=== PATIENT | female | born 1940 | race Caucasian/White ===

== ENCOUNTER → 2016-12-08 | Outpatient (CLI) | payer OTHER, MEDICARE ==
[~2016-12-08] MED LIST: ASPI-435 PO; BROM1SOL8 OPR; BSP5 PO; CLOP1TAB15 PO; CTP2 PO; CYM/60 PO; HYDR0.5T PO; LIDO2GEL9 TD; LOSA1TAB PO; MIRA1TAB3 PO; PRED1SUS3 OPR; RANI300T2 PO; SENNTAB23 PO; TOPI100T20 PO; ZCR20 PO
[2016-12-08 09:35] LABS: BASO ABS # 0.06 K/uL (0-0.2); COMPLETE YES; EOS % 3.4 %; HEMATOCRIT 41.9 % (37-47); IG% 0.2 %; MEAN CELL VOLUME 85.9 fL (80-100); MEAN CORPUSCULAR HEMOGLOBIN 26.6 pg (25-34); MEAN PLATELET VOLUME 9.7 fL (7.4-10.4); MONO % 6.3 %; NEUT % 60.1 %; PLATELET COUNT 214 K/uL (130-400); RED BLOOD COUNT 4.88 M/uL (4.2-5.4); WHITE BLOOD COUNT 6.21 K/uL (4.8-10.8)
[2016-12-08 09:59] LABS: ESTIMATED AVERAGE GLUCOSE 123 mg/dl; HA1C FLAG Normal (Normal)
[2016-12-08 10:21] LABS: ALT/SGPT 16 U/L (12-78); AST/SGOT 17 U/L (15-37); BLOOD UREA NITROGEN 14 mg/dl (7-18); BUN/CREATININE RATIO 9.5 (10-20); CARBON DIOXIDE 30 mmol/L (21-32); CHLORIDE 108 mmol/L (98-107); GLUCOSE 92 mg/dl (70-99); POTASSIUM 4.1 mmol/L (3.5-5.1); SODIUM 142 mmol/L (136-145)
[2016-12-08 10:27] LABS: RATIO 12.6 mcg/mg (0-30.0)
[2016-12-08 10:32] LABS: ALB/GLOB RATIO 0.9 (0.9-2); ALKALINE PHOSPHATASE 141 U/L (45-117); CHOLESTEROL 181 mg/dl (0-200); CHOLESTEROL/HDL RATIO 2.4; HDL CHOLESTEROL 77 mg/dl; LDL CHOLESTEROL CALCULATED 89 mg/dl; TRIGLYCERIDES 73 mg/dl (0-150); VERY LOW DENSITY LIPOPROT CALC 15 mg/dl
== END | disposition home or self-care (01) ==
LOC: C.LAB1850 08:30
PROVIDERS: ATTEND Nurse Practitioner Adult Health
DX: E11.9 Type 2 diabetes mellitus without complications (principal)

== ENCOUNTER → 2017-01-15 | Outpatient (CLI) | payer OTHER, MEDICARE ==
[2017-01-15 10:12] LABS: BASO % 0.5 %; BASO ABS # 0.03 K/uL (0-0.2); COMPLETE YES; EOS % 4.7 %; HEMATOCRIT 40.1 % (37-47); IG% 0.2 %; LYMPH % 25.6 %; LYMPH ABS # 1.53 K/uL (1.2-3.4); MEAN CELL VOLUME 87.7 fL (80-100); MEAN CORPUSCULAR HEMOGLOBIN 27.4 pg (25-34); MEAN CORPUSCULAR HGB CONC 31.2 g/dl (32-36); MEAN PLATELET VOLUME 10.5 fL (7.4-10.4); MONO % 6.9 %; NEUT % 62.1 %; PLATELET COUNT 184 K/uL (130-400); RED BLOOD COUNT 4.57 M/uL (4.2-5.4); WHITE BLOOD COUNT 5.98 K/uL (4.8-10.8)
[2017-01-15 11:04] LABS: BLOOD UREA NITROGEN 14 mg/dl (7-18); BUN/CREATININE RATIO 10.8 (10-20); CALCIUM 8.2 mg/dl (8.5-10.1); CARBON DIOXIDE 30 mmol/L (21-32); CHLORIDE 106 mmol/L (98-107); GLUCOSE 90 mg/dl (70-99); MAGNESIUM 2.3 mg/dl (1.8-2.4); PHOSPHORUS 3.4 mg/dl (2.5-4.9); POTASSIUM 4.5 mmol/L (3.5-5.1); SODIUM 143 mmol/L (136-145)
== END | disposition home or self-care (01) ==
LOC: C.LAB1850 09:13
PROVIDERS: ATTEND Internal Medicine Nephrology
DX: N18.3 Chronic kidney disease, stage 3 (moderate) (principal)

== ENCOUNTER → 2017-05-31 | Outpatient (CLI) | payer OTHER, MEDICARE ==
--- NOTE | 2017-06-01 13:43 | MAMMOGRAPHY REPORT ---
UNILATERAL LEFT DIGITAL SCREENING MAMMOGRAM TOMOSYNTHESIS WITH CAD: 05/31/2017 CLINICAL HISTORY: Asymptomatic. Personal history of breast cancer. TECHNIQUE: Breast tomosynthesis in addition to standard 2D mammography was performed. Current study was also evaluated with a Computer Aided Detection (CAD) system. COMPARISON: Comparison is made to exams dated: 01/20/2016 mammogram, 09/08/2014 mammogram, and 1 mammogram - [facility]. BREAST COMPOSITION: There are scattered areas of fibroglandular density in the left breast. FINDINGS: No suspicious masses, calcifications, or areas of architectural distortion are noted within the left breast. There has been no significant interval change compared to prior exams. Scattered benign-appearing calcifications are not significantly changed. IMPRESSION: ACR BI-RADS CATEGORY 2: BENIGN There is no mammographic evidence of malignancy in the left breast. A 1 year screening mammogram is r ecommended. The patient will receive written notification of the results. Approximately 10% of breast cancers are not detected with mammography. A negative mammographic report should not delay biopsy if a clinically suggestive mass is present. Alida Nieto M.D. /:05/31/2017 14:54:50 [employer] Machine Tender: Molly Hannon [facility] letter sent: Normal 1/2 BI-RADS Code: ACR BI-RADS Category 2: Benign
== END | disposition home or self-care (01) ==
LOC: C.MAMM 14:03
PROVIDERS: ATTEND Nurse Practitioner Adult Health
DX: Z12.31 Encounter for screening mammogram for malignant neoplasm of breast (principal); Z08 Encounter for follow-up examination after completed treatment for malignant neoplasm; Z85.3 Personal history of malignant neoplasm of breast

== ENCOUNTER → 2017-06-26 | Outpatient (CLI) | payer OTHER, MEDICARE ==
[2017-06-26 12:41] LABS: BLOOD UREA NITROGEN 14 mg/dl (7-18); BUN/CREATININE RATIO 10.1 (10-20); CALCIUM 8.8 mg/dl (8.5-10.1); CARBON DIOXIDE 28 mmol/L (21-32); CHLORIDE 103 mmol/L (98-107); CREATININE 1.41 mg/dl (0.60-1.20); GLUCOSE 96 mg/dl (70-99); MAGNESIUM 2.1 mg/dl (1.8-2.4); POTASSIUM 4.4 mmol/L (3.5-5.1); SODIUM 137 mmol/L (136-145)
[2017-06-26 12:42] LABS: PHOSPHORUS 3.2 mg/dl (2.5-4.9)
== END | disposition home or self-care (01) ==
LOC: C.LAB1850 09:59
PROVIDERS: ATTEND Internal Medicine Nephrology
DX: I10 Essential (primary) hypertension (principal)

== ENCOUNTER → 2017-07-18 | Outpatient (CLI) | payer OTHER, MEDICARE ==
--- NOTE | 2017-07-18 11:24 | DIAGNOSTIC IMAGING REPORT ---
L SHOULDER MIN 2 VIEWS ROUTINE HISTORY: 76 years-old Female M25.512 Pain in joint of left [id number] COMPARISON: Chest radiographs 08/23/2011 TECHNIQUE: 3 views of the left shoulder FINDINGS: Bones are moderately demineralized. 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 4 mm bone fragment on the superior margin of the glenohumeral joint suggests possible fragmented osteophyte. There is no acute fracture or dislocation. Imaged left clavicle appears intact. The soft tissues and left lung appear unremarkable. Atherosclerosis of the aorta. IMPRESSION: 1. No acute fracture or dislocation. 2. Moderately demineralized bones. 3. 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 The above report was generated using voice recognition software. It may contain grammatical, syntax or spelling errors. Electronically signed by: David Hamlin M.D. 07/18/2017 11:22 AM Dictated Date/Time: 07/18/2017 11:20 AM
== END | disposition home or self-care (01) ==
LOC: C.RAD1850 10:54
PROVIDERS: ATTEND Nurse Practitioner Adult Health
DX: M25.512 Pain in left shoulder (principal)

== ENCOUNTER → 2017-09-12 | Outpatient (CLI) | payer OTHER, MEDICARE ==
[2017-09-12 14:50] LABS: ALBUMIN 3.2 gm/dl (3.4-5.0); BLOOD UREA NITROGEN 12 mg/dl (7-18); CALCIUM 8.7 mg/dl (8.5-10.1); CARBON DIOXIDE 28 mmol/L (21-32); CREATININE 1.39 mg/dl (0.60-1.20); GLUCOSE 133 mg/dl (70-99); POTASSIUM 4.3 mmol/L (3.5-5.1); SODIUM 138 mmol/L (136-145)
[2017-09-12 14:51] LABS: PHOSPHORUS 3.1 mg/dl (2.5-4.9)
== END | disposition home or self-care (01) ==
LOC: C.LAB1850 13:23
PROVIDERS: ATTEND Internal Medicine Nephrology
DX: N18.3 Chronic kidney disease, stage 3 (moderate) (principal)

== ENCOUNTER → 2017-11-05 | Outpatient (CLI) | payer OTHER, MEDICARE | END | disposition home or self-care (01) | LOC: C.PATHSPEC 16:57 | PROVIDERS: ATTEND Urology | DX: N39.41 Urge incontinence (principal) ==

== ENCOUNTER → 2017-11-14 | Outpatient (CLI) | payer OTHER, MEDICARE ==
[2017-11-14 11:09] LABS: ALBUMIN 3.2 gm/dl (3.4-5.0); ALT/SGPT 17 U/L (12-78); AST/SGOT 20 U/L (15-37); BLOOD UREA NITROGEN 13 mg/dl (7-18); CARBON DIOXIDE 29 mmol/L (21-32); CREATININE 1.36 mg/dl (0.60-1.20); GLUCOSE 94 mg/dl (70-99); POTASSIUM 4.2 mmol/L (3.5-5.1); SODIUM 137 mmol/L (136-145)
[2017-11-14 11:11] LABS: ALKALINE PHOSPHATASE 139 U/L (45-117); TOTAL PROTEIN 7.4 gm/dl (6.4-8.2)
== END | disposition home or self-care (01) ==
LOC: C.LAB 09:36
PROVIDERS: ATTEND Urology
DX: N39.41 Urge incontinence (principal)

== ENCOUNTER → 2018-03-19 | Outpatient (CLI) | payer OTHER, MEDICARE ==
[~2018-03-19] MED LIST changes: +ACET-1256 PO; -BROM1SOL8 OPR; -BSP5 PO; +BUSP-8 PO; +CALC0.2510 PO; +CIPR1TAB10 PO; +CLON0.2T PO; -CTP2 PO; +HYDR-5688 PO; -HYDR0.5T PO; +HYDR200T5 PO; -LIDO2GEL9 TD; -LOSA1TAB PO; +LOSA1TAB38 PO; -PRED1SUS3 OPR; -TOPI100T20 PO; +VSC/5 PO
--- NOTE | 2018-03-19 14:46 | DIAGNOSTIC IMAGING REPORT ---
RENAL ULTRASOUND CLINICAL HISTORY: Nephrolithiasis. COMPARISON STUDY: CT of the abdomen and pelvis November 26, 2017. TECHNIQUE: Sonography of the kidneys and the urinary bladder was performed. FINDINGS: Exam is compromised by suboptimal penetration related to body habitus. The right kidney measures 9.8 cm and the left measures 9 cm. There is no hydronephrosis. No calculi are identified by sonography. Both ureteral jets were identified. There is moderate renal cortical thinning. IMPRESSION: 1. No hydronephrosis. 2. No urinary calculi identified although sensitivity diminished given suboptimal penetration. Electronically signed by: Salty Byers M.D. 03/19/2018 2:45 PM Dictated Date/Time: 03/19/2018 2:44 PM
== END | disposition home or self-care (01) ==
LOC: C.ULTR 13:32
PROVIDERS: ATTEND Urology
DX: N20.0 Calculus of kidney (principal)

== ENCOUNTER → 2018-03-25 | Outpatient (CLI) | payer OTHER, MEDICARE ==
--- NOTE | 2018-03-25 14:46 | DIAGNOSTIC IMAGING REPORT ---
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 FINDINGS: The soft tissues, psoas shadows, renal outlines and intestinal gas pattern appear normal. There is no evidence for bowel obstruction. No abnormal abdominal calcifications are seen. Several surgical clips are present within the soft tissue pelvis. Moderate degenerative change of the hips bilaterally. IMPRESSION: No acute process. The above report was generated using voice recognition software. It may contain grammatical, syntax or spelling errors. Electronically signed by: Juni Beard M.D. 03/25/2018 2:45 PM Dictated Date/Time: 03/25/2018 2:44 PM
[2018-03-25 16:00] LABS: ALBUMIN 3.3 gm/dl (3.4-5.0); BLOOD UREA NITROGEN 14 mg/dl (7-18); CALCIUM 8.6 mg/dl (8.5-10.1); CARBON DIOXIDE 26 mmol/L (21-32); CREATININE 1.53 mg/dl (0.60-1.20); GLUCOSE 90 mg/dl (70-99); PHOSPHORUS 3.3 mg/dl (2.5-4.9); POTASSIUM 4.7 mmol/L (3.5-5.1); SODIUM 134 mmol/L (136-145)
== END | disposition home or self-care (01) ==
LOC: C.RAD1850 14:17
PROVIDERS: ATTEND Internal Medicine Nephrology
DX: N20.0 Calculus of kidney (principal); N18.3 Chronic kidney disease, stage 3 (moderate)

== ENCOUNTER 2019-01-18 15:39 | Inpatient (IN) ==
[2019-01-18] MEDS ORDERED: SODIUM CHLORIDE 0.9% 1000ML 1,000 ML IV SCH ×2 (16:45→23:45)
[2019-01-18 16:58] LABS: Basophils # (auto) 0.03 K/uL (0-0.2); Basophils % (auto) 0.4 %; Eosinophils # (auto) 0.28 K/uL (0-0.5); Eosinophils % (auto) 3.8 %; Hematocrit (blood only) 39.8 % (37-47); Hemoglobin 13.3 g/dL (12.0-16.0); Immature Granulocytes # (auto) 0.01 K/uL (0.00-0.02); Immature Granulocytes % (auto) 0.1 %; Lymphocytes # (auto) 1.92 K/uL (1.2-3.4); Lymphocytes % (auto) 26.1 %; Mean Corpuscular Hgb Conc 33.4 g/dL (32-36); Mean Corpuscular Volume 82.2 fL (80-100); Mean Platelet Volume 8.9 fL (7.4-10.4); Monocytes # (auto) 0.75 K/uL (0.11-0.59); Monocytes % (auto) 10.2 %; Neutrophils # (auto) 4.38 K/uL (1.4-6.5); Neutrophils % (auto) 59.4 %; Platelet Count 196 K/uL (130-400); RDW Coefficient of Variation 13.7 % (11.5-14.5); RDW Standard Deviation 41.3 fL (36.4-46.3); Red Blood Count 4.84 M/uL (4.2-5.4); White Blood Count 7.37 K/uL (4.8-10.8)
--- NOTE | 2019-01-18 16:59 | XRay Report ---
XR chest 1V portable CLINICAL HISTORY: 78 years-old Female presenting with weakness. TECHNIQUE: Portable upright AP view of the chest was obtained. COMPARISON: 02/07/2018. FINDINGS: Atherosclerosis of the aortic arch. Cardiac silhouette top normal in size. No focal opacity. No large effusion or pneumothorax. Surgical clips project over the right axilla. Relative radiolucency of the right lung may relate to postsurgical changes of the right breast. Degenerative changes of the thora cic spine. Degenerative changes of the shoulders. Upper abdomen normal. IMPRESSION: 1. No acute cardiopulmonary disease. Electronically signed by: Malcom Silvestre M.D. 01/18/2019 4:58 PM
[2019-01-18 17:23] LABS: Alanine Aminotransferase 14 U/L (12-78); Albumin Level 3.2 gm/dl (3.4-5.0); Aspartate Aminotransferase 14 U/L (15-37); BUN Creatinine Ratio 10.2 (10-20); Blood Urea Nitrogen 19 mg/dl (7-18); Carbon Dioxide 30 mmol/L (21-32); Chloride 102 mmol/L (98-107); Creatinine Clr Calc Pharmacy 27.4 ml/min; Est GFR (African American) 29.2; Est GFR (Non-African American) 25.2; Glucose 87 mg/dl (70-99); Magnesium 2.2 mg/dl (1.8-2.4); Potassium 4.3 mmol/L (3.5-5.1); Sodium 136 mmol/L (136-145)
[2019-01-18 17:34] LABS: Albumin Globulin Ratio 0.8 (0.9-2); Alkaline Phosphatase 111 U/L (45-117); Bilirubin,Total 0.5 mg/dl (0.2-1); Total Protein 7.2 gm/dl (6.4-8.2); Troponin I < 0.015 ng/ml (0-0.045)
--- NOTE | 2019-01-18 18:04 | Magnetic Resonance Report ---
MR brain wo con CLINICAL HISTORY: 78 years-old Female presenting with arm and leg numbness, hx of TIA, headache for 2 months, bilateral tingling and numbness in the arms and legs. TECHNIQUE: Multisequence, multiplanar MR imaging of the brain was performed without the use of intrav enous contrast. IV contrast: None. COMPARISON: Contrast-enhanced brain MR from 2014. FINDINGS: Localizer images: Unremarkable. Normal midline sagittal structures. Proportional ventricular and sulcal prominence, likely age-relate d parenchymal volume loss. Incidental note made of cavum septi pellucidi. No restricted diffusion or hemorrhage. Periventricular and subcortical white matter T2/FLAIR hyperintensity, nonspecific but lik camryn indicative of chronic small vessel ischemic change. No mass effect or midline shift. No extra-axial fluid collection. T2 skull base flow voids preserved. Bone marrow signal intensity within the calvarium within normal limits. Mucosal thickening in paranas al sinuses, specifically in the left maxillary sinus and left frontal sinus. Restricted diffusion not ed in these regions. Thickening of the left max or sinus wall suggests chronicity. IMPRESSION: 1. No acute intracranial abnormality. 2. Chronic sinusitis of the left maxillary and left frontal sinuses with suspected superimposed acut e sinusitis. Electronically signed by: Malcom Silvestre M.D. 01/18/2019 6:03 PM
--- NOTE | 2019-01-18 18:45 | Magnetic Resonance Report ---
MR cervical spine wo con CLINICAL HISTORY: 78 years-old Female presenting with arm and leg numbness, neck pain. TECHNIQUE: Multisequence, multiplanar MR imaging of the cervical spine was performed without the use of intravenous contrast. IV contrast: None. COMPARISON: Cervical spine radiographs from 2014. FINDINGS: Localizer images: Unremarkable. Exaggerated thoracic kyphosis leading to slightly exaggerated cervical lordosis. Vertebral bodies kiera ntain normal height, alignment, and bone marrow signal intensity. Diffuse intervertebral disc desicca tion. Additional multilevel degenerative changes further detailed below: C2-3: Mild facet arthropathy and uncovertebral hypertrophy results in mild right neural foraminal nuno rowing. No significant spinal canal narrowing. C3-4: Disc osteophyte complex and uncovertebral hypertrophy results in mild effacement of the ventral thecal sac with minimal contouring deformity of the cord and mild right neural foraminal narrowing. C4-5: Disc osteophyte complex, facet arthropathy, ligamentum flavum thickening, and uncovertebral hyp ertrophy result in moderate effacement of both the ventral and dorsal thecal sac with flattening of t he spinal cord. No abnormal spinal cord signal at this level. Moderate to severe right and moderate l eft neural foraminal narrowing. C5-6: Vertebral disc height loss at C5-6 related to the presence of a disc osteophyte complex. There is partial osseous fusion across C5-6 along the right lateral margin. Disc osteophyte complex results in moderate to severe effacement of the ventral thecal sac with trace if any residual CSF. There is flattening of the spinal cord at this level. No gross evidence of abnormal signal intensity of the sp inal cord at this level or immediately above or below. There may be atrophy of the cord at C5-6. C6-7: A lesser degree of spinal canal effacement is noted at C6-7 secondary to mild disc bulge and fa cet arthropathy. Moderate stenosis both anteriorly and posteriorly with residual CSF and only mild co ntouring deformities of the cord. Spinal cord flattening and deformity is as mentioned above. Additionally, there is focal signal abnor mality within the spinal cord at the level of C2, which is located centrally and dorsally. No additio nal focal lesion is appreciated. No paraspinal muscle edema. No gross evidence of an epidural collect ion. Increased signal intensity within the regi may relate to small vessel change. Remaining visualiz ed soft tissues within normal limits. IMPRESSION: 1. Moderate to severe spinal canal stenosis from C4-5 through C6-7. Spinal cord impingement is sugge sted at C5-6 with possible myelomalacia. No convincing evidence of spinal cord edema. Correlate clini colt for impingement symptoms. 2. Multilevel neural foraminal narrowing as above. 3. Focal abnormal signal intensity within the spinal cord at C2. This may represent a focal lesion o r short segment dilation of the central canal. Correlate with the patient has an underlying demyelina ting disease. Attention on follow-up. The report will be called/faxed according to standard departmental protocol. Electronically signed by: Malcom Silvestre M.D. 01/18/2019 6:44 PM
[2019-01-18 19:00] LABS: Appearance Urine Clear (Clear); Bacteria Urine Automated 2+ (Negative); Bilirubin Urine Negative (Negative); Blood Urine Negative (Negative); Color Urine Yellow; Epithelial Cell Urine Auto >30 /lpf (0-5); Glucose Urine UA Negative (Negative); Ketones Urine Negative (Negative); Leukocyte Esterase Urine 1+ (Negative); Nitrite Urine Negative (Negative); Protein Urine Negative (Negative); RBC Urine Automated 0-4 /hpf (0-4); Specific Gravity Urine 1.016 (1.000-1.030); Urobilinogen Urine Negative (Negative)
[2019-01-18] MEDS ORDERED: ACETAMINOPHEN 500 MG TAB PO STA (19:17)
[2019-01-18] MEDS ORDERED: DEXAMETHASONE **PF** INJ 10 MG/ML VIAL IV ONE (19:25)
[2019-01-18 21:04] LABS: Lyme Ab IgG w/WB Rflx Negative (Negative); Lyme Ab IgM w/WB Rflx Negative (Negative)
--- NOTE | 2019-01-18 22:51 | History & Physical Report ---
Date of Service January 18, 2019 Assessment & Plan (1) Cord compression myelopathy: Patient with numbness/tingling of bilateral UE and LE, MRI with canal stenosis with spinal cord impingement at C5-C6 with possible myelomalacia. No cord edema. Focal abnormal signal intensity at C2 - ?dilation of central canal. Patient describes subjective fevers, chills, aches and fatigue as well as transient blurry vision and pain with eye movement. ?demyelinating disease? Would not feel comfortable obtaining CSF in setting of acute cord impingement - may possibly be obtained intraoperatively? MRI brain WNL. -Admit to medical floor -Dexamethasone 10mg IV administered in ER, will continue with 8mg IV q 8 hours -Neuro checks q 4 hours -Consult Orthopedic Surgery - appreciate assistance with this case -Hold ASA and Plavix Present on Admission?: Yes (2) Spinal stenosis: As above -Orthopedic surgery consulted, possible OR on Sunday Present on Admission?: Yes (3) Diabetes: HgAIC=6.2 on 12/04/18. Patient presenlty not on any medications for DM. Blood sugar=87. She will be receiving high dose IV steroids -Blood sugar checks -Lantus 10u BID -ISS -CC diet as tolerated Present on Admission?: Yes (4) Hypertension: Blood pressure presently 152/65 -Continue Clonidine -Continue Losartan Present on Admission?: Yes (5) Dyslipidemia: Chronic -Continue Simvastatin Present on Admission?: Yes (6) Depression: Chronic -Continue Buspirone 10mg po BID -Continue Duloxetine 60mg po daily (7) Secondary hyperparathyroidism: Chronic -Continue Calcitriol 0.5mcg po daily (8) History of TIAs: Chronic -Holding ASA and Plavix due to need for surgery -Continue Simvastatin (9) Polyarthritis: Chronic. Stable -Continue Hydroxychloroquine (10) Urge incontinence: Chronic. Stable -Continue Myrbetriq and Solifenacin (11) CKD (chronic kidney disease): BUN and Cr near baseline. He follows with Nephrology routinely. Has history of staghorn calculi -Monitor BUN, Cr, electroytes and UOP -Renal dosing where appropriate -Avoid nephrotoxic agents F/E/N - NSS at 80mL/hr x 1 L, monitor electrolytes, CC diet as tolerated, continue colace at home dose Ppx - Cotinue Ranitidine Code - Full Dispo - Admit to medical floor History of Present Illness Chief Complaint: numbness/tingling arms and legs Primary Care Provider: Marlys Gil MD Madison Jacob is a pleasant 78yo C female with history of DM, HTN, HLP, spinal stenosis presenting with numbness, tingling and subjective weakness of bilateral UE and LE. Symptoms began acutely last night, 01/17/19. Patient also with complaint of fatigue over the last few days, subjective fevers/chills. She had transient blurry vision this AM when she woke up which has since resolved entirely. Also pain with eye movement. Denies trauma, falls. No recent travel, medication changes or vaccinations. She has had some mild URI symptoms of late. MRI obtained in the ER with C5-C7 ER Course: Tylenol, Dexamethasone 10mg IV, NSS Allergies Allergy/AdvReac Type Severity Reaction Status Date / Time HO Inhibitors Allergy Unknown ITCHING Verified 01/18/19 16:16 oxycodone AdvReac Mild CAUSES BE Verified 01/18/19 16:16 JITTERINESS & CAN'T EAT. ALSO CAUSES RLS SYMPTOMS Home Medications Home Medications Medication Instructions Recorded Confirmed Type aspirin 81 mg PO DAILY 01/18/19 01/18/19 History buspirone 10 mg PO BID 01/18/19 01/18/19 History calcitriol 0.5 mcg PO DAILY 01/18/19 01/18/19 History clonidine HCl 0.2 mg PO BID 01/18/19 01/18/19 History clopidogrel 75 mg PO DAILY 01/18/19 01/18/19 History docusate sodium 500 mg PO HS 01/18/19 01/18/19 History duloxetine 60 mg PO DAILY 01/18/19 01/18/19 History hydroxychloroquine 200 mg PO BID 01/18/19 01/18/19 History losartan 100 mg PO DAILY 01/18/19 01/18/19 History mirabegron [Myrbetriq] 50 mg PO DAILY 01/18/19 01/18/19 History ranitidine HCl 300 mg PO HS 01/18/19 01/18/19 History simvastatin 20 mg PO DAILY 01/18/19 01/18/19 History solifenacin 5 mg PO DAILY 01/18/19 01/18/19 History Past Med/Surg History Medical History History of TIAs (Chronic) Breast cancer (Chronic) Diabetes (Chronic) CKD (chronic kidney disease) Depression Dyslipidemia GERD (gastroesophageal reflux disease) History of hysterectomy Hypertension Hypothyroid Surgical History History of bilateral knee replacement History of mastectomy Family History Other Coronary heart disease Diabetes Social History Preferred Language: Bengali Feels Safe at Home: Yes Smoking Status: Never smoker Hx Alcohol Use: No Hx Substance Use: No Review of Systems Review of Systems: All systems reviewed & are unremarkable except as noted in HPI & below Physical Exam Physical Exam: General: elderly patient resting comfortably, NAD, non-toxic in appearance, AA&O x 4 Skin: warm, dry, intact, no rashes or lesions, scattered bruises on RLE and UE bilaterally HEENT: NC/AT, PERRL, EOMI, anicteric sclera, conjunctiva without injection, external ear normal to inspection and nontender, nares patent, moist mucus membranes, dentition intact, no oropharyngeal lesions, neck supple, trachea midline, no LAD, no thyromegaly, no JVD Heart: +S1/S2, regular, no r/g, +IGNACIO across precordium, surgical absence of right breast Lungs: equal air entry bilaterally, no rales/rhonchi/wheezes Abd: +BS, soft, NT/ND, no masses/organomegaly/ascites Ext: warm, 2+ pulses in UE/LE bilaterally, no clubbing/cyanosis or edema Neuro: AA&O x 4, no facial droop, speech clear, CN II - XII grossly intact with exception of decreased heartin R > L and mildly diminished strength right SCM, sensation to light touch diminished in UE and LE bilaterally, intact on torso, strength 5/5 in UE/LE bilaterally Results & Data Vital Signs (Past 12 Hours) Vital Signs Temp Pulse Pulse Resp BP BP Pulse Ox 01/18/19 22:25 72 20 161/76 H 94 01/18/19 20:20 66 23 152/65 H 01/18/19 19:43 68 22 99 01/18/19 18:47 61 18 95 01/18/19 15:59 66 20 151/55 H 98 01/18/19 15:40 37 C 69 18 183/75 H 98 Laboratory Results Lab Results 01/18/19 01/18/19 01/18/19 Range/Units 16:46 16:46 18:45 WBC 7.37 (4.8-10.8) K/uL RBC 4.84 (4.2-5.4) M/uL Hgb 13.3 (12.0-16.0) g/dL Hct 39.8 (37-47) % MCV 82.2 (80-100) fL MCH 27.5 (25-34) pg MCHC 33.4 (32-36) g/dL RDW Std Deviation 41.3 (36.4-46.3) fL RDW Coeff of [place] 13.7 (11.5-14.5) % Plt Count 196 (130-400) K/uL MPV 8.9 (7.4-10.4) fL Immature Gran % (Auto) 0.1 % Neut % (Auto) 59.4 % Lymph % (Auto) 26.1 % [place] % (Auto) 10.2 % Eos % (Auto) 3.8 % Baso % (Auto) 0.4 % Immature Gran # (Auto) 0.01 (0.00-0.02) K/uL Neut # (Auto) 4.38 (1.4-6.5) K/uL Lymph # (Auto) 1.92 (1.2-3.4) K/uL [place] # (Auto) 0.75 H (0.11-0.59) K/uL Eos # (Auto) 0.28 (0-0.5) K/uL Baso # (Auto) 0.03 (0-0.2) K/uL Sodium 136 (136-145) mmol/L Potassium 4.3 (3.5-5.1) mmol/L Chloride 102 (98-107) mmol/L Carbon Dioxide 30 (21-32) mmol/L Anion Gap 4.0 (3-11) BUN 19 H (7-18) mg/dl Creatinine 1.90 H (0.6-1.2) mg/dl Est Cr Clr Drug Dosing 27.4 ml/min Est GFR ( Amer) 29.2 Est GFR (Non-Af Amer) 25.2 BUN/Creatinine Ratio 10.2 (10-20) Glucose 87 (70-99) mg/dl Calcium 9.0 (8.5-10.1) mg/dl Magnesium 2.2 (1.8-2.4) mg/dl Total Bilirubin 0.5 (0.2-1) mg/dl AST 14 L (15-37) U/L ALT 14 (12-78) U/L Alkaline Phosphatase 111 (45-117) U/L Troponin I < 0.015 (0-0.045) ng/ml Total Protein 7.2 (6.4-8.2) gm/dl Albumin 3.2 L (3.4-5.0) gm/dl Globulin 4.0 (2.5-4.0) gm/dl Albumin/Globulin Ratio 0.8 L (0.9-2) TSH 4.040 (0.300-4.500) uIu/ml Urine Color Yellow Urine Appearance Clear (Clear) Urine pH 7.0 (4.5-7.5) Ur Specific [place] 1.016 (1.000-1.030) Urine Protein Negative (Negative) Urine Glucose (UA) Negative (Negative) Urine Ketones Negative (Negative) Urine Blood Negative (Negative) Urine Nitrite Negative (Negative) Urine Bilirubin Negative (Negative) Urine Urobilinogen Negative (Negative) Ur Leukocyte Esterase 1+ H (Negative) Urine WBC (Auto) 5-10 H (0-5) /hpf Urine RBC (Auto) 0-4 (0-4) /hpf U Hyaline Cast (Auto) 1-5 (0-5) /lpf U Epithel Cells (Auto) >30 H (0-5) /lpf Urine Bacteria (Auto) 2+ H (Negative) Lyme Disease IgG Ab (Negative) Lyme Disease IgM Ab (Negative) 01/18/19 Range/Units 19:40 WBC (4.8-10.8) K/uL RBC (4.2-5.4) M/uL Hgb (12.0-16.0) g/dL Hct (37-47) % MCV (80-100) fL MCH (25-34) pg MCHC (32-36) g/dL RDW Std Deviation (36.4-46.3) fL RDW Coeff of [place] (11.5-14.5) % Plt Count (130-400) K/uL MPV (7.4-10.4) fL Immature Gran % (Auto) % Neut % (Auto) % Lymph % (Auto) % [place] % (Auto) % Eos % (Auto) % Baso % (Auto) % Immature Gran # (Auto) (0.00-0.02) K/uL Neut # (Auto) (1.4-6.5) K/uL Lymph # (Auto) (1.2-3.4) K/uL [place] # (Auto) (0.11-0.59) K/uL Eos # (Auto) (0-0.5) K/uL Baso # (Auto) (0-0.2) K/uL Sodium (136-145) mmol/L Potassium (3.5-5.1) mmol/L Chloride (98-107) mmol/L Carbon Dioxide (21-32) mmol/L Anion Gap (3-11) BUN (7-18) mg/dl Creatinine (0.6-1.2) mg/dl Est Cr Clr Drug Dosing ml/min Est GFR ( Amer) Est GFR (Non-Af Amer) BUN/Creatinine Ratio (10-20) Glucose (70-99) mg/dl Calcium (8.5-10.1) mg/dl Magnesium (1.8-2.4) mg/dl Total Bilirubin (0.2-1) mg/dl AST (15-37) U/L ALT (12-78) U/L Alkaline Phosphatase (45-117) U/L Troponin I (0-0.045) ng/ml Total Protein (6.4-8.2) gm/dl Albumin (3.4-5.0) gm/dl Globulin (2.5-4.0) gm/dl Albumin/Globulin Ratio (0.9-2) TSH (0.300-4.500) uIu/ml Urine Color Urine Appearance (Clear) Urine pH (4.5-7.5) Ur Specific [place] (1.000-1.030) Urine Protein (Negative) Urine Glucose (UA) (Negative) Urine Ketones (Negative) Urine Blood (Negative) Urine Nitrite (Negative) Urine Bilirubin (Negative) Urine Urobilinogen (Negative) Ur Leukocyte Esterase (Negative) Urine WBC (Auto) (0-5) /hpf Urine RBC (Auto) (0-4) /hpf U Hyaline Cast (Auto) (0-5) /lpf U Epithel Cells (Auto) (0-5) /lpf Urine Bacteria (Auto) (Negative) Lyme Disease IgG Ab Negative (Negative) Lyme Disease IgM Ab Negative (Negative) Diagnostic Findings XR chest 1V portable CLINICAL HISTORY: 78 years-old Female presenting with weakness. TECHNIQUE: Portable upright AP view of the chest was obtained. COMPARISON: 02/07/2018. FINDINGS: Atherosclerosis of the aortic arch. Cardiac silhouette top normal in size. No focal opacity. No large effusion or pneumothorax. Surgical clips project over the right axilla. Relative radiolucency of the right lung may relate to postsurgical changes of the right breast. Degenerative changes of the thoracic spine. Degenerative changes of the shoulders. Upper abdomen normal. IMPRESSION: 1. No acute cardiopulmonary disease. Electronically signed by: Malcom Silvestre M.D. 01/18/2019 4:58 PM Dictated: 01/18/[id number] Transcribed: 01/18/191656 MR cervical spine wo con CLINICAL HISTORY: 78 years-old Female presenting with arm and leg numbness, neck pain. TECHNIQUE: Multisequence, multiplanar MR imaging of the cervical spine was performed without the use of intravenous contrast. IV contrast: None. COMPARISON: Cervical spine radiographs from 2013. FINDINGS: Localizer images: Unremarkable. Exaggerated thoracic kyphosis leading to slightly exaggerated cervical lordosis. Vertebral bodies maintain normal height, alignment, and bone marrow signal intensity. Diffuse intervertebral disc desiccation. Additional multilevel degenerative changes further detailed below: C2-3: Mild facet arthropathy and uncovertebral hypertrophy results in mild right neural foraminal narrowing. No significant spinal canal narrowing. C3-4: Disc osteophyte complex and uncovertebral hypertrophy results in mild effacement of the ventral thecal sac with minimal contouring deformity of the cord and mild right neural foraminal narrowing. C4-5: Disc osteophyte complex, facet arthropathy, ligamentum flavum thickening, and uncovertebral hypertrophy result in moderate effacement of both the ventral and dorsal thecal sac with flattening of the spinal cord. No abnormal spinal cord signal at this level. Moderate to severe right and moderate left neural foraminal narrowing. C5-6: Vertebral disc height loss at C5-6 related to the presence of a disc osteophyte complex. There is partial osseous fusion across C5-6 along the right lateral margin. Disc osteophyte complex results in moderate to severe effacement of the ventral thecal sac with trace if any residual CSF. There is flattening of the spinal cord at this level. No gross evidence of abnormal signal intensity of the spinal cord at this level or immediately above or below. There may be atrophy of the cord at C5-6. C6-7: A lesser degree of spinal canal effacement is noted at C6-7 secondary to mild disc bulge and facet arthropathy. Moderate stenosis both anteriorly and posteriorly with residual CSF and only mild contouring deformities of the cord. Spinal cord flattening and deformity is as mentioned above. Additionally, there is focal signal abnormality within the spinal cord at the level of C2, which is located centrally and dorsally. No additional focal lesion is appreciated. No paraspinal muscle edema. No gross evidence of an epidural collection. Increased signal intensity within the regi may relate to small vessel change. Remaining visualized soft tissues within normal limits. IMPRESSION: 1. Moderate to severe spinal canal stenosis from C4-5 through C6-7. Spinal cord impingement is suggested at C5-6 with possible myelomalacia. No convincing evidence of spinal cord edema. Correlate clinically for impingement symptoms. 2. Multilevel neural foraminal narrowing as above. 3. Focal abnormal signal intensity within the spinal cord at C2. This may represent a focal lesion or short segment dilation of the central canal. Correlate with the patient has an underlying demyelinating disease. Attention on follow-up. The report will be called/faxed according to standard departmental protocol. Electronically signed by: Malcom Silvestre M.D. 01/18/2019 6:44 PM Dictated: 01/[id number] Transcribed: 01/18/191835 MR brain wo con CLINICAL HISTORY: 78 years-old Female presenting with arm and leg numbness, hx of TIA, headache for 2 months, bilateral tingling and numbness in the arms and legs. TECHNIQUE: Multisequence, multiplanar MR imaging of the brain was performed without the use of intravenous contrast. IV contrast: None. COMPARISON: Contrast-enhanced brain MR from 2014. FINDINGS: Localizer images: Unremarkable. Normal midline sagittal structures. Proportional ventricular and sulcal prominence, likely age-related parenchymal volume loss. Incidental note made of cavum septi pellucidi. No restricted diffusion or hemorrhage. Periventricular and subcortical white matter T2/FLAIR hyperintensity, nonspecific but likely indicative of chronic small vessel ischemic change. No mass effect or midline shift. No extra-axial fluid collection. T2 skull base flow voids preserved. Bone marrow signal intensity within the calvarium within normal limits. Mucosal thickening in paranasal sinuses, specifically in the left maxillary sinus and left frontal sinus. Restricted diffusion noted in these regions. Thickening of the left max or sinus wall suggests chronicity. IMPRESSION: 1. No acute intracranial abnormality. 2. Chronic sinusitis of the left maxillary and left frontal sinuses with suspected superimposed acute sinusitis. Electronically signed by: Malcom Silvestre M.D. 01/18/2019 6:03 PM Dictated: [id number] Transcribed: 01/18/191758 ECG Additional Comments: The study shows NSR at 66bpm, left axis deviation, DP=146, QRS=88, LDd=190, no acute ischemic changes Code Status & VTE Plan Code Status FULL VTE Prophylaxis Plan Reason for no VTE drug order: Treatment not indicated Reason for no VTE mechanical prophylaxis: Treatment not indicated (1) Spinal stenosis Spinal region: cervical Qualified Code(s): M48.02 - Spinal stenosis, cervical region (2) Diabetes Diabetes mellitus type: type 2 Diabetes mellitus senior living insulin use: without bed bug exterminator use Diabetes mellitus complication status: without complication Qualified Code(s): E11.9 - Type 2 diabetes mellitus without complications (3) Hypertension Hypertension type: essential hypertension Qualified Code(s): I10 - Essential (primary) hypertension (4) Depression Depression Type: unspecified Qualified Code(s): F32.9 - Major depressive disorder, single episode, unspecified (5) CKD (chronic kidney disease) Chronic kidney disease stage: stage 2 (mild) Qualified Code(s): N18.2 - Chronic kidney disease, stage 2 (mild)
[2019-01-18] MEDS ORDERED: ONDANSETRON INJ 2 MG/ML 2 ML VIAL IV PRN (23:36)
[2019-01-18] MEDS ORDERED: GLUCAGON FOR INJ 1 MG VIAL SQ PRN (23:36)
[2019-01-18] MEDS ORDERED: GLUCOSE 10 TABS/TUBE PO PRN (23:36)
[2019-01-18] MEDS ORDERED: SODIUM CHLORIDE 0.65% NA SOLN 45 ML (OCEAN) PRN (23:36)
[2019-01-18] MEDS ORDERED: ACETAMINOPHEN 325 MG TAB PO PRN (23:36)
[2019-01-18] MEDS ORDERED: DEXTROSE 50% 50 ML SYRINGE IV PRN (23:36)
--- NOTE | 2019-01-19 01:17 | Emergency Department Note ---
Entered by Maddie Soto acting as a scribe for Kamaljit Salter MD ED Provider Note CHIEF COMPLAINT: constant bilateral arm and leg numbness HISTORY OF PRESENT ILLNESS: The patient is a 78 year old F who presents to the Emergency Room with complaints of constant bilateral arm and leg numbness that started 1 day ago. She adds that the numbness started last night. She describes her pain as pins and needles. She notes that the last time she experienced this numbness was when she had her previous TIA. She adds that that this numbness is different because during her last TIA, her numbness was only on one side. She notes that she has had 3 TIAs in the past. She states that she is currently experiencing left-sided neck stiffness that started earlier today when she laid down on her couch. She currently rates her neck pain as 4 out of 10. She states that she is also currently experiencing intermittent headaches, tongue numbness, abdominal pain, and light-headedness. She adds that her abdominal pain started after she had surgery to remove a kidney stone. She notes that her light-headedness is worsened when getting up. She states that she is currently on the blood thinning medication, Plavix. She denies any recent medication changes, having a pacemaker, or implanted metal. She also denies any recent falls. A review of the patients medical records shows that the patient had a brain MRI done in [address] Ji Bettencourt due to left-sided numbness after a TIA. The patients brain MRI was normal. Pt denies LOC, fevers, chills, diaphoresis, syncope, visual changes, chest pain, breathing difficulties, nausea, vomiting, back pain, melena, hematochezia, urinary symptoms, facial numbness, weakness, ringing in ears, lymphadenopathy, rash, or other complaints. REVIEW OF SYSTEMS: See HPI for pertinent positives and negatives. A total of ten systems were reviewed and were otherwise negative. PMHx/PSHx: TIAs, diabetes, bilateral total knee arthroplasty, breast cancer SOCIAL HISTORY: Patient lives at home. PHYSICAL EXAM: GENERAL: Awake, alert, well appearing, no distress HENT: Normocephalic, atraumatic. TM's normal. Oropharynx unremarkable. EYES: PERRL. EOMI. Normal conjunctiva. Sclera non-icteric. NECK: Supple. No nuchal rigidity. FROM. No bruit. RESPIRATORY: Breath sounds equal. No wheezes. No rhonchi. Normal respiratory effort. CARDIAC: Normal rate. Regular rhythm. No murmurs. No rubs. No JVD. GI: Soft, non distended. No tenderness to palpation. No rebound or guarding. No masses. RECTAL: Deferred. MUSCULOSKELETAL: Unremarkable. No edema. No discoloration. Gross motor strength symmetric. NEURO: Cranial nerves 2-12 grossly intact. Normal sensorium. No sensory or motor deficits noted except subjective tingling in arms and legs. Speech normal. No pronator drift. Normal OJNNA. No drift. Normal heel to dorsey. SKIN: No rash or jaundice noted. LYMPH: No adenopathy. EMERGENCY DEPARTMENT COURSE: 1625: Past medical records reviewed. The patient was evaluated in room A2, and a complete history and physical examination were performed. 1651: I re-checked the patient. She is resting comfortably. The patient is getting an MRI questionnaire done. The patient has an IV in place. 1912: I updated the patient on her test results. I will consult with neurology for the patient. 1919: I reviewed the patient's case with Dr. Kenny. He recommends giving the patient IV steroids, doing a lyme check, and consult ortho spine. 1927: Paged ortho spine. 1929: I re-checked the patient. 1945: I reviewed the patient's case with Dr. Padron, ortho spine. He states that the patient should be put on IV steroids. He states that the patient should be brought into the ED for 8 mg of decadron every 8 hours. He states that he will consult with the patient tomorrow. He adds that the patient's Plavix needs to be held because the patient might need surgical intervention. 1950: I reviewed the patient's case with Dr. Aracelis Proctor, [facility] Hospitalist. She will evaluate the patient for further management. 1953: I updated the patient on the plan. MEDICAL DECISION MAKING: Prior records/ancillary studies reviewed. Patient was diagnosed with TIAs in 2013. MR imaging negative. Nursing notes reviewed and agree them. Additional history obtained from family. The patient's history was concerning for numbness and neck pain. Differential diagnosis: Etiologies such as CVA, TIA, herniated cervical disc, epidural abscess, metabolic, infection, hypo/hyperglycemia, electrolyte abnormalities, cardiac sources, intracerebral event, toxicologic, neurologic, as well as others were entertained. Physical examination: As above. ER treatment provided: IV Lock Saline hydration Oral Tylenol IV Decadron On reassessment the patient felt better. Diagnostics interpretation by me: ECG: No acute findings. The labs revealed unremarkable CBC and chemistry panel. Slight increase in creatinine but not grossly abnormal. Imaging studies: MR imaging of the brain and cervical spine were significant for cervical pathology. Please see the report. Significant stenosis with cord impingement Consultation: A consultation was placed with Dr. Burden of neurology. The case was discussed. He agreed with steroids and recommended orthopedic spine consultation. A consultation was placed with Dr. Padron of orthopedic spine and he recommended IV Decadron 8 mg every 8 hours. The patient's Plavix should be held. She will likely need surgical decompression. He asked for the hospitalist to admit the patient. A consultation was placed with the hospitalist, Dr. Proctor. The case was discussed and diagnostics were reviewed. The patient was evaluated in the ER for further treatment. IMPRESSION: Severe spinal stenosis, cervical cord impingement, neck pain, extremity numbness PLAN: The patient is being admitted to the hospital. The scribe's documentation has been prepared under my direction and personally reviewed by me in its entirety. I confirm that the note above accurately reflects all work, treatment, procedures, and medical decision making performed by me. Impression & Plan Spinal stenosis, Cervical nerve root impingement, Neck pain Past Med/Surg History Medical History History of TIAs (Chronic) Breast cancer (Chronic) Diabetes (Chronic) CKD (chronic kidney disease) Depression Dyslipidemia GERD (gastroesophageal reflux disease) History of hysterectomy Hypertension Hypothyroid Surgical History History of bilateral knee replacement History of mastectomy Family History Other Coronary heart disease Diabetes Social History Preferred Language: Tajik Communication Ability: Effective Nurse Clinician Required: No Beliefs That Will Affect Care: None Current Living Situation: Family Current Living Situation Comment: 2 sons Feels Safe at Home: Yes Safety Concerns: Feels Safe At This Time Smoking Status: Never smoker Hx Alcohol Use: No Hx Substance Use: No Results & Data Vital Signs Vital Signs - 24 hr 01/18/19 15:40 01/18/19 15:59 01/18/19 18:38 Temperature 37 C Temperature Source Oral Sepsis Recent Fever Within 48 Hours No Sepsis Action Taken by Nursing No Action Required Pulse Rate - Lying 69 Pulse Rate - Sitting 80 Pulse Rate - Standing 78 Pulse Rate 69 Pulse Rate [Finger] 66 Respiratory Rate 18 20 Respiratory Effort / Characteristics Non-Labored Spontaneous Respiratory Depth Normal Respiratory Pattern Regular Blood Pressure - Lying 159/77 H Blood Pressure - Sitting 149/78 H Blood Pressure- Standing 145/71 H Blood Pressure 183/75 H Blood Pressure [Right Arm] 151/55 H Blood Pressure Mean 111 Blood Pressure Mean [Right Arm] 87 Pulse Oximetry 98 98 Oxygen Delivery Method Room Air Room Air 01/18/19 18:47 01/18/19 19:43 01/18/19 20:20 Temperature Temperature Source Sepsis Recent Fever Within 48 Hours Sepsis Action Taken by Nursing Pulse Rate - Lying Pulse Rate - Sitting Pulse Rate - Standing Pulse Rate Pulse Rate [Finger] 61 68 66 Respiratory Rate 18 22 23 Respiratory Effort / Characteristics Respiratory Depth Respiratory Pattern Blood Pressure - Lying Blood Pressure - Sitting Blood Pressure- Standing Blood Pressure Blood Pressure [Right Arm] 152/65 H Blood Pressure Mean Blood Pressure Mean [Right Arm] 94 Pulse Oximetry 95 99 Oxygen Delivery Method Room Air Room Air Room Air Home Medications Current Medication List: was personally reviewed by me Laboratory Data Attestation: I reviewed the patient's lab results. Result diagrams: 01/18/19 16:46 01/18/19 16:46 Lab Results 01/18/19 01/18/19 01/18/19 Range/Units 16:46 16:46 18:45 WBC 7.37 (4.8-10.8) K/uL RBC 4.84 (4.2-5.4) M/uL Hgb 13.3 (12.0-16.0) g/dL Hct 39.8 (37-47) % MCV 82.2 (80-100) fL MCH 27.5 (25-34) pg MCHC 33.4 (32-36) g/dL RDW Std Deviation 41.3 (36.4-46.3) fL RDW Coeff of [place] 13.7 (11.5-14.5) % Plt Count 196 (130-400) K/uL MPV 8.9 (7.4-10.4) fL Immature Gran % (Auto) 0.1 % Neut % (Auto) 59.4 % Lymph % (Auto) 26.1 % Ralls % (Auto) 10.2 % Eos % (Auto) 3.8 % Baso % (Auto) 0.4 % Immature Gran # (Auto) 0.01 (0.00-0.02) K/uL Neut # (Auto) 4.38 (1.4-6.5) K/uL Lymph # (Auto) 1.92 (1.2-3.4) K/uL Ralls # (Auto) 0.75 H (0.11-0.59) K/uL Eos # (Auto) 0.28 (0-0.5) K/uL Baso # (Auto) 0.03 (0-0.2) K/uL Sodium 136 (136-145) mmol/L Potassium 4.3 (3.5-5.1) mmol/L Chloride 102 (98-107) mmol/L Carbon Dioxide 30 (21-32) mmol/L Anion Gap 4.0 (3-11) BUN 19 H (7-18) mg/dl Creatinine 1.90 H (0.6-1.2) mg/dl Est Cr Clr Drug Dosing 27.4 ml/min Est GFR ( Amer) 29.2 Est GFR (Non-Af Amer) 25.2 BUN/Creatinine Ratio 10.2 (10-20) Glucose 87 (70-99) mg/dl Calcium 9.0 (8.5-10.1) mg/dl Magnesium 2.2 (1.8-2.4) mg/dl Total Bilirubin 0.5 (0.2-1) mg/dl AST 14 L (15-37) U/L ALT 14 (12-78) U/L Alkaline Phosphatase 111 (45-117) U/L Troponin I < 0.015 (0-0.045) ng/ml Total Protein 7.2 (6.4-8.2) gm/dl Albumin 3.2 L (3.4-5.0) gm/dl Globulin 4.0 (2.5-4.0) gm/dl Albumin/Globulin Ratio 0.8 L (0.9-2) TSH 4.040 (0.300-4.500) uIu/ml Urine Color Yellow Urine Appearance Clear (Clear) Urine pH 7.0 (4.5-7.5) Ur Specific [place] 1.016 (1.000-1.030) Urine Protein Negative (Negative) Urine Glucose (UA) Negative (Negative) Urine Ketones Negative (Negative) Urine Blood Negative (Negative) Urine Nitrite Negative (Negative) Urine Bilirubin Negative (Negative) Urine Urobilinogen Negative (Negative) Ur Leukocyte Esterase 1+ H (Negative) Urine WBC (Auto) 5-10 H (0-5) /hpf Urine RBC (Auto) 0-4 (0-4) /hpf U Hyaline Cast (Auto) 1-5 (0-5) /lpf U Epithel Cells (Auto) >30 H (0-5) /lpf Urine Bacteria (Auto) 2+ H (Negative) Lyme Disease IgG Ab (Negative) Lyme Disease IgM Ab (Negative) 01/18/19 Range/Units 19:40 WBC (4.8-10.8) K/uL RBC (4.2-5.4) M/uL Hgb (12.0-16.0) g/dL Hct (37-47) % MCV (80-100) fL MCH (25-34) pg MCHC (32-36) g/dL RDW Std Deviation (36.4-46.3) fL RDW Coeff of [place] (11.5-14.5) % Plt Count (130-400) K/uL MPV (7.4-10.4) fL Immature Gran % (Auto) % Neut % (Auto) % Lymph % (Auto) % Ralls % (Auto) % Eos % (Auto) % Baso % (Auto) % Immature Gran # (Auto) (0.00-0.02) K/uL Neut # (Auto) (1.4-6.5) K/uL Lymph # (Auto) (1.2-3.4) K/uL Ralls # (Auto) (0.11-0.59) K/uL Eos # (Auto) (0-0.5) K/uL Baso # (Auto) (0-0.2) K/uL Sodium (136-145) mmol/L Potassium (3.5-5.1) mmol/L Chloride (98-107) mmol/L Carbon Dioxide (21-32) mmol/L Anion Gap (3-11) BUN (7-18) mg/dl Creatinine (0.6-1.2) mg/dl Est Cr Clr Drug Dosing ml/min Est GFR ( Amer) Est GFR (Non-Af Amer) BUN/Creatinine Ratio (10-20) Glucose (70-99) mg/dl Calcium (8.5-10.1) mg/dl Magnesium (1.8-2.4) mg/dl Total Bilirubin (0.2-1) mg/dl AST (15-37) U/L ALT (12-78) U/L Alkaline Phosphatase (45-117) U/L Troponin I (0-0.045) ng/ml Total Protein (6.4-8.2) gm/dl Albumin (3.4-5.0) gm/dl Globulin (2.5-4.0) gm/dl Albumin/Globulin Ratio (0.9-2) TSH (0.300-4.500) uIu/ml Urine Color Urine Appearance (Clear) Urine pH (4.5-7.5) Ur Specific [place] (1.000-1.030) Urine Protein (Negative) Urine Glucose (UA) (Negative) Urine Ketones (Negative) Urine Blood (Negative) Urine Nitrite (Negative) Urine Bilirubin (Negative) Urine Urobilinogen (Negative) Ur Leukocyte Esterase (Negative) Urine WBC (Auto) (0-5) /hpf Urine RBC (Auto) (0-4) /hpf U Hyaline Cast (Auto) (0-5) /lpf U Epithel Cells (Auto) (0-5) /lpf Urine Bacteria (Auto) (Negative) Lyme Disease IgG Ab Negative (Negative) Lyme Disease IgM Ab Negative (Negative) Administered Medications Discontinued Medications Acetaminophen (Tylenol) 1,000 mg PO NOW STA Stop: 01/18/19 19:18 Last Admin: 01/18/19 19:40 Dose: 1,000 mg Documented by: [id number] Dexamethasone Sodium Phosphate (Decadron Pf) 10 mg IV NOW ONE Stop: 01/18/19 19:26 Last Admin: 01/18/19 19:41 Dose: 10 mg Documented by: [id number] Sodium Chloride (Nss 1000ml) 1,000 mls @ 125 mls/hr IV .Q8H ERMIAS Stop: 01/19/19 00:44 Last Infusion: 01/19/19 00:21 Dose: 0 mls/hr Documented by: [id number] Admin: 01/18/19 17:02 Dose: 125 mls/hr Documented by: [id number] Imaging Data Radiologist's Impression: Radiology results as stated below per my review and the radiologist's interpretation: MR brain wo con CLINICAL HISTORY: 78 years-old Female presenting with arm and leg numbness, hx of TIA, headache for 2 months, bilateral tingling and numbness in the arms and legs. TECHNIQUE: Multisequence, multiplanar MR imaging of the brain was performed without the use of intravenous contrast. IV contrast: None. COMPARISON: Contrast-enhanced brain MR from 2013. FINDINGS: Localizer images: Unremarkable. Normal midline sagittal structures. Proportional ventricular and sulcal prominence, likely age-related parenchymal volume loss. Incidental note made of cavum septi pellucidi. No restricted diffusion or hemorrhage. Periventricular and subcortical white matter T2/FLAIR hyperintensity, nonspecific but likely indicative of chronic small vessel ischemic change. No mass effect or midline shift. No extra-axial fluid collection. T2 skull base flow voids preserved. Bone marrow signal intensity within the calvarium within normal limits. Mucosal thickening in paranasal sinuses, specifically in the left maxillary sinus and left frontal sinus. Restricted diffusion noted in these regions. Thickening of the left max or sinus wall suggests chronicity. IMPRESSION: 1. No acute intracranial abnormality. 2. Chronic sinusitis of the left maxillary and left frontal sinuses with suspected superimposed acute sinusitis. Electronically signed by: Malcom Silvestre M.D. 01/18/2019 6:03 PM XR chest 1V portable CLINICAL HISTORY: 78 years-old Female presenting with weakness. TECHNIQUE: Portable upright AP view of the chest was obtained. COMPARISON: 02/07/2018. FINDINGS: Atherosclerosis of the aortic arch. Cardiac silhouette top normal in size. No focal opacity. No large effusion or pneumothorax. Surgical clips project over the right axilla. Relative radiolucency of the right lung may relate to postsurgical changes of the right breast. Degenerative changes of the thoracic spine. Degenerative changes of the shoulders. Upper abdomen normal. IMPRESSION: 1. No acute cardiopulmonary disease. Electronically signed by: Malcom Silvestre M.D. 01/18/2019 4:58 PM MR cervical spine wo con CLINICAL HISTORY: 78 years-old Female presenting with arm and leg numbness, neck pain. TECHNIQUE: Multisequence, multiplanar MR imaging of the cervical spine was performed without the use of intravenous contrast. IV contrast: None. COMPARISON: Cervical spine radiographs from 2013. FINDINGS: Localizer images: Unremarkable. Exaggerated thoracic kyphosis leading to slightly exaggerated cervical lordosis. Vertebral bodies maintain normal height, alignment, and bone marrow signal intensity. Diffuse intervertebral disc desiccation. Additional multilevel degenerative changes further detailed below: C2-3: Mild facet arthropathy and uncovertebral hypertrophy results in mild right neural foraminal narrowing. No significant spinal canal narrowing. C3-4: Disc osteophyte complex and uncovertebral hypertrophy results in mild effacement of the ventral thecal sac with minimal contouring deformity of the cord and mild right neural foraminal narrowing. C4-5: Disc osteophyte complex, facet arthropathy, ligamentum flavum thickening, and uncovertebral hypertrophy result in moderate effacement of both the ventral and dorsal thecal sac with flattening of the spinal cord. No abnormal spinal cord signal at this level. Moderate to severe right and moderate left neural foraminal narrowing. C5-6: Vertebral disc height loss at C5-6 related to the presence of a disc osteophyte complex. There is partial osseous fusion across C5-6 along the right lateral margin. Disc osteophyte complex results in moderate to severe effacement of the ventral thecal sac with trace if any residual CSF. There is flattening of the spinal cord at this level. No gross evidence of abnormal signal intensity of the spinal cord at this level or immediately above or below. There may be atrophy of the cord at C5-6. C6-7: A lesser degree of spinal canal effacement is noted at C6-7 secondary to mild disc bulge and facet arthropathy. Moderate stenosis both anteriorly and posteriorly with residual CSF and only mild contouring deformities of the cord. Spinal cord flattening and deformity is as mentioned above. Additionally, there is focal signal abnormality within the spinal cord at the level of C2, which is located centrally and dorsally. No additional focal lesion is appreciated. No paraspinal muscle edema. No gross evidence of an epidural collection. Increased signal intensity within the regi may relate to small vessel change. Remaining visualized soft tissues within normal limits. IMPRESSION: 1. Moderate to severe spinal canal stenosis from C4-5 through C6-7. Spinal cord impingement is suggested at C5-6 with possible myelomalacia. No convincing evidence of spinal cord edema. Correlate clinically for impingement symptoms. 2. Multilevel neural foraminal narrowing as above. 3. Focal abnormal signal intensity within the spinal cord at C2. This may represent a focal lesion or short segment dilation of the central canal. Correlate with the patient has an underlying demyelinating disease. Attention on follow-up. The report will be called/faxed according to standard departmental protocol. Electronically signed by: Malcom Silvestre M.D. 01/18/2019 6:44 PM ECG Data Attestation: I personally reviewed and interpreted this ECG as follows: Indication: other (numbness) Rate (beats per minute): 66 Rhythm: sinus rhythm Findings: no PAC, no PVC, no ST depression and no ST elevation Blood Pressure Blood Pressure Findings: Elevated blood pressure Blood Pressure Disposition: further management by hospitalist Discharge Plan Visit Data *Final* Discharge Date/Time: 01/18/19 23:04 Chief Complaint: Arm Pain Stated Complaint: NUMB ARMS AND LEGS, STIFF NECK ED Provider: Kamaljit Salter Discharge Problem: Spinal stenosis, Cervical nerve root impingement, Neck pain Patient Disposition: Admitted As Inpatient Discharge Instructions Interventions: ED Discharge Assessment Last Done: 01/18/19 23:04 Discharge Problem: Spinal stenosis Qualifiers: Spinal region: cervical Qualified Code(s): M48.02 - Spinal stenosis, cervical region The scribe's documentation has been prepared under my direction and personally r eviewed by me in its entirety. I confirm that the note above accurately reflects all work, treatment, procedures, and medical decision making performed by me.
[2019-01-19] MEDS: dexAMETHasone 8 MG in SYRINGE 0 ML IV SCH ×3 (04:15→20:58)
[2019-01-19 06:35] LABS: Prothrombin Time 10.3 Seconds (9.0-12.0)
[2019-01-19] MEDS: LOSARTAN POTASSIUM 50 MG TAB PO SCH (08:59)
[2019-01-19] MEDS: MIRABEGRON ER 25 MG TAB PO SCH (08:59)
[2019-01-19] MEDS: SIMVASTATIN 20 MG TAB PO SCH (08:59)
[2019-01-19] MEDS: DULOXETINE HCL 60 MG CAP PO SCH (08:59)
[2019-01-19] MEDS: cloNIDine HCl 0.1 MG TAB PO SCH ×2 (08:59→21:00)
[2019-01-19] MEDS: HYDROXYCHLOROQUINE SULFATE 200 MG TAB PO SCH ×2 (09:00→20:58)
[2019-01-19] MEDS ORDERED: SOLIFENACIN 5 MG PO SCH (09:00)
[2019-01-19] MEDS: CALCITRIOL 0.25 MCG CAPSULE PO SCH (09:00)
[2019-01-19] MEDS: INSULIN ASPART 100 UNITS/ML 3 ML PEN SC SCH ×4 (09:02→21:07)
[2019-01-19] MEDS: INSULIN GLARGINE SOLOSTAR 100 UNITS/ML 3 ML PEN SC SCH ×2 (09:03→21:06)
[2019-01-19 10:29] LABS: BUN Creatinine Ratio 11.8 (10-20); Calcium 9.3 mg/dl (8.5-10.1); Creatinine Clr Calc Pharmacy 32.5 ml/min; Est GFR (African American) 35.9; Potassium 4.9 mmol/L (3.5-5.1)
--- NOTE | 2019-01-19 11:20 | Orthopedic Consultation ---
Date of Consultation January 19, 2019 Assessment & Plan (1) Cord compression myelopathy: MRI does demonstrate evidence of myelomalacia in the upper segment of the cord approximately the C1-2 level. There is no stenosis at this region. She does have severe spinal stenosis extending from C4-C7. There is cord contour change in compression. She is noting some response to the IV Decadron. I long discussion with this patient today regarding her presentation symptom complex. This time she would be a candidate for urgent decompression of the spinal canal. Would require an anterior cervical corpectomy of C5 and ACDF of the see 6 7. This would take approximately 2 hours. Risk benefits pros cons and alternatives were outlined in detail. Risks include but not limited to from anesthesia blindness stroke paralysis nerve damage blood loss current transfusion infection requiring reoperation dysphonia dysphagia. Benefits would hopefully be stabilization of her cervical spine and halting the progression of her myelopathy. At this time she would like to pursue surgery. We will tentatively place her on the schedule tomorrow pending medical clearance. Be made n.p.o. after midnight. Present on Admission?: Yes History of Present Illness Reason for Consultation: Upper and lower extremity weakness. Attending Physician: Denise Vegas MD History of Present Illness This is a very pleasant 78-year-old female that presents the emergency room yesterday. She describes the onset of numbness tingling and weakness to the bilateral upper and lower extremities. She states this began over the course of several days. She denies any precipitating trauma fall or event. She is quite concerned about the symptoms. She describes balance discrepancy. She has modest coordination deficits to the upper extremities. She does live with her son and daughter. She is . Allergies Allergy/AdvReac Type Severity Reaction Status Date / Time HO Inhibitors Allergy Unknown ITCHING Verified 01/18/19 16:16 oxycodone AdvReac Mild CAUSES BE Verified 01/18/19 16:16 JITTERINESS & CAN'T EAT. ALSO CAUSES RLS SYMPTOMS Home Medications Home Medications Medication Instructions Recorded Confirmed Type aspirin 81 mg PO DAILY 01/18/19 01/18/19 History buspirone 10 mg PO BID 01/18/19 01/18/19 History calcitriol 0.5 mcg PO DAILY 01/18/19 01/18/19 History clonidine HCl 0.2 mg PO BID 01/18/19 01/18/19 History clopidogrel 75 mg PO DAILY 01/18/19 01/18/19 History docusate sodium 500 mg PO HS 01/18/19 01/18/19 History duloxetine 60 mg PO DAILY 01/18/19 01/18/19 History hydroxychloroquine 200 mg PO BID 01/18/19 01/18/19 History losartan 100 mg PO DAILY 01/18/19 01/18/19 History mirabegron [Myrbetriq] 50 mg PO DAILY 01/18/19 01/18/19 History ranitidine HCl 300 mg PO HS 01/18/19 01/18/19 History simvastatin 20 mg PO DAILY 01/18/19 01/18/19 History solifenacin 5 mg PO DAILY 01/18/19 01/18/19 History Patient History Medical History History of TIAs (Chronic) Breast cancer (Chronic) Diabetes (Chronic) CKD (chronic kidney disease) Depression Dyslipidemia GERD (gastroesophageal reflux disease) History of hysterectomy Hypertension Hypothyroid Surgical History History of bilateral knee replacement History of mastectomy Family History Other Coronary heart disease Diabetes Social History Preferred Language: [place] Islander Communication Ability: Effective Joiners Supervisor Required: No Beliefs That Will Affect Care: None Current Living Situation: Family Current Living Situation Comment: 2 sons Feels Safe at Home: Yes Safety Concerns: Feels Safe At This Time Smoking Status: Never smoker Hx Alcohol Use: No Hx Substance Use: No Physical Exam Physical Exam: Patient is in the chair at the bedside. She has reasonable strength testing the lower extremities I did not have her ambulate at this time. Upper extremities do demonstrate a 4 5 strength detailed testing. She has a bilateral Parth signs. She has numbness to light touch bilateral upper extremities. She has limited cervical range of motion but I am unable to limit Lhermittes phenomenon. Results & Data Vital Signs (Past 12 Hours) Vital Signs Temp Pulse Resp BP Pulse Ox 01/19/19 07:06 37.0 C 63 18 160/76 H 92 01/19/19 00:33 36.9 C 77 16 163/78 H 93 01/18/19 23:36 36.9 C 77 18 163/78 H 93
[2019-01-19] MEDS: cefTRIAXone SODIUM 2,000 MG in DEXTROSE 5% 50 ML IV SCH (12:11)
--- NOTE | 2019-01-19 12:15 | Hospitalist Progress Note ---
Date of Service January 19, 2019 Assessment & Plan (1) Cord compression myelopathy: Patient with numbness/tingling of bilateral UE and LE, MRI with canal stenosis with spinal cord impingement at C5-C6 with possible myelomalacia and moderate to severe spinal stenosis at C4-7. No cord edema. Focal abnormal signal intensity at C2 - ?dilation of central canal-unclear etiology or unclear chronicity of this. Patient describes subjective fevers, chills, aches and fatigue as well as transient blurry vision and pain with eye movement which is likely due to acute sinusitis seen on imaging in the left frontal and left maxillary sinuses. Also question if she has some sort of demyelinating disease, however her MRI brain WNL. Has had slight improvement of symptoms with IV Decadron as suggested by orthopedic spine surgery -Appreciate Dr. Padron's consultation-plan for urgent cervical cord decomp ression likely tomorrow -Make n.p.o. after midnight -Continue dexamethasone 8mg IV q 8 hours -Continue to hold ASA and Plavix -Pain control also with acetaminophen as needed -Start half-normal saline at 80 mL's per hour overnight while n.p.o. This patient is not overly active and is difficult to assess her cardiac risk based on that, however she has not had any history of angina or OR in the past. She does have a history of TIAs remotely and has been on aspirin and Plavix which are now on hold. She has no current significant cardiopulmonary issues. Her mild renal insufficiency is now improved with IV fluids overnight and was likely due to poor p.o. intake although she does have chronic kidney disease. She is likely at average risk for this intermediate risk surgery and given the nature of worsening cervical myelopathy acutely, the potential benefit of surgery outweighs the risk and the patient is agreeable to proceed with surgery tomorrow. (2) Spinal stenosis: As above -Orthopedic surgery consulted, possible OR on Sunday (3) Diabetes: HgAIC=6.2 on 12/04/18. Patient not on any medications for DM at home and uses diet control. \ She is receiving high dose IV steroids and therefore was started on basal bolus insulin Blood sugars have been fairly well controlled in the low to mid 100s on IV steroids -Continue blood sugar checks -Decrease Lantus to 8u BID -ISS -ADA diet as tolerated (4) Hypertension: Blood pressure mildly elevated and could be secondary to pain or IV steroids -Continue Clonidine 0.2 mg p.o. twice daily -Continue Losartan 100 mg once daily -Follow renal function (5) Dyslipidemia: Chronic -Continue Simvastatin (6) Depression: Chronic -Continue Buspirone 10mg po BID -Continue Duloxetine 60mg po daily (7) Secondary hyperparathyroidism: Chronic -Continue Calcitriol 0.5mcg po daily (8) History of TIAs: Chronic -Holding ASA and Plavix due to need for surgery -Continue Simvastatin (9) Polyarthritis: Chronic. Stable -Continue Hydroxychloroquine, duloxetine also is for pain (10) Urge incontinence: Chronic. Stable -Continue Myrbetriq and Solifenacin (11) CKD (chronic kidney disease): Creatinine is above baseline upon admission at 1.9 indicative of acute kidney injury, but is now improved 1.60 with IV fluids overnight Baseline creatinine around 1.5 and she follows with Nephrology routinely. Has history of staghorn calculi and also follows with urology -Monitor BUN, Cr, electroytes and UOP -Renal dosing where appropriate -Avoid nephrotoxic agents (12) Obesity: BMI is 39 -Needs counseling on weight loss (13) Osteopenia: Stable -Is on calcium and vitamin D (14) Abnormal urinalysis: Urinalysis with borderline evidence of infection-has WBC 10-20, but epithelial cells greater than 30, likely vaginal contamination and is without urinary symptoms Nonetheless, she was about to undergo cervical spine fusion with hardware placement so we will treat with antibiotics with Rocephin -Follow urine culture-pinpoint growth so far (15) Acute sinusitis: Patient presented with subjective fever, aches, and some headache and facial pain with eye movement. Seem to have acute on chronic evidence of left frontal and left maxillary sinusitis on brain MRI -Given impending surgery, will treat for acute bacterial sinusitis with IV Rocephin 2 g once daily x7 to 10-day course (16) GERD (gastroesophageal reflux disease): Continue ranitidine 300 mg nightly (17) DVT prophylaxis: Add SCDs, NURIS hose Avoid chemical means due to upcoming cervical spine surgery Disposition-remain in the hospital and will likely be here for several days postoperatively Subjective Patient reports continued tingling and numbness in her entire arm to the hands as well as legs and feet. Still with left-sided neck pain as well. Denies chest pain or shortness of breath. She is agreeable to having surgery as per her discussion with orthopedic spine surgery. I discussed her case with Dr. Padron today. 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
[2019-01-19] MEDS: SENNA 8.6 MG TAB PO SCH (15:30)
[2019-01-19] MEDS: DOCUSATE SODIUM 100 MG CAP PO SCH (21:00)
[2019-01-20] MEDS ORDERED: Nursing to Pharmacy Communication ONE ×2 (00:46→20:36)
[2019-01-20] MEDS: SODIUM CHLORIDE 0.45 % 1,000 ML IV SCH ×3 (00:55→23:12)
[2019-01-20] MEDS: dexAMETHasone 8 MG in SYRINGE 0 ML IV SCH ×2 (04:39→16:12)
[2019-01-20 05:56] LABS: Hematocrit (blood only) 39.2 % (37-47); Hemoglobin 12.9 g/dL (12.0-16.0); Immature Granulocytes # (auto) 0.03 K/uL (0.00-0.02); Immature Granulocytes % (auto) 0.2 %; Lymphocytes # (auto) 0.79 K/uL (1.2-3.4); Lymphocytes % (auto) 5.9 %; Mean Corpuscular Hgb Conc 32.9 g/dL (32-36); Mean Corpuscular Volume 81.2 fL (80-100); Mean Platelet Volume 9.6 fL (7.4-10.4); Monocytes # (auto) 0.41 K/uL (0.11-0.59); Neutrophils # (auto) 12.23 K/uL (1.4-6.5); Neutrophils % (auto) 90.9 %; Platelet Count 194 K/uL (130-400); RDW Coefficient of Variation 13.6 % (11.5-14.5); RDW Standard Deviation 40.8 fL (36.4-46.3); Red Blood Count 4.83 M/uL (4.2-5.4); White Blood Count 13.46 K/uL (4.8-10.8)
[2019-01-20] MEDS: INSULIN ASPART 100 UNITS/ML 3 ML PEN SC SCH ×3 (06:08→19:27)
[2019-01-20 06:23] LABS: BUN Creatinine Ratio 14.6 (10-20); Calcium 8.6 mg/dl (8.5-10.1); Creatinine Clr Calc Pharmacy 34.9 ml/min; Est GFR (African American) 39.1; Est GFR (Non-African American) 33.8; Potassium 4.5 mmol/L (3.5-5.1)
[2019-01-20] MEDS: cloNIDine HCl 0.1 MG TAB PO SCH ×2 (09:02→20:28)
[2019-01-20] MEDS: LOSARTAN POTASSIUM 50 MG TAB PO SCH (09:03)
[2019-01-20] MEDS: MIRABEGRON ER 25 MG TAB PO SCH (09:03)
[2019-01-20] MEDS: CALCITRIOL 0.25 MCG CAPSULE PO SCH (09:03)
[2019-01-20] MEDS: SIMVASTATIN 20 MG TAB PO SCH (09:03)
[2019-01-20] MEDS: INSULIN GLARGINE SOLOSTAR 100 UNITS/ML 3 ML PEN SC SCH ×2 (09:03→21:23)
[2019-01-20] MEDS: DULOXETINE HCL 60 MG CAP PO SCH (09:03)
[2019-01-20] MEDS: HYDROXYCHLOROQUINE SULFATE 200 MG TAB PO SCH ×2 (09:03→20:29)
[2019-01-20] MEDS: SENNA 8.6 MG TAB PO SCH (09:03)
[2019-01-20] MEDS ORDERED: PHENYLEPHRINE 100MCG/ML 5ML SYR IV PRN (09:14)
[2019-01-20] MEDS ORDERED: ATROPINE SULFATE 0.1 MG/ML 10ML SYR IV PRN (09:14)
[2019-01-20] MEDS ORDERED: fentaNYL citrate 100 MCG/2 ML VIAL IV PRN (09:14)
[2019-01-20] MEDS ORDERED: LABETALOL HCL IV 5 MG/ML 20ML IV PRN (09:14)
[2019-01-20] MEDS ORDERED: ePHEDrine sulfate 50 MG/ML AMP IV PRN (09:14)
[2019-01-20] MEDS ORDERED: ONDANSETRON INJ 2 MG/ML 2 ML VIAL IV PRN ×2 (09:14→14:58)
[2019-01-20] MEDS ORDERED: HYDROmorphone INJ 1 MG/ML SYRINGE IV PRN (09:14)
--- NOTE | 2019-01-20 09:17 | Anesthesiology Consultation ---
Date of Service January 20, 2019 Assessment & Plan (1) Encounter for pre-operative examination: Chart Review Chart Review: Acceptable Risk for Surgery and Patient NOT seen in Pre Admission Testing Consults Requested none medicine is following the patient History Surgery Operation Date: 01/20/19 12:40 Proposed Procedures p C5 Corpectomy, C6-C7 Anterior Cervical Discectomy and Fusion - Meir Padron DO Height/Weight Height: 5 ft 2 in Weight: 96.8 kg Allergies Allergy/AdvReac Type Severity Reaction Status Date / Time HO Inhibitors Allergy Unknown ITCHING Verified 01/18/19 16:16 oxycodone AdvReac Mild CAUSES BE Verified 01/18/19 16:16 JITTERINESS & CAN'T EAT. ALSO CAUSES RLS SYMPTOMS Medications Home Medications Medication Instructions Recorded Confirmed Last Taken aspirin 81 mg PO DAILY 01/18/19 01/18/19 Unknown buspirone 10 mg PO BID 01/18/19 01/18/19 Unknown calcitriol 0.5 mcg PO DAILY 01/18/19 01/18/19 Unknown clonidine HCl 0.2 mg PO BID 01/18/19 01/18/19 Unknown clopidogrel 75 mg PO DAILY 01/18/19 01/18/19 Unknown docusate sodium 500 mg PO HS 01/18/19 01/18/19 Unknown duloxetine 60 mg PO DAILY 01/18/19 01/18/19 Unknown hydroxychloroquine 200 mg PO BID 01/18/19 01/18/19 Unknown losartan 100 mg PO DAILY 01/18/19 01/18/19 Unknown mirabegron [Myrbetriq] 50 mg PO DAILY 01/18/19 01/18/19 Unknown ranitidine HCl 300 mg PO HS 01/18/19 01/18/19 Unknown simvastatin 20 mg PO DAILY 01/18/19 01/18/19 Unknown solifenacin 5 mg PO DAILY 01/18/19 01/18/19 Unknown Active Medications Generic Name Dose Route Start Last Admin Trade Name Freq PRN Reason Stop Dose Admin Acetaminophen 650 mg 01/18/19 23:36 01/19/19 07:46 Tylenol PO 02/17/19 23:35 650 mg Q4H PRN Administration pain/fever Buspirone HCl 10 mg 01/19/19 09:00 01/20/19 09:02 Buspar PO 02/18/19 08:59 Not Given BID ERMIAS Calcitriol 0.5 mcg 01/19/19 09:00 01/20/19 09:03 Rocaltrol PO 02/18/19 08:59 Not Given DAILY ERMIAS Clonidine HCl 0.2 mg 01/19/19 09:00 01/20/19 09:02 Catapres PO 02/18/19 08:59 Not Given BID ERMIAS Docusate Sodium 300 mg 01/19/19 21:00 01/19/19 21:00 Colace PO 02/18/19 20:59 Not Given HS ERMIAS Duloxetine HCl 60 mg 01/19/19 09:00 01/20/19 09:03 Cymbalta PO 02/18/19 08:59 Not Given DAILY ERMIAS Hydroxychloroquine Sulfate 200 mg 01/19/19 09:00 01/20/19 09:03 Plaquenil PO 02/18/19 08:59 Not Given BID ERMIAS Dexamethasone 8 mg/ Syringe 2 mls @ 1 mls/min 01/19/19 04:00 01/20/19 04:39 IV 02/18/19 03:59 1 mls/min Q8H ERMIAS Administration Ceftriaxone Sodium 2,000 mg/ 70 mls @ 100 mls/hr 01/19/19 10:00 01/19/19 13: 02 Dextrose IV 01/29/19 09:59 Infused Q24H [facility] Infusion Protocol Sodium Chloride 1,000 mls @ 80 mls/hr 01/19/19 23:45 01/20/19 00:55 1/2 Nss IV 02/18/19 23:44 80 mls/hr .[id number] ERMIAS Administration Insulin Aspart 0 units 01/20/19 06:00 01/20/19 06:08 Novolog Flexpen SC 02/19/19 05:59 Not Given Q6 ERMIAS Insulin Glargine 8 units 01/20/19 09:00 01/20/19 09:03 Lantus Solostar Pen SC 02/19/19 08:59 Not Given BID [facility] Losartan Potassium 100 mg 01/19/19 09:00 01/20/19 09:03 Cozaar PO 02/18/19 08:59 Not Given DAILY ERMIAS Mirabegron 50 mg 01/19/19 09:00 01/20/19 09:03 Myrbetriq Er PO 02/18/19 08:59 Not Given DAILY ERMIAS Ranitidine HCl 300 mg 01/19/19 21:00 01/19/19 20:58 Zantac PO 02/18/19 20:59 300 mg HS ERMIAS Administration Sennosides 8.6 mg 01/19/19 13:30 01/20/19 09:03 Senokot PO 02/18/19 13:29 Not Given QAM ERMIAS Simvastatin 20 mg 01/19/19 09:00 01/20/19 09:03 Zocor PO 02/18/19 08:59 Not Given DAILY ERMIAS NPO Date Last Intake of Fluids: 01/19/19 Time Last Intake of Fluids: 20:00 Date Last Intake of Solids: 01/19/19 Time Last Intake of Solids: 18:00 Past Medical History Medical History History of TIAs (Chronic) last one over 10 years ago Breast cancer (Chronic) Diabetes (Chronic) borderline, diet controlled CKD (chronic kidney disease) Depression Dyslipidemia GERD (gastroesophageal reflux disease) Hypertension Hypothyroid Past Family History Family History Other Coronary heart disease Diabetes Past Surgical History Surgical History History of bilateral knee replacement History of hysterectomy History of mastectomy Social History Smoking Status: Never smoker Hx Alcohol Use: No Hx Substance Use: No Physical Exam Vital Signs Last Vital Signs Temp 36.7 C 01/20/19 08:20 Pulse 65 01/20/19 08:20 Resp 18 01/20/19 08:20 BP 175/76 H 01/20/19 08:20 Pulse Ox 98 01/20/19 08:20 Testing Electrocardiogram Date: 01/18/19 Findings: + NSR @ (66) Chest X-Ray Date: 01/18/19 XR chest 1V portable CLINICAL HISTORY: 78 years-old Female presenting with weakness. TECHNIQUE: Portable upright AP view of the chest was obtained. COMPARISON: 02/07/2018. FINDINGS: Atherosclerosis of the aortic arch. Cardiac silhouette top normal in size. No focal opacity. No large effusion or pneumothorax. Surgical clips project over the right axilla. Relative radiolucency of the right lung may relate to postsurgical changes of the right breast. Degenerative changes of the thoracic spine. Degenerative changes of the shoulders. Upper abdomen normal. IMPRESSION: 1. No acute cardiopulmonary disease. Electronically signed by: Malcom Silvestre M.D. Cervical Spine Date: 01/18/19 MR cervical spine wo con CLINICAL HISTORY: 78 years-old Female presenting with arm and leg numbness, neck pain. TECHNIQUE: Multisequence, multiplanar MR imaging of the cervical spine was performed without the use of intravenous contrast. IV contrast: None. COMPARISON: Cervical spine radiographs from 2014. FINDINGS: Localizer images: Unremarkable. Exaggerated thoracic kyphosis leading to slightly exaggerated cervical lordosis. Vertebral bodies maintain normal height, alignment, and bone marrow signal intensity. Diffuse intervertebral disc desiccation. Additional multilevel degenerative changes further detailed below: C2-3: Mild facet arthropathy and uncovertebral hypertrophy results in mild right neural foraminal narrowing. No significant spinal canal narrowing. C3-4: Disc osteophyte complex and uncovertebral hypertrophy results in mild effacement of the ventral thecal sac with minimal contouring deformity of the cord and mild right neural foraminal narrowing. C4-5: Disc osteophyte complex, facet arthropathy, ligamentum flavum thickening, and uncovertebral hypertrophy result in moderate effacement of both the ventral and dorsal thecal sac with flattening of the spinal cord. No abnormal spinal cord signal at this level. Moderate to severe right and moderate left neural foraminal narrowing. C5-6: Vertebral disc height loss at C5-6 related to the presence of a disc osteophyte complex. There is partial osseous fusion across C5-6 along the right lateral margin. Disc osteophyte complex results in moderate to severe effacement of the ventral thecal sac with trace if any residual CSF. There is flattening of the spinal cord at this level. No gross evidence of abnormal signal intensity of the spinal cord at this level or immediately above or below. There may be atrophy of the cord at C5-6. C6-7: A lesser degree of spinal canal effacement is noted at C6-7 secondary to mild disc bulge and facet arthropathy. Moderate stenosis both anteriorly and posteriorly with residual CSF and only mild contouring deformities of the cord. Spinal cord flattening and deformity is as mentioned above. Additionally, there is focal signal abnormality within the spinal cord at the level of C2, which is located centrally and dorsally. No additional focal lesion is appreciated. No paraspinal muscle edema. No gross evidence of an epidural collection. Increased signal intensity within the regi may relate to small vessel change. Remaining visualized soft tissues within normal limits. IMPRESSION: 1. Moderate to severe spinal canal stenosis from C4-5 through C6-7. Spinal cord impingement is suggested at C5-6 with possible myelomalacia. No convincing evidence of spinal cord edema. Correlate clinically for impingement symptoms. 2. Multilevel neural foraminal narrowing as above. 3. Focal abnormal signal intensity within the spinal cord at C2. This may represent a focal lesion or short segment dilation of the central canal. Correlate with the patient has an underlying demyelinating disease. Attention on follow-up. The report will be called/faxed according to standard departmental protocol. Electronically signed by: Malcom Silvestre M.D. 01/18/2019 6:44 PM Other Testing Laboratory Tests 12/04/18 01/18/19 01/19/19 14:25 16:46 06:02 WBC Hgb Plt Count PT 10.3 INR 1.0 Sodium Potassium Chloride Carbon Dioxide BUN Creatinine Glucose Hemoglobin A1c 6.2 H TSH 4.040 01/20/19 01/20/19 05:33 05:33 WBC 13.46 H Hgb 12.9 Plt Count 194 PT INR Sodium 137 Potassium 4.5 Chloride 106 Carbon Dioxide 25 BUN 22 H Creatinine 1.49 H Glucose 140 H Hemoglobin A1c TSH
[2019-01-20] MEDS ORDERED: HYDROmorphone INJ 2 MG/ML SYR/VIAL ONE ×2 (09:38→10:02)
[2019-01-20] MEDS ORDERED: fentaNYL citrate 100 MCG/2 ML VIAL ONE ×6 (09:38→12:53)
[2019-01-20] MEDS ORDERED: BACITRACIN INJ 50,000 UNIT VIAL ONE (09:59)
--- NOTE | 2019-01-20 10:03 | History & Physical Bridge Note ---
Date of Service January 20, 2019 History & Physical Bridge Note I have examined the patient, reviewed the History & Physical and in the interval since the performance of the History & Physical I have noted the following changes of clinical significance: no changes noted
[2019-01-20] MEDS ORDERED: CEFAZOLIN 2,000 MG/15 ML IV PUSH IV ONE (10:11)
[2019-01-20] MEDS ORDERED: MIDAZOLAM HCL 1 MG/ML 2ML VIAL ONE (10:23)
[2019-01-20] MEDS ORDERED: ONDANSETRON INJ 2 MG/ML 2 ML VIAL ONE (10:52)
[2019-01-20] MEDS ORDERED: GLYCOPYRROLATE 0.2 MG/ML VIAL ONE (10:52)
[2019-01-20] MEDS ORDERED: DEXAMETHASONE SOD INJ 4 MG/ML VIAL ONE (10:52)
[2019-01-20] MEDS ORDERED: PROPOFOL IV EMULSION 10 MG/ML 20 ML VIAL IV ONE (10:52)
[2019-01-20] MEDS ORDERED: ROCURONIUM BROMIDE 10 MG/ML 5 ML VIAL ONE (10:52)
[2019-01-20] MEDS ORDERED: NEOSTIGMINE METHYLSULFATE 1 MG/ML 10ML VIAL ONE (10:52)
[2019-01-20] MEDS ORDERED: LIDOCAINE HCL 2% 2 ML VIAL/AMP(20MG/ML) INFIL ONE (10:52)
[2019-01-20] MEDS ORDERED: HydrALAZINE HCL 20 MG/ML VIAL ONE (11:06)
[2019-01-20] MEDS ORDERED: LABETALOL HCL IV 5 MG/ML 20ML IV ONE ×2 (11:37→13:37)
[2019-01-20] MEDS ORDERED: PHENYLEPHRINE 100MCG/ML 5ML SYR ONE (11:37)
[2019-01-20] MEDS: cefTRIAXone SODIUM 2,000 MG in DEXTROSE 5% 50 ML IV SCH (12:02)
--- NOTE | 2019-01-20 13:11 | Operative Report ---
Post Operative Report Pre & Post Diagnosis Operation Date: 01/20/19 12:40 Pre-Op Diagnosis: Cervical spinal stenosis with myeloradiculopathy Obesity Post-Op Diagnosis: Same Procedure Operation Date: 01/20/19 12:40 Actual Procedures #1 anterior cervical corpectomy with bilateral foraminotomies C5. #2 anterior cervical discectomy of bilateral foraminotomies C6-7. #3 anterior cervical arthrodesis C4-C6 and C6-C7. #4 placement of peek cage 27 mm in height C4-C6 and a cortical allograft 12 mm in height at C6-7. #5 placement of locally harvested morselized autograft combined with DBM cage. #6 application of globus plate and screws from C4-C7. Surgeon Meir Padron, DO Senior Enterprise Architect Jessica Nogueira Estimated Blood Loss 100 Findings See Below Patient is 5 foot and 2 inches tall weighing 96.8 kg. Her BMI is subsequently 39.0. The patient's body habitus added significant technical difficulty throughout the complex decompression of the cervical spine. It added at least 50% increase in operative time. Specimens None Indications This is a 78-year-old female at present with the above-mentioned diagnosis and a marked decline in neurologic status. She had gross Lhermitte's phenomenon and upper extremity weakness subsequently like to undergo urgent decompression. Description of Procedure Patient was met with identified and informed consent obtained. She was then taken to the operative suite underwent intubation and placed in a supine position on the Chip table with head [place] hogshead stripper. All bony prominences well-padded eyes inspected to ensure no external pressure placed upon the peer at this point the anterior cervical spine was prepped and draped in normal sterile fashion. Sharp dissection with the assistance of bipolar cautery was performed down to and exposing the anterior cervical spine from C4- C7. Self-retaining retractor was placed. And then performed a complete discectomy of C4-5 out to the uncovertebral joints bilaterally followed by see 5 6. Self-retaining retractors placed. [place] distracting pins placed in C4 and C6 to distract across the C5 vertebral body. Again the patient's body habitus added considerable depth and pectoral difficulty. And then performed a complete corpectomy C5 including removal of all posterior annular fibers longitudinal ligament bilateral foraminotomies performed. Endplates were then burred to subcortical bleeding bone 27 mm peek cage filled with local autograft and DBM tapped in position. Distraction apparatus was removed and I proceeded to C6-7. A complete discectomy was performed out to the uncovertebral joints bilaterally. I removed all posterior annular fibers and perform bilateral foraminotomies. A 12 mm cortical allograft filled with DBM was then tapped in position. A globus plate and screws was then placed from C4-C7 with the assistance of fluoroscopy. Incision was then copiously irrigated explored to ensure no damage to surrounding structures remaining bleeding. 10 round ARELIS drain inserted. Was then closed with 2 Vicryl in a fashion of 4 Monocryl for final skin closure. Steri-Strip sterile dressing placed. Patient awakened taken to PACU in stable condition. Please note Jessica Nogueira present at the entire procedure involved in patient positioning complex portions of the surgery and final skin closure. I attest to the content of the Intraoperative Record and any orders documented therein. Any exceptions are noted below.
[2019-01-20] MEDS ORDERED: FLOSEAL HEMOSTATIC MATRIX 10ML TOP ONE (13:17)
--- NOTE | 2019-01-20 13:57 | Fluoroscopy Report ---
INTRAOPERATIVE RADIOGRAPHS CLINICAL HISTORY: C5 corpectomy with anterior fusion at C4-C7. Fluoroscopy time: 14 seconds. FINDINGS: 3 spot fluoroscopic views of the cervical spine are presented. An endotracheal tube is in p lace. There has been corpectomy at C5 with anterior fusion from C4 -C7. The orthopedic hardware appea rs intact. IMPRESSION: Intraoperative images from C4 -C7 spinal fusion. Electronically signed by: Brennon Yoo M.D. 01/20/2019 1:56 PM
--- NOTE | 2019-01-20 14:41 | Anesthesiology Progress Note ---
Date of Service January 20, 2019 Anesthesia Post Procedure Vital Signs Vital Signs: Temp Pulse Pulse Resp BP Pulse Ox 01/20/19 14:35 36.7 C 66 16 140/55 L 95 01/20/19 14:25 67 17 140/61 95 01/20/19 14:15 69 16 133/71 96 01/20/19 14:05 71 14 124/62 94 01/20/19 13:55 74 14 153/67 H 96 01/20/19 13:45 74 16 163/67 H 98 01/20/19 13:35 74 14 156/69 H 97 01/20/19 13:28 36.0 C L 70 14 176/87 H 97 01/20/19 08:20 36.7 C 65 18 175/76 H 98 01/20/19 07:08 36.8 C 57 L 15 178/71 H 95 01/19/19 23:25 36.7 C 64 18 167/67 H 97 01/19/19 15:12 36.7 C 64 17 158/66 H 96 Pain Intensity Neck: Pain Intensity: 0 Bilateral Generalized: Pain Intensity: 3 Transfer of Care Handoff Completed per policy Notes Mental Status: alert / awake / arousable Patient Amnestic to Procedure: Yes Nausea / Vomiting: adequately controlled Pain: adequately controlled Airway Patency, RR, SpO2: stable & adequate BP & HR: stable & adequate Hydration State: stable & adequate Anesthetic Complications: no major complications apparent and Pt Satisfied with anesthetic care Notes: The patient is awake and comfortable. Her neck is not swollen.
[2019-01-20] MEDS ORDERED: DO NOT ADMINISTER FLU VACCINE PRN (14:58)
[2019-01-20] MEDS ORDERED: DEXAMETHASONE SOD PHOSPHATE 8 MG in SYRINGE 0 ML IV PRN (14:58)
[2019-01-20] MEDS ORDERED: DO NOT ADMINISTER PNEUMOCOCCAL VACCINE PRN (14:58)
[2019-01-20] MEDS ORDERED: DiphenhydrAMINE HCL 50 MG/ML VIAL IV PRN (14:58)
[2019-01-20] MEDS ORDERED: LORazepam 0.5 MG/1 ML VIAL IV PRN (14:58)
[2019-01-20] MEDS ORDERED: NALOXONE HCL 0.4 MG/1 ML VIAL/CARP IV PRN (14:58)
[2019-01-20] MEDS ORDERED: ACETAMINOPHEN 1,000 MG/100 ML VIAL IV PRN (14:58)
[2019-01-20] MEDS ORDERED: LORazepam 0.5 MG TAB PO PRN (14:58)
[2019-01-20] MEDS ORDERED: RACEPINEPHRINE 2.25% NEBU SOLN 0.5 ML VIAL INH PRN (14:58)
[2019-01-20] MEDS: HYDROmorphone INJ 0.5 MG/0.5 ML SYR IV PRN (15:25)
[2019-01-20] MEDS: SCOPOLAMINE 1.5 MG TDSY TD SCH (15:57)
[2019-01-20] MEDS: SODIUM CHLORIDE 0.9% 1000ML 1,000 ML IV SCH (15:57)
[2019-01-20] MEDS: CHECK SCOPOLAMINE PATCH PLACEMENT SCH (15:58)
--- NOTE | 2019-01-20 16:56 | Hospitalist Progress Note ---
Date of Service January 20, 2019 Assessment & Plan (1) Cord compression myelopathy: - Presentation of numbness/tingling of b/l UE and LE - MRI with canal stenosis with spinal cord impingement at C5-C6 with possible myelomalacia and moderate to severe spinal stenosis at C4-7. No cord edema. Focal abnormal signal intensity at C2 - ?dilation of central canal-unclear etiology or unclear chronicity of this. - Reports subjective fevers, chills, aches, fatigue, and transient blurring vision and pain with eye movement - possibly from acute sinusitis as evidence on imaging; MRI without signs to suggest demyelination - Initially treated with IV Decadron with some improvement in symptoms - ASA and Plavix on hold; Dexamethasone - Ortho Spine consulted - appreciate surgical management - S/P decompression on 01/20 Present on Admission?: Yes (2) Spinal stenosis: - As above Present on Admission?: Yes (3) Acute sinusitis: - Acute on chronic L frontal and L maxillary sinusitis on brain MRI - treated with Rocephin 2 g IV daily to complete 7-10 day course given surgical intervention (4) Diabetes: - A1c 6.2 (November 2018) - diet controlled at this time - Given high dose IV steroids will monitor BSGs and cover if necessary - Lantus 8 units BID and SSI Present on Admission?: Yes (5) Hypertension: - Mild elevations and possibly due to pain/steroids - Continue Clonidine 0.2 mg BID and Losartan 100 mg daily Present on Admission?: Yes (6) Dyslipidemia: - STABLE/Chronic - Continue Simvastatin 20 mg daily Present on Admission?: Yes (7) Depression: - STABLE/Chronic - Continue Buspirone 10mg BID and Duloxetine 60 mg daily Present on Admission?: Yes (8) Secondary hyperparathyroidism: - STABLE - Continue Calcitriol 0.5 mcg daily Present on Admission?: Yes (9) History of TIAs: - STABLE - Holding ASA and Plavix due to need for surgery - resume per input from ortho spine - Continue Simvastatin Present on Admission?: Yes (10) Polyarthritis: - STABLE - Continue Hydroxychloroquine and Duloxetine Present on Admission?: Yes (11) Urge incontinence: - STABLE - Continue Myrbetriq and Solifenacin; monitor urine output post-operatively or any signs of retention Present on Admission?: Yes (12) CKD (chronic kidney disease): - Cr upon admission was 1.9 indicative of acute kidney injury and likely prerenal given improvement with IV fluids; Baseline appears around 1.5 and follows with Nephrology and Urology for staghorn calculi - Continue to monitor renal function; avoid nephrotoxic agents Present on Admission?: Yes (13) Osteopenia: - STABLE - Continue Calcium and Vitamin D supplementation Present on Admission?: Yes (14) Abnormal urinalysis: - UA with borderline evidence of infection - elevated WBC but with epithelial cells so could be contaminated - no urinary symptoms - Treatment for sinusitis would cover urine as well - UCx with pinpoint growth Present on Admission?: Yes (15) GERD (gastroesophageal reflux disease): - Continue Ranitidine 300 mg HS Present on Admission?: Yes (16) Obesity: - BMI is 39; encourage healthy diet and lifestyle changes Present on Admission?: Yes (17) DVT prophylaxis: - SCDs/TEDs Disposition: Surgical recovery, anticipate stay through majority of week Subjective Patient was seen postoperatively. Looks uncomfortable and complaining of neck pain and a sore throat. Denies SOB and no signs of stridor. Verbalizes no other complaints at this time. Review of Systems Constitutional: no fever, no chills and no weakness Ear, Nose, Mouth, Throat: + sore throat and + hoarseness + neck pain Respiratory: no dyspnea Cardiovascular: no chest pain and no palpitations Gastrointestinal: no abdominal pain, no nausea, no vomiting, no constipation and no diarrhea/loose stools Genitourinary: no dysuria Integumentary: no rash Neurologic: + tingling and + numbness Physical Exam Constitutional: well developed and well nourished; no acute distress (however does look uncomfortable) Eyes: + anicteric sclerae ENMT: Ears: no hearing impairment Neck: trachea midline (limit views) Cervical collar in place Respiratory: normal respiratory effort; no stridor Auscultation: lungs clear to auscultation bilaterally shallow inspirations Cardiovascular: RRR, no murmur, no edema Gastrointestinal (Abdomen): Inspection/Auscultation: normal bowel sounds Percussion/Palpation: abdomen soft; abdomen nontender Musculoskeletal: Head/Neck/Chest: normocephalic, head atraumatic and + limited ROM of neck (collar placed and surgical site) Skin: no rashes, warm and dry Neurologic: moves all extremities Psychiatric: A+Ox3, euthymic affect Results & Data Vital Signs (Past 12 Hours) Vital Signs Temp Pulse Pulse Resp BP Pulse Ox 01/20/19 16:02 36.8 C 59 L 148/52 H 96 01/20/19 15:32 64 16 134/61 96 01/20/19 15:29 60 16 95 01/20/19 15:00 36.7 C 59 L 12 142/65 H 96 01/20/19 14:45 60 17 141/61 H 96 01/20/19 14:35 36.7 C 66 16 140/55 L 95 01/20/19 14:25 67 17 140/61 95 01/20/19 14:15 69 16 133/71 96 01/20/19 14:05 71 14 124/62 94 01/20/19 13:55 74 14 153/67 H 96 01/20/19 13:45 74 16 163/67 H 98 01/20/19 13:35 74 14 156/69 H 97 01/20/19 13:28 36.0 C L 70 14 176/87 H 97 01/20/19 08:20 36.7 C 65 18 175/76 H 98 01/20/19 07:08 36.8 C 57 L 15 178/71 H 95 (1) Spinal stenosis Spinal region: cervical Qualified Code(s): M48.02 - Spinal stenosis, cervical region (2) Diabetes Diabetes mellitus type: type 2 Diabetes mellitus assisted insulin use: without technical sales engineer use Diabetes mellitus complication status: without complication Qualified Code(s): E11.9 - Type 2 diabetes mellitus without complications (3) Hypertension Hypertension type: essential hypertension Qualified Code(s): I10 - Essential (primary) hypertension (4) Depression Depression Type: unspecified Qualified Code(s): F32.9 - Major depressive disorder, single episode, unspecified (5) CKD (chronic kidney disease) Chronic kidney disease stage: stage 2 (mild) Qualified Code(s): N18.2 - Chronic kidney disease, stage 2 (mild)
[2019-01-20] MEDS: DEXAMETHASONE SOD PHOSPHATE 6 MG in SYRINGE 0 ML IV SCH (19:11)
[2019-01-20] MEDS: DOCUSATE SODIUM 100 MG CAP PO SCH (20:28)
[2019-01-21] MEDS: CHECK SCOPOLAMINE PATCH PLACEMENT SCH ×4 (00:10→21:47)
[2019-01-21] MEDS: DEXAMETHASONE SOD PHOSPHATE 6 MG in SYRINGE 0 ML IV SCH ×2 (02:07→10:45)
[2019-01-21] MEDS: SODIUM CHLORIDE 0.9% 1000ML 1,000 ML IV SCH (05:14)
--- NOTE | 2019-01-21 07:56 | Anesthesiology Progress Note ---
Date of Service January 21, 2019 Anesthesia Post Procedure Vital Signs Vital Signs: Temp Pulse Pulse Resp BP Pulse Ox Pulse Ox 01/21/19 07:55 36.9 C 62 18 162/63 H 97 01/21/19 06:00 36.8 C 66 18 150/66 H 94 01/21/19 05:00 97 01/21/19 04:18 57 L 16 97 01/21/19 03:57 36.6 C 60 18 154/53 H 97 01/21/19 02:00 36.6 C 57 L 16 127/68 98 01/21/19 00:00 36.6 C 58 L 16 130/67 97 01/20/19 23:36 56 L 16 97 01/20/19 22:02 36.6 C 59 L 18 128/60 97 01/20/19 20:00 36.8 C 60 14 149/64 H 97 01/20/19 19:22 64 16 97 01/20/19 18:10 36.9 C 60 16 127/62 96 01/20/19 17:11 36.8 C 60 16 120/60 97 01/20/19 16:02 36.8 C 59 L 148/52 H 96 01/20/19 16:00 97 01/20/19 15:32 64 16 134/61 96 01/20/19 15:29 60 16 95 01/20/19 15:00 36.7 C 59 L 12 142/65 H 96 01/20/19 14:45 60 17 141/61 H 96 01/20/19 14:35 36.7 C 66 16 140/55 L 95 01/20/19 14:25 67 17 140/61 95 01/20/19 14:15 69 16 133/71 96 01/20/19 14:05 71 14 124/62 94 01/20/19 13:55 74 14 153/67 H 96 01/20/19 13:45 74 16 163/67 H 98 01/20/19 13:35 74 14 156/69 H 97 01/20/19 13:28 36.0 C L 70 14 176/87 H 97 01/20/19 08:20 36.7 C 65 18 175/76 H 98 Pain Intensity Neck: Pain Intensity: 3 Bilateral Generalized: Pain Intensity: 3 Notes Mental Status: alert / awake / arousable and participated in evaluation Patient Amnestic to Procedure: Yes Nausea / Vomiting: adequately controlled Pain: adequately controlled Airway Patency, RR, SpO2: stable & adequate BP & HR: stable & adequate Hydration State: stable & adequate Anesthetic Complications: no major complications apparent and Pt Satisfied with anesthetic care
[2019-01-21 08:33] LABS: Hematocrit (blood only) 35.3 % (37-47); Hemoglobin 11.7 g/dL (12.0-16.0); Mean Corpuscular Hgb Conc 33.1 g/dL (32-36); Mean Corpuscular Volume 82.5 fL (80-100); Mean Platelet Volume 9.6 fL (7.4-10.4); Platelet Count 189 K/uL (130-400); RDW Coefficient of Variation 14.2 % (11.5-14.5); RDW Standard Deviation 42.5 fL (36.4-46.3); Red Blood Count 4.28 M/uL (4.2-5.4)
[2019-01-21] MEDS: cloNIDine HCl 0.1 MG TAB PO SCH ×2 (08:48→21:09)
[2019-01-21] MEDS: MIRABEGRON ER 25 MG TAB PO SCH (08:49)
[2019-01-21] MEDS: DULOXETINE HCL 60 MG CAP PO SCH (08:49)
[2019-01-21] MEDS: LOSARTAN POTASSIUM 50 MG TAB PO SCH (08:49)
[2019-01-21] MEDS: HYDROXYCHLOROQUINE SULFATE 200 MG TAB PO SCH ×2 (08:50→21:08)
[2019-01-21] MEDS: CALCITRIOL 0.25 MCG CAPSULE PO SCH (08:50)
[2019-01-21] MEDS: SENNA 8.6 MG TAB PO SCH (08:50)
[2019-01-21] MEDS: SIMVASTATIN 20 MG TAB PO SCH (08:50)
--- NOTE | 2019-01-21 08:59 | Hospitalist Progress Note ---
Date of Service January 21, 2019 Assessment & Plan (1) Chest pain: - Developed centralized chest pain that was pressure-like, however reproducible to pushing on the chest cavity; pain did seem to move to L chest and somewhat into the back but remained reproducible - Did result in SOB and hypoxia which did improve with rest and supplemental O2 application - Troponin is negative; EKG largely unremarkable but some nonspecific T wave abnormality but not far different from initial EKG; CXR with a linear area consistent with atelectasis - Will repeat an additional troponin this afternoon - Suspect this is musculoskeletal in nature; recommend to wean O2 to support a saturation of 90% or greater Present on Admission?: No (2) Cord compression myelopathy: - Presentation of numbness/tingling of b/l UE and LE - MRI with canal stenosis with spinal cord impingement at C5-C6 with possible myelomalacia and moderate to severe spinal stenosis at C4-7. No cord edema. Focal abnormal signal intensity at C2 - ?dilation of central canal-unclear etiology or unclear chronicity of this. - Reports subjective fevers, chills, aches, fatigue, and transient blurring vision and pain with eye movement - possibly from acute sinusitis as evidence on imaging; MRI without signs to suggest demyelination - Initially treated with IV Decadron with some improvement in symptoms - ASA and Plavix on hold and appreciate surgical recommendations for restart - Ortho Spine consulted - appreciate surgical management - S/P decompression on 01/20 Present on Admission?: Yes (3) Spinal stenosis: - As above (4) Acute sinusitis: - Acute on chronic L frontal and L maxillary sinusitis on brain MRI - treated with Rocephin 2 g IV daily to complete on 01/25 (7 day course) (5) Diabetes: - A1c 6.2 (November 2018) - diet controlled at this time - Given high dose IV steroids will monitor BSGs and cover if necessary - Lantus 8 units BID and SSI (6) Hypertension: - Mild elevations and possibly due to pain/steroids - Continue Clonidine 0.2 mg BID and Losartan 100 mg daily (7) Dyslipidemia: - STABLE/Chronic - Continue Simvastatin 20 mg daily (8) Depression: - STABLE/Chronic - Continue Buspirone 10mg BID and Duloxetine 60 mg daily (9) Secondary hyperparathyroidism: - STABLE - Continue Calcitriol 0.5 mcg daily (10) History of TIAs: - STABLE - Holding ASA and Plavix due to need for surgery - resume per input from ortho spine - Continue Simvastatin (11) Polyarthritis: - STABLE - Continue Hydroxychloroquine and Duloxetine (12) Urge incontinence: - STABLE - Continue Myrbetriq and Solifenacin; monitor urine output post-operatively or any signs of retention (13) CKD (chronic kidney disease): - Cr upon admission was 1.9 indicative of acute kidney injury and likely prerenal given improvement with IV fluids; Baseline appears around 1.5 and follows with Nephrology and Urology for staghorn calculi - Cr at 1.6 and gentle hydration is ordered - Continue to monitor renal function; avoid nephrotoxic agents (14) Osteopenia: - STABLE - Continue Calcium and Vitamin D supplementation (15) Abnormal urinalysis: - UA with borderline evidence of infection - elevated WBC but with epithelial cells so could be contaminated - no urinary symptoms - Treatment for sinusitis would cover urine as well - UCx with pinpoint growth initially now with multiple organisms but given Abx and asymptomatic will not recollect (16) GERD (gastroesophageal reflux disease): - Continue Ranitidine 300 mg HS Present on Admission?: Yes (17) Obesity: - BMI is 39; encourage healthy diet and lifestyle changes (18) DVT prophylaxis: - SCDs/TEDs Disposition: Surgical recovery, anticipate stay through majority of week; PT/OT ordered Subjective Called to bedside as patient complaining of centralized chest pain described as a pressure sensation. States she has never had symptoms like this before. She was ambulating to the bathroom and developed SOB and CP. She desaturated to 77% but with appropriate saturations with application of supplemental O2. Pain is reproducible on examination when palpating the L sternal border and across the L chest. Vitals are stable with hypertension and HR WNL. EKG with NSR with PAC and unchanged from initial EKG however voltage on this study was smaller but not ST elevations/depressions. Upon resting in bed pain did subside and no longer SOB. States neck pain is under control and tolerated breakfast. She denies any other symptoms at this time. Review of Systems Constitutional: + fatigue; no fever and no chills Ear, Nose, Mouth, Throat: + nasal congestion, + sore throat and + hoarseness; no dysphagia + neck pain Respiratory: + dyspnea on exertion; no cough Cardiovascular: + chest pain; no palpitations, no lightheadedness and no edema Gastrointestinal: no abdominal pain, no nausea, no vomiting, no constipation and no diarrhea/loose stools Genitourinary: no dysuria Integumentary: no rash Neurologic: + tingling and + numbness Physical Exam Constitutional: well developed and well nourished; no acute distress (however does look uncomfortable but better compared to yesterday) Eyes: + anicteric sclerae ENMT: Ears: no hearing impairment Neck: trachea midline dressing applied to surgical site and no bleeding around dressing, ARELIS drain present with serosang fluid Respiratory: normal respiratory effort; no stridor Auscultation: lungs clear to auscultation bilaterally Cardiovascular: RRR, no murmur, no edema tenderness to palp along L sternal border extending across L chest Gastrointestinal (Abdomen): Inspection/Auscultation: normal bowel sounds Percussion/Palpation: abdomen soft; abdomen nontender Musculoskeletal: Head/Neck/Chest: normocephalic, head atraumatic and + limited ROM of neck (collar placed and surgical site) Skin: no rashes, warm and dry Neurologic: moves all extremities Psychiatric: A+Ox3, euthymic affect Results & Data Vital Signs (Past 12 Hours) Vital Signs Temp Pulse Pulse Resp BP Pulse Ox 01/21/19 07:55 36.9 C 62 18 162/63 H 97 01/21/19 06:00 36.8 C 66 18 150/66 H 94 01/21/19 05:00 97 01/21/19 04:18 57 L 16 97 01/21/19 03:57 36.6 C 60 18 154/53 H 97 01/21/19 02:00 36.6 C 57 L 16 127/68 98 01/21/19 00:00 36.6 C 58 L 16 130/67 97 01/20/19 23:36 56 L 16 97 01/20/19 22:02 36.6 C 59 L 18 128/60 97 (1) Diabetes Diabetes mellitus complication status: without complication Diabetes mellitus terminal superintendent insulin use: without alf use Diabetes mellitus type: type 2 Qualified Code(s): E11.9 - Type 2 diabetes mellitus without complications (2) Depression Depression Type: unspecified Qualified Code(s): F32.9 - Major depressive disorder, single episode, unspecified (3) CKD (chronic kidney disease) Chronic kidney disease stage: stage 2 (mild) Qualified Code(s): N18.2 - Chron ic kidney disease, stage 2 (mild) (4) Spinal stenosis Spinal region: cervical Qualified Code(s): M48.02 - Spinal stenosis, cervical region (5) Hypertension Hypertension type: essential hypertension Qualified Code(s): I10 - Essential (primary) hypertension
[2019-01-21] MEDS: INSULIN ASPART 100 UNITS/ML 3 ML PEN SC SCH ×4 (09:00→21:26)
[2019-01-21 09:01] LABS: BUN Creatinine Ratio 17.3 (10-20); Calcium 8.3 mg/dl (8.5-10.1); Creatinine Clr Calc Pharmacy 30.9 ml/min; Est GFR (African American) 33.8; Est GFR (Non-African American) 29.2; Potassium 4.4 mmol/L (3.5-5.1)
[2019-01-21] MEDS: INSULIN GLARGINE SOLOSTAR 100 UNITS/ML 3 ML PEN SC SCH ×2 (09:01→21:43)
[2019-01-21] MEDS: cefTRIAXone SODIUM 2,000 MG in DEXTROSE 5% 50 ML IV SCH (09:05)
--- NOTE | 2019-01-21 10:16 | XRay Report ---
XR chest 1V portable HISTORY: 78 years-old Female SOB/Hypoxia acute shortness of breath COMPARISON: Chest radiograph 01/18/2019 TECHNIQUE: Portable AP view of the chest FINDINGS: Cardiomediastinal and hilar silhouettes are unchanged. Calcification of the thoracic aortic arch. No pneumothorax, pleural effusion or overt pulmonary edema. Linear subsegmental atelectasis. Degenerativ e changes of the shoulders and spine. Fusion hardware of the cervical spine. Surgical clips project o halie the right axilla. IMPRESSION: Subsegmental left basilar atelectasis. The above report was generated using voice recognition software. It may contain grammatical, syntax o r spelling errors. Electronically signed by: David Hamlin M.D. 01/21/2019 10:15 AM
--- NOTE | 2019-01-21 11:34 | Orthopedic Progress Note ---
Date of Service January 21, 2019 Assessment & Plan (1) Cord compression myelopathy: This time we will maintain the cervical collar except when she is eating. She may ambulate as tolerated with assistance. Present on Admission?: Yes Subjective Patient states her arm symptoms are markedly improved. She is swallowing well. No hoarseness. Physical Exam Physical Exam: On exam she is good strength testing appears comfortable. Results & Data Vital Signs (Past 12 Hours) Vital Signs Temp Pulse Pulse Resp BP Pulse Ox 01/21/19 11:05 62 16 99 01/21/19 07:55 36.9 C 62 18 162/63 H 97 01/21/19 06:00 36.8 C 66 18 150/66 H 94 01/21/19 05:00 97 01/21/19 04:18 57 L 16 97 01/21/19 03:57 36.6 C 60 18 154/53 H 97 01/21/19 02:00 36.6 C 57 L 16 127/68 98 01/21/19 00:00 36.6 C 58 L 16 130/67 97 01/20/19 23:36 56 L 16 97
[2019-01-21] MEDS: HYDROmorphone INJ 0.5 MG/0.5 ML SYR IV PRN (11:58)
[2019-01-21] MEDS: DOCUSATE SODIUM 100 MG CAP PO SCH (21:21)
[2019-01-22 06:08] LABS: Hematocrit (blood only) 33.7 % (37-47); Hemoglobin 11.1 g/dL (12.0-16.0); Mean Corpuscular Hgb Conc 32.9 g/dL (32-36); Mean Platelet Volume 9.3 fL (7.4-10.4); Platelet Count 173 K/uL (130-400); RDW Coefficient of Variation 14.2 % (11.5-14.5); RDW Standard Deviation 42.7 fL (36.4-46.3); Red Blood Count 4.11 M/uL (4.2-5.4); White Blood Count 12.46 K/uL (4.8-10.8)
[2019-01-22 06:41] LABS: BUN Creatinine Ratio 18.9 (10-20); Creatinine Clr Calc Pharmacy 35.4 ml/min; Est GFR (African American) 39.8; Est GFR (Non-African American) 34.3; Potassium 3.9 mmol/L (3.5-5.1)
[2019-01-22] MEDS: GLUCOSE 40% GEL 15 GM TUBE PO PRN ×2 (07:14→12:25)
[2019-01-22] MEDS: CHECK SCOPOLAMINE PATCH PLACEMENT SCH ×2 (08:39→17:01)
[2019-01-22] MEDS: DULOXETINE HCL 60 MG CAP PO SCH (08:40)
[2019-01-22] MEDS: MIRABEGRON ER 25 MG TAB PO SCH (08:40)
[2019-01-22] MEDS: cloNIDine HCl 0.1 MG TAB PO SCH ×2 (08:40→20:26)
[2019-01-22] MEDS: LOSARTAN POTASSIUM 50 MG TAB PO SCH (08:40)
[2019-01-22] MEDS: CALCITRIOL 0.25 MCG CAPSULE PO SCH (08:41)
[2019-01-22] MEDS: SENNA 8.6 MG TAB PO SCH (08:41)
[2019-01-22] MEDS: SIMVASTATIN 20 MG TAB PO SCH (08:41)
[2019-01-22] MEDS: HYDROXYCHLOROQUINE SULFATE 200 MG TAB PO SCH ×2 (08:41→20:27)
[2019-01-22] MEDS: INSULIN ASPART 100 UNITS/ML 3 ML PEN SC SCH ×5 (08:47→21:00)
[2019-01-22] MEDS: CEFDINIR 300 MG CAP PO SCH ×2 (09:21→20:27)
--- NOTE | 2019-01-22 13:00 | Hospitalist Progress Note ---
Date of Service January 22, 2019 Assessment & Plan (1) Chest pain: - Developed on 01/21 and was reproducible and now resolved; some low back discomfort and continues to be reproducible suggesting muscular -- Did result in SOB and hypoxia which did improve with rest and supplemental O2 application and now back on RA Present on Admission?: No (2) Cord compression myelopathy: - Presentation of numbness/tingling of b/l UE and LE - MRI with canal stenosis with spinal cord impingement at C5-C6 with possible myelomalacia and moderate to severe spinal stenosis at C4-7. No cord edema. Focal abnormal signal intensity at C2 - ?dilation of central canal-unclear etiology or unclear chronicity of this. - Reports subjective fevers, chills, aches, fatigue, and transient blurring vision and pain with eye movement - possibly from acute sinusitis as evidence on imaging; MRI without signs to suggest demyelination - Initially treated with IV Decadron with some improvement in symptoms and now S/P decompression on 01/20 and doing well post-operative - ASA and Plavix on hold and appreciate surgical recommendations for restart - Ortho Spine consulted - appreciate surgical management Present on Admission?: Yes (3) Spinal stenosis: - As above Present on Admission?: Yes (4) Acute sinusitis: - Acute on chronic L frontal and L maxillary sinusitis on brain MRI - treated with Rocephin 2 g IV daily and now converted to Cefdinir 300 mg BID to complete on 01/25 (7 day course) Present on Admission?: Yes (5) Diabetes: - A1c 6.2 (November 2018) - diet controlled at this time - Given high dose IV steroids will monitor BSGs and cover if necessary - Having intermittent lows and therefore SSI is liberalized and hold basal insulin Present on Admission?: Yes (6) Hypertension: - Mild elevations and possibly due to pain/steroids - Continue Clonidine 0.2 mg BID and Losartan 100 mg daily Present on Admission?: Yes (7) Dyslipidemia: - STABLE/Chronic - Continue Simvastatin 20 mg daily Present on Admission?: Yes (8) Depression: - STABLE/Chronic - Continue Buspirone 10mg BID and Duloxetine 60 mg daily Present on Admission?: Yes (9) Secondary hyperparathyroidism: - STABLE - Continue Calcitriol 0.5 mcg daily Present on Admission?: Yes (10) History of TIAs: - STABLE - Holding ASA and Plavix due to need for surgery - resume per input from ortho spine - Continue Simvastatin (11) Polyarthritis: - STABLE - Continue Hydroxychloroquine and Duloxetine (12) Urge incontinence: - STABLE - Continue Myrbetriq and Solifenacin; monitor urine output post-operatively or any signs of retention (13) CKD (chronic kidney disease): - Cr upon admission was 1.9 indicative of acute kidney injury and likely prerenal given improvement with IV fluids; Baseline appears around 1.5 and follows with Nephrology and Urology for staghorn calculi - Cr at 1.47 and gentle hydration is ordered - Continue to monitor renal function; avoid nephrotoxic agents (14) Osteopenia: - STABLE - Continue Calcium and Vitamin D supplementation (15) Abnormal urinalysis: - UA with borderline evidence of infection - elevated WBC but with epithelial cells so could be contaminated - no urinary symptoms - Treatment for sinusitis would cover urine as well - UCx with pinpoint growth initially now with multiple organisms but given Abx and asymptomatic will not recollect (16) GERD (gastroesophageal reflux disease): - Continue Ranitidine 300 mg HS (17) Obesity: - BMI is 39; encourage healthy diet and lifestyle changes (18) DVT prophylaxis: - SCDs/TEDs Disposition: Surgical recovery, anticipate stay through majority of week; PT/OT ordered - planning on return home Subjective Having some hypoglycemia this AM but asymptomatic. Given some ice cream and chocolate milk. Liberalized her SSI to prevent further lows now that she is off Decadron. Reports pain is better controlled. No further chest pain today but some lower back discomfort. No longer on supplemental O2. Plans on returning home on discharge Review of Systems Constitutional: + fatigue; no fever and no chills Ear, Nose, Mouth, Throat: + hoarseness; no dysphagia + neck pain Respiratory: + dyspnea on exertion; no cough Cardiovascular: no chest pain, no palpitations, no lightheadedness and no edema Gastrointestinal: no abdominal pain, no nausea, no vomiting, no constipation and no diarrhea/loose stools Genitourinary: no dysuria Musculoskeletal: + back pain and + neck pain (controlled with medications) Integumentary: no rash Neurologic: + tingling and + numbness Physical Exam Constitutional: well developed and well nourished; no acute distress (however does look uncomfortable but better compared to yesterday) Eyes: + anicteric sclerae ENMT: Ears: no hearing impairment Neck: trachea midline Respiratory: normal respiratory effort; no stridor Auscultation: lungs clear to auscultation bilaterally Cardiovascular: RRR, no murmur, no edema Gastrointestinal (Abdomen): Inspection/Auscultation: normal bowel sounds Percussion/Palpation: abdomen soft; abdomen nontender Musculoskeletal: Head/Neck/Chest: normocephalic, head atraumatic and + limited ROM of neck (collar placed and surgical site) Skin: no rashes, warm and dry Neurologic: moves all extremities Psychiatric: A+Ox3, euthymic affect Results & Data Vital Signs (Past 12 Hours) Vital Signs Temp Pulse Pulse Resp BP Pulse Ox 01/22/19 11:37 91 01/22/19 11:00 36.8 C 64 16 149/55 H 98 01/22/19 07:41 36.9 C 73 16 162/68 H 100 01/22/19 07:20 72 20 98 01/22/19 03:48 61 17 100 01/22/19 03:40 36.9 C 64 22 165/76 H 99 01/22/19 03:01 36.6 C 72 16 150/71 H 100 (1) Spinal stenosis Spinal region: cervical Qualified Code(s): M48.02 - Spinal stenosis, cervical region (2) Diabetes Diabetes mellitus type: type 2 Diabetes mellitus intermediate designer insulin use: without senior living use Diabetes mellitus complication status: without complication Qualified Code(s): E11.9 - Type 2 diabetes mellitus without complications (3) Hypertension Hypertension type: essential hypertension Qualified Code(s): I10 - Essential (primary) hypertension (4) Depression Depression Type: unspecified Qualified Code(s): F32.9 - Major depressive disorder, single episode, unspecified (5) CKD (chronic kidney disease) Chronic kidney disease stage: stage 2 (mild) Qualified Code(s): N18.2 - Chronic kidney disease, stage 2 (mild)
--- NOTE | 2019-01-22 15:52 | Orthopedic Progress Note ---
Date of Service January 22, 2019 Assessment & Plan (1) Cord compression myelopathy: This time we will maintain cervical immobilization she may remove this brace for eating and bathing. DC the drain today. Is ready for discharge when okay with medicine. Present on Admission?: Yes Subjective Arm symptoms steadily improving. She has no neck pain. Her swelling is improving. Physical Exam Physical Exam: Brace is intact and appropriate placement. She has good strength testing upper extremities. She appears comfortable. Results & Data Vital Signs (Past 12 Hours) Vital Signs Temp Pulse Pulse Resp BP Pulse Ox 01/22/19 15:22 64 16 96 01/22/19 15:09 36.7 C 72 20 192/69 H 99 01/22/19 11:37 91 01/22/19 11:27 64 16 98 01/22/19 11:00 36.8 C 64 16 149/55 H 98 01/22/19 07:41 36.9 C 73 16 162/68 H 100 01/22/19 07:20 72 20 98
[2019-01-22] MEDS ORDERED: TRAMADOL HCL 50 MG TABLET PO PRN (16:30)
[2019-01-22] MEDS ORDERED: HydrALAZINE HCL 20 MG/ML VIAL IV PRN (16:33)
[2019-01-22] MEDS: CARBOHYDRATES FOR HYPOGLYCEMIA PO PRN ×3 (17:17→17:45)
[2019-01-22] MEDS: DOCUSATE SODIUM 100 MG CAP PO SCH (20:31)
--- NOTE | 2019-01-23 08:06 | Orthopedic Progress Note ---
Date of Service January 23, 2019 Assessment & Plan (1) Cord compression myelopathy: This time we will advance her diet. She is okay to DC home per orthopedics. Present on Admission?: Yes Subjective Patient feels that her arm symptoms are steadily improving. She is swallowing well. She is tolerating a full liquid diet. Physical Exam Physical Exam: On exam she is good strength testing. Dressings in place. She appears comfortable. Results & Data Vital Signs (Past 12 Hours) Vital Signs Temp Pulse Pulse Resp BP Pulse Ox 01/23/19 07:25 37 C 70 16 191/93 H 95 01/23/19 07:09 71 16 97 01/23/19 03:35 80 16 95 01/22/19 23:04 36.9 C 80 16 177/66 H 95 01/22/19 22:58 79 14 93 01/22/19 20:23 72 199/66 H
[2019-01-23] MEDS: CALCITRIOL 0.25 MCG CAPSULE PO SCH (08:11)
[2019-01-23] MEDS: LOSARTAN POTASSIUM 50 MG TAB PO SCH (08:11)
[2019-01-23] MEDS: CEFDINIR 300 MG CAP PO SCH ×2 (08:12→21:03)
[2019-01-23] MEDS: SENNA 8.6 MG TAB PO SCH (08:12)
[2019-01-23] MEDS: MIRABEGRON ER 25 MG TAB PO SCH (08:12)
[2019-01-23] MEDS: cloNIDine HCl 0.1 MG TAB PO SCH ×2 (08:13→21:02)
[2019-01-23] MEDS: DULOXETINE HCL 60 MG CAP PO SCH (08:13)
[2019-01-23] MEDS: HYDROXYCHLOROQUINE SULFATE 200 MG TAB PO SCH ×2 (08:13→21:03)
[2019-01-23] MEDS: SIMVASTATIN 20 MG TAB PO SCH (08:14)
[2019-01-23] MEDS: CHECK SCOPOLAMINE PATCH PLACEMENT SCH ×4 (08:14→23:33)
[2019-01-23] MEDS: INSULIN ASPART 100 UNITS/ML 3 ML PEN SC SCH ×4 (08:29→21:11)
[2019-01-23] MEDS ORDERED: HydrALAZINE HCL 20 MG/ML VIAL IV PRN (15:45)
[2019-01-23] MEDS ORDERED: COUGH DROP (SUGAR FREE) LOZ 24 LOZ/1 BOX BUCCAL PRN (16:19)
[2019-01-23] MEDS ORDERED: COUGH DROP (SUGAR FREE) LOZ 24 LOZ/1 BOX BUCCAL ONE (16:23)
[2019-01-23] MEDS: SCOPOLAMINE 1.5 MG TDSY TD SCH (16:43)
--- NOTE | 2019-01-23 17:20 | Hospitalist Progress Note ---
Date of Service January 23, 2019 Assessment & Plan (1) Chest pain: - Developed on 01/21 and was reproducible and now resolved -- Did result in SOB and hypoxia which did improve with rest and supplemental O2 application and now back on RA - Suspect this was musculoskeletal in nature (2) Cord compression myelopathy: - Presentation of numbness/tingling of b/l UE and LE - MRI with canal stenosis with spinal cord impingement at C5-C6 with possible myelomalacia and moderate to severe spinal stenosis at C4-7. No cord edema. Focal abnormal signal intensity at C2 - ?dilation of central canal-unclear etiology or unclear chronicity of this. - Reports subjective fevers, chills, aches, fatigue, and transient blurring vision and pain with eye movement - possibly from acute sinusitis as evidence on imaging; MRI without signs to suggest demyelination - Initially treated with IV Decadron with some improvement in symptoms and now S/P decompression on 01/20 and doing well post-operative - ASA and Plavix on hold and appreciate surgical recommendations for restart - Ortho Spine consulted - appreciate surgical management - optimal for discharge per ortho (3) Spinal stenosis: - As above (4) Acute sinusitis: - Acute on chronic L frontal and L maxillary sinusitis on brain MRI - treated with Rocephin 2 g IV daily and now converted to Cefdinir 300 mg BID to complete on 01/25 (7 day course) (5) Diabetes: - A1c 6.2 (November 2018) - diet controlled at this time - Having intermittent lows and therefore SSI is liberalized and hold basal insulin (6) Hypertension: - Mild elevations and possibly due to pain/steroids - Continue Clonidine 0.2 mg BID and Losartan 100 mg daily; Hydralazine PRN (7) Dyslipidemia: - STABLE/Chronic - Continue Simvastatin 20 mg daily (8) Depression: - STABLE/Chronic - Continue Buspirone 10mg BID and Duloxetine 60 mg daily (9) Secondary hyperparathyroidism: - STABLE - Continue Calcitriol 0.5 mcg daily (10) History of TIAs: - STABLE - Holding ASA and Plavix due to need for surgery - resume per input from ortho spine - Continue Simvastatin (11) Polyarthritis: - STABLE - Continue Hydroxychloroquine and Duloxetine (12) Urge incontinence: - STABLE - Continue Myrbetriq and Solifenacin; monitor urine output post-operatively or any signs of retention (13) CKD (chronic kidney disease): - Cr upon admission was 1.9 indicative of acute kidney injury and likely prerenal given improvement with IV fluids; Baseline appears around 1.5 and follows with Nephrology and Urology for staghorn calculi - Most recent Cr at 1.47 - Continue to monitor renal function; avoid nephrotoxic agents (14) Osteopenia: - STABLE - Continue Calcium and Vitamin D supplementation (15) Abnormal urinalysis: - UA with borderline evidence of infection - elevated WBC but with epithelial cells so could be contaminated - no urinary symptoms - Treatment for sinusitis would cover urine as well - UCx with pinpoint growth initially now with multiple organisms but given Abx and asymptomatic will not recollect (16) GERD (gastroesophageal reflux disease): - Continue Ranitidine 300 mg HS (17) Obesity: - BMI is 39; encourage healthy diet and lifestyle changes (18) DVT prophylaxis: - SCDs/TEDs Disposition: Planning on returning home - plan for home tomorrow Subjective Reports that she is feeling well today. Pain in the neck is minimal and diet advanced and so far tolerating this. Her plan is to return home on discharge. No further chest pain. Reports sleeping well. Verbalizes no other complaints at this time Review of Systems Constitutional: no fever and no chills Ear, Nose, Mouth, Throat: no sore throat, no hoarseness and no dysphagia + neck pain Respiratory: + dyspnea on exertion; no cough Cardiovascular: no chest pain, no palpitations and no edema Gastrointestinal: no abdominal pain, no nausea, no vomiting, no constipation and no diarrhea/loose stools Genitourinary: no dysuria Musculoskeletal: no neck pain Integumentary: no rash Neurologic: + tingling and + numbness Physical Exam Constitutional: well developed and well nourished; no acute distress Eyes: + anicteric sclerae ENMT: Ears: no hearing impairment Neck: trachea midline dressing applied C/D/I without significant swelling; minimal ecchymosis visible below dressing Respiratory: normal respiratory effort; no stridor Auscultation: lungs clear to auscultation bilaterally Cardiovascular: RRR, no murmur, no edema Gastrointestinal (Abdomen): Inspection/Auscultation: normal bowel sounds Percussion/Palpation: abdomen soft; abdomen nontender Musculoskeletal: Head/Neck/Chest: normocephalic and head atraumatic Skin: no rashes, warm and dry Neurologic: moves all extremities Psychiatric: A+Ox3, euthymic affect Results & Data Vital Signs (Past 12 Hours) Vital Signs Temp Pulse Pulse Pulse Pulse Resp BP 01/23/19 15:26 36.8 C 87 16 182/71 H 01/23/19 15:15 71 71 18 01/23/19 11:45 37 C 71 18 187/69 H 01/23/19 11:20 72 16 01/23/19 09:49 01/23/19 09:36 82 169/78 H 01/23/19 07:40 01/23/19 07:25 37 C 70 16 191/93 H 01/23/19 07:09 71 16 Pulse Ox Pulse Ox 01/23/19 15:26 95 01/23/19 15:15 99 01/23/19 11:45 96 01/23/19 11:20 97 01/23/19 09:49 93 01/23/19 09:36 01/23/19 07:40 97 01/23/19 07:25 95 01/23/19 07:09 97 PG Care Time/CCT Total # of Minutes Spent Total Time Spent with Patient: Total time spent is greater than 50% in coordination of care (as documented) at patient's floor/unit and/or counseling patient: (1) Spinal stenosis Spinal region: cervical Qualified Code(s): M48.02 - Spinal stenosis, cervical region (2) Diabetes Diabetes mellitus type: type 2 Diabetes mellitus terminal clerk insulin use: without terminal clerk use Diabetes mellitus complication status: without complication Qualified Code(s): E11.9 - Type 2 diabetes mellitus without complications (3) Hypertension Hypertension type: essential hypertension Qualified Code(s): I10 - Essential (primary) hypertension (4) Depression Depression Type: unspecified Qualified Code(s): F32.9 - Major depressive disorder, single episode, unspecified (5) CKD (chronic kidney disease) Chronic kidney disease stage: stage 2 (mild) Qualified Code(s): N18.2 - Chronic kidney disease, stage 2 (mild)
[2019-01-23] MEDS: DOCUSATE SODIUM 100 MG CAP PO SCH (21:02)
[2019-01-23] MEDS: HYDROmorphone INJ 0.5 MG/0.5 ML SYR IV PRN (23:36)
[2019-01-23] MEDS ORDERED: MAGNESIUM SULFATE / D5W 1 GM/100 ML BAG IV SCH (23:51)
[2019-01-23] MEDS ORDERED: METOPROLOL TARTRATE 1 MG/ML VIAL IV STA (23:51)
[2019-01-24 00:51] LABS: Eosinophils # (auto) 0.16 K/uL (0-0.5); Eosinophils % (auto) 1.7 %; Hemoglobin 11.7 g/dL (12.0-16.0); Immature Granulocytes # (auto) 0.02 K/uL (0.00-0.02); Immature Granulocytes % (auto) 0.2 %; Lymphocytes # (auto) 1.23 K/uL (1.2-3.4); Lymphocytes % (auto) 12.8 %; Mean Corpuscular Volume 81.4 fL (80-100); Mean Platelet Volume 9.7 fL (7.4-10.4); Monocytes # (auto) 0.96 K/uL (0.11-0.59); Neutrophils # (auto) 7.26 K/uL (1.4-6.5); Neutrophils % (auto) 75.3 %; Platelet Count 172 K/uL (130-400); RDW Coefficient of Variation 13.8 % (11.5-14.5); RDW Standard Deviation 41.4 fL (36.4-46.3); Red Blood Count 4.42 M/uL (4.2-5.4); White Blood Count 9.63 K/uL (4.8-10.8)
[2019-01-24 01:24] LABS: Albumin Globulin Ratio 0.8 (0.9-2); Albumin Level 2.8 gm/dl (3.4-5.0); BUN Creatinine Ratio 13.3 (10-20); Bilirubin,Total 0.7 mg/dl (0.2-1); Calcium 7.9 mg/dl (8.5-10.1); Creatinine Clr Calc Pharmacy 40.3 ml/min; Est GFR (African American) 46.6; Est GFR (Non-African American) 40.2; Globulin 3.3 gm/dl (2.5-4.0); Magnesium 1.9 mg/dl (1.8-2.4); Potassium 3.7 mmol/L (3.5-5.1); Total Protein 6.1 gm/dl (6.4-8.2); Troponin I 0.022 ng/ml (0-0.045)
[2019-01-24 01:32] LABS: Mean Corpuscular Hgb Conc 32.5 g/dL (32-36)
[2019-01-24] MEDS ORDERED: POTASSIUM CHLORIDE 20 MEQ TABCR PO STA (01:37)
--- NOTE | 2019-01-24 01:51 | Consultation ---
Date of Consultation January 24, 2019 Assessment & Plan (1) Atrial fibrillation with RVR: Called by 3rd floor nursing due to pt HR jumping sporadically from 90s to 150s on continuous pulse ox. Pt asymptomatic aside from discomfort between shoulder blades. Vitals otherwise stable, mild elevation in BP. Pt has h/o MSK chest discomfort noted this visit. EKG was obtained which revealed afib with RVR of 137. Transferred patient to telemetry, one dose of lopressor 5mg IV given with adequate reduction of BP and HR. Stat labs revealed mag 1.9 and K of 3.7, troponin normal; supplemented for goal of Mag >2.0 and K >4. History of Present Illness Attending Physician: Kevin Paredes DO Allergies Allergy/AdvReac Type Severity Reaction Status Date / Time HO Inhibitors Allergy Unknown ITCHING Verified 01/30/19 10:16 acetaminophen [From Percocet] Allergy Unverified 01/30/19 10:16 tolterodine Allergy Unverified 01/30/19 10:16 oxycodone AdvReac Mild CAUSES BE Verified 01/30/19 10:16 JITTERINESS & CAN'T EAT. ALSO CAUSES RLS SYMPTOMS Home Medications Home Medications Medication Instructions Recorded Confirmed Type aspirin 81 mg PO DAILY 01/18/19 01/30/19 History calcitriol 0.5 mcg PO DAILY 01/18/19 01/30/19 History apixaban [Eliquis] 5 mg PO BID 30 Days #60 tab 01/25/19 01/30/19 Rx metoprolol tartrate 25 mg PO BID 30 Days #60 tab 01/25/19 01/30/19 Rx buspirone 10 mg tablet 10 mg PO BID 90 Days #180 tab 01/30/19 01/30/19 Rx clonidine HCl 0.2 mg tablet 0.2 mg PO BID 90 Days #180 tab 01/30/19 01/30/19 Rx docusate sodium 250 mg capsule 500 mg PO HS 90 Days #180 cap 01/30/19 01/30/19 Rx duloxetine 60 mg capsule,delayed 60 mg PO DAILY 90 Days #90 cap 01/30/19 01/30/19 Rx release hydroxychloroquine 200 mg tablet 200 mg PO BID 90 Days #180 tab 01/30/19 01/30/19 Rx losartan 100 mg tablet 100 mg PO DAILY 90 Days #90 tab 01/30/19 01/30/19 Rx mirabegron ER 50 mg 50 mg PO DAILY 90 Days #90 tab 01/30/19 01/30/19 Rx tablet,extended release 24 hr ranitidine 300 mg tablet 300 mg PO HS 90 Days #90 tab 01/30/19 01/30/19 Rx simvastatin 20 mg tablet 20 mg PO DAILY 90 Days #90 tab 01/30/19 01/30/19 Rx solifenacin 5 mg tablet 5 mg PO DAILY 90 Days #90 tab 01/30/19 01/30/19 Rx Patient History Medical History History of TIAs (Chronic) last one over 10 years ago Breast cancer (Resolved) Diabetes (Chronic) borderline, diet controlled CKD (chronic kidney disease) Depression Dyslipidemia GERD (gastroesophageal reflux disease) Hypertension Hypothyroid Surgical History History of bilateral salpingo-oophorectomy (Resolved) Status post biopsy of skin (Resolved) History of total abdominal hysterectomy (Resolved) History of mastectomy (Resolved) History of total knee arthroplasty (Resolved) History of bilateral knee replacement History of hysterectomy History of mastectomy Family History Father Myocardial infarction Brother Myocardial infarction Other Coronary heart disease Diabetes Social History Preferred Language: Qatari Communication Ability: Effective Beliefs That Will Affect Care: None Current Living Situation: Family Current Living Situation Comment: 2 sons Feels Safe at Home: Yes Smoking Status: Never smoker Hx Alcohol Use: No Hx Substance Use: No Results & Data Vital Signs (Past 12 Hours) Vital Signs Temp Pulse Pulse Pulse Pulse Pulse Resp 01/24/19 00:28 131 H 01/24/19 00:20 103 H 01/24/19 00:06 37 C 117 H 24 01/23/19 23:52 36.9 C 102 H 18 01/23/19 23:21 124 H 16 01/23/19 22:56 37.0 C 134 H 19 01/23/19 21:18 87 01/23/19 21:15 01/23/19 19:31 90 18 01/23/19 19:25 81 18 01/23/19 19:12 01/23/19 17:44 83 18 01/23/19 15:26 36.8 C 87 16 01/23/19 15:15 71 71 18 BP Pulse Ox 01/24/19 00:28 01/24/19 00:20 01/24/19 00:06 107/61 01/23/19 23:52 191/71 H 94 01/23/19 23:21 98 01/23/19 22:56 145/63 H 97 01/23/19 21:18 160/82 H 97 01/23/19 21:15 187/86 H 01/23/19 19:31 95 01/23/19 19:25 98 01/23/19 19:12 160/68 H 01/23/19 17:44 185/78 H 99 01/23/19 15:26 182/71 H 95 01/23/19 15:15 99 PG Care Time/CCT Total # of Minutes Spent Total Time Spent with Patient: Total time spent is greater than 50% in coordination of care (as documented) at patient's floor/unit and/or counseling patient: Resident Activity Tracking Resident Involvement: Quality Assurance Coordinator Coverage Note Care Provided: Adult Hospital Medicine
[2019-01-24] MEDS: MAGNESIUM SULFATE / D5W 1 GM/100 ML BAG IV SCH ×2 (02:01→03:23)
[2019-01-24 06:27] LABS: Hematocrit (blood only) 35.7 % (37-47); Hemoglobin 11.5 g/dL (12.0-16.0); Mean Corpuscular Hgb Conc 32.2 g/dL (32-36); Mean Corpuscular Volume 82.1 fL (80-100); Mean Platelet Volume 9.8 fL (7.4-10.4); Platelet Count 180 K/uL (130-400); RDW Coefficient of Variation 13.7 % (11.5-14.5); Red Blood Count 4.35 M/uL (4.2-5.4); White Blood Count 9.24 K/uL (4.8-10.8)
[2019-01-24 06:46] LABS: BUN Creatinine Ratio 14.3 (10-20); Calcium 8.2 mg/dl (8.5-10.1); Creatinine Clr Calc Pharmacy 43.3 ml/min; Est GFR (African American) 49.8; Potassium 4.2 mmol/L (3.5-5.1)
[2019-01-24] MEDS: CHECK SCOPOLAMINE PATCH PLACEMENT SCH ×3 (08:01→23:10)
[2019-01-24] MEDS: INSULIN ASPART 100 UNITS/ML 3 ML PEN SC SCH ×4 (08:02→20:50)
[2019-01-24] MEDS: cloNIDine HCl 0.1 MG TAB PO SCH ×2 (08:03→20:55)
[2019-01-24] MEDS: MIRABEGRON ER 25 MG TAB PO SCH (08:03)
[2019-01-24] MEDS: DULOXETINE HCL 60 MG CAP PO SCH (08:03)
[2019-01-24] MEDS: LOSARTAN POTASSIUM 50 MG TAB PO SCH (08:03)
[2019-01-24] MEDS: CEFDINIR 300 MG CAP PO SCH ×2 (08:04→20:54)
[2019-01-24] MEDS: HYDROXYCHLOROQUINE SULFATE 200 MG TAB PO SCH ×2 (08:04→20:54)
[2019-01-24] MEDS: SIMVASTATIN 20 MG TAB PO SCH (08:05)
[2019-01-24] MEDS: CALCITRIOL 0.25 MCG CAPSULE PO SCH (08:05)
[2019-01-24] MEDS: SENNA 8.6 MG TAB PO SCH (08:05)
--- NOTE | 2019-01-24 10:15 | Cardiology Consultation ---
Date of Consultation January 24, 2019 Assessment & Plan (1) Atrial fibrillation with RVR: It looks as though she had brief episode of atrial fibrillation/flutter with rapid ventricular response. She was completely asymptomatic. She had not been on telemetry as she was on the third floor. This could be related to postoperative state. Can also not rule out the fact that she may have been having this from time to time as she was completely asymptomatic. Until this is settled, would recommend anticoagulation therapy given significantly elevated chads Vasc score, if safe from a surgical standpoint. Thirty day event monitor also recommended as an outpatient and this has been communicated with the outpatient cardiology staff so that it can be arranged. If anticoagulation therapy is still contraindicated from surgery, would continue forward with the outpatient monitor and if continues to have atrial fibrillation, can then anticoagulate in the future when safe. Recommend metoprolol tartrate 25 mg twice daily if no contraindication. Echo ordered. (2) Atrial tachycardia, paroxysmal: Several brief episodes of nonsustained atrial tachycardia. Recommend beta-miller as above. (3) Chest pain: No current chest pain and had no chest pain overnight but apparently there was musculoskeletal type chest pain earlier this hospitalization. No ischemic evaluation recommended at this time. (4) Hypertension: Recommend beta-miller as above which may improve her blood pressure. Disposition: Please call with any other questions or concerns. A follow-up appointment will be scheduled in the outpatient cardiology office after she has her event monitor. I will be away for the hospital for the next 4 days. If there are any other questions or concerns, please contact the on-call mortgage loan originator. Plan of care discussed with Dr. Paredes of the primary hospitalist service. Thank you for allowing me to participate in the care of your patient. Please call for any other questions or concerns. Sincerely, Graysno Franco M.D. History of Present Illness Reason for Consultation: Atrial fibrillation with rapid ventricular response. Requesting Physician: Dr. Cardona Attending Physician: Kevin Paredes, History of Present Illness Ms. Jacob is a very pleasant 78-year-old female with a history significant for diet-controlled diabetes, hypertension, dyslipidemia, TIAs on dual anti-platelet therapy, and CKD. 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 Padron. Cardiology was consulted due to atrialFibrillation with rapid ventricular response. This was diagnosed while on the third floor but she was transferred to telemetry. While on telemetry she was noted to have episodes of atrial fibrillation with rapid ventricular response but also several episodes of recurring, but nonsustained atrial tachycardia. She denies palpitations, chest pain, shortness of breath, syncope, near-syncope, or bleeding such as melena, hematochezia, or hematuria. She reportedly had chest discomfort earlier this hospitalization which was felt to be musculoskeletal by other providers. She reports having nausea last evening after supper but otherwise no nausea or vomiting. She has chronic but stable lower extremity edema. Review of systems: As above. Review of systems otherwise negative/unremarkable. Social history: She denies tobacco or alcohol abuse. She has 4 children, 2 son s live with her and otherwise she has 2 daughters. She is a . She has grandchildren. She was alone in her hospital room. Family history: Father had CAD. Allergies Allergy/AdvReac Type Severity Reaction Status Date / Time HO Inhibitors Allergy Unknown ITCHING Verified 01/18/19 16:16 oxycodone AdvReac Mild CAUSES BE Verified 01/18/19 16:16 JITTERINESS & CAN'T EAT. ALSO CAUSES RLS SYMPTOMS Home Medications Home Medications Medication Instructions Recorded Confirmed Type aspirin 81 mg PO DAILY 01/18/19 01/18/19 History buspirone 10 mg PO BID 01/18/19 01/18/19 History calcitriol 0.5 mcg PO DAILY 01/18/19 01/18/19 History clonidine HCl 0.2 mg PO BID 01/18/19 01/18/19 History clopidogrel 75 mg PO DAILY 01/18/19 01/18/19 History docusate sodium 500 mg PO HS 01/18/19 01/18/19 History duloxetine 60 mg PO DAILY 01/18/19 01/18/19 History hydroxychloroquine 200 mg PO BID 01/18/19 01/18/19 History losartan 100 mg PO DAILY 01/18/19 01/18/19 History mirabegron [Myrbetriq] 50 mg PO DAILY 01/18/19 01/18/19 History ranitidine HCl 300 mg PO HS 01/18/19 01/18/19 History simvastatin 20 mg PO DAILY 01/18/19 01/18/19 History solifenacin 5 mg PO DAILY 01/18/19 01/18/19 History Patient History Medical History History of TIAs (Chronic) last one over 10 years ago Breast cancer (Chronic) Diabetes (Chronic) borderline, diet controlled CKD (chronic kidney disease) Depression Dyslipidemia GERD (gastroesophageal reflux disease) Hypertension Hypothyroid Surgical History History of bilateral knee replacement History of hysterectomy History of mastectomy Family History Other Coronary heart disease Diabetes Social History Preferred Language: Hebrew Communication Ability: Effective Beliefs That Will Affect Care: None Current Living Situation: Family Current Living Situation Comment: 2 sons Feels Safe at Home: Yes Smoking Status: Never smoker Hx Alcohol Use: No Hx Substance Use: No Physical Exam Physical Exam: Gen.: No acute distress. Alert and oriented. HEENT: Anicteric sclera. Neck: No appreciable JVD. Surgical bandage in place on the anterior portion of the neck. Cardiac: PMI was nondisplaced. No ventricular heave. Regular. Normal S1-S2. No murmurs, rubs, or gallops. Pulmonary: Clear to auscultation bilaterally without wheezes, rales, or rhonchi. Abdomen: Soft, nontender, nondistended, with normoactive bowel sounds. No bruits noted. Extremities: 2+ radial pulses bilaterally. 2+ posterior tibialis pulses bilaterally. No edema or cyanosis. Psychiatric: Affect appears appropriate. Results & Data Vital Signs (Past 12 Hours) Vital Signs Temp Pulse Pulse Pulse Resp BP Pulse Ox 01/24/19 06:58 71 14 96 01/24/19 06:51 36.5 C 76 18 149/71 H 99 01/24/19 03:33 37.1 C 102 H 20 138/77 94 01/24/19 03:30 71 16 97 01/24/19 00:28 131 H 01/24/19 00:20 103 H 01/24/19 00:06 37 C 117 H 24 107/61 01/23/19 23:52 36.9 C 102 H 18 191/71 H 94 01/23/19 23:21 124 H 16 98 01/23/19 22:56 37.0 C 134 H 19 145/63 H 97 Intake & Output 01/22/19 01/23/19 01/24/19 01/25/19 06:59 06:59 06:59 06:59 Intake Total 670 / 670 700 / 700 1075 / 1075 Output Total 875 / 875 550 / 550 Balance -205 / -205 150 / 150 1075 / 1075 Weight 99.5 kg Laboratory Results Laboratory Results - last 24 hr 01/23/19 01/23/19 01/23/19 12:23 17:31 20:39 WBC RBC Hgb Hct MCV MCH MCHC RDW Std Deviation RDW Coeff of [place] Plt Count MPV Immature Gran % (Auto) Neut % (Auto) Lymph % (Auto) [place] % (Auto) Eos % (Auto) Baso % (Auto) Immature Gran # (Auto) Neut # (Auto) Lymph # (Auto) [place] # (Auto) Eos # (Auto) Baso # (Auto) Sodium Potassium Chloride Carbon Dioxide Anion Gap BUN Creatinine Est Cr Clr Drug Dosing Est GFR ( Amer) Est GFR (Non-Af Amer) BUN/Creatinine Ratio Glucose POC Glucose 78 70 89 Calcium Magnesium Total Bilirubin AST ALT Alkaline Phosphatase Troponin I Total Protein Albumin Globulin Albumin/Globulin Ratio 01/24/19 01/24/19 01/24/19 00:38 00:38 05:55 WBC 9.63 9.24 RBC 4.42 4.35 Hgb 11.7 L 11.5 L Hct 36.0 L 35.7 L MCV 81.4 82.1 MCH 26.5 26.4 MCHC 32.5 32.2 RDW Std Deviation 41.4 42.0 RDW Coeff of [place] 13.8 13.7 Plt Count 172 180 MPV 9.7 9.8 Immature Gran % (Auto) 0.2 Neut % (Auto) 75.3 Lymph % (Auto) 12.8 [place] % (Auto) 10.0 Eos % (Auto) 1.7 Baso % (Auto) 0.0 Immature Gran # (Auto) 0.02 Neut # (Auto) 7.26 H Lymph # (Auto) 1.23 [place] # (Auto) 0.96 H Eos # (Auto) 0.16 Baso # (Auto) 0.00 Sodium 138 Potassium 3.7 Chloride 107 Carbon Dioxide 25 Anion Gap 6.0 BUN 17 Creatinine 1.29 H Est Cr Clr Drug Dosing 40.3 Est GFR ( Amer) 46.6 Est GFR (Non-Af Amer) 40.2 BUN/Creatinine Ratio 13.3 Glucose 110 H POC Glucose Calcium 7.9 L Magnesium 1.9 Total Bilirubin 0.7 AST 28 ALT 14 Alkaline Phosphatase 75 Troponin I 0.022 Total Protein 6.1 L Albumin 2.8 L Globulin 3.3 Albumin/Globulin Ratio 0.8 L 01/24/19 01/24/19 05:55 07:25 WBC RBC Hgb Hct MCV MCH MCHC RDW Std Deviation RDW Coeff of [place] Plt Count MPV Immature Gran % (Auto) Neut % (Auto) Lymph % (Auto) [place] % (Auto) Eos % (Auto) Baso % (Auto) Immature Gran # (Auto) Neut # (Auto) Lymph # (Auto) [place] # (Auto) Eos # (Auto) Baso # (Auto) Sodium 138 Potassium 4.2 Chloride 106 Carbon Dioxide 27 Anion Gap 5.0 BUN 17 Creatinine 1.22 H Est Cr Clr Drug Dosing 43.3 Est GFR ( Amer) 49.8 Est GFR (Non-Af Amer) 43.0 BUN/Creatinine Ratio 14.3 Glucose 103 H POC Glucose 99 Calcium 8.2 L Magnesium Total Bilirubin AST ALT Alkaline Phosphatase Troponin I Total Protein Albumin Globulin Albumin/Globulin Ratio Diagnostic Findings Telemetry personally reviewed: Sinus rhythm currently. Has had several bouts of PACs and short runs of atrial tachycardia. Also noted, brief episodes of what appears to be atrial fibrillation. ECGs personally reviewed: ECG 01/21/2019: Sinus rhythm with PACs at 65 bpm. Nonspecific T-wave abnormality. ECG 01/23/2019: Atrial fibrillation/flutter at [address]/T-wave abnormality. Medications Administered Current Inpatient Medications Acetaminophen (Tylenol) 650 mg PO Q4H PRN PRN Reason: pain/fever Stop: 02/17/19 23:35 Last Admin: 01/19/19 07:46 Dose: 650 mg Documented by: Buspirone HCl (Buspar) 10 mg PO BID [facility] Stop: 02/18/19 08:59 Last Admin: 01/24/19 08:02 Dose: 10 mg Documented by: Calcitriol (Rocaltrol) 0.5 mcg PO DAILY [facility] Stop: 02/18/19 08:59 Last Admin: 01/24/19 08:05 Dose: 0.5 mcg Documented by: Cefdinir (Omnicef Cap) 300 mg PO BID [facility]; Protocol Stop: 01/29/19 08:59 Last Admin: 01/24/19 08:04 Dose: 300 mg Documented by: Clonidine HCl (Catapres) 0.2 mg PO BID [facility] Stop: 02/18/19 08:59 Last Admin: 01/24/19 08:03 Dose: 0.2 mg Documented by: Diphenhydramine HCl (Benadryl) 25 mg IV Q6H PRN PRN Reason: anxiety, agitation & sleep Stop: 02/19/19 14:57 Docusate Sodium (Colace) 300 mg PO HS [facility] Stop: 02/18/19 20:59 Last Admin: 01/23/19 21:02 Dose: 300 mg Documented by: Duloxetine HCl (Cymbalta) 60 mg PO DAILY [facility] Stop: 02/18/19 08:59 Last Admin: 01/24/19 08:03 Dose: 60 mg Documented by: Epinephrine (Raccemic Epinephrine 2.25% 0.5ml) 0.5 ml INH NOW PRN PRN Reason: if stridor present Stop: 02/19/19 14:57 Glucagon (Glucagen) 1 mg SQ UD PRN; Protocol PRN Reason: Hypoglycemia Protocol Stop: 02/17/19 23:35 Glucose (Dex4 Glucose) 4 - 8 tabs PO UD PRN; Protocol PRN Reason: Hypoglycemia Protocol Stop: 02/17/19 23:35 Glucose (Glucose 40%) 15 - 30 gm PO UD PRN; Protocol PRN Reason: Hypoglycemia Protocol Stop: 02/17/19 23:35 Last Admin: 01/22/19 12:25 Dose: 15 gm Documented by: Hydralazine HCl (Hydralazine Hcl) 10 mg IV Q6H PRN PRN Reason: Systolic >170 or Diastolic >90 Stop: 02/21/19 16:44 Last Admin: 01/23/19 17:55 Dose: 10 mg Documented by: Hydromorphone HCl (Dilaudid) 0.5 mg IV Q3H PRN PRN Reason: moderate pain (scale 4-6) Stop: 02/03/19 14:57 Last Admin: 01/23/19 23:36 Dose: 0.5 mg Documented by: Hydroxychloroquine Sulfate (Plaquenil) 200 mg PO BID [facility] Stop: 02/18/19 08:59 Last Admin: 01/24/19 08:04 Dose: 200 mg Documented by: Acetaminophen (Ofirmev) 1,000 mg in 100 mls @ 400 mls/hr IV Q8H PRN PRN Reason: pain rating 1-3 Stop: 02/19/19 14:57 Last Infusion: 01/21/19 19:15 Dose: Infused Documented by: Lorazepam (Ativan) 0.5 mg in 1 mls @ 1 mls/min IV Q8H PRN PRN Reason: Anxiety and/or sedation Stop: 02/19/19 14:57 Dexamethasone Sodium Phosphate (8 mg/ Syringe) 2 mls @ 1 mls/min IV NOW PRN PRN Reason: stridor Stop: 02/19/19 14:57 Influenza Virus Vaccine Quadrival (Flu Vaccine, Do Not Administer) 1 ea N/A PRN PRN PRN Reason: Notification Stop: 02/19/19 14:57 Insulin Aspart (Novolog Flexpen) 0 units SC ACHS ERMIAS Stop: 02/21/19 12:59 Last Admin: 01/24/19 08:02 Dose: Not Given Documented by: Lorazepam (Ativan) 0.5 mg PO Q8H PRN PRN Reason: anxiety and/or sedation Stop: 02/19/19 14:57 Losartan Potassium (Cozaar) 100 mg PO DAILY ERMIAS Stop: 02/18/19 08:59 Last Admin: 01/24/19 08:03 Dose: 100 mg Documented by: Menthol (Nice) 1 claire BUCCAL PRN PRN PRN Reason: Sore Throat Stop: 02/22/19 16:18 Last Admin: 01/23/19 16:43 Dose: 1 claire Documented by: Mirabegron (Myrbetriq Er) 50 mg PO DAILY ERMIAS Stop: 02/18/19 08:59 Last Admin: 01/24/19 08:03 Dose: 50 mg Documented by: Miscellaneous (Carbohydrates For Hypoglycemia) 15 - 30 gm PO UD PRN PRN Reason: Hypoglycemia Treatment Stop: 02/17/19 23:35 Last Admin: 01/22/19 17:45 Dose: 15 gm Documented by: Miscellaneous (Remove Transderm-Scop Patch) 1 ea N/A Q72H ERMIAS Stop: 02/22/19 15:58 Last Admin: 01/23/19 16:44 Dose: 1 ea Documented by: Miscellaneous (Check Scopolamine Patch Placement) 1 ea N/A QS ERMIAS Stop: 02/19/19 15:59 Last Admin: 01/24/19 08:01 Dose: 1 ea Documented by: Naloxone HCl (Narcan) 0.1 mg IV Q5M PRN PRN Reason: Oversedation/respiratory dep Stop: 02/19/19 14:57 Ondansetron HCl (Zofran) 4 mg IV Q6H PRN PRN Reason: Nausea Stop: 02/17/19 23:35 Last Admin: 01/23/19 20:59 Dose: 4 mg Documented by: Ondansetron HCl (Zofran) 4 mg IV Q6H PRN PRN Reason: Nausea And Vomiting Stop: 02/19/19 14:57 Pneumococcal Polyvalent Vaccine (Pneumococcal Vacc, Do Not Administer) 1 ea N/A PRN PRN PRN Reason: Notification Stop: 02/19/19 14:57 Ranitidine HCl (Zantac) 300 mg PO HS [facility] Stop: 02/18/19 20:59 Last Admin: 01/23/19 21:03 Dose: 300 mg Documented by: Scopolamine (Transderm-Scop) 1.5 mg TD Q72H ERMIAS Stop: 02/19/19 15:59 Last Admin: 01/23/19 16:43 Dose: 1.5 mg Documented by: Sennosides (Senokot) 8.6 mg PO QAM ERMIAS Stop: 02/18/19 13:29 Last Admin: 01/24/19 08:05 Dose: 8.6 mg Documented by: Simvastatin (Zocor) 20 mg PO DAILY [facility] Stop: 02/18/19 08:59 Last Admin: 01/24/19 08:05 Dose: 20 mg Documented by: Sodium Chloride ([place] Nasal) 2 sprays NA Q6H PRN PRN Reason: Congestion Stop: 02/17/19 23:35 Tramadol HCl (Ultram) 50 mg PO Q6H PRN PRN Reason: Pain Stop: 02/21/19 16:29 (1) Hypertension Hypertension type: essential hypertension Qualified Code(s): I10 - Essential (primary) hypertension
[2019-01-24] MEDS ORDERED: PERFLUTREN LIPID MICROSPHERE (DEFINITY) IV ONE (10:59)
--- NOTE | 2019-01-24 12:56 | Hospitalist Progress Note ---
Date of Service January 24, 2019 Assessment & Plan (1) Atrial fibrillation with RVR: - Noted to have fluctuating HRs overnight of 01/23 - found to be in A Fib RVR and possible Atrial Tach; CHADSVASc 7 - Converted to NSR with rate controlling measures - Echo - EF 60-65%; no regional wall motion abnormalities; no significant valvular issues - Start Lopressor 25 mg BID; Eliquis 5 mg BID (cost reviewed an approx. $4/month and patient agrees) - Planning on 30 day holter monitor - Cardiology consulted - Plan as above (2) Chest pain: - Developed on 01/21 and was reproducible and now resolved; troponins neg/EKG with nonspecific T wave changes but not significantly different from initial EKG -- Did result in SOB and hypoxia which did improve with rest and supplemental O2 application and now back on RA - Suspect this was musculoskeletal in nature (3) Cord compression myelopathy: - Presentation of numbness/tingling of b/l UE and LE - MRI with canal stenosis with spinal cord impingement at C5-C6 with possible myelomalacia and moderate to severe spinal stenosis at C4-7. No cord edema. Focal abnormal signal intensity at C2 - ?dilation of central canal-unclear etiology or unclear chronicity of this. - Reports subjective fevers, chills, aches, fatigue, and transient blurring vision and pain with eye movement - possibly from acute sinusitis as evidence on imaging; MRI without signs to suggest demyelination - Initially treated with IV Decadron with some improvement in symptoms and now S/P decompression on 01/20 and doing well post-operative - ASA and Plavix on hold - likely will start ASA given now Eliquis use and D/C Plavix - Ortho Spine consulted - appreciate surgical management - discussed with Dr. Padron today in regards to anticoagulation - optimal for discharge per ortho (4) Spinal stenosis: - As above (5) Acute sinusitis: - Acute on chronic L frontal and L maxillary sinusitis on brain MRI - treated with Rocephin 2 g IV daily and now converted to Cefdinir 300 mg BID to complete on 01/25 (7 day course) (6) Diabetes: - A1c 6.2 (November 2018) - diet controlled at this time - Having intermittent lows and therefore SSI is liberalized and hold basal insulin (7) Hypertension: - Mild elevations and possibly due to pain/steroids - Continue Clonidine 0.2 mg BID and Losartan 100 mg daily; now with Lopressore; Hydralazine PRN (8) Dyslipidemia: - STABLE/Chronic - Continue Simvastatin 20 mg daily (9) Depression: - STABLE/Chronic - Continue Buspirone 10mg BID and Duloxetine 60 mg daily (10) Secondary hyperparathyroidism: - STABLE - Continue Calcitriol 0.5 mcg daily (11) History of TIAs: - STABLE - Holding ASA and Plavix - will restart ASA and D/C Plavix in the setting of Eliquis - Continue Simvastatin (12) Polyarthritis: - STABLE - Continue Hydroxychloroquine and Duloxetine (13) Urge incontinence: - STABLE - Continue Myrbetriq and Solifenacin; monitor urine output post-operatively or any signs of retention (14) CKD (chronic kidney disease): - Cr upon admission was 1.9 indicative of acute kidney injury and likely prerenal given improvement with IV fluids; Baseline appears around 1.5 and follows with Nephrology and Urology for staghorn calculi - Renal function remaining stable - Continue to monitor renal function; avoid nephrotoxic agents (15) Osteopenia: - STABLE - Continue Calcium and Vitamin D supplementation (16) Abnormal urinalysis: - UA with borderline evidence of infection - elevated WBC but with epithelial cells so could be contaminated - no urinary symptoms - Treatment for sinusitis would cover urine as well - UCx with pinpoint growth initially now with multiple organisms but given Abx and asymptomatic will not recollect (17) GERD (gastroesophageal reflux disease): - Continue Ranitidine 300 mg HS (18) Obesity: - BMI is 39; encourage healthy diet and lifestyle changes (19) DVT prophylaxis: - SCDs/TEDs; Eliquis Disposition: Planning on returning home - plan for home tomorrow Subjective Reports she is feeling well today. Had an episode of A Fib overnight but states she does not recall these issues. She did convert with rate controlling measures and remains in NSR through the morning so far. Tolerating diet without issue. Plans to return home. Discussed with family and plan to return home possible tomorrow Review of Systems Constitutional: no fever and no chills Ear, Nose, Mouth, Throat: + neck pain Respiratory: + dyspnea on exertion; no cough Cardiovascular: no chest pain, no palpitations and no lightheadedness Gastrointestinal: no abdominal pain, no nausea, no vomiting, no constipation and no diarrhea/loose stools Genitourinary: no dysuria Musculoskeletal: no neck pain Integumentary: no rash Neurologic: + tingling and + numbness Physical Exam Constitutional: well developed and well nourished; no acute distress Eyes: + anicteric sclerae ENMT: Ears: no hearing impairment Neck: trachea midline dressing applied to incision site C/D/I with minimal ecchmosis below dressing Respiratory: normal respiratory effort; no stridor Auscultation: lungs clear to auscultation bilaterally Cardiovascular: RRR, no murmur, no edema Gastrointestinal (Abdomen): Inspection/Auscultation: normal bowel sounds Percussion/Palpation: abdomen soft; abdomen nontender Musculoskeletal: Head/Neck/Chest: normocephalic and head atraumatic Skin: no rashes, warm and dry Neurologic: moves all extremities Psychiatric: A+Ox3, euthymic affect Results & Data Vital Signs (Past 12 Hours) Vital Signs Temp Pulse Pulse Resp BP Pulse Ox 01/24/19 11:35 36.9 C 65 18 146/49 H 95 01/24/19 11:31 66 16 96 01/24/19 06:58 71 14 96 01/24/19 06:51 36.5 C 76 18 149/71 H 99 01/24/19 03:33 37.1 C 102 H 20 138/77 94 01/24/19 03:30 71 16 97 PG Care Time/CCT Total # of Minutes Spent Total Time Spent with Patient: Total time spent is greater than 50% in coordination of care (as documented) at patient's floor/unit and/or counseling patient: (1) Diabetes Diabetes mellitus complication status: without complication Diabetes mellitus intermediate project manager insulin use: without intermediate project manager use Diabetes mellitus type: type 2 Qualified Code(s): E11.9 - Type 2 diabetes mellitus without complications (2) Depression Depression Type: unspecified Qualified Code(s): F32.9 - Major depressive disorder, single episode, unspecified (3) CKD (chronic kidney disease) Chronic kidney disease stage: stage 2 (mild) Qualified Code(s): N18.2 - Chronic kidney disease, stage 2 (mild) (4) Spinal stenosis Spinal region: cervical Qualified Code(s): M48.02 - Spinal stenosis, cervical region (5) Hypertension Hypertension type: essential hypertension Qualified Code(s): I10 - Essential (primary) hypertension
[2019-01-24] MEDS: METOPROLOL TARTRATE 25 MG TAB PO SCH ×2 (14:32→20:54)
[2019-01-24] MEDS: APIXABAN 5 MG TABLET PO SCH ×2 (14:32→20:54)
[2019-01-24] MEDS: DOCUSATE SODIUM 100 MG CAP PO SCH (20:54)
[2019-01-25] MEDS: CHECK SCOPOLAMINE PATCH PLACEMENT SCH (08:37)
[2019-01-25] MEDS: INSULIN ASPART 100 UNITS/ML 3 ML PEN SC SCH ×2 (08:37→12:20)
[2019-01-25] MEDS: LOSARTAN POTASSIUM 50 MG TAB PO SCH (08:38)
[2019-01-25] MEDS: METOPROLOL TARTRATE 25 MG TAB PO SCH (08:39)
[2019-01-25] MEDS: DULOXETINE HCL 60 MG CAP PO SCH (08:39)
[2019-01-25] MEDS: MIRABEGRON ER 25 MG TAB PO SCH (08:39)
[2019-01-25] MEDS: APIXABAN 5 MG TABLET PO SCH (08:39)
[2019-01-25] MEDS: HYDROXYCHLOROQUINE SULFATE 200 MG TAB PO SCH (08:40)
[2019-01-25] MEDS: CALCITRIOL 0.25 MCG CAPSULE PO SCH (08:40)
[2019-01-25] MEDS: CEFDINIR 300 MG CAP PO SCH (08:40)
[2019-01-25] MEDS: SIMVASTATIN 20 MG TAB PO SCH (08:41)
[2019-01-25] MEDS: SENNA 8.6 MG TAB PO SCH (08:41)
[2019-01-25] MEDS: cloNIDine HCl 0.1 MG TAB PO SCH (08:42)
--- NOTE | 2019-01-25 10:32 | Orthopedic Progress Note ---
Date of Service January 25, 2019 Assessment & Plan (1) Cord compression myelopathy: Patient is to continue with her cervical collar when sitting up and out of bed. She is to lift no more than 5 pounds. Present on Admission?: Yes Subjective Patient is doing quite well today again her arm symptoms are improved significantly. Physical Exam Physical Exam: On exam she is good strength testing appears comfortable. Results & Data Vital Signs (Past 12 Hours) Vital Signs Temp Pulse Resp BP Pulse Ox 01/25/19 07:10 62 18 97 01/25/19 07:09 36.9 C 58 L 18 150/69 H 96 01/25/19 04:05 57 L 17 95 01/25/19 03:05 36.5 C 64 16 147/66 H 96 01/24/19 23:07 36.5 C 64 16 136/71 97 01/24/19 22:57 59 L 17 96
--- NOTE | 2019-01-25 13:08 | Discharge Summary ---
Date of Service January 25, 2019 Admission HPI Per Admitting Provider Madison Jacob is a pleasant 78yo C female with history of DM, HTN, HLP, spinal stenosis presenting with numbness, tingling and subjective weakness of bilateral UE and LE. Symptoms began acutely last night, 01/17/19. Patient also with complaint of fatigue over the last few days, subjective fevers/chills. She had transient blurry vision this AM when she woke up which has since resolved entirely. Also pain with eye movement. Denies trauma, falls. No recent travel, medication changes or vaccinations. She has had some mild URI symptoms of late. MRI obtained in the ER with C5-C7 ER Course: Tylenol, Dexamethasone 10mg IV, NSS Principal Diagnosis Cervical Cord Compression; Paroxysmal Atrial Fibrillation Discharge Exam Constitutional well developed and well nourished; no acute distress Eyes + anicteric sclerae ENMT Ears: no hearing impairment Neck trachea midline Respiratory normal respiratory effort; no stridor Auscultation: lungs clear to auscultation bilaterally Cardiovascular RRR, no murmur, no edema Gastrointestinal (Abdomen) Inspection/Auscultation: normal bowel sounds Percussion/Palpation: abdomen soft; abdomen nontender Musculoskeletal Head/Neck/Chest: normocephalic and head atraumatic Skin no rashes, warm and dry Neurologic moves all extremities Psychiatric A+Ox3, euthymic affect Discharge Data Allergies Allergy/AdvReac Type Severity Reaction Status Date / Time HO Inhibitors Allergy Unknown ITCHING Verified 01/18/19 16:16 oxycodone AdvReac Mild CAUSES BE Verified 01/18/19 16:16 JITTERINESS & CAN'T EAT. ALSO CAUSES RLS SYMPTOMS Consultations 01/18/19 19:52 ED Decision to Admit Stat 01/18/19 23:36 Consult Orthopedic Surgery Routine 01/24/19 04:16 Consult Cardiology Routine Procedures Performed Operation Date: 01/20/19 12:40 Actual Procedures p C5 Corpectomy, C6-C7 Anterior Cervical Discectomy and Fusion - Meir Padron DO Ordered Studies 01/18/19 16:32 MR brain wo con Stat MR cervical spine wo con Stat 01/20/19 09:00 FL cervical 2-3V Routine FL fluoroscopy <1hr Routine Hospital Course (1) Atrial fibrillation with RVR: - Noted to have fluctuating HRs up to 150 bpm overnight of 01/23 - found to be in A Fib RVR and possible Atrial Tach; CHADSVASc 7 - Converted to NSR with rate controlling measures and has remained in NSR since that time - Echo - EF 60-65%; no regional wall motion abnormalities; no significant valvular issues - Started Lopressor 25 mg BID and Eliquis 5 mg BID (cost reviewed an approx. $4/month and patient agrees) -- Thankfully pressures are largely hypertensive and should tolerate normal home meds and the addition of Lopressor but will need monitored - Planning on 30 day holter monitor - maybe anesthesia/med induced? - Cardiology consulted - Plan as above - plan to reassess as outpatient - saw Dr. Franco during hospital stay (2) Chest pain: - Developed on 01/21 and was reproducible and now resolved ; troponins neg/EKG with nonspecific T wave changes but not significantly different from initial EKG -- Did result in SOB and hypoxia which did improve with rest and supplemental O2 application and now back on RA - Suspect this was musculoskeletal in nature (3) Cord compression myelopathy: - Presentation of numbness/tingling of b/l UE and LE - MRI with canal stenosis with spinal cord impingement at C5-C6 with possible myelomalacia and moderate to severe spinal stenosis at C4-7. No cord edema. Focal abnormal signal intensity at C2 - ?dilation of central canal-unclear etiology or unclear chronicity of this. - Reports subjective fevers, chills, aches, fatigue, and transient blurring vision and pain with eye movement - possibly from acute sinusitis as evidence on imaging; MRI without signs to suggest demyelination - Initially treated with IV Decadron with some improvement in symptoms and now S/P decompression on 01/20 and doing well post-operative - Ortho Spine consulted - Dr. Padron follow-up as outpatient (4) Spinal stenosis: - As above (5) Acute sinusitis: - Acute on chronic L frontal and L maxillary sinusitis on brain MRI - treated with Rocephin 2 g IV daily and converted to Cefdinir 300 mg BID and completed course (6) Diabetes: - A1c 6.2 (November 2018) - diet controlled at this time (7) Hypertension: - Continue Clonidine 0.2 mg BID and Losartan 100 mg daily; now with Lopressor (8) Dyslipidemia: - STABLE/Chronic - Continue Simvastatin 20 mg daily (9) Depression: - STABLE/Chronic - Continue Buspirone 10mg BID and Duloxetine 60 mg daily (10) Secondary hyperparathyroidism: - STABLE - Continue Calcitriol 0.5 mcg daily (11) History of TIAs: - STABLE - Restart ASA and D/C Plavix in the setting of Eliquis; Continue Simvastatin (12) Polyarthritis: - STABLE - Continue Hydroxychloroquine and Duloxetine (13) Urge incontinence: - STABLE - Continue Myrbetriq and Solifenacin (14) CKD (chronic kidney disease): - Cr upon admission was 1.9 indicative of acute kidney injury and likely prerenal given improvement with IV fluids; Baseline appears around 1.5 and follows with Nephrology and Urology for staghorn calculi - Renal function remaining stable; Continue to monitor renal function; avoid nephrotoxic agents (15) Osteopenia: - STABLE - Continue Calcium and Vitamin D supplementation (16) Abnormal urinalysis: - UA with borderline evidence of infection - elevated WBC but with epithelial cells so could be contaminated - no urinary symptoms - Treatment for sinusitis would cover urine as well - UCx with pinpoint growth i nitially now with multiple organisms but given Abx and asymptomatic will not recollect (17) GERD (gastroesophageal reflux disease): - Continue Ranitidine 300 mg HS (18) Obesity: - BMI is 39; encourage healthy diet and lifestyle changes Total Time Total Time Spent Total Time Spent (In Minutes): Greater than 30 minutes Discharge Plan Discharge Items Patient Disposition: Home - Self-Care Reason For Visit: CORD COMPRESSION Discharge Diagnosis: Cervical spinal stenosis with myelopathy Discharge Goals: Improve function Activity: Per 'Additional Instructions' section Non-emergency contact: Primary Care Provider Call non-emergency contact if: you have any medication questions Follow-up/Referrals: Marlys Gil MD [Primary Care Provider] - Diet: Regular Addtl Provider Instructions: Atrial Fibrillation: - This is a different heart rhythm were the top of the heart (atria) shake instead of pumping like they normally would. A lot of people have this heart rhythm and have no issues with it as long as the heart rate is not going very fast. - Thankfully with medicine you went back into a normal heart rhythm. However, you would be at increased risk for having this rhythm again. - It is possible that the stresses of surgery and anesthesia medicine can cause a temporary atrial fibrillation. Therefore, the heart doctor is recommending to use a holter monitor which they will deliver to your house. This is a device you wear and it records your heart rhythm and gets sent to the heart doctor to look at. - You will need to follow up with the heart doctors. You saw Dr. Fracno here in the hospital and he is apart of the [facility] Cardiology team. - For now you will be started on two new medications for this heart rhythm. Lopressor (this helps keep your heart rate from going to fast and is also a blood pressure medication) and Eliquis (this is a blood thinner). This heart rhythm can increase your risk of stroke and therefore blood thinners are important. -- You will take Lopressor 25 mg twice a day and Eliquis 5 mg twice a day for the time being - You will continue on your baby aspirin but will STOP your Plavix. These medications are not blood thinners like Eliquis but both medications can make bruising easier. With Eliquis if you would get a cut or having any bleeding, make sure you apply firm pressure to the area that is bleeding. If bleeding does not stop please call a doctor or 911. Cord Compression: - You had a surgery to help fix the spine from pushing on the nerves causing your initial symptoms. It may take some time for the numbness and tingling to go away and some may remain but hopefully will be better than where you started. - Please follow the directions below given by your spine doctor, Dr. Padron - Please follow up with him per his office's scheduling - May use Tylenol for minor pain. Will give Tramadol as needed if it is more severe pain. Be mindful Tramadol can make you drowsy and will need to watch with walking around to make sure you do not fall Sinus Infection: - You were treated with antibiotics in the hospital to treat this. You have finished that course while in the hospital and do not need further antibiotics. The imaging performed here does suggest you have chronic sinusitis (inflammation of the sinuses) so you could be more prone to having sinus infections in the future. Home Medications: - Please continue all other home medications as previously prescribed. Only changes are those mentioned above. ACTIVITY RECOMMENDATIONS: SELF CARE INSTRUCTIONS AFTER CERVICAL FUSIONS 1. No smoking. Smoking drastically decreases the chance of a solid fusion. 2. No bending, lifting more than 5 pounds, or twisting (roll like a log when turning in bed). 3. You may shower 3 days after surgery. Thoroughly dry wound. Do not soak in the tub. 4. Cervical collar: Must be worn at all times including sleeping. You may remove the brace only to bath, eat and if you are sitting in a recliner. 5. Please walk as much as you can for exercise. Gradually increase the distance that you walk as your endurance increases. SPECIAL CARE INSTRUCTIONS: VERY IMPORTANT TO READ AND REVIEW A. Do not take any anti-inflammatory medications (i.e. Indocin, Advil, Aspirin, Naprosyn, Aleve, Motrin, etc.) as these may inhibit the chance of a solid fusion. Tylenol is okay to take. B. Your surgical incision has been closed with a cosmetic suture under the skin that will dissolve in about 6 weeks. In 14 days, you can use a pair of clean scissors and cut the suture that is left outside of the skin at the ends of your incision. C. Complications are uncommon, but please contact us if you have any signs or symptoms of: 1. wound infection (fever higher than 102.5 degrees F, redness, separation of wound, drainage, or increasing pain from the incision) 2. blood clots in legs (pain, swelling, redness and warmth in legs) 3. urinary tract infection (fever higher than 102.5 degrees, burning upon urination or increased frequency of urination) 4. nerve problems (inability to walk on your toes or heels, numbness, loss of bowel or bladder control) 5. any other symptoms that concern you. D. Please call the office at if you have any concerns or questions about your operation or recovery. MANAGING PAIN AFTER SPINAL SURGERY 1. Narcotic medication is intended for short-term use and will be provided for surgical pain. Surgical pain usually lasts for a period of 4-6 weeks. Narcotic medication includes Percocet, Vicodin, Darvocet, Tylenol #3 or Lortab. 2. Longer-term pain is more appropriately treated with non-narcotic medication such as Tylenol ES. 3. Muscle spasm is not appropriately treated with narcotics. Muscle relaxers such as Soma, Flexeril or Skelaxin can be used along with Tylenol ES. 4. Remember that we all live with some "aches and pains". This is not unusual or uncommon after an injury or as we get older. 5. We will provide appropriate medication within the normal guidelines of their prescribed use. We will also be very cautious and aware of potential abuse and extended duration of patients' medication needs. 6. Please allow 2-3 days to process refills. Prescriptions will not be mailed but must be picked up at the office. FOLLOW UP VISIT: Keep your scheduled follow-up appointment. Any questions, please call the office at . Prescriptions: New tramadol 50 mg Tablet 50 mg PO Q6H PRN (Reason: pain) 3 Days Qty: 12 RF: 0 metoprolol tartrate 25 mg Tablet 25 mg PO BID 30 Days Qty: 60 RF: 1 Eliquis 5 mg Tablet 5 mg PO BID 30 Days Qty: 60 RF: 1 Continued ranitidine HCl 300 mg tablet 300 mg PO HS RF: 0 clonidine HCl 0.2 mg tablet 0.2 mg PO BID RF: 0 simvastatin 20 mg tablet 20 mg PO DAILY RF: 0 calcitriol 0.5 mcg capsule 0.5 mcg PO DAILY RF: 0 buspirone 10 mg tablet 10 mg PO BID RF: 0 hydroxychloroquine 200 mg tablet 200 mg PO BID RF: 0 losartan 100 mg tablet 100 mg PO DAILY RF: 0 duloxetine 60 mg capsule,delayed release(DR/EC) 60 mg PO DAILY RF: 0 solifenacin 5 mg tablet 5 mg PO DAILY RF: 0 Myrbetriq 50 mg tablet extended release 24 hr 50 mg PO DAILY RF: 0 aspirin 81 mg Tablet,Delayed Release (Dr/Ec) 81 mg PO DAILY RF: 0 docusate sodium 250 mg Capsule 500 mg PO HS RF: 0 Discontinued clopidogrel 75 mg tablet 75 mg PO DAILY RF: 0 Stand-Alone Forms: [facility] Discharge Orders: Discharge Order (Routine); Ordered 01/25/19 Ordered By: Opal Hernández Admission Data Admit Date/Time: 01/18/19 22:25 Attending Provider: Kevin Paredes Admit Provider: Stephanie Proctor Primary Care Provider: Marlys Gil Other Providers: Stephanie Proctor ; Meir Padron ; Zeeshan Franco Service: Telemetry Other Interventions: Discharge Summary Assessment (RN) Last Done: 01/25/19 12:46 Pending Studies at Discharge: No DC Date/Time DO NOT enter until pt leaves facility: 01/25/19 13:38 Supervising Physician Co-Signing Physician Notes Attending note: patient seen and examined with Opal Hernández PA-C. I agree with her discharge summary. patient feeling well on day of discharge. eating well, pain in neck is controlled, cleared for d/c by Dr. Padron. d/w Dr. Franco, good plan for discharge d/w family at the bedside, all questions answered. - atrial fibrillation: new onset, occurred after surgery, unsure how long she was in the rhythm since she was on surgical floor good chance that this is all a post op complication great response to metoprolol 25mg BID, will continue for rate control Eliquis BID started for stroke prevention Dr. Franco will arrange for 30 day monitor to see if she remains in afib, he will follow up with her in a month - s/p cervical spine surgery pain controlled, will get therapy at home follow up with Dr. Padron in the office
== END 2019-01-25 13:38 | disposition home or self-care (01) | DRG 472 ==
LOC: ED 15:39 → 3N 22:25 → SUATTDRO 22:25 → 3N 23:04 → 3E 01-20 11:26 → 2S 01-24 00:03
DX: M48.02 Spinal stenosis, cervical region; E03.9 Hypothyroidism, unspecified; Z83.3 Family history of diabetes mellitus; Z96.653 Presence of artificial knee joint, bilateral; Z68.39 Body mass index [BMI] 39.0-39.9, adult; E78.5 Hyperlipidemia, unspecified; Z86.73 Personal history of transient ischemic attack (TIA), and cerebral infarction without residual deficits; E66.9 Obesity, unspecified; E21.3 Hyperparathyroidism, unspecified; G95.20 Unspecified cord compression; R32 Unspecified urinary incontinence; K21.9 Gastro-esophageal reflux disease without esophagitis; G95.89 Other specified diseases of spinal cord; M13.0 Polyarthritis, unspecified; E11.22 Type 2 diabetes mellitus with diabetic chronic kidney disease; Z82.49 Family history of ischemic heart disease and other diseases of the circulatory system; I12.9 Hypertensive chronic kidney disease with stage 1 through stage 4 chronic kidney disease, or unspecified chronic kidney disease; J01.90 Acute sinusitis, unspecified; I48.0 Paroxysmal atrial fibrillation; N18.2 Chronic kidney disease, stage 2 (mild)

== ENCOUNTER 2019-09-01 12:40 | Observation (INO) ==
[2019-09-01 14:44] LABS: Basophils # (auto) 0.02 K/uL (0-0.2); Basophils % (auto) 0.2 %; Eosinophils # (auto) 0.03 K/uL (0-0.5); Eosinophils % (auto) 0.3 %; Hematocrit (blood only) 39.4 % (37-47); Immature Granulocytes # (auto) 0.01 K/uL (0.00-0.02); Immature Granulocytes % (auto) 0.1 %; Lymphocytes # (auto) 1.52 K/uL (1.2-3.4); Lymphocytes % (auto) 16.2 %; Mean Corpuscular Hemoglobin 27.1 pg (25-34); Mean Corpuscular Volume 82.3 fL (80-100); Mean Platelet Volume 9.9 fL (7.4-10.4); Monocytes # (auto) 0.75 K/uL (0.11-0.59); Neutrophils # (auto) 7.08 K/uL (1.4-6.5); Neutrophils % (auto) 75.2 %; Platelet Count 202 K/uL (130-400); RDW Coefficient of Variation 15.1 % (11.5-14.5); RDW Standard Deviation 45.5 fL (36.4-46.3); Red Blood Count 4.79 M/uL (4.2-5.4); White Blood Count 9.41 K/uL (4.8-10.8)
[2019-09-01 15:01] LABS: Albumin Level 3.3 gm/dl (3.4-5.0); BUN Creatinine Ratio 10.6 (10-20); Calcium 10.3 mg/dl (8.5-10.1); Creatinine Clr Calc Pharmacy 22.4 ml/min; Est GFR (African American) 25.4; Est GFR (Non-African American) 21.9; Magnesium 1.8 mg/dl (1.8-2.4)
[2019-09-01] MEDS: SODIUM CHLORIDE 0.9% 1000ML 1,000 ML IV SCH ×2 (15:14→21:25)
[2019-09-01 15:23] LABS: Albumin Globulin Ratio 0.9 (0.9-2); Bilirubin,Total 0.8 mg/dl (0.2-1); Globulin 3.5 gm/dl (2.5-4.0); Thyroid Stimulating Hormone 2.53 uIu/ml (0.300-4.500); Total Protein 6.8 gm/dl (6.4-8.2); Troponin I 0.046 ng/ml (0-0.045)
[2019-09-01] MEDS ORDERED: IOVERSOL 100ml IV PRN (16:47)
--- NOTE | 2019-09-01 17:01 | CT Scan Report ---
CT abd pelvis oral and IV con CLINICAL HISTORY: 78 years-old Female presenting with generalized abdominal pain, constipation, poor intake. TECHNIQUE: Multidetector CT of the abdomen and pelvis was performed after the administration of oral and intravenous contrast. IV contrast: 92 mL of Optiray 320. One or more dose lowering techniques wer e used consistent with the principles of ALARA (as low as reasonably achievable), including automatic exposure control, mA or kV adjustment to individual patient size, and/or use of iterative reconstruc tion. COMPARISON: 11/26/2017. CT DOSE (mGy.cm): The estimated cumulative dose is 937.19 mGy.cm. FINDINGS: Community Nurse topogram: Unremarkable. Lung bases: Normal heart size. No pericardial or pleural effusion. Minimal dependent changes likely a telectasis. Liver: Congenital hypoplasia of the medial segments of the left hepatic lobe. No focal lesion. Patent hepatic vasculature. Biliary: No intrahepatic or extrahepatic biliary ductal dilatation. Distended gallbladder without amalia dence of tension or wall thickening, likely on a physiologic basis. No pericholecystic fluid or fat i nfiltration. Pancreas: Moderate parenchymal atrophy. Spleen: Normal. Adrenal glands: Stable 15 mm nodule in the left adrenal gland previously demonstrated to represent a benign adenoma by density. Right adrenal gland normal. Kidneys and ureters: Punctate nonobstructing calculus in the right kidney. No hydronephrosis. Subcent imeter cyst at the upper pole the right kidney. Trace bilateral perinephric fluid. Ureters nondistend ed. Trace right urothelial thickening may be present. Bladder: Normal. Pelvic organs: Uterus surgically absent. Bowel: Moderate stool burden primarily in the transverse colon with a mild stool burden in the descen ding colon. The appendix is normal. No bowel obstruction. Small sliding type hiatal hernia. Peritoneal cavity: No free fluid or intraperitoneal gas. Lymph nodes: No enlarged lymph nodes in the abdomen or pelvis. Vasculature: Atherosclerosis of the normal caliber abdominal aorta. IVC patent. Abdominal wall: Extensive postsurgical changes of the abdominal wall. Fat-containing right paramedian epigastric hernia. Postsurgical changes of right mastectomy. Musculoskeletal: Degenerative changes of the spine. IMPRESSION: 1. Mild to moderate stool burden primarily in the transverse colon and to a slightly lesser extent i n the descending colon. Findings could represent constipation the appropriate clinical setting. 2. No other evidence of acute intra-abdominal pathology. 3. Punctate nonobstructing right renal calculus. 4. Chronic findings as above. ACT 112: Negative or not required by law. Electronically signed by: Malcom Silvestre M.D. 09/01/2019 5:00 PM
--- NOTE | 2019-09-01 18:38 | History & Physical Report ---
Date of Service September 01, 2019 Assessment & Plan (1) Elevated troponin: Admit to medical floor on telemetry for observation Vital signs every 4 hours Troponin x3 with assisted living coordinator electrolytes and replenish TTE pending DVT prophylaxis continue apixaban 5 mg p.o. twice daily Full code Present on Admission?: Yes (2) Constipation: Started MiraLAX twice daily scheduled. Patient reports not having bowel movements for 2 weeks. Continue monitoring Present on Admission?: Yes (3) Abdominal pain: Appears to be related to constipation. Management as the above. Present on Admission?: Yes (4) Generalized weakness: Not clear origin of generalized weakness. Possibly could be caregiver burnout. Patient is taking care of her very sick son. Present on Admission?: Yes (5) Acute on chronic renal insufficiency: Patient creatinine is 2.13/GFR 10.6 which is minimally above her baseline 2.07/11.4. Continue monitoring creatinine and GFR. Avoid nephrotoxic agents Present on Admission?: Yes (6) Diabetic peripheral neuropathy: Stable, continue duloxetine 60mg p.o. daily. Present on Admission?: Yes (7) Hypercholesterolemia: Lipid panel pending. Continue simvastatin 20 mg p.o. daily. Present on Admission?: Yes (8) Hypothyroid: TSH 2.53. Patient is not on medicine for hypothyroidism. Present on Admission?: Yes (9) Hypertension: Stable, continue home medicine aspirin 81 mg p.o. every morning, losartan 100 mg p.o. daily, metoprolol tartrate 25 mg p.o. twice daily Present on Admission?: Yes (10) Atrial fibrillation: Paroxysmal A. fib's. Continue metoprolol 25 mg p.o. twice daily, apixaban 5 mg p.o. twice daily. Present on Admission?: Yes (11) Hyperactivity of bladder: I will continue mirabegron 50 mg p.o. daily, solifenacin 5 mg p.o. daily, Toviaz 4 mg p.o. every morning. Present on Admission?: Yes History of Present Illness Chief Complaint: Constipation Primary Care Provider: Marlys Gil MD The patient is a 78 years old female with past medical history of hypertension, dyslipidemia, hypothyroidism, polyarthritis, obesity, osteopenia, cervical nerve root impingement, spinal stenosis, GERD, paroxysmal atrial fibs with RVR, history of total knee arthroplasty, CKD stage III, breast cancer, who was brought to the emergency room with a complaint of abdominal pain for 2 to 3 months associated with 2 weeks of constipation generalized tiredness and not feeling well. 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 Patient denies sick contact. Patient denies fever, chills, chest pain, shortness of breath, headache, frequency, urgency. Labs are reviewed which shows: WBC is 9.41, hemoglobin 13, hematocrit 39.4, platelets 202, sodium 134, potassium 4, chloride 101, carbon dioxide 26, anion gap 7, BUN 23, creatinine 2.13 and baseline is 2.07 and GFR of 22.7 and now GFR 21.9, lactate 1.4, glucose 64, troponin 0.0 46, magnesium 1.8, TSH 2.53, lipase 89, albumin 3.3. CT abdomen pelvis shows a mild to moderate stool burden primarily in the transverse colon and to a slight lacer extent in the descending colon. Finding could represent constipation and appropriate clinical setting. No other evidence of acute intra-abdominal pathology. Punctuate nonobstructive right renal calculus. Chronic findings as above. The decision was made to admit patient to PCU on telemetry for observation and elevated troponin, rule out acute coronary syndrome, constipation for 2 weeks, acute on chronic kidney injury. Allergies Allergy/AdvReac Type Severity Reaction Status Date / Time HO Inhibitors Allergy Unknown ITCHING Verified 09/01/19 14:40 acetaminophen [From Percocet] Allergy Unknown Unknown Unverified 09/01/19 14:40 tolterodine Allergy Unknown Unknown Unverified 09/01/19 14:40 oxycodone AdvReac Mild CAUSES BE Verified 09/01/19 14:40 JITTERINESS & CAN'T EAT. ALSO CAUSES RLS SYMPTOMS Home Medications Home Medications Medication Instructions Recorded Confirmed Type aspirin 81 mg PO QAM 01/18/19 09/01/19 History calcitriol 0.5 mcg PO DAILY 01/18/19 09/01/19 History metoprolol tartrate 25 mg tablet 25 mg PO BID #180 tab 04/03/19 09/01/19 Rx hydroxychloroquine 200 mg tablet 200 mg PO BID #60 tab 04/22/19 09/01/19 Rx simvastatin 20 mg tablet 20 mg PO DAILY #30 tab 04/22/19 09/01/19 Rx solifenacin 5 mg tablet 5 mg PO DAILY #30 tab 04/22/19 09/01/19 Rx duloxetine 60 mg capsule,delayed 60 mg PO DAILY #90 cap 04/23/19 09/01/19 Rx release clonidine HCl 0.2 mg tablet 0.2 mg PO BID 90 Days #180 tab 04/25/19 09/01/19 Rx losartan 100 mg tablet 100 mg PO DAILY 90 Days #30 tab 04/25/19 09/01/19 Rx mirabegron 50 mg tablet,extended 50 mg PO DAILY 30 Days #30 tab 04/25/19 09/01/19 Rx release 24 hr buspirone 10 mg tablet 10 mg PO BID 90 Days #60 tab 08/15/19 09/01/19 Rx apixaban [Eliquis] 5 mg PO BID 09/01/19 09/01/19 History docusate sodium [Colace] 100 mg PO HS 09/01/19 09/01/19 History fesoterodine [Toviaz] 4 mg PO QAM 09/01/19 09/01/19 History Past Med/Surg History Medical History Breast cancer (Resolved) CKD (chronic kidney disease) Depression Diabetes (Chronic) borderline, diet controlled Dyslipidemia GERD (gastroesophageal reflux disease) History of TIAs (Chronic) last one over 10 years ago Hypertension Hypothyroid Surgical History History of bilateral knee replacement History of bilateral salpingo-oophorectomy (Resolved) History of hysterectomy History of mastectomy History of mastectomy (Resolved) History of total abdominal hysterectomy (Resolved) History of total knee arthroplasty (Resolved) Status post biopsy of skin (Resolved) Family History Father Myocardial infarction Brother Myocardial infarction Other Coronary heart disease Diabetes Social History Preferred Language: Yi Communication Ability: Effective Visual Impairment: No Limitations Hearing Ability: Normal Logistics 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 Required: No Beliefs That Will Affect Care: None marital status: Current Living Situation: Family Current Living Situation Comment: 2 sons Other Information That Helps Us Care for You: No Feels Safe at Home: Yes Safety Concerns: Feels Safe At This Time Smoking Status: Never smoker Hx Alcohol Use: No Hx Substance Use: No Childhood Exposure to Second-Hand Smoke: No Dental Care, Regularly: No Physical Activity Frequency: Does not Exercise Seatbelt Use: always Sunscreen Use: No Review of Systems Review of Systems: All systems reviewed & are unremarkable except as noted in HPI & below Physical Exam Constitutional: WD/WN, vitals as above well developed and + obese Eyes: PERRL, conjunctivae normal, anicteric sclerae ENMT: external ear and nose normal, oropharynx normal Neck: trachea midline, no thyromegaly Respiratory: normal respiratory effort, lungs clear to auscultation Cardiovascular: RRR, no murmur, no edema Gastrointestinal (Abdomen): Inspection/Auscultation: + abdomen distended and normal bowel sounds Percussion/Palpation: + abdomen tender and abdomen soft Musculoskeletal: no cyanosis or clubbing, extremities motor strength 5/5 Skin: no rashes, warm and dry Neurologic: patellar DTR's 2+ bilat, sensation intact Psychiatric: A+Ox3, euthymic affect Lymphatic: no cervical or axillary lymphadenopathy Results & Data Vital Signs (Past 12 Hours) Vital Signs Temp Pulse Pulse Resp BP BP Pulse Ox 09/01/19 17:34 63 18 164/76 H 95 09/01/19 17:10 69 21 09/01/19 17:04 65 21 206/95 H 09/01/19 17:03 67 26 H 09/01/19 16:40 61 22 09/01/19 16:30 60 17 92 09/01/19 16:20 59 L 15 09/01/19 16:10 60 18 09/01/19 16:01 61 16 97/82 L 09/01/19 16:00 61 21 73 L 09/01/19 15:50 63 16 94 09/01/19 15:40 62 16 09/01/19 15:31 65 22 140/63 94 09/01/19 15:30 60 17 97 09/01/19 15:20 65 18 97 09/01/19 15:07 63 20 142/84 H 94 09/01/19 15:00 61 11 L 142/84 H 99 09/01/19 14:30 61 20 132/64 929 H 09/01/19 12:43 36.3 C L 66 16 176/97 H 100 Code Status & VTE Plan Code Status full code VTE Prophylaxis Plan VTE Prophylaxis will be ordered: Yes PG Care Time/CCT Total # of Minutes Spent Total Time Spent with Patient: Total time spent is greater than 50% in coordination of care (as documented) at patient's floor/unit and/or counseling patient: (1) Hypertension Hypertension type: essential hypertension Qualified Code(s): I10 - Essential (primary) hypertension
[2019-09-01] MEDS ORDERED: ACETAMINOPHEN 325 MG TAB PO PRN (20:22)
[2019-09-01] MEDS ORDERED: ONDANSETRON INJ 2 MG/ML 2 ML VIAL IV PRN (20:22)
[2019-09-01] MEDS ORDERED: MAGNESIUM HYDROXIDE SUSP 30 ML UDC PO PRN (20:22)
[2019-09-01] MEDS ORDERED: SODIUM CHLORIDE 0.9% 1000ML 1,000 ML IV SCH (20:22)
[2019-09-01] MEDS ORDERED: POLYETHYLENE (MIRALAX) 17 GM PACK PO PRN (20:22)
[2019-09-01] MEDS ORDERED: ALUMINUM/MAGNESIUM SUSP 30 ML UDC PO PRN (20:22)
[2019-09-01] MEDS: cloNIDine HCL 0.1 MG TAB PO SCH (21:06)
[2019-09-01] MEDS: POLYETHYLENE (MIRALAX) 17 GM PACK PO SCH (21:06)
[2019-09-01] MEDS: HYDROXYCHLOROQUINE SULFATE 200 MG TAB PO SCH (21:07)
[2019-09-01] MEDS: APIXABAN 5 MG TABLET PO SCH (21:07)
--- NOTE | 2019-09-01 22:01 | Emergency Department Note ---
Entered by Love Cowart acting as a scribe for History of Present Illness General Chief complaint: Constipation Stated complaint: CONSTIPATION Time Seen by Provider: 09/01/19 13:59 Source: patient Mode of arrival: ambulatory Limitations: no limitations History of Present Illness Onset (ago): unknown ("couple months") Location: abdomen Radiation: non-radiation Pain Consistency: + constant Maximum Pain Intensity: 5 Current Pain Intensity: 5 Relieved By: + none Exacerbated By: + none Associated symptoms: + loss of appetite, + nausea/vomiting (+nausea, -vomiting) and + other (+decreased energy, +dizziness); no fever/chills (-fevers, +chills) Treatments prior to arrival: none The patient is a 78 year old female who presents to the ED with complaints of constipation. She is accompanied by her daughter. She states she has not had a bowel movement in "a couple months" but admits her memory is not always the be st. She is still passing gas. The patient has experienced hematuria but states this is normal for her. She complains of abdominal pain and rates her pain as a 5/10 in severity. She reports her appetite has been "lousy" recently and states she has been nauseous and has experienced a loss of appetite for the past 2 weeks. She has not vomited. She also complains of decreased energy, intermittent chills and dizziness. She does not think she has been febrile. Her daughter denies any recent changes in medications. She notes the patient has experienced issues with constipation for many years now. The patient has no history of previous bowel obstruction. She denies any abdominal bloating or distension. She has undergone a colonoscopy in the past and states she had at least one polyp removed. She thinks her last colonoscopy was 5 years ago. She still has her appendix and gallbladder but notes she has had umbilical hernia surgery previously. The patients daughter reports she has used stool softeners in the past for her constipation, but does not take them regularly. The patient had neck surgery 1 year ago, but no longer takes prescription pain medications. The patient states she experienced a lot of trauma this past summer when both her dog and cat . Her son experienced a stroke 1 year ago, and he is currently living with her. Home Medications Home Medications Medication Instructions Recorded Confirmed Type aspirin 81 mg PO QAM 01/18/19 09/01/19 History calcitriol 0.5 mcg PO DAILY 01/18/19 09/01/19 History metoprolol tartrate 25 mg tablet 25 mg PO BID #180 tab 04/03/19 09/01/19 Rx hydroxychloroquine 200 mg tablet 200 mg PO BID #60 tab 04/22/19 09/01/19 Rx simvastatin 20 mg tablet 20 mg PO DAILY #30 tab 04/22/19 09/01/19 Rx solifenacin 5 mg tablet 5 mg PO DAILY #30 tab 04/22/19 09/01/19 Rx duloxetine 60 mg capsule,delayed 60 mg PO DAILY #90 cap 04/23/19 09/01/19 Rx release clonidine HCl 0.2 mg tablet 0.2 mg PO BID 90 Days #180 tab 04/25/19 09/01/19 Rx losartan 100 mg tablet 100 mg PO DAILY 90 Days #30 tab 04/25/19 09/01/19 Rx mirabegron 50 mg tablet,extended 50 mg PO DAILY 30 Days #30 tab 04/25/19 09/01/19 Rx release 24 hr buspirone 10 mg tablet 10 mg PO BID 90 Days #60 tab 08/15/19 09/01/19 Rx apixaban [Eliquis] 5 mg PO BID 09/01/19 09/01/19 History docusate sodium [Colace] 100 mg PO HS 09/01/19 09/01/19 History fesoterodine [Toviaz] 4 mg PO QAM 09/01/19 09/01/19 History Allergies Allergy/AdvReac Type Severity Reaction Status Date / Time HO Inhibitors Allergy Unknown ITCHING Verified 09/01/19 14:40 acetaminophen [From Percocet] Allergy Unknown Unknown Unverified 09/01/19 14:40 tolterodine Allergy Unknown Unknown Unverified 09/01/19 14:40 oxycodone AdvReac Mild CAUSES BE Verified 09/01/19 14:40 JITTERINESS & CAN'T EAT. ALSO CAUSES RLS SYMPTOMS Past Med/Surg History Medical History Breast cancer (Resolved) CKD (chronic kidney disease) Depression Diabetes (Chronic) borderline, diet controlled Dyslipidemia GERD (gastroesophageal reflux disease) History of TIAs (Chronic) last one over 10 years ago Hypertension Hypothyroid Surgical History History of bilateral knee replacement History of bilateral salpingo-oophorectomy (Resolved) History of hysterectomy History of mastectomy History of mastectomy (Resolved) History of total abdominal hysterectomy (Resolved) History of total knee arthroplasty (Resolved) Status post biopsy of skin (Resolved) Family History Father Myocardial infarction Brother Myocardial infarction Other Coronary heart disease Diabetes Social History Preferred Language: Portuguese Communication Ability: Effective Visual Impairment: No Limitations Hearing Ability: Normal Dispatcher Service Required: No Beliefs That Will Affect Care: None marital status: Current Living Situation: Family Current Living Situation Comment: 2 sons Other Information That Helps Us Care for You: No Feels Safe at Home: Yes Safety Concerns: Feels Safe At This Time Smoking Status: Never smoker Hx Alcohol Use: No Hx Substance Use: No Childhood Exposure to Second-Hand Smoke: No Dental Care, Regularly: No Physical Activity Frequency: Does not Exercise Seatbelt Use: always Sunscreen Use: No Review of Systems See HPI for pertinent positives & negatives. and A total of 10 systems reviewed and were otherwise negative Physical Exam Vital Signs Vital Signs - 24 hr 09/01/19 12:43 09/01/19 14:30 09/01/19 15:00 Temperature 36.3 C L Temperature Source Oral Pulse Rate 66 61 Pulse Rate [Apical] 61 Pulse Rate from SpO2 Sensor 61 Pulse Rhythm Regular Pulse Strength Normal Respiratory Rate 16 20 11 L Respiratory Effort / Characteristics Non-Labored Respiratory Depth Normal Normal Respiratory Pattern Regular Blood Pressure 176/97 H 142/84 H Blood Pressure [Left Arm] 132/64 Blood Pressure Mean 123 99 Blood Pressure Mean [Left Arm] 86 Blood Pressure Position Sitting Blood Pressure Position [Left Arm] Pulse Oximetry 100 929 H 99 Oxygen Delivery Method Room Air Room Air Sepsis Recent Fever Within 48 Hours No Sepsis New/Unexplained Change in Mental Status No Sepsis Action Taken by Nursing No Action Required 09/01/19 15:07 09/01/19 15:20 09/01/19 15:30 Temperature Temperature Source Pulse Rate 65 60 Pulse Rate [Apical] 63 Pulse Rate from SpO2 Sensor 62 60 Pulse Rhythm Pulse Strength Respiratory Rate 20 18 17 Respiratory Effort / Characteristics Respiratory Depth Respiratory Pattern Blood Pressure Blood Pressure [Left Arm] 142/84 H Blood Pressure Mean Blood Pressure Mean [Left Arm] 103 Blood Pressure Position Blood Pressure Position [Left Arm] Sitting Pulse Oximetry 94 97 97 Oxygen Delivery Method Room Air Sepsis Recent Fever Within 48 Hours Sepsis New/Unexplained Change in Mental Status Sepsis Action Taken by Nursing 09/01/19 15:31 09/01/19 15:40 09/01/19 15:50 Temperature Temperature Source Pulse Rate 65 62 63 Pulse Rate [Apical] Pulse Rate from SpO2 Sensor 62 61 Pulse Rhythm Pulse Strength Respiratory Rate 22 16 16 Respiratory Effort / Characteristics Respiratory Depth Respiratory Pattern Blood Pressure 140/63 Blood Pressure [Left Arm] Blood Pressure Mean 75 Blood Pressure Mean [Left Arm] Blood Pressure Position Blood Pressure Position [Left Arm] Pulse Oximetry 94 94 Oxygen Delivery Method Sepsis Recent Fever Within 48 Hours Sepsis New/Unexplained Change in Mental Status Sepsis Action Taken by Nursing 09/01/19 16:00 09/01/19 16:01 09/01/19 16:10 Temperature Temperature Source Pulse Rate 61 61 60 Pulse Rate [Apical] Pulse Rate from SpO2 Sensor 63 62 Pulse Rhythm Pulse Strength Respiratory Rate 21 16 18 Respiratory Effort / Characteristics Respiratory Depth Respiratory Pattern Blood Pressure 97/82 L Blood Pressure [Left Arm] Blood Pressure Mean 92 Blood Pressure Mean [Left Arm] Blood Pressure Position Blood Pressure Position [Left Arm] Pulse Oximetry 73 L Oxygen Delivery Method Sepsis Recent Fever Within 48 Hours Sepsis New/Unexplained Change in Mental Status Sepsis Action Taken by Nursing 09/01/19 16:20 09/01/19 16:30 09/01/19 16:40 Temperature Temperature Source Pulse Rate 59 L 60 61 Pulse Rate [Apical] Pulse Rate from SpO2 Sensor 60 61 60 Pulse Rhythm Pulse Strength Respiratory Rate 15 17 22 Respiratory Effort / Characteristics Respiratory Depth Respiratory Pattern Blood Pressure Blood Pressure [Left Arm] Blood Pressure Mean Blood Pressure Mean [Left Arm] Blood Pressure Position Blood Pressure Position [Left Arm] Pulse Oximetry 92 Oxygen Delivery Method Sepsis Recent Fever Within 48 Hours Sepsis New/Unexplained Change in Mental Status Sepsis Action Taken by Nursing 09/01/19 17:03 09/01/19 17:04 09/01/19 17:10 Temperature Temperature Source Pulse Rate 67 65 69 Pulse Rate [Apical] Pulse Rate from SpO2 Sensor Pulse Rhythm Pulse Strength Respiratory Rate 26 H 21 21 Respiratory Effort / Characteristics Respiratory Depth Respiratory Pattern Blood Pressure 206/95 H Blood Pressure [Left Arm] Blood Pressure Mean 145 Blood Pressure Mean [Left Arm] Blood Pressure Position Blood Pressure Position [Left Arm] Pulse Oximetry Oxygen Delivery Method Sepsis Recent Fever Within 48 Hours Sepsis New/Unexplained Change in Mental Status Sepsis Action Taken by Nursing 09/01/19 17:34 Temperature Temperature Source Pulse Rate Pulse Rate [Apical] 63 Pulse Rate from SpO2 Sensor Pulse Rhythm Pulse Strength Respiratory Rate 18 Respiratory Effort / Characteristics Respiratory Depth Respiratory Pattern Blood Pressure Blood Pressure [Left Arm] 164/76 H Blood Pressure Mean Blood Pressure Mean [Left Arm] 105 Blood Pressure Position Blood Pressure Position [Left Arm] Pulse Oximetry 95 Oxygen Delivery Method Room Air Sepsis Recent Fever Within 48 Hours Sepsis New/Unexplained Change in Mental Status Sepsis Action Taken by Nursing GENERAL: alert, well appearing, well nourished, no distress, non-toxic EYE EXAM: normal conjunctiva, PERRL and EOM's grossly intact OROPHARYNX: no exudate, no erythema, lips, buccal mucosa, and tongue normal and mucous membranes are moist NECK: supple, no nuchal rigidity, no adenopathy, non-tender LUNGS: Clear to auscultation. Normal chest wall mechanics, no w/r/r HEART: no murmurs, S1 normal and S2 normal ABDOMEN: abdomen soft, mild generalized abdominal discomfort normo-active bowel sounds, no masses, no rebound or guarding. BACK: Back is symmetrical on inspection and there is no deformity, no midline tenderness, no CVA tenderness. SKIN: no rashes and no bruising UPPER EXTREMITIES: upper extremities are grossly normal. FROM, nml pulses b/l. LOWER EXTREMITIES: No pitting edema. FROM, nml pulses b/l. NEURO EXAM: Normal sensorium, cranial nerves II-XII grossly intact, normal speech, no gross weakness of arms, no gross weakness of legs. Course Course 1404: The patient was evaluated in room B4B and a complete history and physical were performed. 1622: I reevaluated the patient. She is sipping her contrast. She states she had an echo and wore a monitor when she was here last year for neck surgery. She does admit to a history of atrial fibrillation. 1724: I reevaluated the patient. I discussed her results so far and my recommendation she remain in the hospital for further evaluation and management and she is agreeable with the plan. 1745: I discussed the patients case with Dr. Johnson, [place] Hospitalist. The patient will be further evaluated. Consultations Consultation #1: I discussed the patients case with Dr. Johnson, [facility], [place] Divisionist. The patient will be further evaluated. Time: 17:45 Administered Medications Apixaban (Eliquis) 5 mg PO BID ERMIAS Stop: 10/01/19 20:59 Last Admin: 09/01/19 21:07 Dose: 5 mg Documented by: [id number] Buspirone HCl (Buspar) 10 mg PO BID ERMIAS Stop: 10/01/19 20:59 Last Admin: 09/01/19 21:06 Dose: 10 mg Documented by: [id number] Clonidine HCl (Catapres) 0.2 mg PO BID ERMIAS Stop: 10/01/19 20:59 Last Admin: 09/01/19 21:06 Dose: 0.2 mg Documented by: [id number] Hydroxychloroquine Sulfate (Plaquenil) 200 mg PO BID ERMIAS Stop: 10/01/19 20:59 Last Admin: 09/01/19 21:07 Dose: 200 mg Documented by: [id number] Sodium Chloride (Nss 1000ml) 1,000 mls @ 80 mls/hr IV .[id number] ERMIAS Stop: 09/02/19 08:51 Last Admin: 09/01/19 20:35 Dose: 80 mls/hr Documented by: [id number] Polyethylene Glycol (Miralax Powder Packet) 17 gm PO DAILY ERMIAS Stop: 10/01/19 20:21 Last Admin: 09/01/19 21:06 Dose: 17 gm Documented by: [id number] Discontinued Medications Sodium Chloride (Nss 1000ml) 1,000 mls @ 200 mls/hr IV .Q5H ERMIAS Stop: 10/01/19 14:29 Last Admin: 09/01/19 21:25 Dose: Not Given Documented by: [id number] Infusion: 09/01/19 20:30 Dose: 0 mls/hr Documented by: [id number] Admin: 09/01/19 15:14 Dose: 200 mls/hr Documented by: [id number] Ioversol (Optiray 320 100ml) 92 ml IV ONCE PRN PRN Reason: Interaction Checking Stop: 09/05/19 16:46 Last Admin: 09/01/19 16:47 Dose: 92 ml Documented by: [id number] Medical Decision Making Differential Diagnosis Differential diagnoses includes but is not limited to gastritis, peptic ulcer disease, GERD, gallbladder disease, pancreatitis, small bowel obstruction, acute coronary syndrome, pericarditis, ischemic bowel, irritable bowel disease, irritable bowel syndrome, appendicitis, diverticulitis, malignancy, hernia, urinary tract infection, torsion, perforation, trauma, infectious. Medical Records Attestation: I reviewed the patient's medical records. Home Medications Current Medication List: was personally reviewed by me Laboratory Data Attestation: I reviewed the patient's lab results. Result diagrams: 09/01/19 14:31 09/01/19 14:31 Lab Results 09/01/19 09/01/19 09/01/19 Range/Units 14:31 14:31 14:55 WBC 9.41 (4.8-10.8) K/uL RBC 4.79 (4.2-5.4) M/uL Hgb 13.0 (12.0-16.0) g/dL Hct 39.4 (37-47) % MCV 82.3 (80-100) fL MCH 27.1 (25-34) pg MCHC 33.0 (32-36) g/dL RDW Std Deviation 45.5 (36.4-46.3) fL RDW Coeff of [place] 15.1 H (11.5-14.5) % Plt Count 202 (130-400) K/uL MPV 9.9 (7.4-10.4) fL Immature Gran % (Auto) 0.1 % Neut % (Auto) 75.2 % Lymph % (Auto) 16.2 % Campbell % (Auto) 8.0 % Eos % (Auto) 0.3 % Baso % (Auto) 0.2 % Immature Gran # (Auto) 0.01 (0.00-0.02) K/uL Neut # (Auto) 7.08 H (1.4-6.5) K/uL Lymph # (Auto) 1.52 (1.2-3.4) K/uL Campbell # (Auto) 0.75 H (0.11-0.59) K/uL Eos # (Auto) 0.03 (0-0.5) K/uL Baso # (Auto) 0.02 (0-0.2) K/uL Sodium 134 L (136-145) mmol/L Potassium 4.0 (3.5-5.1) mmol/L Chloride 101 (98-107) mmol/L Carbon Dioxide 26 (21-32) mmol/L Anion Gap 7.0 (3-11) BUN 23 H (7-18) mg/dl Creatinine 2.13 H (0.6-1.2) mg/dl Est Cr Clr Drug Dosing 22.4 ml/min Est GFR ( Amer) 25.4 Est GFR (Non-Af Amer) 21.9 BUN/Creatinine Ratio 10.6 (10-20) Glucose 64 L (70-99) mg/dl Lactate 1.4 (0.4-2.0) mmol/L Calcium 10.3 H (8.5-10.1) mg/dl Magnesium 1.8 (1.8-2.4) mg/dl Total Bilirubin 0.8 (0.2-1) mg/dl AST 21 (15-37) U/L ALT 14 (12-78) U/L Alkaline Phosphatase 94 (45-117) U/L Troponin I 0.046 H* (0-0.045) ng/ml Total Protein 6.8 (6.4-8.2) gm/dl Albumin 3.3 L (3.4-5.0) gm/dl Globulin 3.5 (2.5-4.0) gm/dl Albumin/Globulin Ratio 0.9 (0.9-2) Lipase 89 (73-393) U/L TSH 2.530 (0.300-4.500) uIu/ml Imaging Data Radiologist's Impression: Radiology results as stated below per my review and the radiologist's interpretation: CT abd pelvis oral and IV con CLINICAL HISTORY: 78 years-old Female presenting with generalized abdominal pain, constipation, poor intake. TECHNIQUE: Multidetector CT of the abdomen and pelvis was performed after the administration of oral and intravenous contrast. IV contrast: 92 mL of Optiray 320. One or more dose lowering techniques were used consistent with the principles of ALARA (as low as reasonably achievable), including automatic exposure control, mA or kV adjustment to individual patient size, and/or use of iterative reconstruction. COMPARISON: 11/26/2017. CT DOSE (mGy.cm): The estimated cumulative dose is 937.19 mGy.cm. FINDINGS: [employer] topogram: Unremarkable. Lung bases: Normal heart size. No pericardial or pleural effusion. Minimal dependent changes likely atelectasis. Liver: Congenital hypoplasia of the medial segments of the left hepatic lobe. No focal lesion. Patent hepatic vasculature. Biliary: No intrahepatic or extrahepatic biliary ductal dilatation. Distended gallbladder without evidence of tension or wall thickening, likely on a physiologic basis. No pericholecystic fluid or fat infiltration. Pancreas: Moderate parenchymal atrophy. Spleen: Normal. Adrenal glands: Stable 15 mm nodule in the left adrenal gland previously demonstrated to represent a benign adenoma by density. Right adrenal gland normal. Kidneys and ureters: Punctate nonobstructing calculus in the right kidney. No hydronephrosis. Subcentimeter cyst at the upper pole the right kidney. Trace bilateral perinephric fluid. Ureters nondistended. Trace right urothelial thickening may be present. Bladder: Normal. Pelvic organs: Uterus surgically absent. Bowel: Moderate stool burden primarily in the transverse colon with a mild stool burden in the descending colon. The appendix is normal. No bowel obstruction. Small sliding type hiatal hernia. Peritoneal cavity: No free fluid or intraperitoneal gas. Lymph nodes: No enlarged lymph nodes in the abdomen or pelvis. Vasculature: Atherosclerosis of the normal caliber abdominal aorta. IVC patent. Abdominal wall: Extensive postsurgical changes of the abdominal wall. Fat-containing right paramedian epigastric hernia. Postsurgical changes of right mastectomy. Musculoskeletal: Degenerative changes of the spine. IMPRESSION: 1. Mild to moderate stool burden primarily in the transverse colon and to a slightly lesser extent in the descending colon. Findings could represent cons tipation the appropriate clinical setting. 2. No other evidence of acute intra-abdominal pathology. 3. Punctate nonobstructing right renal calculus. 4. Chronic findings as above. ACT 112: Negative or not required by law. Electronically signed by: Malcom Silvestre M.D. 09/01/2019 5:00 PM ECG Data Attestation: I personally reviewed and interpreted this ECG as follows: Indication: + abdominal pain Rate (beats per minute): 61 Rhythm: + normal sinus ECG [place]: + Normal ECG ST segments: + T-wave inversions (in V2 to V4) ECG Findings: + Other (Normal intervals) Comparison ECG Date: from (01/24/2019) Change: no significant change Blood Pressure Blood Pressure Findings: Elevated blood pressure Blood Pressure Disposition: further management by hospitalist EVELINA Narrative Patient here with atypical description of symptoms over the last 2 to 3 months. While the GI evaluation here with labs and CT imaging did not reveal acute pathology other than mild to moderate constipation, patient was found to have worsening renal function and newly elevated troponin. Patient denied chest pain or trouble breathing and no acute EKG changes were noted. Patient was hemodynamically stable throughout. Despite patient's history of chronic kidney disease, she has never had an elevated troponin previously. I discussed all r esults with patient and family at bedside, and we discussed additional evaluation and management by the hospitalist and she was in agreement. No evidence of perforation, bowel obstruction, volvulus, GI bleed, or acute infectious etiology, I do not suspect mesenteric ischemia. No other evidence of acute vascular etiology. Patient is anticoagulated. Possible given her history of diabetes she could have gastroparesis contributing to her GI symptoms. Impression & Plan Abdominal pain, Constipation, Elevated troponin, Generalized weakness, Chronic kidney disease (CKD) Discharge Plan Visit Data *Final* Discharge Date/Time: 09/01/19 19:36 Chief Complaint: Constipation Stated Complaint: CONSTIPATION ED Provider: Kate Stephens Discharge Problem: Abdominal pain, Constipation, Elevated troponin, Generalized weakness, Chronic kidney disease (CKD) Patient Disposition: Admitted As Inpatient Discharge Instructions Interventions: ED Discharge Assessment Last Done: 09/01/19 19:36 The scribe's documentation has been prepared under my direction and personally reviewed by me in its entirety. I confirm that the note above accurately reflects all work, treatment, procedures, and medical decision making performed by me.
[2019-09-02 02:31] LABS: Basophils # (auto) 0.03 K/uL (0-0.2); Basophils % (auto) 0.3 %; Eosinophils # (auto) 0.04 K/uL (0-0.5); Eosinophils % (auto) 0.5 %; Hematocrit (blood only) 36.3 % (37-47); Hemoglobin 11.9 g/dL (12.0-16.0); Immature Granulocytes # (auto) 0.01 K/uL (0.00-0.02); Immature Granulocytes % (auto) 0.1 %; Lymphocytes # (auto) 1.69 K/uL (1.2-3.4); Lymphocytes % (auto) 19.3 %; Mean Corpuscular Hemoglobin 26.9 pg (25-34); Mean Corpuscular Hgb Conc 32.8 g/dL (32-36); Mean Corpuscular Volume 82.1 fL (80-100); Mean Platelet Volume 9.6 fL (7.4-10.4); Monocytes # (auto) 0.95 K/uL (0.11-0.59); Monocytes % (auto) 10.9 %; Neutrophils # (auto) 6.03 K/uL (1.4-6.5); Neutrophils % (auto) 68.9 %; Platelet Count 182 K/uL (130-400); RDW Standard Deviation 45.1 fL (36.4-46.3); Red Blood Count 4.42 M/uL (4.2-5.4); White Blood Count 8.75 K/uL (4.8-10.8)
[2019-09-02 02:51] LABS: Albumin Level 2.7 gm/dl (3.4-5.0); BUN Creatinine Ratio 10.5 (10-20); Calcium 8.8 mg/dl (8.5-10.1); Creatinine Clr Calc Pharmacy 25.7 ml/min; Est GFR (African American) 29.7; Est GFR (Non-African American) 25.7; Potassium 3.8 mmol/L (3.5-5.1)
[2019-09-02 03:02] LABS: Albumin Globulin Ratio 0.8 (0.9-2); Bilirubin,Total 0.7 mg/dl (0.2-1); Globulin 3.2 gm/dl (2.5-4.0); Total Protein 5.9 gm/dl (6.4-8.2); Troponin I 0.054 ng/ml (0-0.045)
--- NOTE | 2019-09-02 06:04 | Electrocardiogram Report ---
Test Reason : Blood Pressure : / mmHG Vent. Rate : 061 BPM Atrial Rate : 061 BPM P-R Int : 180 ms QRS Dur : 096 ms QT Int : 454 ms P-R-T Axes : 077 -29 -01 degrees QTc Int : 457 ms Normal sinus rhythm Minimal voltage criteria for LVH, may be normal variant T wave abnormality, consider anterior ischemia Abnormal ECG When compared with ECG of 24-JAN-2019 10:22, No significant change was found Confirmed by Zeeshan Franco ([id number]) on 09/02/2019 6:03:59 AM Referred By: Confirmed By:Zeeshan Franco
[2019-09-02 06:28] LABS: Estimated Average Glucose 120 mg/dl; Hemoglobin A1C 5.8 % (4.5-5.6)
[2019-09-02] MEDS ORDERED: PERFLUTREN LIPID MICROSPHERE (DEFINITY) IV ONE (07:02)
[2019-09-02] MEDS: APIXABAN 5 MG TABLET PO SCH (07:50)
[2019-09-02] MEDS: POLYETHYLENE (MIRALAX) 17 GM PACK PO SCH (07:50)
[2019-09-02] MEDS: cloNIDine HCL 0.1 MG TAB PO SCH (07:51)
[2019-09-02] MEDS: HYDROXYCHLOROQUINE SULFATE 200 MG TAB PO SCH (07:51)
[2019-09-02] MEDS ORDERED: MIRABEGRON ER 25 MG TAB PO SCH (09:00)
[2019-09-02] MEDS ORDERED: SIMVASTATIN 20 MG TAB PO SCH (09:00)
[2019-09-02] MEDS ORDERED: LOSARTAN POTASSIUM 50 MG TAB PO SCH (09:00)
[2019-09-02] MEDS ORDERED: ASPIRIN 81 MG ECTAB PO SCH (09:00)
[2019-09-02] MEDS ORDERED: DULOXETINE HCL 60 MG CAP PO SCH (09:00)
[2019-09-02] MEDS ORDERED: CALCITRIOL 0.25 MCG CAPSULE PO SCH (09:00)
[2019-09-02 11:23] VITALS: BP 137/64; TEMP 98.1; O2SAT 91
[2019-09-02 12:32] VITALS: PULSE 96
--- NOTE | 2019-09-02 15:38 | Discharge Summary ---
Date of Service September 02, 2019 Admission HPI Per Admitting Provider The patient is a 78 years old female with past medical history of hypertension, dyslipidemia, hypothyroidism, polyarthritis, obesity, osteopenia, cervical nerve root impingement, spinal stenosis, GERD, paroxysmal atrial fibs with RVR, history of total knee arthroplasty, CKD stage III, breast cancer, who was brought to the emergency room with a complaint of abdominal pain for 2 to 3 months associated with 2 weeks of constipation generalized tiredness and not feeling well. 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 Patient denies sick contact. Patient denies fever, chills, chest pain, aman rtness of breath, headache, frequency, urgency. Labs are reviewed which shows: WBC is 9.41, hemoglobin 13, hematocrit 39.4, platelets 202, sodium 134, potassium 4, chloride 101, carbon dioxide 26, anion gap 7, BUN 23, creatinine 2.13 and baseline is 2.07 and GFR of 22.7 and now GFR 21.9, lactate 1.4, glucose 64, troponin 0.0 46, magnesium 1.8, TSH 2.53, lipase 89, albumin 3.3. CT abdomen pelvis shows a mild to moderate stool burden primarily in the transverse colon and to a slight lacer extent in the descending colon. Finding could represent constipation and appropriate clinical setting. No other evidence of acute intra-abdominal pathology. Punctuate nonobstructive right renal calculus. Chronic findings as above. The decision was made to admit patient to PCU on telemetry for observation and elevated troponin, rule out acute coronary syndrome, constipation for 2 weeks, acute on chronic kidney injury. Principal Diagnosis Constipation Discharge Exam Constitutional WD/WN, vitals as above well developed and + obese Eyes PERRL, conjunctivae normal, anicteric sclerae ENMT external ear and nose normal, oropharynx normal Neck trachea midline, no thyromegaly Respiratory normal respiratory effort, lungs clear to auscultation Cardiovascular RRR, no murmur, no edema Gastrointestinal (Abdomen) Inspection/Auscultation: + abdomen distended and normal bowel sounds Percussion/Palpation: + abdomen tender and abdomen soft Musculoskeletal no cyanosis or clubbing, extremities motor strength 5/5 Skin no rashes, warm and dry Neurologic patellar DTR's 2+ bilat, sensation intact Psychiatric A+Ox3, euthymic affect Lymphatic no cervical or axillary lymphadenopathy Discharge Data Allergies Allergy/AdvReac Type Severity Reaction Status Date / Time HO Inhibitors Allergy Unknown ITCHING Verified 09/01/19 14:40 acetaminophen [From Percocet] Allergy Unknown Unknown Unverified 09/01/19 14:40 tolterodine Allergy Unknown Unknown Unverified 09/01/19 14:40 oxycodone AdvReac Mild CAUSES BE Verified 09/01/19 14:40 JITTERINESS & CAN'T EAT. ALSO CAUSES RLS SYMPTOMS Consultations 09/01/19 17:48 ED Decision to Admit Stat Ordered Studies 09/01/19 14:18 CT abd pelvis oral and IV con Stat Hospital Course (1) Constipation: Long-standing issue for her. She reported not having bowel movements for 2 weeks to the admitting provider; however, to me, she reported she just has irregular BMs every few days. No pushing or straining. No bleeding with the BMs. - Started MiraLAX twice daily scheduled. - Her abdominal pain had resolved by the time I saw her. She felt well and wanted to go home, which I thought was fine. I encouraged her to increase her jazmin wel regimen if she stops having BMs. My goal was a daily, soft BM for her until we get her constipation under control and to take an extra dose if she doesn't have a BM one day. She will follow up with her PCP. (2) Elevated troponin: Troponin was minimally elevated at 0.06, then 0.05. EKG was non-acute (stable TWIs in V1-V5 from back in 01/2019 at least). Echo showed EF 65-70%, no regional wall motion abnormalities, and stable from 01/2019 as well. - Outpatient follow up. (3) Abdominal pain: Appears to be related to constipation. - Management as the above. (4) Generalized weakness: Not clear origin of generalized weakness. Possibly could be caregiver burnout. Patient is taking care of her very sick son. - She walked with the staff technologist and was at baseline on discharge. (5) Acute on chronic renal insufficiency: Patient creatinine is 2.13/GFR 10.6 which is minimally above her baseline 2.07/11.4. - On discharge, it was back down to 1.9. (6) Diabetic peripheral neuropathy: Stable, continue duloxetine 60mg p.o. daily. (7) Hypercholesterolemia: - Continue simvastatin 20 mg p.o. daily. (8) Hypothyroid: TSH was 2.53 this admission. Patient is not on medicine for hypothyroidism. (9) Hypertension: Stable, continue home medicine aspirin 81 mg p.o. every morning, losartan 100 mg p.o. daily, metoprolol tartrate 25 mg p.o. twice daily (10) Atrial fibrillation: Paroxysmal afib. In sinus rhythm this admission. - Continue metoprolol 25 mg p.o. twice daily, apixaban 5 mg p.o. twice daily. (11) Hyperactivity of bladder: - Continue mirabegron 50 mg p.o. daily, solifenacin 5 mg p.o. daily, Toviaz 4 mg p.o. every morning. Total Time Total Time Spent Total Time Spent (In Minutes): 35 Discharge Plan Discharge Items Patient Disposition: Home - Self-Care Reason For Visit: CONSTIPATION Discharge Diagnosis: Constipation, dizziness Activity: Resume your previous activity Non-emergency contact: Primary Care Provider Call non-emergency contact if: your symptoms worsen, your pain is not controlled, your pain is worsening and your temperature is above 101 Follow-up/Referrals: Marlys Gil MD [Primary Care Provider] - 09/08/19 10:15 am (Please, follow up with Dr. Gil on SundayJune 08 at 10:15 am. *If you need to change this appointment, call the office at [phone].) Diet: Heart Healthy Addtl Attending Provider Instructions: Please take 2 of your laxative pills when you get home today and then before bedtime. Tomorrow, if you have not had a bowel movement, please take another 2 pills before bedtime. Our goal is to have 1 soft BM per day. If you are not having this happen, please call your PCP to discuss further measures. If your abdominal pain comes back, please call your PCP. Pending Studies at Discharge: No Stand-Alone Forms: [employer], Smoking Cessation Medications and DC Order Prescriptions: Continued metoprolol tartrate 25 mg tablet 25 mg PO BID Qty: 180 RF: 3 simvastatin 20 mg tablet 20 mg PO DAILY Qty: 30 RF: 5 solifenacin 5 mg tablet 5 mg PO DAILY Qty: 30 RF: 5 hydroxychloroquine 200 mg tablet 200 mg PO BID Qty: 60 RF: 5 duloxetine 60 mg capsule,delayed release(DR/EC) 60 mg PO DAILY Qty: 90 RF: 1 clonidine HCl 0.2 mg tablet 0.2 mg PO BID 90 Days Qty: 180 RF: 1 losartan 100 mg tablet 100 mg PO DAILY 90 Days Qty: 30 RF: 11 Myrbetriq 50 mg tablet extended release 24 hr 50 mg PO DAILY 30 Days Qty: 30 RF: 5 buspirone 10 mg tablet 10 mg PO BID 90 Days Qty: 60 RF: 5 Pneumovax 23 25 mcg/0.5 mL syringe 0.5 ml IM ONCE Qty: 0.5 RF: 0 calcitriol 0.5 mcg capsule 0.5 mcg PO DAILY RF: 0 aspirin 81 mg Tablet,Delayed Release (Dr/Ec) 81 mg PO QAM RF: 0 docusate sodium [Colace] 100 mg Capsule 100 mg PO HS RF: 0 Eliquis 5 mg tablet 5 mg PO BID RF: 0 Toviaz 4 mg tablet extended release 24 hr 4 mg PO QAM RF: 0 Discharge Orders: Discharge Order (Routine); Ordered 09/02/19 Ordered By: Matthias Dorsey Admission Data Admit Date/Time: 09/01/19 18:24 Attending Provider: Matthias Dorsey Admit Provider: Valentina Johnson Primary Care Provider: Marlys Gil Other Providers: Matthias Dorsey Other Interventions: Discharge Summary Assessment (RN) Last Done: 09/02/19 12:31 DC Date/Time DO NOT enter until pt leaves facility: 09/02/19 13:24
--- NOTE | 2019-09-02 21:51 | Electrocardiogram Report ---
Test Reason : Blood Pressure : / mmHG Vent. Rate : 059 BPM Atrial Rate : 059 BPM P-R Int : 188 ms QRS Dur : 098 ms QT Int : 492 ms P-R-T Axes : 042 -24 022 degrees QTc Int : 487 ms Sinus bradycardia Minimal voltage criteria for LVH, may be normal variant Prolonged QT Abnormal ECG When compared with ECG of 01-SEP-2019 14:38, No significant change was found Confirmed by Zeeshan Franco ([id number]) on 09/02/2019 9:51:31 PM Referred By: REFERRED SELF Confirmed By:Zeeshan Franco
== END 2019-09-02 13:24 | disposition home or self-care (01) ==
LOC: ED 12:40 → 2N 12:40 → SUATTDRO 18:24 → 2N 19:36

== ENCOUNTER 2019-09-08 11:15 | Inpatient (IN) ==
[2019-09-08] MEDS ORDERED: METOCLOPRAMIDE HCL INJ 5 MG/ML 2 ML VIAL IV ONE (12:37)
[2019-09-08 12:41] LABS: Basophils # (auto) 0.02 K/uL (0-0.2); Basophils % (auto) 0.2 %; Eosinophils # (auto) 0.02 K/uL (0-0.5); Eosinophils % (auto) 0.2 %; Hemoglobin 13.8 g/dL (12.0-16.0); Immature Granulocytes # (auto) 0.03 K/uL (0.00-0.02); Immature Granulocytes % (auto) 0.3 %; Lymphocytes # (auto) 0.64 K/uL (1.2-3.4); Lymphocytes % (auto) 5.6 %; Mean Corpuscular Hemoglobin 26.7 pg (25-34); Mean Corpuscular Hgb Conc 32.9 g/dL (32-36); Mean Corpuscular Volume 81.4 fL (80-100); Mean Platelet Volume 10.8 fL (7.4-10.4); Monocytes # (auto) 0.69 K/uL (0.11-0.59); Monocytes % (auto) 6.1 %; Neutrophils # (auto) 9.95 K/uL (1.4-6.5); Neutrophils % (auto) 87.6 %; Platelet Count 216 K/uL (130-400); RDW Coefficient of Variation 14.9 % (11.5-14.5); RDW Standard Deviation 43.5 fL (36.4-46.3); Red Blood Count 5.16 M/uL (4.2-5.4); White Blood Count 11.35 K/uL (4.8-10.8)
[2019-09-08] MEDS: SODIUM CHLORIDE 0.9% 1000ML 1,000 ML IV SCH ×2 (12:42→16:56)
[2019-09-08 12:47] LABS: Albumin Level 3.1 gm/dl (3.4-5.0); BUN Creatinine Ratio 11.8 (10-20); Creatinine Clr Calc Pharmacy 25.7 ml/min; Est GFR (African American) 30.1; Magnesium 1.9 mg/dl (1.8-2.4); Potassium 3.7 mmol/L (3.5-5.1)
[2019-09-08 13:04] LABS: Albumin Globulin Ratio 0.8 (0.9-2); Thyroid Stimulating Hormone 5.7 uIu/ml (0.300-4.500); Total Protein 7.1 gm/dl (6.4-8.2); Troponin I 0.092 ng/ml (0-0.045)
--- NOTE | 2019-09-08 13:36 | XRay Report ---
KUB HISTORY: constipation COMPARISON: Abdomen and pelvis CT 09/01/2019. FINDINGS: There is oral contrast seen within the colon from the recent CT examination. Surgical clips seen within the pelvis. No dilated loops of bowel to suggest an obstruction. Small amount of stool s een within the colon and rectum. This has improved. No renal calculi. No ureteral calculi. No pneumo peritoneum or pneumatosis. IMPRESSION: 1. No evidence for bowel obstruction. 2. Oral contrast seen throughout the colon from the recent CT examination. 3. Small amount of well-formed stool within the colon and rectum. This has improved. ACT 112: Negative or not required by law. Electronically signed by: Julius Coelho M.D. 09/08/2019 1:34 PM
--- NOTE | 2019-09-08 15:45 | History & Physical Report ---
Date of Service September 08, 2019 Assessment & Plan (1) Elevated troponin: Troponin elevated at 0.092. No EKG changes consistent with acute ischemia. Patient denies chest pain. Echocardiogram performed during last hospital stay unremarkable. Patient hemodynamically stable, in NSR -Continue ASA -Trend troponin -Consider Cardiology consultation Present on Admission?: Yes (2) CKD (chronic kidney disease): BUN and Cr are near baseline -Continue to monitor -Renal dosing where appropriate. Avoid nephrotoxic agents Present on Admission?: Yes (3) Constipation: Patient still complaining of constipation. Stool burden improved on repeat imaging -Continue Colace -Miralax daily -Dulcolax suppository PRN Present on Admission?: Yes (4) Diabetes: Diet controlled -Continue to monitor blood sugar -CC diet Present on Admission?: Yes (5) History of TIAs: No recent neuro changes -Continue ASA and Simvastatin Present on Admission?: Yes (6) Polyarthritis: Chronic -Continue Plaquenil Present on Admission?: Yes (7) Depression: Chronic -Continue Duloxetine -Continue Buspirone (8) Hypothyroid: Elevated TSH, normal FT4. ?if patients symptoms secondary to hypothyroidsim -Consider initiating treatment with Synthroid History of Present Illness Chief Complaint: poor appetite Primary Care Provider: Marlys Gil MD aMdison Jacob is a 78yo C female with history of DM/HTN/HLP and CKD. She was recently admitted 09/01 - 09/02 with constipation and abdominal pain. She was started on MiraLAX BID with improvement in her symptoms. Also with mild elevation in troponin to 0.06, no acute EKG changes. Echo performed with no regional WMA, EF intact 65-70%. She was discharged home in stable condition on 09/02/19. She returns today with complaint of decreased PO intake, poor appetite as well as dizziness with standing. She states that "food tastes terrible" and she has no appetite. She had one day of nausea last week with no vomiting. Otherwise denies nausea/vomiting/diarrhea. She continues to be constipated and is unable to relay when her last BM took place. She says it has been "months". Also with dizziness with standing, had a near syncopal episode last week. She was to followup with her PCP today, however, came to the ER. Additional complaints include occasional palpitations. Chronic RLQ abdominal pain, constipation and weight loss of 15# over the past few months Allergies Allergy/AdvReac Type Severity Reaction Status Date / Time HO Inhibitors Allergy Unknown ITCHING Verified 09/08/19 12:03 acetaminophen [From Percocet] Allergy Unknown Unknown Unverified 09/08/19 12:03 tolterodine Allergy Unknown Unknown Unverified 09/08/19 12:03 oxycodone AdvReac Mild CAUSES BE Verified 09/08/19 12:03 JITTERINESS & CAN'T EAT. ALSO CAUSES RLS SYMPTOMS Home Medications Home Medications Medication Instructions Recorded Confirmed Type aspirin 81 mg PO QAM 01/18/19 09/08/19 History calcitriol 0.5 mcg PO DAILY 01/18/19 09/08/19 History metoprolol tartrate 25 mg tablet 25 mg PO BID #180 tab 04/03/19 09/08/19 Rx hydroxychloroquine 200 mg tablet 200 mg PO BID #60 tab 04/22/19 09/08/19 Rx simvastatin 20 mg tablet 20 mg PO DAILY #30 tab 04/22/19 09/08/19 Rx solifenacin 5 mg tablet 5 mg PO DAILY #30 tab 04/22/19 09/08/19 Rx duloxetine 60 mg capsule,delayed 60 mg PO DAILY #90 cap 04/23/19 09/08/19 Rx release clonidine HCl 0.2 mg tablet 0.2 mg PO BID 90 Days #180 tab 04/25/19 09/08/19 Rx losartan 100 mg tablet 100 mg PO DAILY 90 Days #30 tab 04/25/19 09/08/19 Rx mirabegron 50 mg tablet,extended 50 mg PO DAILY 30 Days #30 tab 04/25/19 09/08/19 Rx release 24 hr buspirone 10 mg tablet 10 mg PO BID 90 Days #60 tab 08/15/19 09/08/19 Rx Eliquis 5 mg PO BID 09/01/19 09/08/19 History Toviaz 4 mg PO QAM 09/01/19 09/08/19 History docusate sodium [Colace] 100 mg PO HS 09/01/19 09/08/19 History Past Med/Surg History Medical History Acute on chronic renal insufficiency Atrial fibrillation Breast cancer (Resolved) CKD (chronic kidney disease) Constipation (Acute) Depression Diabetes (Chronic) borderline, diet controlled Dyslipidemia Elevated troponin (Acute) GERD (gastroesophageal reflux disease) History of TIAs (Chronic) last one over 10 years ago Hyperactivity of bladder Hypertension Hypothyroid Late effects of cerebrovascular disease (Chronic) Surgical History History of bilateral knee replacement History of bilateral salpingo-oophorectomy (Resolved) History of hysterectomy History of mastectomy History of mastectomy (Resolved) History of total abdominal hysterectomy (Resolved) History of total knee arthroplasty (Resolved) Status post biopsy of skin (Resolved) Family History Father Myocardial infarction Brother Myocardial infarction Other Coronary heart disease Diabetes Social History Preferred Language: Martiniquais Communication Ability: Effective Visual Impairment: No Limitations Hearing Ability: Normal Trim Mounter Required: No Beliefs That Will Affect Care: None marital status: Current Living Situation: Family Current Living Situation Comment: 2 sons Other Information That Helps Us Care for You: No Feels Safe at Home: Yes Safety Concerns: Feels Safe At This Time Smoking Status: Never smoker Hx Alcohol Use: No Hx Substance Use: No Childhood Exposure to Second-Hand Smoke: No Dental Care, Regularly: No Physical Activity Frequency: Does not Exercise Seatbelt Use: always Sunscreen Use: No Review of Systems Review of Systems: All systems reviewed & are unremarkable except as noted in HPI & below Physical Exam Physical Exam: General: patient resting comfortably, NAD, non-toxic in appearance, AA&O x 4 Skin: warm, dry, intact, no rashes or lesions HEENT: NC/AT, PERRL, EOMI, anicteric sclera, conjunctiva without injection, external ear normal to inspection and nontender, nares patent, moist mucus membranes, dentition intact, no oropharyngeal lesions, neck supple, trachea midline, no LAD, no thyromegaly, no JVD Heart: +S1/S2, regular, no m/r/g Lungs: equal air entry bilaterally, no rales/rhonchi/wheezes Abd: +BS, soft, NT/ND, no masses/organomegaly/ascites Ext: warm, 2+ pulses in UE/LE bilaterally, no clubbing/cyanosis or edema Neuro: nonfocal, patient AA&O x 4, speech intact, no facial droop, moving all extremities on command with equal strength 5/5 Results & Data Vital Signs (Past 12 Hours) Vital Signs Temp Pulse Pulse Resp BP BP Pulse Ox 09/08/19 14:30 63 18 144/64 H 95 09/08/19 13:23 63 18 126/65 99 09/08/19 11:18 36.6 C 81 20 180/103 H 100 Laboratory Results Lab Results 09/08/19 09/08/19 09/08/19 Range/Units 12:00 12:00 17:18 WBC 11.35 H (4.8-10.8) K/uL RBC 5.16 (4.2-5.4) M/uL Hgb 13.8 (12.0-16.0) g/dL Hct 42.0 (37-47) % MCV 81.4 (80-100) fL MCH 26.7 (25-34) pg MCHC 32.9 (32-36) g/dL RDW Std Deviation 43.5 (36.4-46.3) fL RDW Coeff of [place] 14.9 H (11.5-14.5) % Plt Count 216 (130-400) K/uL MPV 10.8 H (7.4-10.4) fL Immature Gran % (Auto) 0.3 % Neut % (Auto) 87.6 % Lymph % (Auto) 5.6 % [place] % (Auto) 6.1 % Eos % (Auto) 0.2 % Baso % (Auto) 0.2 % Immature Gran # (Auto) 0.03 H (0.00-0.02) K/uL Neut # (Auto) 9.95 H (1.4-6.5) K/uL Lymph # (Auto) 0.64 L (1.2-3.4) K/uL [place] # (Auto) 0.69 H (0.11-0.59) K/uL Eos # (Auto) 0.02 (0-0.5) K/uL Baso # (Auto) 0.02 (0-0.2) K/uL ESR 38 H (0-21) mm/hr Sodium 133 L (136-145) mmol/L Potassium 3.7 (3.5-5.1) mmol/L Chloride 98 (98-107) mmol/L Carbon Dioxide 25 (21-32) mmol/L Anion Gap 10.0 (3-11) BUN 22 H (7-18) mg/dl Creatinine 1.85 H (0.6-1.2) mg/dl Est Cr Clr Drug Dosing 25.7 ml/min Est GFR ( Amer) 30.1 Est GFR (Non-Af Amer) 26.0 BUN/Creatinine Ratio 11.8 (10-20) Glucose 66 L (70-99) mg/dl POC Glucose (70-99) mg/dl Calcium 10.0 (8.5-10.1) mg/dl Phosphorus (2.5-4.9) mg/dl Magnesium 1.9 (1.8-2.4) mg/dl Total Bilirubin 1.0 (0.2-1) mg/dl AST 29 (15-37) U/L ALT 17 (12-78) U/L Alkaline Phosphatase 96 (45-117) U/L Total Creatine Kinase (26-192) U/L Troponin I 0.092 H* (0-0.045) ng/ml C-Reactive Protein (0-0.29) mg/dl Total Protein 7.1 (6.4-8.2) gm/dl Albumin 3.1 L (3.4-5.0) gm/dl Globulin 4.0 (2.5-4.0) gm/dl Albumin/Globulin Ratio 0.8 L (0.9-2) Lipase 112 (73-393) U/L TSH 5.700 H (0.300-4.500) uIu/ml Free T4 (0.8-1.6) ng/dl 09/08/19 09/08/19 09/08/19 Range/Units 17:18 17:18 17:34 WBC (4.8-10.8) K/uL RBC (4.2-5.4) M/uL Hgb (12.0-16.0) g/dL Hct (37-47) % MCV (80-100) fL MCH (25-34) pg MCHC (32-36) g/dL RDW Std Deviation (36.4-46.3) fL RDW Coeff of [place] (11.5-14.5) % Plt Count (130-400) K/uL MPV (7.4-10.4) fL Immature Gran % (Auto) % Neut % (Auto) % Lymph % (Auto) % [place] % (Auto) % Eos % (Auto) % Baso % (Auto) % Immature Gran # (Auto) (0.00-0.02) K/uL Neut # (Auto) (1.4-6.5) K/uL Lymph # (Auto) (1.2-3.4) K/uL [place] # (Auto) (0.11-0.59) K/uL Eos # (Auto) (0-0.5) K/uL Baso # (Auto) (0-0.2) K/uL ESR (0-21) mm/hr Sodium (136-145) mmol/L Potassium (3.5-5.1) mmol/L Chloride (98-107) mmol/L Carbon Dioxide (21-32) mmol/L Anion Gap (3-11) BUN (7-18) mg/dl Creatinine (0.6-1.2) mg/dl Est Cr Clr Drug Dosing ml/min Est GFR ( Amer) Est GFR (Non-Af Amer) BUN/Creatinine Ratio (10-20) Glucose (70-99) mg/dl POC Glucose 54 L* (70-99) mg/dl Calcium (8.5-10.1) mg/dl Phosphorus 2.3 L (2.5-4.9) mg/dl Magnesium (1.8-2.4) mg/dl Total Bilirubin (0.2-1) mg/dl AST (15-37) U/L ALT (12-78) U/L Alkaline Phosphatase (45-117) U/L Total Creatine Kinase 192 (26-192) U/L Troponin I 0.094 H* (0-0.045) ng/ml C-Reactive Protein 1.02 H (0-0.29) mg/dl Total Protein (6.4-8.2) gm/dl Albumin (3.4-5.0) gm/dl Globulin (2.5-4.0) gm/dl Albumin/Globulin Ratio (0.9-2) Lipase (73-393) U/L TSH 6.350 H (0.300-4.500) uIu/ml Free T4 1.31 (0.8-1.6) ng/dl 09/08/19 09/08/19 09/08/19 Range/Units 17:37 18:08 18:46 WBC (4.8-10.8) K/uL RBC (4.2-5.4) M/uL Hgb (12.0-16.0) g/dL Hct (37-47) % MCV (80-100) fL MCH (25-34) pg MCHC (32-36) g/dL RDW Std Deviation (36.4-46.3) fL RDW Coeff of [place] (11.5-14.5) % Plt Count (130-400) K/uL MPV (7.4-10.4) fL Immature Gran % (Auto) % Neut % (Auto) % Lymph % (Auto) % [place] % (Auto) % Eos % (Auto) % Baso % (Auto) % Immature Gran # (Auto) (0.00-0.02) K/uL Neut # (Auto) (1.4-6.5) K/uL Lymph # (Auto) (1.2-3.4) K/uL [place] # (Auto) (0.11-0.59) K/uL Eos # (Auto) (0-0.5) K/uL Baso # (Auto) (0-0.2) K/uL ESR (0-21) mm/hr Sodium (136-145) mmol/L Potassium (3.5-5.1) mmol/L Chloride (98-107) mmol/L Carbon Dioxide (21-32) mmol/L Anion Gap (3-11) BUN (7-18) mg/dl Creatinine (0.6-1.2) mg/dl Est Cr Clr Drug Dosing ml/min Est GFR ( Amer) Est GFR (Non-Af Amer) BUN/Creatinine Ratio (10-20) Glucose (70-99) mg/dl POC Glucose 41 L* 54 L* 113 H (70-99) mg/dl Calcium (8.5-10.1) mg/dl Phosphorus (2.5-4.9) mg/dl Magnesium (1.8-2.4) mg/dl Total Bilirubin (0.2-1) mg/dl AST (15-37) U/L ALT (12-78) U/L Alkaline Phosphatase (45-117) U/L Total Creatine Kinase (26-192) U/L Troponin I (0-0.045) ng/ml C-Reactive Protein (0-0.29) mg/dl Total Protein (6.4-8.2) gm/dl Albumin (3.4-5.0) gm/dl Globulin (2.5-4.0) gm/dl Albumin/Globulin Ratio (0.9-2) Lipase (73-393) U/L TSH (0.300-4.500) uIu/ml Free T4 (0.8-1.6) ng/dl Diagnostic Findings KUB HISTORY: constipation COMPARISON: Abdomen and pelvis CT 09/01/2019. FINDINGS: There is oral contrast seen within the colon from the recent CT examination. Surgical clips seen within the pelvis. No dilated loops of bowel to suggest an obstruction. Small amount of stool seen within the colon and rectum. This has improved. No renal calculi. No ureteral calculi. No pneumoperitoneum or pneumatosis. IMPRESSION: 1. No evidence for bowel obstruction. 2. Oral contrast seen throughout the colon from the recent CT examination. 3. Small amount of well-formed stool within the colon and rectum. This has improved. ACT 112: Negative or not required by law. Electronically signed by: Julius Coelho M.D. 09/08/2019 1:34 PM Dictated: 09/08/19 1333 Transcribed: 09/08/19 1333 ECG Additional Comments: NSR at 69bpm, left axis deviation, RX=581, QRS=90, WGk=511, ST changes in anterior leads, unchanged from prior study Code Status & VTE Plan Code Status FULL CODE PG Care Time/CCT Total # of Minutes Spent Total Time Spent with Patient: Total time spent is greater than 50% in coordination of care (as documented) at patient's floor/unit and/or counseling patient: Coding Level of Care Code 19729 Initial Inpt Care Lvl 3 Diagnoses Elevated troponin R79.89 CKD (chronic kidney disease) N18.9 Chronic kidney disease stage: unspecified stage Constipation K59.00 Constipation type: unspecified constipation type Diabetes E11.9 Diabetes mellitus type: type 2 Diabetes mellitus prison insulin use: without prison use Diabetes mellitus complication status: without complication History of TIAs Z86.73 Polyarthritis M13.0 Depression F32.9 Depression Type: unspecified Hypothyroid E03.9 Hypothyroidism type: unspecified (1) CKD (chronic kidney disease) Chronic kidney disease stage: unspecified stage Qualified Code(s): N18.9 - Chronic kidney disease, unspecified (2) Constipation Constipation type: unspecified constipation type Qualified Code(s): K59.00 - Constipation, unspecified (3) Diabetes Diabetes mellitus type: type 2 Diabetes mellitus 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
[2019-09-08] MEDS ORDERED: DEXTROSE 50% 50 ML SYRINGE IV PRN (16:54)
[2019-09-08] MEDS ORDERED: GLUCOSE 40% GEL 15 GM TUBE PO PRN (16:54)
[2019-09-08] MEDS ORDERED: GLUCAGON FOR INJ 1 MG VIAL SQ PRN (16:54)
[2019-09-08] MEDS ORDERED: CARBOHYDRATES FOR HYPOGLYCEMIA PO PRN (16:54)
[2019-09-08] MEDS ORDERED: ONDANSETRON INJ 2 MG/ML 2 ML VIAL IV PRN (16:54)
[2019-09-08] MEDS ORDERED: GLUCOSE 10 TABS/TUBE PO PRN (16:54)
[2019-09-08] MEDS: POLYETHYLENE (MIRALAX) 17 GM PACK PO SCH (17:41)
[2019-09-08] MEDS: LACTATED RINGER'S 1,000 ML IV SCH (17:45)
[2019-09-08 18:51] LABS: C Reactive Protein 1.02 mg/dl (0-0.29); Phosphorus 2.3 mg/dl (2.5-4.9); T4 Free Thyroxine 1.31 ng/dl (0.8-1.6)
[2019-09-08 19:04] LABS: Thyroid Stimulating Hormone 6.35 uIu/ml (0.300-4.500); Troponin I 0.094 ng/ml (0-0.045)
[2019-09-08] MEDS: DOCUSATE SODIUM 100 MG CAP PO SCH (20:00)
[2019-09-08] MEDS: LOSARTAN POTASSIUM 50 MG TAB PO SCH (20:01)
[2019-09-08] MEDS: HYDROXYCHLOROQUINE SULFATE 200 MG TAB PO SCH (20:02)
[2019-09-08] MEDS: METOPROLOL TARTRATE 25 MG TAB PO SCH (20:02)
[2019-09-08] MEDS: APIXABAN 5 MG TABLET PO SCH (20:10)
[2019-09-08] MEDS: cloNIDine HCL 0.1 MG TAB PO SCH (20:10)
--- NOTE | 2019-09-08 20:10 | Electrocardiogram Report ---
Test Reason : Blood Pressure : / mmHG Vent. Rate : 069 BPM Atrial Rate : 069 BPM P-R Int : 200 ms QRS Dur : 090 ms QT Int : 458 ms P-R-T Axes : 064 -34 -16 degrees QTc Int : 490 ms Poor data quality, interpretation may be adversely affected Normal sinus rhythm Left axis deviation Minimal voltage criteria for LVH, may be normal variant Abnormal ECG When compared with ECG of 02-SEP-2019 02:02, No significant change was found Confirmed by Ronan Sparks ([id number]) on 09/08/2019 8:10:11 PM Referred By: REFERRED SELF Confirmed By:Harpreet Sparks
[2019-09-08] MEDS ORDERED: bisacodyL 10 MG SUPP PR PRN (20:49)
[2019-09-08] MEDS: [UNRECOGNIZED DRUG - OTHER] SCH (23:22)
[2019-09-08] MEDS: [UNRECOGNIZED DRUG - REMARK] SCH (23:22)
[2019-09-09 01:57] LABS: Basophils # (auto) 0.02 K/uL (0-0.2); Basophils % (auto) 0.2 %; Hematocrit (blood only) 38.4 % (37-47); Hemoglobin 12.7 g/dL (12.0-16.0); Immature Granulocytes # (auto) 0.02 K/uL (0.00-0.02); Immature Granulocytes % (auto) 0.2 %; Lymphocytes # (auto) 1.31 K/uL (1.2-3.4); Lymphocytes % (auto) 14.2 %; Mean Corpuscular Hemoglobin 26.7 pg (25-34); Mean Corpuscular Hgb Conc 33.1 g/dL (32-36); Mean Corpuscular Volume 80.8 fL (80-100); Monocytes # (auto) 0.96 K/uL (0.11-0.59); Monocytes % (auto) 10.4 %; Platelet Count 173 K/uL (130-400); RDW Coefficient of Variation 14.9 % (11.5-14.5); RDW Standard Deviation 43.2 fL (36.4-46.3); Red Blood Count 4.75 M/uL (4.2-5.4); White Blood Count 9.21 K/uL (4.8-10.8)
[2019-09-09 02:16] LABS: BUN Creatinine Ratio 11.9 (10-20); Calcium 9.2 mg/dl (8.5-10.1); Creatinine Clr Calc Pharmacy 29.5 ml/min; Est GFR (African American) 35.6; Est GFR (Non-African American) 30.7; Potassium 3.6 mmol/L (3.5-5.1)
[2019-09-09 02:28] LABS: Troponin I 0.106 ng/ml (0-0.045)
[2019-09-09 02:54] LABS: Appearance Urine Clear (Clear); Bilirubin Urine Negative (Negative); Blood Urine Negative (Negative); Color Urine Yellow; Glucose Urine UA Negative (Negative); Ketones Urine 1+ (Negative); Leukocyte Esterase Urine Negative (Negative); Nitrite Urine Negative (Negative); Protein Urine Negative (Negative); Specific Gravity Urine 1.012 (1.000-1.030); Urobilinogen Urine Negative (Negative)
[2019-09-09] MEDS: LACTATED RINGER'S 1,000 ML IV SCH (07:47)
[2019-09-09] MEDS: [UNRECOGNIZED DRUG - OTHER] SCH ×3 (07:47→21:50)
[2019-09-09] MEDS: [UNRECOGNIZED DRUG - REMARK] SCH ×3 (07:47→21:50)
--- NOTE | 2019-09-09 08:09 | Hospitalist Progress Note ---
Date of Service September 09, 2019 Assessment & Plan (1) Elevated troponin: Troponin elevated at 0.092-->. No EKG changes consistent with acute ischemia. Patient denies chest pain. Echocardiogram performed during last hospital stay unremarkable. Patient hemodynamically stable, in NSR Most likely due to elevated blood pressure and on occasions and poor clearance due to chronic kidney insufficiency. Issue is discussed with cardiology and they did not recommend further trending of troponin. Monitor blood pressure closely. Added amlodipine 5 mg p.o. daily to the patient current regimen. Continue ASA (2) CKD (chronic kidney disease): BUN and Cr are near baseline Avoid nephrotoxic agents Continue to monitor Renal dosing where appropriate. (3) Constipation: Patient still complaining of constipation. Repeat KUB Started MiraLAX twice daily scheduled Continue Colace Dulcolax suppository PRN (4) Diabetes: Diet controlled Accu-Cheks before meals and at bedtime (5) History of TIAs: No recent neuro changes Continue ASA and Simvastatin (6) Polyarthritis: Chronic Continue Plaquenil (7) Depression: Chronic Continue Duloxetine Continue Buspirone (8) Hypothyroid: Elevated TSH, normal FT4. Subclinical hypothyroidism most likely due to recent hospitalization and chronic illness. Should repeat TSH in 4 weeks. Subjective Patient is seen and examined at the bedside. She reports being constipated for almost a week and she stated that that bothers her. Patient said that she lost her appetite. She had occasionally small bowel movements but they were not satisfactory. Patient is producing gas. Patient is afebrile. Patient denies fever, chills, chest pain, weight gain, shortness of breath, abdominal pain, frequency or urgency. Review of Systems Review of Systems: All systems reviewed & are unremarkable except as noted in HPI & below Physical Exam Constitutional: WD/WN, vitals as above well developed and + morbidly obese Eyes: PERRL, conjunctivae normal, anicteric sclerae ENMT: external ear and nose normal, oropharynx normal Neck: trachea midline, no thyromegaly Respiratory: normal respiratory effort, lungs clear to auscultation Cardiovascular: RRR, no murmur, no edema Gastrointestinal (Abdomen): Percussion/Palpation: + abdomen tender and abdomen soft Musculoskeletal: no cyanosis or clubbing, extremities motor strength 5/5 Skin: no rashes, warm and dry Neurologic: patellar DTR's 2+ bilat, sensation intact Psychiatric: A+Ox3, euthymic affect Lymphatic: no cervical or axillary lymphadenopathy Results & Data Vital Signs (Past 12 Hours) Vital Signs Temp Pulse Pulse Pulse Resp BP Pulse Ox 09/09/19 07:45 36.6 C 65 18 133/66 96 09/09/19 07:22 63 09/09/19 04:35 36.5 C 66 18 136/80 97 09/09/19 01:31 135/63 09/09/19 00:07 36.7 C 58 L 18 188/81 H 97 09/08/19 22:20 64 PG Care Time/CCT Total # of Minutes Spent Total Time Spent with Patient: Total time spent is greater than 50% in coordination of care (as documented) at patient's floor/unit and/or counseling patient: Coding Level of Care Code 40574 Subseq Hosp Care Lvl 3 Diagnoses Elevated troponin R79.89 CKD (chronic kidney disease) N18.9 Chronic kidney disease stage: unspecified stage Constipation K59.00 Constipation type: unspecified constipation type Diabetes E11.9 Diabetes mellitus complication status: without complication Diabetes mellitus extermination supervisor insulin use: without senior care use Diabetes mellitus type: type 2 History of TIAs Z86.73 Polyarthritis M13.0 Depression F32.9 Depression Type: unspecified Hypothyroid E03.9 Hypothyroidism type: unspecified (1) Diabetes Diabetes mellitus complication status: without complication Diabetes mellitus extermination supervisor insulin use: without extermination supervisor use Diabetes mellitus type: type 2 Qualified Code(s): E11.9 - Type 2 diabetes mellitus without complications (2) Depression Depression Type: unspecified Qualified Code(s): F32.9 - Major depressive disorder, single episode, unspecified (3) Hypothyroid Hypothyroidism type: unspecified Qualified Code(s): E03.9 - Hypothyroidism, unspecified (4) CKD (chronic kidney disease) Chronic kidney disease stage: unspecified stage Qualified Code(s): N18.9 - Chronic kidney disease, unspecified (5) Constipation Constipation type: unspecified constipation type Qualified Code(s): K59.00 - Constipation, unspecified
[2019-09-09] MEDS: CALCITRIOL 0.25 MCG CAPSULE PO SCH (08:23)
[2019-09-09] MEDS: APIXABAN 5 MG TABLET PO SCH ×2 (08:23→20:33)
[2019-09-09] MEDS: HYDROXYCHLOROQUINE SULFATE 200 MG TAB PO SCH ×2 (08:24→20:33)
[2019-09-09] MEDS: cloNIDine HCL 0.1 MG TAB PO SCH ×2 (08:24→20:32)
[2019-09-09] MEDS: METOPROLOL TARTRATE 25 MG TAB PO SCH ×2 (08:24→20:32)
[2019-09-09] MEDS: DULOXETINE HCL 60 MG CAP PO SCH (08:24)
[2019-09-09] MEDS: ASPIRIN 81 MG ECTAB PO SCH (08:24)
[2019-09-09] MEDS: POLYETHYLENE (MIRALAX) 17 GM PACK PO SCH ×2 (08:25→20:28)
[2019-09-09] MEDS: SIMVASTATIN 20 MG TAB PO SCH (08:25)
[2019-09-09] MEDS ORDERED: MIRABEGRON ER 25 MG TAB PO SCH (09:00)
--- NOTE | 2019-09-09 16:10 | Cardiology Consultation ---
Date of Consultation September 09, 2019 Assessment & Plan (1) Elevated troponin: I do not believe that her biomarker elevation represents an acute coronary syndrome. She has had some minor elevation in her biomarkers now for nearly a week. It is possible that this represents some form of demand ischemia possibly related to her elevated blood pressures at times. She also has an element of mild renal insufficiency. I would not explore this further with an ischemic evaluation. She has not had any symptoms consistent with coronary insufficiency or angina. Do not believe she requires any additional biomarker evaluation. (2) Atrial fibrillation: She has remote history of atrial fibrillation in the setting of a surgery. She has not had any clinical recurrence. Currently in sinus rhythm. She reportedly has a history of TIAs and is on systemic anticoagulation. (3) Hypertension: Blood pressures been notably elevated on more than 1 occasion. She does not check her blood pressures at home. He was seem reasonable to try intensify her antihypertensive regimen. Addition of a diuretic or amlodipine would seem like a good option. History of Present Illness Reason for Consultation: Elevated troponin Requesting Physician: Elizabeth Attending Physician: Valentina Johnson MD History of Present Illness The patient is a 78-year-old woman with a history of paroxysmal atrial fibril lation who was recently evaluated for constipation. It seems she was underwent a brief hospitalization and was discharged home. However, the patient continued to have symptoms of abdominal discomfort after eating. She denies having a bowel movement since discharge. She also has an element of significant lethargy, lassitude and weakness. According to the patient she was sent to the emergency room by her daughters who felt like she required medical evaluation. She did not volunteer any additional symptoms. I believe based on a prior minor elevation in her cardiac biomarkers she did undergo an additional evaluation of her biomarkers. He has continued to be mildly elevated. Patient does not endorse symptoms of chest discomfort. She denies significant breathing difficulty orthopnea. She does endorse symptoms of dizziness and lightheadedness. This seems to be related to changes in position. His apparently has been present for many weeks. She has not suffered syncope. Curiously, she is able to ambulate back in 4 to the bathroom in the evenings without the symptoms. However, she does have some difficulty with ambulation due to weakness, fatigue and difficulty with proprioception. Allergies Allergy/AdvReac Type Severity Reaction Status Date / Time HO Inhibitors Allergy Unknown ITCHING Verified 09/08/19 12:03 acetaminophen [From Percocet] Allergy Unknown Unknown Unverified 09/08/19 12:03 tolterodine Allergy Unknown Unknown Unverified 09/08/19 12:03 oxycodone AdvReac Mild CAUSES BE Verified 09/08/19 12:03 JITTERINESS & CAN'T EAT. ALSO CAUSES RLS SYMPTOMS Home Medications Home Medications Medication Instructions Recorded Confirmed Type aspirin 81 mg PO QAM 01/18/19 09/08/19 History calcitriol 0.5 mcg PO DAILY 01/18/19 09/08/19 History metoprolol tartrate 25 mg tablet 25 mg PO BID #180 tab 04/03/19 09/08/19 Rx hydroxychloroquine 200 mg tablet 200 mg PO BID #60 tab 04/22/19 09/08/19 Rx simvastatin 20 mg tablet 20 mg PO DAILY #30 tab 04/22/19 09/08/19 Rx solifenacin 5 mg tablet 5 mg PO DAILY #30 tab 04/22/19 09/08/19 Rx duloxetine 60 mg capsule,delayed 60 mg PO DAILY #90 cap 04/23/19 09/08/19 Rx release clonidine HCl 0.2 mg tablet 0.2 mg PO BID 90 Days #180 tab 04/25/19 09/08/19 Rx losartan 100 mg tablet 100 mg PO DAILY 90 Days #30 tab 04/25/19 09/08/19 Rx mirabegron 50 mg tablet,extended 50 mg PO DAILY 30 Days #30 tab 04/25/19 09/08/19 Rx release 24 hr buspirone 10 mg tablet 10 mg PO BID 90 Days #60 tab 08/15/19 09/08/19 Rx Eliquis 5 mg PO BID 09/01/19 09/08/19 History Toviaz 4 mg PO QAM 09/01/19 09/08/19 History docusate sodium [Colace] 100 mg PO HS 09/01/19 09/08/19 History Patient History Medical History Acute on chronic renal insufficiency Atrial fibrillation Breast cancer (Resolved) CKD (chronic kidney disease) Constipation (Acute) Depression Diabetes (Chronic) borderline, diet controlled Dyslipidemia Elevated troponin (Acute) GERD (gastroesophageal reflux disease) History of TIAs (Chronic) last one over 10 years ago Hyperactivity of bladder Hypertension Hypothyroid Late effects of cerebrovascular disease (Chronic) Surgical History History of bilateral knee replacement History of bilateral salpingo-oophorectomy (Resolved) History of hysterectomy History of mastectomy History of mastectomy (Resolved) History of total abdominal hysterectomy (Resolved) History of total knee arthroplasty (Resolved) Status post biopsy of skin (Resolved) Family History Father Myocardial infarction Brother Myocardial infarction Other Coronary heart disease Diabetes Social History Preferred Language: Turkish Communication Ability: Effective Visual Impairment: No Limitations Hearing Ability: Normal Educational Administrator Required: No Beliefs That Will Affect Care: None marital status: Current Living Situation: Family Current Living Situation Comment: 2 sons Other Information That Helps Us Care for You: No Feels Safe at Home: Yes Safety Concerns: Feels Safe At This Time Smoking Status: Never smoker Hx Alcohol Use: No Hx Substance Use: No Childhood Exposure to Second-Hand Smoke: No Dental Care, Regularly: No Physical Activity Frequency: Does not Exercise Seatbelt Use: always Sunscreen Use: No Review of Systems Review of Systems: All systems reviewed & are unremarkable except as noted in HPI & below She claims to be eating little in drinking little recently. She does not have much of an appetite. She states she has a element of edema in her legs at all times. No recent fevers or chills. Physical Exam Physical Exam: She is alert and oriented x3. Mood affect appear normal. She answered all questions appropriately. HEENT: Sclerae are anicteric. Pupils are equal and reactive to light and accommodation. Extraocular movements were intact. Neuro: Cranial nerves intact Neck: Examination of the submandibular region did not reveal any significant lymphadenopathy. Carotids are palpable bilaterally and free of bruits on auscultation. There was no evidence of jugular venous distention. The thyroid was not enlarged. Lungs: Lungs are clear to auscultation bilaterally. There are no rales wheezes or rhonchi. She has normal respiratory effort without use of accessory muscles. There is normal pulmonary excursion. Cardiac: The rhythm was regular. S1 and S2 were normal. There are no murmurs on examination. The PMI was not markedly displaced on palpation. Abdomen: The abdomen was soft and nontender. Extremities: Patient has bilateral radial pulses that are equal in intensity. There is no evidence cyanosis or clubbing. There was no evidence of significant peripheral edema bilaterally. Skin: There are no rashes noted on examination today. Results & Data Vital Signs (Past 12 Hours) Vital Signs Temp Pulse Pulse Pulse Resp BP Pulse Ox 09/09/19 15:53 36.4 C L 57 L 18 164/65 H 96 09/09/19 15:42 57 L 09/09/19 11:34 36.7 C 58 L 18 165/64 H 96 09/09/19 07:45 36.6 C 65 18 133/66 96 09/09/19 07:22 63 09/09/19 04:35 36.5 C 66 18 136/80 97 Laboratory Results Abnormal Lab Results 09/08/19 09/08/19 09/08/19 17:18 17:18 17:18 WBC RBC Hgb Hct MCV MCH MCHC RDW Std Deviation RDW Coeff of [place] Plt Count MPV Immature Gran % (Auto) Neut % (Auto) Lymph % (Auto) [place] % (Auto) Eos % (Auto) Baso % (Auto) Immature Gran # (Auto) Neut # (Auto) Lymph # (Auto) [place] # (Auto) Eos # (Auto) Baso # (Auto) ESR 38 H Sodium Potassium Chloride Carbon Dioxide Anion Gap BUN Creatinine Est Cr Clr Drug Dosing Est GFR ( Amer) Est GFR (Non-Af Amer) BUN/Creatinine Ratio Glucose POC Glucose Calcium Phosphorus 2.3 L Total Creatine Kinase 192 Troponin I 0.094 H* C-Reactive Protein 1.02 H TSH 6.350 H Free T4 1.31 Urine Color Urine Appearance Urine pH Ur Specific [place] Urine Protein Urine Glucose (UA) Urine Ketones Urine Blood Urine Nitrite Urine Bilirubin Urine Urobilinogen Ur Leukocyte Esterase 09/08/19 09/08/19 09/08/19 17:34 17:37 18:08 WBC RBC Hgb Hct MCV MCH MCHC RDW Std Deviation RDW Coeff of [place] Plt Count MPV Immature Gran % (Auto) Neut % (Auto) Lymph % (Auto) [place] % (Auto) Eos % (Auto) Baso % (Auto) Immature Gran # (Auto) Neut # (Auto) Lymph # (Auto) [place] # (Auto) Eos # (Auto) Baso # (Auto) ESR Sodium Potassium Chloride Carbon Dioxide Anion Gap BUN Creatinine Est Cr Clr Drug Dosing Est GFR ( Amer) Est GFR (Non-Af Amer) BUN/Creatinine Ratio Glucose POC Glucose 54 L* 41 L* 54 L* Calcium Phosphorus Total Creatine Kinase Troponin I C-Reactive Protein TSH Free T4 Urine Color Urine Appearance Urine pH Ur Specific [place] Urine Protein Urine Glucose (UA) Urine Ketones Urine Blood Urine Nitrite Urine Bilirubin Urine Urobilinogen Ur Leukocyte Esterase 09/08/19 09/08/19 09/09/19 18:46 20:46 01:47 WBC RBC Hgb Hct MCV MCH MCHC RDW Std Deviation RDW Coeff of [place] Plt Count MPV Immature Gran % (Auto) Neut % (Auto) Lymph % (Auto) [place] % (Auto) Eos % (Auto) Baso % (Auto) Immature Gran # (Auto) Neut # (Auto) Lymph # (Auto) [place] # (Auto) Eos # (Auto) Baso # (Auto) ESR Sodium 136 Potassium 3.6 Chloride 104 Carbon Dioxide 28 Anion Gap 4.0 BUN 19 H Creatinine 1.61 H Est Cr Clr Drug Dosing 29.5 Est GFR ( Amer) 35.6 Est GFR (Non-Af Amer) 30.7 BUN/Creatinine Ratio 11.9 Glucose 68 L POC Glucose 113 H 228 H Calcium 9.2 Phosphorus Total Creatine Kinase Troponin I 0.106 H* C-Reactive Protein TSH Free T4 Urine Color Urine Appearance Urine pH Ur Specific [place] Urine Protein Urine Glucose (UA) Urine Ketones Urine Blood Urine Nitrite Urine Bilirubin Urine Urobilinogen Ur Leukocyte Esterase 09/09/19 09/09/19 09/09/19 01:47 02:44 02:49 WBC 9.21 RBC 4.75 Hgb 12.7 Hct 38.4 MCV 80.8 MCH 26.7 MCHC 33.1 RDW Std Deviation 43.2 RDW Coeff of [place] 14.9 H Plt Count 173 MPV 10.0 Immature Gran % (Auto) 0.2 Neut % (Auto) 75.0 Lymph % (Auto) 14.2 [place] % (Auto) 10.4 Eos % (Auto) 0.0 Baso % (Auto) 0.2 Immature Gran # (Auto) 0.02 Neut # (Auto) 6.90 H Lymph # (Auto) 1.31 [place] # (Auto) 0.96 H Eos # (Auto) 0.00 Baso # (Auto) 0.02 ESR Sodium Potassium Chloride Carbon Dioxide Anion Gap BUN Creatinine Est Cr Clr Drug Dosing Est GFR ( Amer) Est GFR (Non-Af Amer) BUN/Creatinine Ratio Glucose POC Glucose 93 Calcium Phosphorus Total Creatine Kinase Troponin I C-Reactive Protein TSH Free T4 Urine Color Yellow Urine Appearance Clear Urine pH 5.0 Ur Specific [place] 1.012 Urine Protein Negative Urine Glucose (UA) Negative Urine Ketones 1+ H Urine Blood Negative Urine Nitrite Negative Urine Bilirubin Negative Urine Urobilinogen Negative Ur Leukocyte Esterase Negative 09/09/19 09/09/19 07:36 11:53 WBC RBC Hgb Hct MCV MCH MCHC RDW Std Deviation RDW Coeff of [place] Plt Count MPV Immature Gran % (Auto) Neut % (Auto) Lymph % (Auto) [place] % (Auto) Eos % (Auto) Baso % (Auto) Immature Gran # (Auto) Neut # (Auto) Lymph # (Auto) [place] # (Auto) Eos # (Auto) Baso # (Auto) ESR Sodium Potassium Chloride Carbon Dioxide Anion Gap BUN Creatinine Est Cr Clr Drug Dosing Est GFR ( Amer) Est GFR (Non-Af Amer) BUN/Creatinine Ratio Glucose POC Glucose 80 93 Calcium Phosphorus Total Creatine Kinase Troponin I C-Reactive Protein TSH Free T4 Urine Color Urine Appearance Urine pH Ur Specific [place] Urine Protein Urine Glucose (UA) Urine Ketones Urine Blood Urine Nitrite Urine Bilirubin Urine Urobilinogen Ur Leukocyte Esterase Diagnostic Findings KUB obtained at the time of admission revealed stool throughout the colon suggestive of constipation. Echocardiogram obtained on 09/02/2019 revealed preserved LV systolic function. Mild mitral regurgitation. Normal wall motion ECG Additional Comments: EKG demonstrates normal sinus rhythm with some nonspecific ST and T-wave changes in the precordial leads. Unchanged from prior evaluations PG Care Time/CCT Total # of Minutes Spent Total Time Spent with Patient: Total time spent is greater than 50% in coordination of care (as documented) at patient's floor/unit and/or counseling patient: Coding Level of Care Code 07639 Initial Inpt Care Lvl 3 Diagnoses Elevated troponin R79.89 Atrial fibrillation I48.91 Hypertension I10 Hypertension type: essential hypertension (1) Hypertension Hypertension type: essential hypertension Qualified Code(s): I10 - Essential (primary) hypertension
--- NOTE | 2019-09-09 19:22 | Emergency Department Note ---
Entered by Adelaida Parr acting as a scribe for Kate Stephens DO History of Present Illness General Chief complaint: Constipation Stated complaint: CONSTIPATION Time Seen by Provider: 09/08/19 12:11 Source: patient History of Present Illness Onset (ago): week(s) (couple) Location: abdomen Pain Consistency: + constant Quality: + other (constipation ) Associated symptoms: + fever/chills (+chills; -fever ), + loss of appetite, + nausea/vomiting (-vomiting) and + other (+dizzy; +bilateral flank pain intermittently; -bloated ) The patient is a 78 year old female, with past medical history of atrial fib rillation, CKD, and breast cancer, who presents to the Emergency Room with complaints of constant constipation over the last couple weeks. The patient admits to being admitted to [facility] last week. The patient states she was discharged the following morning of being admitted after re-evaluation came back fine, and the patient states she was given a laxative with the discharge. The patient denies being referred to a GI specialist at [facility] or upon discharge. However, the patients daughter states that the patient has still been constipated since the discharge along with feeling dizzy, nauseous, experiencing a lack of appetite, and experiencing pain to the flanks. The patient states that she will experience the flank pain intermittently, and she states it is worse to her right flank. The patient states her dizziness is worse with changing positions, including standing up. The patient denies being in pain currently, and she denies feeling bloated. She notes she had chills last night. She also denies recent changes to her medications. Home Medications Home Medications Medication Instructions Recorded Confirmed Type aspirin 81 mg PO QAM 01/18/19 09/08/19 History calcitriol 0.5 mcg PO DAILY 01/18/19 09/08/19 History metoprolol tartrate 25 mg tablet 25 mg PO BID #180 tab 04/03/19 09/08/19 Rx hydroxychloroquine 200 mg tablet 200 mg PO BID #60 tab 04/22/19 09/08/19 Rx simvastatin 20 mg tablet 20 mg PO DAILY #30 tab 04/22/19 09/08/19 Rx solifenacin 5 mg tablet 5 mg PO DAILY #30 tab 04/22/19 09/08/19 Rx duloxetine 60 mg capsule,delayed 60 mg PO DAILY #90 cap 04/23/19 09/08/19 Rx release clonidine HCl 0.2 mg tablet 0.2 mg PO BID 90 Days #180 tab 04/25/19 09/08/19 Rx losartan 100 mg tablet 100 mg PO DAILY 90 Days #30 tab 04/25/19 09/08/19 Rx mirabegron 50 mg tablet,extended 50 mg PO DAILY 30 Days #30 tab 04/25/19 09/08/19 Rx release 24 hr buspirone 10 mg tablet 10 mg PO BID 90 Days #60 tab 08/15/19 09/08/19 Rx Eliquis 5 mg PO BID 09/01/19 09/08/19 History Toviaz 4 mg PO QAM 09/01/19 09/08/19 History docusate sodium [Colace] 100 mg PO HS 09/01/19 09/08/19 History Allergies Allergy/AdvReac Type Severity Reaction Status Date / Time HO Inhibitors Allergy Unknown ITCHING Verified 09/08/19 12:03 acetaminophen [From Percocet] Allergy Unknown Unknown Unverified 09/08/19 12:03 tolterodine Allergy Unknown Unknown Unverified 09/08/19 12:03 oxycodone AdvReac Mild CAUSES BE Verified 09/08/19 12:03 JITTERINESS & CAN'T EAT. ALSO CAUSES RLS SYMPTOMS Past Med/Surg History Medical History Acute on chronic renal insufficiency Atrial fibrillation Breast cancer (Resolved) CKD (chronic kidney disease) Constipation (Acute) Depression Diabetes (Chronic) borderline, diet controlled Dyslipidemia Elevated troponin (Acute) GERD (gastroesophageal reflux disease) History of TIAs (Chronic) last one over 10 years ago Hyperactivity of bladder Hypertension Hypothyroid Late effects of cerebrovascular disease (Chronic) Surgical History History of bilateral knee replacement History of bilateral salpingo-oophorectomy (Resolved) History of hysterectomy History of mastectomy History of mastectomy (Resolved) History of total abdominal hysterectomy (Resolved) History of total knee arthroplasty (Resolved) Status post biopsy of skin (Resolved) Family History Father Myocardial infarction Brother Myocardial infarction Other Coronary heart disease Diabetes Social History Preferred Language: Faroese Communication Ability: Effective Visual Impairment: No Limitations Hearing Ability: Normal 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 and A total of 10 systems reviewed and were otherwise negative Physical Exam Vital Signs Vital Signs - 24 hr 09/08/19 11:18 09/08/19 13:23 09/08/19 14:30 Temperature 36.6 C Temperature Source Oral Pulse Rate 81 Pulse Rate [Apical] 63 63 Pulse Rhythm [Apical] Regular Regular Respiratory Rate 20 18 18 Respiratory Effort / Characteristics Non-Labored Spontaneous Non-Labored Spontaneous Non-Labored Spontaneous Respiratory Depth Normal Normal Normal Respiratory Pattern Regular Regular Regular Blood Pressure 180/103 H Blood Pressure [Left Arm] 126/65 144/64 H Blood Pressure Mean 128 Blood Pressure Mean [Left Arm] 85 90 Pulse Oximetry 100 99 95 Oxygen Delivery Method Room Air Room Air Room Air Sepsis Recent Fever Within 48 Hours No Sepsis Action Taken by Nursing No Action Required GENERAL: alert, well appearing, obese, no distress, non-toxic, flat affect EYE EXAM: normal conjunctiva, PERRL and EOM's grossly intact OROPHARYNX: no exudate, no erythema, lips, buccal mucosa, and tongue normal and mucous membranes are moist NECK: supple, no nuchal rigidity, no adenopathy, non-tender LUNGS: Clear to auscultation. Normal chest wall mechanics, no w/r/r HEART: no murmurs, S1 normal and S2 normal ABDOMEN: abdomen soft, non-tender, normo-active bowel sounds, no masses, no rebound or guarding. BACK: Back is symmetrical on inspection and there is no deformity, no midline tenderness, no CVA tenderness. SKIN: no rashes and no bruising UPPER EXTREMITIES: upper extremities are grossly normal. FROM, nml pulses b/l. LOWER EXTREMITIES: No pitting edema. FROM, nml pulses b/l. NEURO EXAM: Normal sensorium, cranial nerves II-XII grossly intact, normal speech, no gross weakness of arms, no gross weakness of legs. Course Course 1212: Past medical records reviewed. The patient was evaluated in room B10. A complete history and physical exam was performed. 1358: I reevaluated and updated the patient on her case. 1412: I reviewed the [facility]. Dr. Proctor will evaluate the patient for further management. Consultations Consultation #1: I reviewed the patient's [facility]. Dr. Proctor will evaluate the patient for further management. Time: 14:12 Administered Medications Apixaban (Eliquis) 5 mg PO BID ERMIAS Stop: 10/08/19 20:59 Last Admin: 09/09/19 20:33 Dose: 5 mg Documented by: [id number] Admin: 09/09/19 08:23 Dose: 5 mg Documented by: [id number] Admin: 09/08/19 20:10 Dose: 5 mg Documented by: [id number] Aspirin (Ecotrin Ectab) 81 mg PO QAM ERMIAS Stop: 10/09/19 08:59 Last Admin: 09/09/19 08:24 Dose: 81 mg Documented by: [id number] Buspirone HCl (Buspar) 10 mg PO BID ERMIAS Stop: 10/08/19 20:59 Last Admin: 09/09/19 20:32 Dose: 10 mg Documented by: [id number] Admin: 09/09/19 08:24 Dose: 10 mg Documented by: [id number] Admin: 09/08/19 20:01 Dose: 10 mg Documented by: [id number] Calcitriol (Rocaltrol) 0.5 mcg PO DAILY ERMIAS Stop: 10/09/19 08:59 Last Admin: 09/09/19 08:23 Dose: 0.5 mcg Documented by: [id number] Clonidine HCl (Catapres) 0.2 mg PO BID ERMIAS Stop: 10/08/19 20:59 Last Admin: 09/09/19 20:32 Dose: 0.2 mg Documented by: [id number] Admin: 09/09/19 08:24 Dose: 0.2 mg Documented by: [id number] Admin: 09/08/19 20:10 Dose: 0.2 mg Documented by: [id number] Docusate Sodium (Colace) 100 mg PO HS ERMIAS Stop: 10/08/19 20:59 Last Admin: 09/09/19 20:32 Dose: 100 mg Documented by: [id number] Admin: 09/08/19 20:00 Dose: 100 mg Documented by: [id number] Duloxetine HCl (Cymbalta) 60 mg PO DAILY ERMIAS Stop: 10/09/19 08:59 Last Admin: 09/09/19 08:24 Dose: 60 mg Documented by: [id number] Glucose (Dex4 Glucose) 4 - 8 tabs PO UD PRN; Protocol PRN Reason: Hypoglycemia Protocol Stop: 10/08/19 16:53 Last Admin: 09/08/19 18:13 Dose: 4 tabs Documented by: [id number] Glucose (Glucose 40%) 15 - 30 gm PO UD PRN; Protocol PRN Reason: Hypoglycemia Protocol Stop: 10/08/19 16:53 Last Admin: 09/08/19 17:41 Dose: 30 gm Documented by: [id number] Hydroxychloroquine Sulfate (Plaquenil) 200 mg PO BID ERMIAS Stop: 10/08/19 20:59 Last Admin: 09/09/19 20:33 Dose: 200 mg Documented by: [id number] Admin: 09/09/19 08:24 Dose: 200 mg Documented by: [id number] Admin: 09/08/19 20:02 Dose: 200 mg Documented by: [id number] Losartan Potassium (Cozaar) 100 mg PO DAILY ERMIAS Stop: 10/09/19 08:59 Last Admin: 09/08/19 20:01 Dose: 100 mg Documented by: [id number] Metoprolol Tartrate (Lopressor) 25 mg PO BID ERMIAS Stop: 10/08/19 20:59 Last Admin: 09/09/19 20:32 Dose: 25 mg Documented by: [id number] Admin: 09/09/19 08:24 Dose: 25 mg Documented by: [id number] Admin: 09/08/19 20:02 Dose: 25 mg Documented by: [id number] Mirabegron (Myrbetriq Er) 50 mg PO DAILY [facility] Stop: 10/09/19 08:59 Last Admin: 09/09/19 08:23 Dose: 50 mg Documented by: [id number] Miscellaneous (Order Awaiting Action) 1 ea N/A QS ERMIAS Stop: 10/09/19 00:00 Last Admin: 09/09/19 16:07 Dose: Not Given Documented by: [id number] Admin: 09/09/19 07:47 Dose: Not Given Documented by: [id number] Admin: 09/08/19 23:22 Dose: Not Given Documented by: [id number] Miscellaneous (Order Awaiting Action) 1 ea N/A QS ERMIAS Stop: 10/09/19 00:00 Last Admin: 09/09/19 16:07 Dose: Not Given Documented by: [id number] Admin: 09/09/19 07:47 Dose: Not Given Documented by: [id number] Admin: 09/08/19 23:22 Dose: Not Given Documented by: [id number] Polyethylene Glycol (Miralax Powder Packet) 17 gm PO BID ERMIAS Stop: 10/09/19 19:59 Last Admin: 09/09/19 20:28 Dose: 17 gm Documented by: [id number] Simvastatin (Zocor) 20 mg PO DAILY ERMIAS Stop: 10/09/19 08:59 Last Admin: 09/09/19 08:25 Dose: 20 mg Documented by: [id number] Discontinued Medications Sodium Chloride (Nss 1000ml) 1,000 mls @ 250 mls/hr IV .Q4H ERMIAS Stop: 10/08/19 12:29 Last Admin: 09/08/19 16:56 Dose: Not Given Documented by: [id number] Infusion: 09/08/19 16:55 Dose: 0 mls/hr Documented by: [id number] Admin: 09/08/19 12:42 Dose: 250 mls/hr Documented by: [id number] Lactated Ringer's (Lr) 1,000 mls @ 80 mls/hr IV .[id number] ERMIAS Stop: 09/09/19 17:53 Last Infusion: 09/09/19 21:22 Dose: 0 mls/hr Documented by: [id number] Admin: 09/09/19 07:47 Dose: 80 mls/hr Documented by: [id number] Infusion: 09/09/19 06:15 Dose: 80 mls/hr Documented by: [id number] Admin: 09/08/19 17:45 Dose: 80 mls/hr Documented by: [id number] Metoclopramide HCl (Reglan) 5 mg IV ONE ONE Stop: 09/08/19 12:38 Last Admin: 09/08/19 12:42 Dose: 5 mg Documented by: [id number] Polyethylene Glycol (Miralax Powder Packet) 17 gm PO DAILY ERMIAS Stop: 10/08/19 16:53 Last Admin: 09/09/19 08:25 Dose: 17 gm Documented by: [id number] Admin: 09/08/19 17:41 Dose: 17 gm Documented by: [id number] Medical Decision Making Differential Diagnosis Differential diagnosis: Etiologies such as functional constipation, impaction, obstruction, volvulus, metabolic abnormality, infection, neurologic, as well as others were entertai acacia. Medical Records Attestation: I reviewed the patient's medical records. Home Medications Current Medication List: was personally reviewed by me Laboratory Data Attestation: I reviewed the patient's lab results. Result diagrams: 09/09/19 01:47 09/09/19 01:47 Lab Results 09/08/19 09/08/19 Range/Units 12:00 12:00 WBC 11.35 H (4.8-10.8) K/uL RBC 5.16 (4.2-5.4) M/uL Hgb 13.8 (12.0-16.0) g/dL Hct 42.0 (37-47) % MCV 81.4 (80-100) fL MCH 26.7 (25-34) pg MCHC 32.9 (32-36) g/dL RDW Std Deviation 43.5 (36.4-46.3) fL RDW Coeff of [place] 14.9 H (11.5-14.5) % Plt Count 216 (130-400) K/uL MPV 10.8 H (7.4-10.4) fL Immature Gran % (Auto) 0.3 % Neut % (Auto) 87.6 % Lymph % (Auto) 5.6 % Graves % (Auto) 6.1 % Eos % (Auto) 0.2 % Baso % (Auto) 0.2 % Immature Gran # (Auto) 0.03 H (0.00-0.02) K/uL Neut # (Auto) 9.95 H (1.4-6.5) K/uL Lymph # (Auto) 0.64 L (1.2-3.4) K/uL Graves # (Auto) 0.69 H (0.11-0.59) K/uL Eos # (Auto) 0.02 (0-0.5) K/uL Baso # (Auto) 0.02 (0-0.2) K/uL Sodium 133 L (136-145) mmol/L Potassium 3.7 (3.5-5.1) mmol/L Chloride 98 (98-107) mmol/L Carbon Dioxide 25 (21-32) mmol/L Anion Gap 10.0 (3-11) BUN 22 H (7-18) mg/dl Creatinine 1.85 H (0.6-1.2) mg/dl Est Cr Clr Drug Dosing 25.7 ml/min Est GFR ( Amer) 30.1 Est GFR (Non-Af Amer) 26.0 BUN/Creatinine Ratio 11.8 (10-20) Glucose 66 L (70-99) mg/dl Calcium 10.0 (8.5-10.1) mg/dl Magnesium 1.9 (1.8-2.4) mg/dl Total Bilirubin 1.0 (0.2-1) mg/dl AST 29 (15-37) U/L ALT 17 (12-78) U/L Alkaline Phosphatase 96 (45-117) U/L Troponin I 0.092 H* (0-0.045) ng/ml Total Protein 7.1 (6.4-8.2) gm/dl Albumin 3.1 L (3.4-5.0) gm/dl Globulin 4.0 (2.5-4.0) gm/dl Albumin/Globulin Ratio 0.8 L (0.9-2) Lipase 112 (73-393) U/L TSH 5.700 H (0.300-4.500) uIu/ml Imaging Data Radiologist's Impression: Radiology results as stated below per my review and the radiologist's interpretation: KUB HISTORY: constipation COMPARISON: Abdomen and pelvis CT 09/01/2019. FINDINGS: There is oral contrast seen within the colon from the recent CT examination. Surgical clips seen within the pelvis. No dilated loops of bowel to suggest an obstruction. Small amount of stool seen within the colon and rectum. This has improved. No renal calculi. No ureteral calculi. No pneumoperitoneum or pneumatosis. IMPRESSION: 1. No evidence for bowel obstruction. 2. Oral contrast seen throughout the colon from the recent CT examination. 3. Small amount of well-formed stool within the colon and rectum. This has improved. ACT 112: Negative or not required by law. Electronically signed by: Julius Coelho M.D. 09/08/2019 1:34 PM ECG Data Attestation: I personally reviewed and interpreted this ECG as follows: Indication: + abdominal pain and + other (dizziness) Rate (beats per minute): 69 Rhythm: + normal sinus ECG Intervals/blocks: + First degree AV block ECG [place]: + Left axis deviation ECG ST segments: + T-wave inversions (V2-V4); no ST depression and no ST elevation ECG Findings: no PACs and no PVCs Comparison ECG Date: from (09/02/19) Change: no significant change Blood Pressure Blood Pressure Findings: Elevated blood pressure Blood Pressure Disposition: further management by hospitalist EVELINA Narrative Patient presenting with similar presentation to last week where she was admitted for observation due to elevated troponin and increased creatinine. Patient states she was observed overnight and discharged home, now returning with the same complaints. Repeat labs in the patient show an even higher troponin today than what she had last week, however an improved creatinine. Do not feel a repeat CT of her abdomen and pelvis for her abdominal pain constipation was warranted. I do feel she would benefit from GI evaluation. I also question if there is a component of underlying depression given that she cares for 1 of her sons who is had a prior stroke. I discussed the possibility of gastroparesis contributing to her symptoms given her known diabetes. Case discussed with hospitalist for ongoing management. Patient and daughter aware of all results at bedside and were in agreement with plan. I do not suspect bacteremia/sepsis, perforation, mesenteric ischemia, GI bleed, AAA, UTI, or bowel obstruction. Impression & Plan Nausea, Abdominal pain, Elevated troponin, CKD (chronic kidney disease) Discharge Plan Visit Data *Final* Discharge Date/Time: 09/08/19 16:50 Chief Complaint: Constipation Stated Complaint: CONSTIPATION ED Provider: Kate Stephens Discharge Problem: Nausea, Abdominal pain, Elevated troponin, CKD (chronic kidney disease) Patient Disposition: Admitted As Inpatient Discharge Instructions Interventions: ED Discharge Assessment Last Done: 09/08/19 16:50 Discharge Problem: CKD (chronic kidney disease) Qualifiers: Chronic kidney disease stage: unspecified stage Qualified Code(s): N18.9 - Chronic kidney disease, unspecified The scribe's documentation has been prepared under my direction and personally reviewed by me in its entirety. I confirm that the note above accurately reflects all work, treatment, procedures, and medical decision making performed by me.
--- NOTE | 2019-09-09 19:57 | XRay Report ---
XR KUB/Abdomen 1 view CLINICAL HISTORY: constipation for 7 days pain COMPARISON STUDY: 09/08/2019 FINDINGS: Nonobstructive bowel pattern. Minimal residual contrast within the colon from prior contras t study. No evidence of bowel distention. IMPRESSION: Nonobstructive bowel pattern. ACT 112: Negative or not required by law. The above report was generated using voice recognition software. It may contain grammatical, syntax or spelling errors. Electronically signed by: Juni Beard M.D. 09/09/2019 7:56 PM
[2019-09-09] MEDS: DOCUSATE SODIUM 100 MG CAP PO SCH (20:32)
[2019-09-10 07:21] LABS: Albumin Level 3.1 gm/dl (3.4-5.0); BUN Creatinine Ratio 8.8 (10-20); Calcium 9.7 mg/dl (8.5-10.1); Creatinine Clr Calc Pharmacy 29.6 ml/min; Est GFR (African American) 35.4; Est GFR (Non-African American) 30.5; Potassium 3.6 mmol/L (3.5-5.1)
[2019-09-10 07:23] LABS: Albumin Globulin Ratio 0.8 (0.9-2); Bilirubin,Total 0.6 mg/dl (0.2-1); Globulin 3.9 gm/dl (2.5-4.0)
[2019-09-10] MEDS: CALCITRIOL 0.25 MCG CAPSULE PO SCH (08:26)
[2019-09-10] MEDS: LOSARTAN POTASSIUM 50 MG TAB PO SCH (08:26)
[2019-09-10] MEDS: ASPIRIN 81 MG ECTAB PO SCH (08:26)
[2019-09-10] MEDS: SIMVASTATIN 20 MG TAB PO SCH (08:26)
[2019-09-10] MEDS: DULOXETINE HCL 60 MG CAP PO SCH (08:26)
[2019-09-10] MEDS: HYDROXYCHLOROQUINE SULFATE 200 MG TAB PO SCH ×2 (08:27→20:24)
[2019-09-10] MEDS: [UNRECOGNIZED DRUG - REMARK] SCH ×3 (08:27→23:25)
[2019-09-10] MEDS: POLYETHYLENE (MIRALAX) 17 GM PACK PO SCH ×2 (08:27→20:24)
[2019-09-10] MEDS: APIXABAN 5 MG TABLET PO SCH ×2 (08:27→20:23)
[2019-09-10] MEDS: AMLODIPINE BESYLATE 5 MG TAB PO SCH (08:27)
[2019-09-10] MEDS: [UNRECOGNIZED DRUG - OTHER] SCH ×3 (08:27→23:25)
[2019-09-10] MEDS: cloNIDine HCL 0.1 MG TAB PO SCH ×2 (08:31→20:23)
[2019-09-10] MEDS: METOPROLOL TARTRATE 25 MG TAB PO SCH ×2 (08:31→20:24)
[2019-09-10] MEDS ORDERED: bisacodyL 5 MG TABEC PO ONE (09:09)
[2019-09-10] MEDS: MICONAZOLE NITRATE POWDER 43 GM EXT PRN ×2 (12:29→20:24)
--- NOTE | 2019-09-10 17:51 | Gastrointestinal Consultation ---
Date of Consultation September 10, 2019 Assessment & Plan (1) Constipation: Continue Miralax 17 g in 8 oz glass of water twice daily. Advance diet as tolerated Consider colonoscopy if she has further symptoms now that constipation is improving. (2) Abdominal pain: (3) Abnormal weight loss: History of Present Illness Reason for Consultation: Abdominal pain and constipation Attending Physician: Peter Millan History of Present Illness Madison Jacob is a 78 yo CF who presented to [facility] on 09/01 with complaints of ab dominal pain and was found to be constipated on CT imaging. She was admitted and discharged following multiple BM's. Her CT imaging at that time showed stool burden in the Transverse and descending colon. She subsequently returned to the hospital on 09/08 with recurrent complaints of constipation, and again was admitted. She did have a KUB which initially showed retained contrast from her prior CT scan 1 week ago. She did again have multiple BM's and a Repeat KUB from today showed a normal bowel gas pattern. At the time I saw the patient, she had just had another BM, and denied any hematochezia or melena. She states that her last colonoscopy was 5 years ago, at which time she was noted to have a small adenomatous polyp, diverticulosis and internal hemorrhoids, but no other findings. At present, she denies any fevers, chills, nausea, vomiting, diarrhea, abdominal pain or anemia. She did have some liquids to eat per the patient, but food is not tasting good to her. She states she has lost approximately 15 lbs in the past 2 weeks. She has no further complaints. Allergies Allergy/AdvReac Type Severity Reaction Status Date / Time HO Inhibitors Allergy Unknown ITCHING Verified 09/08/19 12:03 acetaminophen [From Percocet] Allergy Unknown Unknown Unverified 09/08/19 12:03 tolterodine Allergy Unknown Unknown Unverified 09/08/19 12:03 oxycodone AdvReac Mild CAUSES BE Verified 09/08/19 12:03 JITTERINESS & CAN'T EAT. ALSO CAUSES RLS SYMPTOMS Home Medications Home Medications Medication Instructions Recorded Confirmed Type aspirin 81 mg PO QAM 01/18/19 09/08/19 History calcitriol 0.5 mcg PO DAILY 01/18/19 09/08/19 History metoprolol tartrate 25 mg tablet 25 mg PO BID #180 tab 04/03/19 09/08/19 Rx hydroxychloroquine 200 mg tablet 200 mg PO BID #60 tab 04/22/19 09/08/19 Rx simvastatin 20 mg tablet 20 mg PO DAILY #30 tab 04/22/19 09/08/19 Rx solifenacin 5 mg tablet 5 mg PO DAILY #30 tab 04/22/19 09/08/19 Rx duloxetine 60 mg capsule,delayed 60 mg PO DAILY #90 cap 04/23/19 09/08/19 Rx release clonidine HCl 0.2 mg tablet 0.2 mg PO BID 90 Days #180 tab 04/25/19 09/08/19 Rx losartan 100 mg tablet 100 mg PO DAILY 90 Days #30 tab 04/25/19 09/08/19 Rx mirabegron 50 mg tablet,extended 50 mg PO DAILY 30 Days #30 tab 04/25/19 09/08/19 Rx release 24 hr buspirone 10 mg tablet 10 mg PO BID 90 Days #60 tab 08/15/19 09/08/19 Rx Eliquis 5 mg PO BID 09/01/19 09/08/19 History Toviaz 4 mg PO QAM 09/01/19 09/08/19 History docusate sodium [Colace] 100 mg PO HS 09/01/19 09/08/19 History Patient History Medical History Acute on chronic renal insufficiency Atrial fibrillation Breast cancer (Resolved) CKD (chronic kidney disease) Constipation (Acute) Depression Diabetes (Chronic) borderline, diet controlled Dyslipidemia Elevated troponin (Acute) GERD (gastroesophageal reflux disease) History of TIAs (Chronic) last one over 10 years ago Hyperactivity of bladder Hypertension Hypothyroid Late effects of cerebrovascular disease (Chronic) Surgical History History of bilateral knee replacement History of bilateral salpingo-oophorectomy (Resolved) History of hysterectomy History of mastectomy History of mastectomy (Resolved) History of total abdominal hysterectomy (Resolved) History of total knee arthroplasty (Resolved) Status post biopsy of skin (Resolved) Family History Father Myocardial infarction Brother Myocardial infarction Other Coronary heart disease Diabetes Social History Preferred Language: Frisian Communication Ability: Effective Visual Impairment: No Limitations Hearing Ability: Normal 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: No Beliefs That Will Affect Care: None marital status: Current Living Situation: Family Current Living Situation Comment: 2 sons Other Information That Helps Us Care for You: No Feels Safe at Home: Yes Safety Concerns: Feels Safe At This Time Smoking Status: Never smoker Hx Alcohol Use: No Hx Substance Use: No Childhood Exposure to Second-Hand Smoke: No Dental Care, Regularly: No Physical Activity Frequency: Does not Exercise Seatbelt Use: always Sunscreen Use: No Review of Systems Review of Systems: All systems reviewed & are unremarkable except as noted in HPI & below Physical Exam Constitutional: + ill appearing and + obese Eyes: PERRL, conjunctivae normal, anicteric sclerae ENMT: external ear and nose normal, oropharynx normal Neck: trachea midline, no thyromegaly Respiratory: normal respiratory effort, lungs clear to auscultation Cardiovascular: RRR, no murmur, no edema Gastrointestinal (Abdomen): normal bowel sounds, soft, nontender, no hepatosplenomegaly Skin: no rashes, warm and dry Psychiatric: A+Ox3, euthymic affect Results & Data Vital Signs (Past 12 Hours) Vital Signs Temp Pulse Pulse Resp BP BP Pulse Ox 09/10/19 15:45 37.0 C 59 L 18 177/78 H 99 09/10/19 12:40 36.8 C 56 L 18 181/77 H 99 09/10/19 11:14 36.6 C 55 L 14 147/64 H 97 09/10/19 08:36 62 09/10/19 08:10 61 09/10/19 08:03 36.5 C 57 L 14 141/71 H 98 09/10/19 07:30 36.6 C 57 L 16 178/79 H 98 09/10/19 06:09 164/76 H PG Care Time/CCT Total # of Minutes Spent Total Time Spent with Patient: Total time spent is greater than 50% in coordination of care (as documented) at patient's floor/unit and/or counseling patient: Coding Level of Care Code 46158 Initial Inpt Care Lvl 3 Diagnoses Constipation K59.00 Constipation type: unspecified constipation type Abdominal pain R10.9 Abnormal weight loss R63.4 (1) Constipation Constipation type: unspecified constipation type Qualified Code(s): K59.00 - Constipation, unspecified
[2019-09-10] MEDS: DOCUSATE SODIUM 100 MG CAP PO SCH (20:23)
--- NOTE | 2019-09-10 22:10 | Hospitalist Progress Note ---
Date of Service September 10, 2019 Assessment & Plan (1) Abnormal weight loss: Change in bowel habits, constipation, weight loss, anorexia, etc all concerning for underlying malignancy. Will consult [facility] for consideration of colonoscopy +/- EGD. Treat constipation in meantime. (2) Constipation: KUB yesterday still with oral contrast from CT done well over a week ago. Had tiny stool earlier today then a larger one. Latter had mild gross blood w/ it (does have h/o hemorrhoids). Cont miralax BID for maintenance. Dulcolax po x 1 as well. (3) Elevated troponin: No obvious ischemic symptoms. EKG does have anterior ST changes but these are chronic. Echo in the last few months with normal wall motion. Mild troponin elevation likely demand ischemia. Could consider outpatient stress test. (4) CKD (chronic kidney disease): CKD stage 3 BMP am for stability (5) Diabetes: Diet controlled at this time (6) History of TIAs: Noted Cont eliquis, aspirin, statin for secondary prevention (7) Polyarthritis: Chronic Continue Plaquenil no evidence of flare (8) Depression: Chronic Continue Duloxetine Continue Buspirone (9) Hypothyroid: Elevated TSH - very mild Free T4 is preserved would not Rx at this time repeat TSH in 4-6 weeks - if still high could consider replacement at that time (10) Severe protein-calorie malnutrition: recommend MVI recommend boost see discussion above in weight loss (11) Atrial fibrillation: PAF tele has been NSR cont eliquis cont toprol 2 daughters updated at bedside today Subjective patient reports at least 15 pounds of weight loss in the last 2-4 weeks. during that time period her appetite has been off/worse than normal. she has had constipation troubles for several weeks-months. no fevers/chills. reports her sense of taste has been off. occasional abdominal discomforts - she points to the lower quadrants. no rectal bleeding. Review of Systems Constitutional: + fatigue, + anorexia and + weight loss Respiratory: no dyspnea Cardiovascular: no chest pain Gastrointestinal: + dysphagia (only occasional - mainly for pills ); no nausea and no vomiting Physical Exam Constitutional: no acute distress and no altered mental status ENMT: external ear and nose normal, oropharynx normal Respiratory: normal respiratory effort, lungs clear to auscultation Cardiovascular: Rate/Rhythm: regular rate and regular rhythm Heart Sounds: normal S1 and normal S2; no murmur Vessels: posterior tibial pulses present and dorsalis pedis pulses present; no JVD Gastrointestinal (Abdomen): normal bowel sounds, soft, nontender, no hepatosplenomegaly Psychiatric: Orientation: alert and oriented x 3 Affect: + flat affect Results & Data Vital Signs (Past 12 Hours) Vital Signs Temp Pulse Resp BP BP Pulse Ox 09/10/19 19:12 36.9 C 65 20 151/70 H 100 09/10/19 15:45 37.0 C 59 L 18 177/78 H 99 09/10/19 12:40 36.8 C 56 L 18 181/77 H 99 09/10/19 11:14 36.6 C 55 L 14 147/64 H 97 Laboratory Results Laboratory Results - last 24 hr 09/10/19 09/10/19 09/10/19 06:23 07:48 12:22 Sodium 138 Potassium 3.6 Chloride 104 Carbon Dioxide 29 Anion Gap 5.0 BUN 14 Creatinine 1.62 H Est Cr Clr Drug Dosing 29.6 Est GFR ( Amer) 35.4 Est GFR (Non-Af Amer) 30.5 BUN/Creatinine Ratio 8.8 L Glucose 87 POC Glucose 87 90 Calcium 9.7 Total Bilirubin 0.6 AST 27 ALT 18 Alkaline Phosphatase 96 Total Protein 7.0 Albumin 3.1 L Globulin 3.9 Albumin/Globulin Ratio 0.8 L 09/10/19 09/10/19 16:26 20:46 Sodium Potassium Chloride Carbon Dioxide Anion Gap BUN Creatinine Est Cr Clr Drug Dosing Est GFR ( Amer) Est GFR (Non-Af Amer) BUN/Creatinine Ratio Glucose POC Glucose 83 93 Calcium Total Bilirubin AST ALT Alkaline Phosphatase Total Protein Albumin Globulin Albumin/Globulin Ratio PG Care Time/CCT Total # of Minutes Spent Total Time Spent with Patient: Total time spent is greater than 50% in coordination of care (as documented) at patient's floor/unit and/or counseling patient: Coding Level of Care Code 95861 Subseq Hosp Care Lvl 3 Diagnoses Abnormal weight loss R63.4 Constipation K59.00 Constipation type: unspecified constipation type Elevated troponin R79.89 CKD (chronic kidney disease) N18.9 Chronic kidney disease stage: unspecified stage Diabetes E11.9 Diabetes mellitus complication status: without complication Diabetes mellitus terminal operations supervisor insulin use: without terminal operations supervisor use Diabetes mellitus type: type 2 History of TIAs Z86.73 Polyarthritis M13.0 Depression F32.9 Depression Type: unspecified Hypothyroid E03.8 Hypothyroidism type: other Severe protein-calorie malnutrition E43 Atrial fibrillation I48.0 Atrial fibrillation type: paroxysmal (1) Diabetes Diabetes mellitus complication status: without complication Diabetes mellitus long-term insulin use: without terminal operations supervisor use Diabetes mellitus type: type 2 Qualified Code(s): E11.9 - Type 2 diabetes mellitus without complications (2) Depression Depression Type: unspecified Qualified Code(s): F32.9 - Major depressive disorder, single episode, unspecified (3) Hypothyroid Hypothyroidism type: other Qualified Code(s): E03.8 - Other specified hypothyroidism (4) CKD (chronic kidney disease) Chronic kidney disease stage: unspecified stage Qualified Code(s): N18.9 - Chronic kidney disease, unspecified (5) Constipation Constipation type: unspecified constipation type Qualified Code(s): K59.00 - Constipation, unspecified (6) Atrial fibrillation Atrial fibrillation type: paroxysmal Qualified Code(s): I48.0 - Paroxysmal a trial fibrillation
[2019-09-11 06:49] LABS: BUN Creatinine Ratio 9.5 (10-20); Calcium 9.1 mg/dl (8.5-10.1); Creatinine Clr Calc Pharmacy 32.9 ml/min; Est GFR (African American) 40.1; Est GFR (Non-African American) 34.6; Potassium 3.5 mmol/L (3.5-5.1)
[2019-09-11] MEDS: [UNRECOGNIZED DRUG - OTHER] SCH (08:13)
[2019-09-11] MEDS: [UNRECOGNIZED DRUG - REMARK] SCH ×2 (08:13→16:24)
[2019-09-11] MEDS: METOPROLOL TARTRATE 25 MG TAB PO SCH ×2 (08:14→20:26)
[2019-09-11] MEDS: ASPIRIN 81 MG ECTAB PO SCH (08:14)
[2019-09-11] MEDS: SIMVASTATIN 20 MG TAB PO SCH (08:14)
[2019-09-11] MEDS: LOSARTAN POTASSIUM 50 MG TAB PO SCH (08:14)
[2019-09-11] MEDS: POLYETHYLENE (MIRALAX) 17 GM PACK PO SCH ×7 (08:14→20:25)
[2019-09-11] MEDS: HYDROXYCHLOROQUINE SULFATE 200 MG TAB PO SCH ×2 (08:14→20:25)
[2019-09-11] MEDS: CALCITRIOL 0.25 MCG CAPSULE PO SCH (08:14)
[2019-09-11] MEDS: DULOXETINE HCL 60 MG CAP PO SCH (08:15)
[2019-09-11] MEDS: APIXABAN 5 MG TABLET PO SCH ×2 (08:15→20:26)
[2019-09-11] MEDS: AMLODIPINE BESYLATE 5 MG TAB PO SCH (08:16)
[2019-09-11] MEDS: cloNIDine HCL 0.1 MG TAB PO SCH ×2 (08:16→20:26)
[2019-09-11] MEDS: MICONAZOLE NITRATE POWDER 43 GM EXT PRN ×2 (09:26→21:54)
[2019-09-11] MEDS: SENNA 8.6 MG TAB PO SCH (09:26)
--- NOTE | 2019-09-11 10:07 | Gastroenterology Progress Note ---
Date of Service September 11, 2019 Assessment & Plan (1) Constipation: -Continue Miralax 17 gm BID -Continue Senna 17.2 mg po QAM -Continue Docusate Sodium 100 mg po QHS -If bowel habits & early satiety worsen or do not improve particularly in light of weight loss, consider endoscopic evaluation after appropriate cardiac clearance Thank you for allowing us to participate in the care of this patient. If you should have any further questions or concerns, do not hesitate to contact us at extension [phone] or [phone]. Supervising Physician Co-Signing Physician Notes Agree with BECKY Rocha Abd: Soft, NT, ND, +BS Doing better today Tolerating PO intake Multiple BM's today Continue current therapy Subjective Patient is a pleasant 78 yo female GI is following for weight loss and loss of appetite as well as constipation. Patient believes she is feeling a little better now that she is moving her bowels. She is currently managed with Miralax & Dulcolax. She reports moving her bowels yesterday. She reports she did eat more this AM than yesterday, but notes her appetite is not what it used to be. Review of Systems Constitutional: + fatigue Respiratory: no cough and no dyspnea Cardiovascular: no chest pain Gastrointestinal: + early satiety; no abdominal pain, no constipation, no diarrhea/loose stools and no blood in stools Musculoskeletal: no acute issues Psychiatric: no acute issues Physical Exam Constitutional: WD/WN, vitals as above Respiratory: normal respiratory effort, lungs clear to auscultation Cardiovascular: Rate/Rhythm: regular rate Gastrointestinal (Abdomen): normal bowel sounds, soft, nontender, no hepatosplenomegaly Musculoskeletal: no clubbing or cyanosis Skin: no rashes, warm and dry Psychiatric: Orientation: alert and oriented x 3 Results & Data Vital Signs (Past 12 Hours) Vital Signs Temp Pulse Pulse Pulse Resp BP BP 09/11/19 08:00 55 L 09/11/19 07:30 36.5 C 57 L 18 149/79 H 09/11/19 02:36 36.5 C 58 L 19 132/84 09/11/19 00:17 58 L 09/10/19 22:36 36.8 C 58 L 18 130/70 Pulse Ox 09/11/19 08:00 09/11/19 07:30 99 09/11/19 02:36 97 09/11/19 00:17 09/10/19 22:36 98 PG Care Time/CCT Total # of Minutes Spent Total Time Spent with Patient: Total time spent is greater than 50% in coordination of care (as documented) at patient's floor/unit and/or counseling patient: Coding Level of Care Code 56268 Subseq Hosp Care Lvl 2 Diagnoses Constipation K59.00 Constipation type: unspecified constipation type (1) Constipation Constipation type: unspecified constipation type Qualified Code(s): K59.00 - Constipation, unspecified
[2019-09-11] MEDS: DOCUSATE SODIUM 100 MG CAP PO SCH (20:25)
--- NOTE | 2019-09-11 21:30 | Hospitalist Progress Note ---
Date of Service September 11, 2019 Assessment & Plan (1) Abnormal weight loss: Change in bowel habits, constipation, weight loss, anorexia, etc all concerning for underlying malignancy. consulted [facility] [place] [facility] for consideration of colonoscopy +/- EGD. Appreciate their consultation. Treating constipation in meantime. (2) Constipation: Still without adequate BMs this admission despite copious amounts of constipation aids. Will give miralax x 6 doses thru the day today for mini-bowel prep. reassess fecal load in am with abd x-rays. (3) Elevated troponin: No obvious ischemic symptoms. EKG does have anterior ST changes but these are chronic. Echo in the last few months with normal wall motion. Mild troponin elevation likely demand ischemia. Could consider outpatient stress test. (4) CKD (chronic kidney disease): CKD stage 3 BMP stable today - Cr 1.4 (5) Diabetes: Diet controlled at this time all BSGs <100 stop BSG checks pt reports DM for "years" (6) History of TIAs: Noted Cont eliquis, aspirin, statin for secondary prevention (7) Polyarthritis: Chronic Continue Plaquenil no evidence of flare recent sed rate/crp largely wnl (8) Depression: Chronic Continue Duloxetine Continue Buspirone (9) Hypothyroid: Elevated TSH - very mild Free T4 is preserved would not Rx at this time repeat TSH in 4-6 weeks - if still high could consider replacement at that time (10) Severe protein-calorie malnutrition: recommend MVI recommend boost see discussion above in weight loss (11) Atrial fibrillation: PAF tele continues to show NSR cont eliquis cont toprol (12) Diabetic peripheral neuropathy: this is listed in her record and is the likely cause of the stocking-glove complaint she had today check B12 level to ensure no other metabolic cause of her paresthesias son updated at bedside today PT/OT evals Rx constipation Subjective pt still w/ poor appetite had a small BM this am but "was a lump" only still with bloating and overall just not feeling well thinks she had neck surgery "a few weeks ago" (records suggest she had neck surgery 01/2019) c/o numbness in feet and hands tele wnl overnight Review of Systems Constitutional: no fever Respiratory: no cough and no dyspnea Cardiovascular: no chest pain Gastrointestinal: no abdominal pain Physical Exam Constitutional: no acute distress and no altered mental status ENMT: external ear and nose normal, oropharynx normal Respiratory: normal respiratory effort, lungs clear to auscultation Cardiovascular: Rate/Rhythm: regular rate and regular rhythm Heart Sounds: normal S1 and normal S2; no murmur Vessels: posterior tibial pulses present and dorsalis pedis pulses present; no JVD Gastrointestinal (Abdomen): normal bowel sounds, soft, nontender, no hepatosp lenomegaly Neurologic: moves all extremities; no focal motor deficits (strength 5/5 x 4 exts) Psychiatric: Orientation: alert and oriented x 3 Affect: + flat affect Results & Data ([facility]) Vital Signs (Past 12 Hours) Vital Signs Temp Pulse Pulse Resp BP Pulse Ox 09/11/19 19:27 36.8 C 62 20 152/66 H 93 09/11/19 15:45 36.7 C 59 L 20 165/85 H 98 09/11/19 15:00 62 09/11/19 12:00 36.4 C L 72 18 123/63 98 Laboratory Results Laboratory Results - last 24 hr 09/11/19 09/11/19 09/11/19 05:30 07:49 11:19 Sodium 138 Potassium 3.5 Chloride 105 Carbon Dioxide 27 Anion Gap 6.0 BUN 14 Creatinine 1.46 H Est Cr Clr Drug Dosing 32.9 Est GFR ( Amer) 40.1 Est GFR (Non-Af Amer) 34.6 BUN/Creatinine Ratio 9.5 L Glucose 71 POC Glucose 73 Calcium 9.1 Vitamin B12 486 09/11/19 09/11/19 09/11/19 11:44 16:50 20:14 Sodium Potassium Chloride Carbon Dioxide Anion Gap BUN Creatinine Est Cr Clr Drug Dosing Est GFR ( Amer) Est GFR (Non-Af Amer) BUN/Creatinine Ratio Glucose POC Glucose 92 79 86 Calcium Vitamin B12 PG Care Time/CCT Total # of Minutes Spent Total Time Spent with Patient: Total time spent is greater than 50% in coordination of care (as documented) at patient's floor/unit and/or counseling patient: Coding Level of Care Code 43909 Subseq Hosp Care Lvl 2 Diagnoses Abnormal weight loss R63.4 Constipation K59.00 Constipation type: unspecified constipation type Elevated troponin R79.89 CKD (chronic kidney disease) N18.9 Chronic kidney disease stage: unspecified stage Diabetes E11.9 Diabetes mellitus complication status: without complication Diabetes mellitus alf insulin use: without alf use Diabetes mellitus type: type 2 History of TIAs Z86.73 Polyarthritis M13.0 Depression F32.9 Depression Type: unspecified Hypothyroid E03.8 Hypothyroidism type: other Severe protein-calorie malnutrition E43 Atrial fibrillation I48.0 Atrial fibrillation type: paroxysmal Diabetic peripheral neuropathy E11.42 (1) Diabetes Diabetes mellitus complication status: without complication Diabetes mellitus tank terminal gauger insulin use: without alf use Diabetes mellitus type: type 2 Qualified Code(s): E11.9 - Type 2 diabetes mellitus without complications (2) Atrial fibrillation Atrial fibrillation type: paroxysmal Qualified Code(s): I48.0 - Paroxysmal atrial fibrillation (3) Depression Depression Type: unspecified Qualified Code(s): F32.9 - Major depressive disorder, single episode, unspecified (4) Hypothyroid Hypothyroidism type: other Qualified Code(s): E03.8 - Other specified hypothyroidism (5) CKD (chronic kidney disease) Chronic kidney disease stage: unspecified stage Qualified Code(s): N18.9 - Chronic kidney disease, unspecified (6) Constipation Constipation type: unspecified constipation type Qualified Code(s): K59.00 - Constipation, unspecified
[2019-09-12] MEDS: [UNRECOGNIZED DRUG - REMARK] SCH ×2 (00:30→07:44)
[2019-09-12 06:52] LABS: BUN Creatinine Ratio 8.5 (10-20); Calcium 9.4 mg/dl (8.5-10.1); Creatinine Clr Calc Pharmacy 29.3 ml/min; Est GFR (African American) 35.1; Est GFR (Non-African American) 30.3; Potassium 3.5 mmol/L (3.5-5.1)
[2019-09-12] MEDS: SENNA 8.6 MG TAB PO SCH (07:45)
[2019-09-12] MEDS: APIXABAN 5 MG TABLET PO SCH (07:45)
[2019-09-12] MEDS: LOSARTAN POTASSIUM 50 MG TAB PO SCH (07:45)
[2019-09-12] MEDS: POLYETHYLENE (MIRALAX) 17 GM PACK PO SCH (07:45)
[2019-09-12] MEDS: ASPIRIN 81 MG ECTAB PO SCH (07:46)
[2019-09-12] MEDS: CALCITRIOL 0.25 MCG CAPSULE PO SCH (07:46)
[2019-09-12] MEDS: cloNIDine HCL 0.1 MG TAB PO SCH (07:46)
[2019-09-12] MEDS: DULOXETINE HCL 60 MG CAP PO SCH (07:46)
[2019-09-12] MEDS: AMLODIPINE BESYLATE 5 MG TAB PO SCH (07:47)
[2019-09-12] MEDS: HYDROXYCHLOROQUINE SULFATE 200 MG TAB PO SCH (07:47)
[2019-09-12] MEDS: METOPROLOL TARTRATE 25 MG TAB PO SCH (07:47)
--- NOTE | 2019-09-12 08:53 | XRay Report ---
XR abdomen 2V w PA chest CLINICAL HISTORY: constipation; reassess fecal load COMPARISON STUDY: 09/09/2019 FINDINGS: There are postsurgical changes of a right mastectomy. There is no focal pulmonary consolida tion. There is no free intraperitoneal air. Rectum and supine views the abdomen reveal no abnormally dilated loops of large or small bowel. There is mild fecal load. There are multiple scattered colonic and small bowel air fluid levels. IMPRESSION: 1. No evidence of bowel obstruction. No evidence of free air 2. Mild fecal load 3. Scattered small bowel and colonic air-fluid levels ACT 112: Negative or not required by law. Electronically signed by: Albino Sarmiento M.D. 09/12/2019 8:52 AM
--- NOTE | 2019-09-12 15:20 | Discharge Summary ---
Date of Service date of admission - September 08, 2019 date of discharge - September 12, 2019 Admission HPI Per Admitting Provider Madison Jacob is a 78yo C female with history of DM, HTN and CKD. She was recently admitted 09/01 - 09/02 with constipation and abdominal pain. She was started on MiraLAX BID with improvement in her symptoms. Also with mild elevation in troponin to 0.06, no acute EKG changes. Echo performed with no regional WMA, EF intact 65-70%. She was discharged home in stable condition on 09/02/19. She returns today with complaint of decreased PO intake, poor appetite as well as dizziness with standing. She states that "food tastes terrible" and she has no appetite. She had one day of nausea last week with no vomiting. Otherwise denies nausea/vomiting/diarrhea. She continues to be constipated and is unable to relay when her last BM took place. She says it has been "months". Also with dizziness with standing, had a near syncopal episode last week. She was to followup with her PCP today, however, came to the ER. Additional complaints include occasional palpitations. Chronic RLQ abdominal pain, constipation and weight loss of 15# over the past few months Principal Diagnosis 1. constipation - improved 2. weight loss / severe protein calorie malnutrition - additional work-up needed Discharge Exam Constitutional no acute distress and no altered mental status ENMT external ear and nose normal, oropharynx normal Respiratory normal respiratory effort, lungs clear to auscultation Cardiovascular Rate/Rhythm: regular rate and regular rhythm Heart Sounds: normal S1 and normal S2; no murmur Vessels: posterior tibial pulses present and dorsalis pedis pulses present; no JVD Gastrointestinal (Abdomen) normal bowel sounds, soft, nontender, no hepatosplenomegaly Neurologic moves all extremities; no focal motor deficits (strength 5/5 x 4 exts) Psychiatric Orientation: alert and oriented x 3 Affect: + flat affect Discharge Data Allergies Allergy/AdvReac Type Severity Reaction Status Date / Time HO Inhibitors Allergy Unknown ITCHING Verified 09/08/19 12:03 acetaminophen [From Percocet] Allergy Unknown Unknown Unverified 09/08/19 12:03 tolterodine Allergy Unknown Unknown Unverified 09/08/19 12:03 oxycodone AdvReac Mild CAUSES BE Verified 09/08/19 12:03 JITTERINESS & CAN'T EAT. ALSO CAUSES RLS SYMPTOMS Consultations Cardiology Gastroenterology - Vic Case DO PT, OT Hospital Course (1) Abnormal weight loss: Change in bowel habits, constipation, weight loss, anorexia, etc all concerning for underlying malignancy. [facility] consulted, and patient may have outpatient colonoscopy +/- EGD. Recent CT abd/pelvis did not show obvious malignancy on that imaging. She has been set up to see [facility] shortly after discharge. (2) Constipation: x-rays showed considerable fecal load while hospitalized. Required copious amounts of miralax, stimulant laxatives and other therapies for her constipation. Later in her stay she finally began to move her bowels. Advised combination of miralax twice daily along with sennakot. She will have follow-up with [facility] for this issue. May need colonoscopy to exclude other pathology. (3) Elevated troponin: No obvious ischemic symptoms during the stay or just prior to admission. EKG does have anterior ST changes but these are chronic. Echo during the previous hospitalization showed normal wall motion. Mild troponin elevation likely demand ischemia. Could consider outpatient stress test to be complete. Seen by cardiology this admission -- her presenting symptoms were NOT felt to be cardiac in origin. (4) CKD (chronic kidney disease): CKD stage 3 / borderline stage 4. Superimposed mild acute kidney injury while here with peak Cr of 1.8, falling to 1.6 at discharge. (5) Diabetes: Diet controlled at this time with excellent BSGs while hospitalized. (6) History of TIAs: Noted Cont eliquis, aspirin, statin for secondary prevention (7) Polyarthritis: Chronic Continue Plaquenil no evidence of flare recent sed rate/crp largely wnl (8) Depression: Chronic Continue Duloxetine Continue Buspirone (9) Hypothyroid: Elevated TSH - very mild at 6.3. Free T4 was preserved. would not Rx at this time. repeat TSH in 4-6 weeks - if still high could consider replacement at that time. (10) Severe protein-calorie malnutrition: see discussion above in weight loss (11) Atrial fibrillation: PAF tele showed NSR while hospitalized cont eliquis cont toprol (12) Diabetic peripheral neuropathy: this is listed in her record and is the likely cause of the stocking-glove paresthesias. checked B12 level to ensure no other metabolic cause of her paresthesias and B12 level was wnl. (13) Acute kidney injury: Peak Cr 1.8 Improved to 1.6 at discharge Had been as high as 2.1 during recent hospitalization a week prior (14) Discharge planning issues: PT/OT both advised rehab at SNF however patient refused. She opted for return home with home PT/OT. Total Time Total Time Spent Total Time Spent (In Minutes): 40 Total Time Includes: Examination of the Patient, Discharge Planning and Medication Reconciliation Discharge Plan Discharge Items Patient Disposition: Home - Home Health Services Reason For Visit: Poor oral intake, dizziness, constipation Discharge Diagnosis: 1. severe constipation - improved. 2. poor appetite - improving, suspected to be due to #1 above. 3. dizziness - likely due to mild dehydration and poor appetite. This is resolved. 4. recent weight loss - exact etiology uncertain. You may need additional testing including upper endoscopy and colonoscopy. GI follow-up highly recommended. Activity: Resume your previous activity Non-emergency contact: Primary Care Provider and Pre Sales Systems Engineer Call non-emergency contact if: you have any medication questions, your symptoms worsen, your pain is unusual for you, your pain is concerning for you and you have a fever Follow-up/Referrals: Vic Lovelace DO [Physician] - 09/24/19 1:00 pm (Please, follow up at [facility] with Dr. Lovelace's associate, Alondra MENESES, on SundaySeptember 24 at 1:00 pm. *The office is located at [address] [place] [address] in [facility]). If you need to change this appointment, call the office at [phone].) Marlys Gil MD [Primary Care Provider] - 09/17/19 12:00 pm (Please, follow up with Dr. Gil on SundaySeptember 17 at 12:00 pm. *If you need to change this appointment, call the office at [phone].) Diet: Carb Consistent or DM2 Addtl Attending Provider Instructions: You were seen for lack of appetite, ongoing constipation, occasional abdominal pains, recent change in taste, and simply feeling unwell. Your x-rays showed severe constipation. We provided numerous constipation agents/meds over your stay. Finally you began to move your bowels with improvement in how you felt and improvement in your appetite. You were seen by Dr Lovelace from gastroenterology. If your bowel habits continue to be a problem, if appetite remains poor, if you continue with weight loss, etc - he likely will perform upper and lower endoscopies to make sure nothing else is going on. Recommendations -- 1. take miralax once or twice daily to maintain a soft bowel movement AT LEAST every other day. If the stools become runny/loose then cut the miralax back a bit (from twice to once daily, etc). 2. take senna (senakot) 2 to 4 tablets every day to maintain a soft bowel movement - again at least every other day. 3. both the senna and miralax are [id number]. 4. if you go 3 or 4 days without a bowel movement you can use a dulcolax suppository per rectum. These, too, are [id number]. 5. stop the colace (stool softener) as this is likely not giving you any benefit. 6. increase the amount of fiber in your diet; eat more fruits and veggies. 7. drink at least 3 glasses of water daily. 8. you will need a repeat TSH (thyroid level) in 4 weeks to make sure you are not developing underactive thyroid gland. Please ask Dr Gil to do this. If you do have underactive thyroid (hypothyroidism) it is very mild and very early. Follow-up -- see separate section Return to [facility] if -- * you have fevers over 100.5 degrees * you have worsening abdominal pain * you have vomiting * you have inability to eat or drink * any other concerns Pending Studies at Discharge: No Stand-Alone Forms: [facility], Smoking Cessation Medications and DC Order Prescriptions: New sennosides [Senokot] 8.6 mg Tablet 17.2 mg PO BID Qty: 120 RF: 2 polyethylene glycol 3350 [Miralax] 17 gram Powder In Packet 17 g PO BID Qty: 60 RF: 2 Continued metoprolol tartrate 25 mg tablet 25 mg PO BID Qty: 180 RF: 3 simvastatin 20 mg tablet 20 mg PO DAILY Qty: 30 RF: 5 solifenacin 5 mg tablet 5 mg PO DAILY Qty: 30 RF: 5 hydroxychloroquine 200 mg tablet 200 mg PO BID Qty: 60 RF: 5 duloxetine 60 mg capsule,delayed release(DR/EC) 60 mg PO DAILY Qty: 90 RF: 1 clonidine HCl 0.2 mg tablet 0.2 mg PO BID 90 Days Qty: 180 RF: 1 losartan 100 mg tablet 100 mg PO DAILY 90 Days Qty: 30 RF: 11 buspirone 10 mg tablet 10 mg PO BID 90 Days Qty: 60 RF: 5 Pneumovax 23 25 mcg/0.5 mL syringe 0.5 ml IM ONCE Qty: 0.5 RF: 0 calcitriol 0.5 mcg capsule 0.5 mcg PO DAILY RF: 0 aspirin 81 mg Tablet,Delayed Release (Dr/Ec) 81 mg PO QAM RF: 0 Eliquis 5 mg tablet 5 mg PO BID RF: 0 Discontinued Myrbetriq 50 mg tablet extended release 24 hr 50 mg PO DAILY 30 Days Qty: 30 RF: 5 docusate sodium [Colace] 100 mg Capsule 100 mg PO HS RF: 0 Toviaz 4 mg tablet extended release 24 hr 4 mg PO QAM RF: 0 Discharge Orders: Discharge Order (Routine); Ordered 09/12/19 Ordered By: Peter Millan Admission Data Admit Date/Time: 09/08/19 15:43 Attending Provider: Peter Millan Admit Provider: Stephanie Proctor Primary Care Provider: Marlys Gil Other Providers: Stephanie Proctor ; Agus Sparks ; Vic Lovelace ; [facility] Other Interventions: Discharge Summary Assessment (RN) Last Done: 09/12/19 15:20 DC Date/Time DO NOT enter until pt leaves facility: 09/12/19 16:19 Coding Level of Care Code D/C Day Management >30 mins Diagnoses Abnormal weight loss R63.4 Constipation K59.00 Constipation type: unspecified constipation type Elevated troponin R79.89 CKD (chronic kidney disease) N18.9 Chronic kidney disease stage: unspecified stage Diabetes E11.9 Diabetes mellitus complication status: without complication Diabetes mellitus termite inspector insulin use: without termite inspector use Diabetes mellitus type: type 2 History of TIAs Z86.73 Polyarthritis M13.0 Depression F32.9 Depression Type: unspecified Hypothyroid E03.8 Hypothyroidism type: other Severe protein-calorie malnutrition E43 Atrial fibrillation I48.0 Atrial fibrillation type: paroxysmal Diabetic peripheral neuropathy E11.42 Acute kidney injury N17.9 Discharge planning issues Z02.9
[2019-09-12] MEDS ORDERED: SENNA 8.6 MG TAB PO SCH (21:00)
[2019-09-12] MEDS ORDERED: SIMVASTATIN 20 MG TAB PO SCH (21:00)
== END 2019-09-12 16:19 | disposition home health service (06) | DRG 682 ==
LOC: ED 11:15 → SUATTDRO 15:43 → 2N 15:43

== ENCOUNTER 2019-11-17 14:12 | Inpatient (IN) ==
[2019-11-17] MEDS ORDERED: SODIUM CHLORIDE 0.9% 500 ML IV ONE (14:36)
--- NOTE | 2019-11-17 14:39 | Emergency Department Note ---
Impression & Plan Acute UTI, Elevated troponin, Generalized weakness, CKD (chronic kidney disease) ED Provider Note NAME: PRIETO ESPINOZA AGE: 79 SEX: F ARRIVES VIA: Ambulance INFORMANT: Patient EMS. ED PROVIDER(S): Renato Eng MD CHIEF COMPLAINT: Weakness/confusion. PLAN: Disposition: Admit MEDICAL DECISION MAKING: The patient is a pleasant 79-year-old woman with a past medical history of CKD, history of CVA, paroxysmal atrial tachycardia, hypertension, hyperlipidemia, spinal stenosis who presents emergency department with progressive generalized weakness and confusion over the past week seen by home health today and referred to the emergency department for worsening symptoms. She reports feeling so fatigued she has not been walking at home over the past week. She denies any chest pain or shortness of breath. Denies any nausea, vomiting, diarrhea. On arrival the patient is fatigued appearing but no acute distress, afebrile stable vital signs. Patient appears clinically dry. She has no focal neuro deficits. EKG without overt acute ischemia. Chest x-ray negative for acute process. WBC 16 K increased from prior. H/H and platelets within normal limits. Chemistry without acidosis. Creatinine 1.4 within prior range of values. Troponin 0.28 setting of prior chronic elevations in the setting of ckd. LFTs and electrolytes otherwise unremarkable. UA consistent with infection. Blood cultures were drawn. Patient was ordered for ceftriaxone. Patient was reevaluated after IV fluid hydration and did appear somewhat improved though s till acute on chronically ill-appearing. Thus, reasonable to proceed with admission. Patient is agreeable with this. Case [facility], who will evaluate the patient for admission under Dr. Vegas [facility] hospitalist. Triage Nursing notes reviewed and agree them. Additional history obtained from EMS. Prior medical records reviewed Vital Signs: reviewed and remarkable for no significant abnormalities Differential diagnosis: Infection, dehydration, metabolic abnormality, hypo/hyperglycemia, electrolyte disturbance, anemia, hypoxia, cardiac sources, intracerebral event, toxicologic, neurologic, as well as other pathologies. ER treatment provided: See below. Diagnostics interpreted by me: ECG: Normal sinus rhythm, 97 bpm, no ectopy, no overt ST elevation or depression, QTC 444, QRS 88. Cardiac Monitoring: NSR, 97 bpm, no ectopy. Laboratory studies: See below Imaging studies: XR chest 1V portable CLINICAL HISTORY: Chest pain. COMPARISON STUDY: Chest radiograph November 06, 2019. FINDINGS: Relative right lung lucency is likely due to mastectomy. Right chest wall/axillary surgical clips are noted as well as an anterior cervical spine fusion. Cardiac size is normal. Mediastinal contours are normal. There is no consolidation or evidence for pulmonary edema. Appearance of the chest is unchanged. IMPRESSION: No acute cardiopulmonary findings. Consultation(s): Case was discussed with [facility] HERRERA, who will evaluate the patient for admission under Dr. Vegas, [facility] hospitalist. HPI: The patient is a pleasant 79-year-old woman with a past medical history of CKD, history of CVA, paroxysmal atrial tachycardia, hypertension, hyperlipidemia, spinal stenosis who presents emergency department with progressive generalized weakness and confusion over the past week seen by home health today and referred to the emergency department for worsening symptoms. She reports feeling so fatigued she has not been walking at home over the past week. She denies any chest pain or shortness of breath. Denies any nausea, vomiting, diarrhea. ROS: See above HPI for pertinent positives & negatives. A total of 10 systems reviewed and were otherwise negative. PAST MEDICAL HISTORY:See Below PAST SURGICAL HISTORY:See Below FAMILY HISTORY:See Below SOCIAL HISTORY:See Below HOME MEDICATIONS:See Below ALLERGIES:See Below VITALS:See Below PHYSICAL EXAMINATION: GENERAL: Awake, alert, chronically ill-appearing, in no distress HENT: Normocephalic, atraumatic. Oropharynx with dry mucous membranes and otherwise unremarkable. EYES: Normal conjunctiva. Sclera non-icteric. NECK: Supple. No nuchal rigidity. FROM. No JVD. RESPIRATORY: Clear to auscultation. CARDIAC: Regular rate, normal rhythm. Extremities warm and well perfused. Pulses equal. ABDOMEN: Soft, non-distended. No tenderness to palpation. No rebound or guard ing. No masses. RECTAL: Deferred. MUSCULOSKELETAL: Chest examination reveals no tenderness. The back is symmetrical on inspection without obvious abnormality. There is no CVA tenderness to palpation. No joint edema. LOWER EXTREMITIES: Calves are equal size bilaterally and non-tender. No edema. No discoloration. NEURO: Normal sensorium. No focal sensory or motor deficits noted. Moving all extremities equally with generalized weakness/4/5 strength. SKIN: No rash or jaundice noted. Renato Eng MD Past Med/Surg History Medical History Acute on chronic renal insufficiency (Resolved) Atrial fibrillation Atrial fibrillation with RVR (Resolved) Breast cancer (Resolved) Cancer of uterus Chest pain CKD (chronic kidney disease) Colonic polyp Constipation Depression Diabetes borderline, diet controlled Dyslipidemia Elevated troponin Endometrial cancer, grade I GERD (gastroesophageal reflux disease) History of chemotherapy History of TIAs last one over 10 years ago HTN, goal below 140/90 Hyperactivity of bladder Hypertension Hypothyroid Late effects of cerebrovascular disease (Chronic) Memory impairment Stroke Surgical History History of bilateral knee replacement History of bilateral salpingo-oophorectomy (Resolved) History of hysterectomy History of mastectomy History of mastectomy (Resolved) History of total abdominal hysterectomy (Resolved) History of total knee arthroplasty (Resolved) Status post biopsy of skin (Resolved) Family History Father Myocardial infarction Coronary heart disease Cardiac disorder Brother Myocardial infarction Hypertension Diabetes Lung cancer Prostate cancer Multiple sclerosis Sister Breast cancer Alzheimer disease Mother Unknown whether patient has any health problems Denies family history of Pancreatic cancer Ovarian cancer Colorectal cancer Malignant neoplasm of uterus Social History Preferred Language: [place] Communication Ability: Effective Visual Impairment: No Limitations Hearing Ability: Normal 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 Nicu Required: No Beliefs That Will Affect Care: None marital status: Current Living Situation: Family Current Living Situation Comment: 2 sons Other Information That Helps Us Care for You: No Feels Safe at Home: Yes Safety Concerns: Feels Safe At This Time Smoking Status: Never smoker Hx Alcohol Use: No Hx Substance Use: No Childhood Exposure to Second-Hand Smoke: No Dental Care, Regularly: No Physical Activity Frequency: Does not Exercise Seatbelt Use: always Sunscreen Use: No Allergies Allergies Allergy/AdvReac Type Severity Reaction Status Date / Time HO Inhibitors Allergy Unknown ITCHING Verified 11/17/19 16:01 acetaminophen [From Percocet] Allergy Unknown Unknown Verified 11/17/19 16:01 tolterodine Allergy Unknown Unknown Verified 11/17/19 16:01 oxycodone AdvReac Mild CAUSES BE Verified 11/17/19 16:01 JITTERINESS & CAN'T EAT. ALSO CAUSES RLS SYMPTOMS Home Meds Home Medications Medication Instructions Recorded Confirmed aspirin 81 mg PO QAM 01/18/19 11/17/19 calcitriol 0.5 mcg PO QAM 01/18/19 11/17/19 clonidine HCl [Catapres] 0.1 mg PO BID 10/06/19 11/17/19 hydroxychloroquine [Plaquenil] 200 mg PO BID 10/06/19 11/17/19 losartan [Cozaar] 100 mg PO QAM 10/06/19 11/17/19 omeprazole 20 mg PO QAM 10/06/19 11/17/19 polyethylene glycol 3350 [Miralax] 17 g PO BID 10/06/19 11/17/19 docusate sodium 100 mg capsule 100 mg PO DAILY 10/22/19 11/17/19 simvastatin 20 mg tablet 20 mg PO DAILY 10/22/19 11/17/19 sodium chloride 0.65 % nasal spray 1 sprays INTNAS BID PRN 10/22/19 11/17/19 aerosol Previous Rx's Medication Instructions Recorded metoprolol tartrate 25 mg tablet 25 mg PO BID #180 tab 04/03/19 buspirone 10 mg tablet 10 mg PO BID 90 Days #60 tab 08/15/19 apixaban 5 mg tablet 5 mg PO BID #60 tab 09/22/19 mirabegron 50 mg tablet,extended 50 mg PO DAILY #90 tab 10/15/19 release 24 hr duloxetine 60 mg capsule,delayed 60 mg PO DAILY #90 cap 10/16/19 release ranitidine HCl 300 mg tablet 300 mg PO HS #90 tab 11/17/19 Results & Data (ED) Vital Signs Vital Signs - 24 hr 11/17/19 14:28 11/17/19 15:15 11/17/19 15:44 Temperature 36.3 C L Temperature Source Oral Pulse Rate 97 H Pulse Rate [Apical] 86 86 Pulse Rhythm Regular Pulse Rhythm [Apical] Regular Regular Pulse Strength [Apical] Normal Normal Respiratory Rate 16 16 16 Respiratory Effort / Characteristics Non-Labored Spontaneous Non-Labored Spontaneous Non-Labored Spontaneous Respiratory Depth Normal Normal Normal Respiratory Pattern Regular Regular Regular Blood Pressure 131/73 Blood Pressure [Right Arm] 155/82 H 148/80 H Blood Pressure Mean 92 Blood Pressure Mean [Right Arm] 106 102 Blood Pressure Position [Right Arm] Lying Lying Pulse Oximetry 99 100 98 Oxygen Delivery Method Room Air Room Air Room Air Sepsis Recent Fever Within 48 Hours No Sepsis New/Unexplained Change in Mental Status No Sepsis Action Taken by Nursing No Action Required 11/17/19 16:15 11/17/19 16:45 11/17/19 17:15 Temperature Temperature Source Pulse Rate Pulse Rate [Apical] 88 87 88 Pulse Rhythm Pulse Rhythm [Apical] Regular Regular Regular Pulse Strength [Apical] Normal Normal Normal Respiratory Rate 16 16 16 Respiratory Effort / Characteristics Non-Labored Spontaneous Non-Labored Spontaneous Non-Labored Spontaneous Respiratory Depth Normal Normal Normal Respiratory Pattern Regular Regular Regular Blood Pressure Blood Pressure [Right Arm] 155/82 H 148/81 H 151/82 H Blood Pressure Mean Blood Pressure Mean [Right Arm] 106 103 105 Blood Pressure Position [Right Arm] Lying Lying Lying Pulse Oximetry 98 98 97 Oxygen Delivery Method Room Air Room Air Room Air Sepsis Recent Fever Within 48 Hours Sepsis New/Unexplained Change in Mental Status Sepsis Action Taken by Nursing Laboratory Data Attestation: I reviewed the patient's lab results. Result diagrams: 11/17/19 14:55 11/17/19 14:55 Lab Results 11/17/19 11/17/19 11/17/19 Range/Units 14:25 14:55 14:55 WBC 16.62 H (4.8-10.8) K/uL RBC 5.04 (4.2-5.4) M/uL Hgb 14.4 (12.0-16.0) g/dL Hct 42.7 (37-47) % MCV 84.7 (80-100) fL MCH 28.6 (25-34) pg MCHC 33.7 (32-36) g/dL RDW Std Deviation 48.6 H (36.4-46.3) fL RDW Coeff of [place] 15.8 H (11.5-14.5) % Plt Count 262 (130-400) K/uL MPV 10.7 H (7.4-10.4) fL Immature Gran % (Auto) 0.6 % Neut % (Auto) 84.3 % Lymph % (Auto) 7.9 % [place] % (Auto) 7.0 % Eos % (Auto) 0.0 % Baso % (Auto) 0.2 % Immature Gran # (Auto) 0.10 H (0.00-0.02) K/uL Neut # (Auto) 14.01 H (1.4-6.5) K/uL Lymph # (Auto) 1.32 (1.2-3.4) K/uL [place] # (Auto) 1.16 H (0.11-0.59) K/uL Eos # (Auto) 0.00 (0-0.5) K/uL Baso # (Auto) 0.03 (0-0.2) K/uL Absolute Nucleated RBC 0.06 H (0-0) K/uL Nucleated RBC % (auto) 0.3 % PT 10.7 (9.0-12.0) Seconds INR 1.0 (0.9-1.1) APTT 31.1 H (21.0-31.0) Seconds PTT Ratio 1.1 Sodium (136-145) mmol/L Potassium (3.5-5.1) mmol/L Chloride (98-107) mmol/L Carbon Dioxide (21-32) mmol/L Anion Gap (3-11) BUN (7-18) mg/dl Creatinine (0.6-1.2) mg/dl Est Cr Clr Drug Dosing ml/min Est GFR ( Amer) Est GFR (Non-Af Amer) BUN/Creatinine Ratio (10-20) Glucose (70-99) mg/dl Lactate (0.4-2.0) mmol/L Calcium (8.5-10.1) mg/dl Phosphorus (2.5-4.9) mg/dl Magnesium (1.8-2.4) mg/dl Total Bilirubin (0.2-1) mg/dl AST (15-37) U/L ALT (12-78) U/L Alkaline Phosphatase (45-117) U/L Troponin I (0-0.045) ng/ml Total Protein (6.4-8.2) gm/dl Albumin (3.4-5.0) gm/dl Globulin (2.5-4.0) gm/dl Albumin/Globulin Ratio (0.9-2) Lipase (73-393) U/L TSH (0.300-4.500) uIu/ml Free T4 (0.8-1.6) ng/dl Urine Color Dark Yellow Urine Appearance Turbid A (Clear) Urine pH 7.5 (4.5-7.5) Ur Specific [place] 1.021 (1.000-1.030) Urine Protein 2+ H (Negative) Urine Glucose (UA) Negative (Negative) Urine Ketones Trace H (Negative) Urine Blood Negative (Negative) Urine Nitrite Negative (Negative) Urine Bilirubin Negative (Negative) Urine Urobilinogen Negative (Negative) Ur Leukocyte Esterase 3+ H (Negative) Urine WBC (Auto) >30 H (0-5) /hpf Urine RBC (Auto) 0-4 (0-4) /hpf U Hyaline Cast (Auto) 1-5 (0-5) /lpf U Epithel Cells (Auto) 10-20 H (0-5) /lpf Urine Bacteria (Auto) 4+ H (Negative) Calcium Oxalate Crystal Present A (None Prsent) Urine Yeast Not Reportable 11/17/19 11/17/19 Range/Units 14:55 15:47 WBC (4.8-10.8) K/uL RBC (4.2-5.4) M/uL Hgb (12.0-16.0) g/dL Hct (37-47) % MCV (80-100) fL MCH (25-34) pg MCHC (32-36) g/dL RDW Std Deviation (36.4-46.3) fL RDW Coeff of [place] (11.5-14.5) % Plt Count (130-400) K/uL MPV (7.4-10.4) fL Immature Gran % (Auto) % Neut % (Auto) % Lymph % (Auto) % [place] % (Auto) % Eos % (Auto) % Baso % (Auto) % Immature Gran # (Auto) (0.00-0.02) K/uL Neut # (Auto) (1.4-6.5) K/uL Lymph # (Auto) (1.2-3.4) K/uL [place] # (Auto) (0.11-0.59) K/uL Eos # (Auto) (0-0.5) K/uL Baso # (Auto) (0-0.2) K/uL Absolute Nucleated RBC (0-0) K/uL Nucleated RBC % (auto) % PT (9.0-12.0) Seconds INR (0.9-1.1) APTT (21.0-31.0) Seconds PTT Ratio Sodium 133 L (136-145) mmol/L Potassium 4.3 (3.5-5.1) mmol/L Chloride 98 (98-107) mmol/L Carbon Dioxide 24 (21-32) mmol/L Anion Gap 11.0 (3-11) BUN 26 H (7-18) mg/dl Creatinine 1.46 H (0.6-1.2) mg/dl Est Cr Clr Drug Dosing 30.4 ml/min Est GFR ( Amer) 39.8 Est GFR (Non-Af Amer) 34.4 BUN/Creatinine Ratio 17.7 (10-20) Glucose 67 L (70-99) mg/dl Lactate 1.9 (0.4-2.0) mmol/L Calcium 10.3 H (8.5-10.1) mg/dl Phosphorus 2.7 (2.5-4.9) mg/dl Magnesium 2.0 (1.8-2.4) mg/dl Total Bilirubin 1.1 H (0.2-1) mg/dl AST 38 H (15-37) U/L ALT 26 (12-78) U/L Alkaline Phosphatase 111 (45-117) U/L Troponin I 0.280 H* (0-0.045) ng/ml Total Protein 7.5 (6.4-8.2) gm/dl Albumin 3.2 L (3.4-5.0) gm/dl Globulin 4.3 H (2.5-4.0) gm/dl Albumin/Globulin Ratio 0.7 L (0.9-2) Lipase 171 (73-393) U/L TSH 4.760 H (0.300-4.500) uIu/ml Free T4 1.59 (0.8-1.6) ng/dl Urine Color Urine Appearance (Clear) Urine pH (4.5-7.5) Ur Specific [place] (1.000-1.030) Urine Protein (Negative) Urine Glucose (UA) (Negative) Urine Ketones (Negative) Urine Blood (Negative) Urine Nitrite (Negative) Urine Bilirubin (Negative) Urine Urobilinogen (Negative) Ur Leukocyte Esterase (Negative) Urine WBC (Auto) (0-5) /hpf Urine RBC (Auto) (0-4) /hpf U Hyaline Cast (Auto) (0-5) /lpf U Epithel Cells (Auto) (0-5) /lpf Urine Bacteria (Auto) (Negative) Calcium Oxalate Crystal (None Prsent) Urine Yeast Administered Medications Apixaban (Eliquis) 5 mg PO BID ERMIAS Stop: 12/17/19 20:59 Last Admin: 11/17/19 21:26 Dose: 5 mg Documented by: [id number] Buspirone HCl (Buspar) 10 mg PO BID ERMIAS Stop: 12/17/19 20:59 Last Admin: 11/17/19 21:26 Dose: 10 mg Documented by: [id number] Clonidine HCl (Catapres) 0.1 mg PO BID ERMIAS Stop: 12/17/19 20:59 Last Admin: 11/17/19 21:27 Dose: 0.1 mg Documented by: [id number] Sodium Chloride (Nss 1000ml) 1,000 mls @ 100 mls/hr IV .Q10H ERMIAS Stop: 12/17/19 18:54 Last Admin: 11/17/19 19:33 Dose: 100 mls/hr Documented by: [id number] Metoprolol Tartrate (Lopressor) 25 mg PO BID ERMIAS Stop: 12/17/19 20:59 Last Admin: 11/17/19 21:27 Dose: 25 mg Documented by: [id number] Ondansetron HCl (Zofran) 4 mg IV Q6H PRN PRN Reason: Nausea Stop: 12/17/19 19:07 Last Admin: 11/17/19 19:33 Dose: 4 mg Documented by: [id number] Polyethylene Glycol (Miralax Powder Packet) 17 gm PO BID ERMIAS Stop: 12/17/19 20:59 Last Admin: 11/17/19 21:26 Dose: Not Given Documented by: [id number] Discontinued Medications Bisacodyl (Dulcolax) 10 mg SD NOW STA Stop: 11/17/19 18:56 Last Admin: 11/17/19 19:33 Dose: 10 mg Documented by: [id number] Sodium Chloride (Nss) 500 mls @ 999 mls/hr IV .Q31M ONE Stop: 11/17/19 15:06 Last Infusion: 11/17/19 15:31 Dose: 0 mls/hr Documented by: [id number] Admin: 11/17/19 15:00 Dose: 999 mls/hr Documented by: [id number] Ceftriaxone Sodium (Rocephin) 2,000 mg in 70 mls @ 140 mls/hr IV NOW STA Stop: 11/17/19 15:43 Last Infusion: 11/17/19 16:16 Dose: 0 mls/hr Documented by: [id number] Admin: 11/17/19 15:46 Dose: 140 mls/hr Documented by: [id number] Blood Pressure Blood Pressure Findings: Elevated blood pressure Blood Pressure Disposition: elevated BP felt to be situational Discharge Plan Visit Data *Final* Discharge Date/Time: 11/17/19 17:56 Chief Complaint: Illness ED Provider: Renato Eng Discharge Problem: Acute UTI, Elevated troponin, Generalized weakness, CKD (chronic kidney disease) Patient Disposition: Admitted As Inpatient Discharge Instructions Interventions: ED Discharge Assessment Last Done: 11/17/19 17:56
[2019-11-17 14:46] LABS: Appearance Urine Turbid (Clear); Bacteria Urine Automated 4+ (Negative); Blood Urine Negative (Negative); Color Urine Dark Yellow; Glucose Urine UA Negative (Negative); Ketones Urine Trace (Negative); Leukocyte Esterase Urine 3+ (Negative); Nitrite Urine Negative (Negative); RBC Urine Automated 0-4 /hpf (0-4); Specific Gravity Urine 1.021 (1.000-1.030); Urobilinogen Urine Negative (Negative); WBC Urine Automated >30 /hpf (0-5); pH Urine 7.5 (4.5-7.5)
[2019-11-17 15:05] LABS: Basophils # (auto) 0.03 K/uL (0-0.2); Basophils % (auto) 0.2 %; Hematocrit (blood only) 42.7 % (37-47); Hemoglobin 14.4 g/dL (12.0-16.0); Immature Granulocytes % (auto) 0.6 %; Lymphocytes # (auto) 1.32 K/uL (1.2-3.4); Lymphocytes % (auto) 7.9 %; Mean Corpuscular Hemoglobin 28.6 pg (25-34); Mean Corpuscular Hgb Conc 33.7 g/dL (32-36); Mean Corpuscular Volume 84.7 fL (80-100); Mean Platelet Volume 10.7 fL (7.4-10.4); Monocytes # (auto) 1.16 K/uL (0.11-0.59); Neutrophils # (auto) 14.01 K/uL (1.4-6.5); Neutrophils % (auto) 84.3 %; Nucleated RBC # (auto) 0.06 K/uL (0-0); Nucleated RBC % (auto) 0.3 %; Platelet Count 262 K/uL (130-400); RDW Coefficient of Variation 15.8 % (11.5-14.5); RDW Standard Deviation 48.6 fL (36.4-46.3); Red Blood Count 5.04 M/uL (4.2-5.4); White Blood Count 16.62 K/uL (4.8-10.8)
[2019-11-17 15:08] LABS: Bilirubin Urine Negative (Negative); Ictotest Urine Negative (Negative); Protein Urine 2+ (Negative); Sulfosalicylic Acid Urine Positive (Negative)
--- NOTE | 2019-11-17 15:08 | Electrocardiogram Report ---
Test Reason : Blood Pressure : / mmHG Vent. Rate : 097 BPM Atrial Rate : 097 BPM P-R Int : 164 ms QRS Dur : 088 ms QT Int : 350 ms P-R-T Axes : 066 -29 087 degrees QTc Int : 444 ms Normal sinus rhythm Normal ECG When compared with ECG of 06-OCT-2019 12:54, Vent. rate has increased BY 38 BPM Nonspecific T wave abnormality no longer evident in Inferior leads T wave inversion less evident in Anterolateral leads Confirmed by Lio Lowry ([id number]) on 11/17/2019 3:07:38 PM Referred By: Confirmed By:Lio Lowry
[2019-11-17 15:10] LABS: Calcium Oxalate Crystals Urine Present (None Prsent)
--- NOTE | 2019-11-17 15:13 | XRay Report ---
XR chest 1V portable CLINICAL HISTORY: Chest pain. COMPARISON STUDY: Chest radiograph November 06, 2019. FINDINGS: Relative right lung lucency is likely due to mastectomy. Right chest wall/axillary surgical clips are noted as well as an anterior cervical spine fusion. Cardiac size is normal. Mediastinal co ntours are normal. There is no consolidation or evidence for pulmonary edema. Appearance of the chest is unchanged. IMPRESSION: No acute cardiopulmonary findings. ACT 112: Negative or not required by law. Electronically signed by: Salty Byers M.D. 11/17/2019 3:12 PM
[2019-11-17] MEDS ORDERED: cefTRIAXone SODIUM 2,000 MG/70 ML BAG IV STA (15:14)
[2019-11-17 15:21] LABS: Albumin Level 3.2 gm/dl (3.4-5.0); BUN Creatinine Ratio 17.7 (10-20); Calcium 10.3 mg/dl (8.5-10.1); Creatinine Clr Calc Pharmacy 30.4 ml/min; Est GFR (African American) 39.8; Est GFR (Non-African American) 34.4; Partial Thromboplastin Ratio 1.1; Partial Thromboplastin Time 31.1 Seconds (21.0-31.0); Potassium 4.3 mmol/L (3.5-5.1); Prothrombin Time 10.7 Seconds (9.0-12.0)
[2019-11-17 15:45] LABS: Albumin Globulin Ratio 0.7 (0.9-2); Bilirubin,Total 1.1 mg/dl (0.2-1); Globulin 4.3 gm/dl (2.5-4.0); Phosphorus 2.7 mg/dl (2.5-4.9); Thyroid Stimulating Hormone 4.76 uIu/ml (0.300-4.500); Total Protein 7.5 gm/dl (6.4-8.2); Troponin I 0.28 ng/ml (0-0.045)
[2019-11-17 16:21] LABS: T4 Free Thyroxine 1.59 ng/dl (0.8-1.6)
--- NOTE | 2019-11-17 17:31 | History & Physical Report ---
Date of Service November 17, 2019 Assessment & Plan (1) Generalized weakness: Presented with worsening generalized weakness--> multifactorial likely--> could be from progressive rapid weight loss, poor appetite, acute on chronic sinusitis, UTI. (2) UTI (urinary tract infection): -Admit to MedSurg with telemetry -UA reviewed and appears dirty, turbid, follow urine culture -Started on IV ceftriaxone, will continue -BCx x2 -Reiterate the patient needs to change disposable briefs more frequently, increase hydration to prevent future urinary tract infections (3) HTN, goal below 140/90: -BP 155/82 at time of admission, patient reports she did not take her morning meds due to increased nausea, resume with evening meds as long as nausea is improved. (4) Hypercholesterolemia: -Chronic, stable (5) Atrial fibrillation: -Paroxysmal, continue on Eliquis 5 mg daily -Rate controlled metoprolol 25 mg BID (6) GERD (gastroesophageal reflux disease): -Continue omeprazole 20 mg daily (7) Osteopenia: -Continue supplementation with calcitriol (8) Breast cancer: -History of such, resolved (9) Chronic kidney disease (CKD), stage III (moderate): -BUN = 26, creatinine = 1.46 -Follow with a.m. PRP (10) Constipation, chronic: -Hx of such -Continue bowel regimen prn, last BM 3d ago per pt, will check KUB with in creased nausea and vomiting to r/o high fecal load -Dulcolax WI now, then continue daily dulcolax/senna PO and miralax PO BID. (11) Decreased appetite: -Encourage p.o. intake consider boost supplementation Has lost another 13 kg of body weight in the last 2-3 months Mention of dysgeusia from sinusitis in the past and clearly has pansinusitis on recent CT sinuses -treat for sinusitis -consider GI consult for N/V Had gastric emptying study recently as outpt which was incomplete due to vomiting (12) Elevated troponin: -Troponin slightly elevated compared to her previous chronically elevated troponin today to 0.280 compared to baseline of 0.097. This may be secondary to demand ischemia in the setting of dehydration, patient without any complaints of chest pain, cardiac symptoms. -Last echo last was completed on 09/02/2019 showing normal left ventricular size and systolic function, EF 65 to 70% no regional wall motion abnormalities, no LVH. Mild mitral regurg. No need to repeat at this time. -EKG reviewed showing NSR [place] T wave abnormality no longer evident in the inferior leads, T wave inversion less evident in anterior lateral leads compared to previous (13) Diabetes: -Patient previously diagnosed with diabetes, current A1c= 5.8 on 09/02/2019 -Glucose was 67 upon admission, this is likely low due to her poor oral intake as noted in previous documentation-follow with a.m. PRP -We will encourage p.o. intake as well as supplementation with boost for protein calorie malnutrition (14) Hypothyroid: - recheck TSH is elevated at 4.760, last check was 3.21 on 10/06/2019. Not currently on replacement therapy, may require this. Follow per PCP. 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 Patient has home health aides coming into her home twice weekly for PT/OT since being discharged from [facility] on 10/18/2019, they noted that she the patient looked dehydrated and was not quite herself so EMS was called. She also had intermittent nausea and vomiting this morning, it currently feels better at this time. She did not take any of her morning medications due to nausea. Overall her appetite has been very poor in general, and thinks her last BM was about 3 days ago. She denies any dysuria, hematuria, no fevers chills or sweats. Once in the ER she was found to have a dirty urine, likely infected. Patient reports being incontinent and changes depends only twice daily, she also frequently does not drink as much water as she should due to being incontinent. Denies any other acute complaints currently. At home she has 2 sons which live with her and help her around the house sometimes. Prior to her previous hospitalization which was in August she was up walking by herself, since coming home from [facility] she has had to use a walker primarily for a wheelchair. Patient found to have an elevated troponin of 0.280 compared to her baseline of 0.097 which has been chronic in the past. Her glucose was also noted to be 67 on arrival here to the ER. Allergies Allergy/AdvReac Type Severity Reaction Status Date / Time HO Inhibitors Allergy Unknown ITCHING Verified 11/17/19 16:01 acetaminophen [From Percocet] Allergy Unknown Unknown Verified 11/17/19 16:01 tolterodine Allergy Unknown Unknown Verified 11/17/19 16:01 oxycodone AdvReac Mild CAUSES BE Verified 11/17/19 16:01 JITTERINESS & CAN'T EAT. ALSO CAUSES RLS SYMPTOMS Home Medications Home Medications Medication Instructions Recorded Confirmed Type aspirin 81 mg PO QAM 01/18/19 11/17/19 History calcitriol 0.5 mcg PO QAM 01/18/19 11/17/19 History metoprolol tartrate 25 mg tablet 25 mg PO BID #180 tab 04/03/19 11/17/19 Rx buspirone 10 mg tablet 10 mg PO BID 90 Days #60 tab 08/15/19 11/17/19 Rx apixaban 5 mg tablet 5 mg PO BID #60 tab 09/22/19 11/17/19 Rx clonidine HCl [Catapres] 0.1 mg PO BID 10/06/19 11/17/19 History hydroxychloroquine [Plaquenil] 200 mg PO BID 10/06/19 11/17/19 History losartan [Cozaar] 100 mg PO QAM 10/06/19 11/17/19 History omeprazole 20 mg PO QAM 10/06/19 11/17/19 History polyethylene glycol 3350 [Miralax] 17 g PO BID 10/06/19 11/17/19 History mirabegron 50 mg tablet,extended 50 mg PO DAILY #90 tab 10/15/19 11/17/19 Rx release 24 hr duloxetine 60 mg capsule,delayed 60 mg PO DAILY #90 cap 10/16/19 11/17/19 Rx release docusate sodium 100 mg capsule 100 mg PO DAILY 10/22/19 11/17/19 History simvastatin 20 mg tablet 20 mg PO DAILY 10/22/19 11/17/19 History sodium chloride 0.65 % nasal spray 1 sprays INTNAS BID PRN 10/22/19 11/17/19 History aerosol ranitidine HCl 300 mg tablet 300 mg PO HS #90 tab 11/17/19 11/17/19 Rx Past Med/Surg History Medical History Acute on chronic renal insufficiency (Resolved) Atrial fibrillation Atrial fibrillation with RVR (Resolved) Breast cancer (Resolved) Cancer of uterus Chest pain CKD (chronic kidney disease) Colonic polyp Constipation Depression Diabetes borderline, diet controlled Dyslipidemia Elevated troponin Endometrial cancer, grade I GERD (gastroesophageal reflux disease) History of chemotherapy History of TIAs last one over 10 years ago HTN, goal below 140/90 Hyperactivity of bladder Hypertension Hypothyroid Late effects of cerebrovascular disease (Chronic) Memory impairment Stroke Surgical History History of bilateral knee replacement History of bilateral salpingo-oophorectomy (Resolved) History of hysterectomy History of mastectomy History of mastectomy (Resolved) History of total abdominal hysterectomy (Resolved) History of total knee arthroplasty (Resolved) Status post biopsy of skin (Resolved) Family History Father Myocardial infarction Coronary heart disease Cardiac disorder Brother Myocardial infarction Hypertension Diabetes Lung cancer Prostate cancer Multiple sclerosis Sister Breast cancer Alzheimer disease Mother Unknown whether patient has any health problems Denies family history of Pancreatic cancer Ovarian cancer Colorectal cancer Malignant neoplasm of uterus Social History Preferred Language: Turkmen Communication Ability: Effective Visual Impairment: No Limitations Hearing Ability: Normal Floral 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 Required: No Beliefs That Will Affect Care: None marital status: Current Living Situation: Family Current Living Situation Comment: 2 sons Other Information That Helps Us Care for You: No Feels Safe at Home: Yes Safety Concerns: Feels Safe At This Time Smoking Status: Never smoker Hx Alcohol Use: No Hx Substance Use: No Childhood Exposure to Second-Hand Smoke: No Dental Care, Regularly: No Physical Activity Frequency: Does not Exercise Seatbelt Use: always Sunscreen Use: No Review of Systems Review of Systems: Constitutional: No fever, sweats or chills Eyes: No diplopia, no worsening or blurred vision ENT: normal hearing, no trouble swallowing Respiratory: No cough, sputum, dyspnea at rest or on exertion Cardiovascular: No chest pain, tightness or palpitations Abdomen: No pain, nausea, vomiting, diarrhea or constipation, last bowel movement yesterday, : No dysuria, no hematuria Musculoskeletal: No joint pain, calf pain, swelling Neurologic: + Generalized weakness, no numbness/tingling, or balance problems Psychiatric: No anxiety or depression Skin: No rash or itch Physical Exam Physical Exam: General: awake, alert, no apparent distress, + lethargic, + generalized weakness Head: Normocephalic, atraumatic ENT: PERRL, EOMI, no pharyngeal exudate, mucous membranes moist Chest: Clear to auscultation but diminished throughout, on room air, no adventitious breath sounds Cardiac: Regular rate and rhythm, no murmur, no JVD, normal peripheral pulses, good capillary refill Abdominal: NABS x 4 quadrants, soft, nondistended, nontender to palpation, no rebound, guarding or tenderness Extremities: Normal inspection, no peripheral edema or erythema, calfs nontender to palpation Psych: Normal mood and affect Neuro: AAO x 3, able to participate in conversation and answers appropriately although her responses somewhat delayed, no motor deficits, speech is clear, no peripheral sensory deficits Skin: no rash or erythema Results & Data Results & Data ([facility]) Vital Signs (Past 12 Hours) Vital Signs Temp Pulse Pulse Resp BP BP Pulse Ox 11/17/19 16:15 88 16 155/82 H 98 11/17/19 15:44 86 16 148/80 H 98 11/17/19 15:15 86 16 155/82 H 100 11/17/19 14:28 36.3 C L 97 H 16 131/73 99 Code Status & VTE Plan Code Status DNR-discussed with the patient at bedside Supervising Physician Co-Signing Physician Notes PA Supervision Note: I personally saw and examined the patient. I verified all palma points and agree with JYOTI Hansen with the following exceptions and/or additions: Pt presents with N/V, lightheadedness with standing, and worsening generalized fatigue. SHe has lost quite a bit of weight over the last several months. She has been undergoing outpt workup for N/V, weight loss, and sinusitis as well as memory loss. Does have a h/o Br CA and uterine CA but no evidence of recurrence on CT abd/pel from 08/2019. Brain MRI without significant abnormalities to explain symptoms completed recently Was supposed ot have outpt GI endoscopy which is now likely postponed due to COVID-19. History, ROS reviewed Vitals reviewed NAD, AAOx3 but flat affect Anicteric sclerae, dry oral mucosa RRR no mgr CTAB no wcr Abd +BS soft ND, no masses, +mild TTP over epigastric region without guarding or rebound Ext no edema, 2+ DP pulses Skin no rashes Other than UTI, no significant abnormalities on labs here except mild hyponatremia which may be from dehydration, with recent vomiting. Leukocytosis could be stress response to vomiting vs UTI vs sinusitis. -treat with Rocephin as above for UTI, sinusitis Consider GI, ENT consults inpatient vs outpt -hydrate, bowel regimen PT/OT consults -antiemetics PG Care Time/CCT Total # of Minutes Spent Total Time Spent with Patient: Total time spent is greater than 50% in coordination of care (as documented) at patient's floor/unit and/or counseling patient: Coding Level of Care Code 95648 Initial Inpt Care Lvl 3 Diagnoses Generalized weakness R53.1 UTI (urinary tract infection) N39.0 HTN, goal below 140/90 I10 Hypercholesterolemia E78.00 Atrial fibrillation I48.0 Atrial fibrillation type: paroxysmal GERD (gastroesophageal reflux disease) K21.9 Esophagitis presence: esophagitis presence not specified Osteopenia M85.80 Breast cancer C50.919 Chronic kidney disease (CKD), stage III (moderate) N18.3 Constipation, chronic K59.09 Decreased appetite R63.0 Elevated troponin R79.89 Diabetes E11.9 Diabetes mellitus complication status: without complication Diabetes mellitus containers sales representative insulin use: without senior care use Diabetes mellitus type: type 2 Hypothyroid E03.9 Sinusitis J32.9 DVT prophylaxis Z29.9 (1) Diabetes Diabetes mellitus complication status: without complication Diabetes mellitus containers sales representative insulin use: without containers sales representative use Diabetes mellitus type: type 2 Qualified Code(s): E11.9 - Type 2 diabetes mellitus without complications (2) Atrial fibrillation Atrial fibrillation type: paroxysmal Qualified Code(s): I48.0 - Paroxysmal atrial fibrillation (3) GERD (gastroesophageal reflux disease) Esophagitis presence: esophagitis presence not specified Qualified Code(s): K21.9 - Gastro-esophageal reflux disease without esophagitis
--- NOTE | 2019-11-17 18:20 | XRay Report ---
KUB CLINICAL HISTORY: Nausea and vomiting. Constipation. FINDINGS: 2 AP supine abdominal radiographs are compared to study dated 11/06/2019. There is no bowel obstruction. Mild to moderate fecal retention is noted throughout the colon. No evidence of intraperi toneal free air is seen on these supine images. Vascular calcifications and surgical clips are noted in the pelvis. The skeletal structures are osteopenic and appear intact. Lumbosacral spondylosis is n oted. IMPRESSION: Nonobstructed bowel gas pattern. Electronically signed by: Brennon Yoo M.D. 11/17/2019 6:18 PM
[2019-11-17] MEDS ORDERED: bisacodyL 10 MG SUPP PR STA (18:55)
[2019-11-17] MEDS ORDERED: SODIUM CHLORIDE 0.65% NA SOLN 45 ML (OCEAN) PRN (18:55)
[2019-11-17] MEDS: SODIUM CHLORIDE 0.9% 1000ML 1,000 ML IV SCH (19:33)
[2019-11-17] MEDS: ONDANSETRON INJ 2 MG/ML 2 ML VIAL IV PRN (19:33)
[2019-11-17] MEDS: POLYETHYLENE (MIRALAX) 17 GM PACK PO SCH (21:26)
[2019-11-17] MEDS: APIXABAN 5 MG TABLET PO SCH (21:26)
[2019-11-17] MEDS: cloNIDine HCL 0.1 MG TAB PO SCH (21:27)
[2019-11-17] MEDS: METOPROLOL TARTRATE 25 MG TAB PO SCH (21:27)
[2019-11-18] MEDS: SODIUM CHLORIDE 0.9% 1000ML 1,000 ML IV SCH (05:16)
[2019-11-18 06:36] LABS: Hematocrit (blood only) 37.1 % (37-47); Hemoglobin 12.4 g/dL (12.0-16.0); Mean Corpuscular Hemoglobin 28.3 pg (25-34); Mean Corpuscular Hgb Conc 33.4 g/dL (32-36); Mean Corpuscular Volume 84.7 fL (80-100); Mean Platelet Volume 10.8 fL (7.4-10.4); Platelet Count 192 K/uL (130-400); RDW Coefficient of Variation 15.8 % (11.5-14.5); Red Blood Count 4.38 M/uL (4.2-5.4); White Blood Count 10.67 K/uL (4.8-10.8)
[2019-11-18 07:19] LABS: Albumin Globulin Ratio 0.7 (0.9-2); Albumin Level 2.3 gm/dl (3.4-5.0); BUN Creatinine Ratio 21.2 (10-20); Bilirubin,Total 0.7 mg/dl (0.2-1); Calcium 9.3 mg/dl (8.5-10.1); Est GFR (Non-African American) 42.3; Globulin 3.2 gm/dl (2.5-4.0); Potassium 4.1 mmol/L (3.5-5.1); Total Protein 5.5 gm/dl (6.4-8.2)
[2019-11-18 07:21] LABS: Troponin I 0.263 ng/ml (0-0.045)
[2019-11-18] MEDS ORDERED: DEXTROSE 50% 50 ML SYRINGE IV ONE (07:43)
[2019-11-18] MEDS: D5W AND 1/2NSS 1,000 ML IV SCH ×2 (08:56→21:19)
[2019-11-18] MEDS ORDERED: DOCUSATE SODIUM 100 MG CAP PO SCH (09:00)
[2019-11-18] MEDS: DOCUSATE SODIUM 100 MG CAP PO SCH ×2 (09:00→13:12)
[2019-11-18] MEDS: LOSARTAN POTASSIUM 50 MG TAB PO SCH ×2 (09:00→13:12)
[2019-11-18] MEDS: cloNIDine HCL 0.1 MG TAB PO SCH ×3 (09:00→21:10)
[2019-11-18] MEDS: POLYETHYLENE (MIRALAX) 17 GM PACK PO SCH ×2 (09:01→21:12)
[2019-11-18] MEDS: APIXABAN 5 MG TABLET PO SCH ×3 (09:01→21:09)
[2019-11-18] MEDS: METOPROLOL TARTRATE 25 MG TAB PO SCH ×3 (09:01→21:09)
[2019-11-18] MEDS: ASPIRIN 81 MG ECTAB PO SCH ×2 (09:01→13:13)
[2019-11-18] MEDS: DULOXETINE HCL 60 MG CAP PO SCH ×2 (09:01→13:13)
[2019-11-18] MEDS: PANTOprazole 40 MG TAB PO SCH ×3 (09:02→21:11)
[2019-11-18] MEDS: MIRABEGRON ER 25 MG TAB PO SCH ×2 (09:02→13:13)
[2019-11-18] MEDS: CALCITRIOL 0.25 MCG CAPSULE PO SCH ×2 (09:02→13:13)
[2019-11-18] MEDS: DOCUSATE SODIUM/SENNA 50/8.6MG TAB PO SCH ×2 (09:02→13:14)
[2019-11-18] MEDS: SIMVASTATIN 20 MG TAB PO SCH ×2 (09:02→13:14)
[2019-11-18] MEDS: ONDANSETRON INJ 2 MG/ML 2 ML VIAL IV PRN (09:46)
--- NOTE | 2019-11-18 10:02 | Hospitalist Progress Note ---
Date of Service November 18, 2019 Assessment & Plan (1) Generalized weakness: Presented with worsening generalized weakness--> multifactorial likely--> could be from progressive rapid weight loss, poor appetite, acute on chronic sinusitis, UTI. Persists today PT/OT consults (2) Nausea and vomiting: Persistent for several months with history of lack of taste and smell, with chronic pansinusitis with possible acute left frontal sinusitis She has lost approximately 50 pounds in last 6 months and has become debilitated Discussed with GI-cannot perform endoscopies at this time unless emergent due to COVID-19 preservation of PPE Gastric emptying study recently attempted but unable to complete as she vomited -Increase PPI to twice daily -Checked CT of chest/abdomen/pelvis-with mild nonspecific thickening of the mid to distal esophagus, but otherwise no obvious cause MRI of the brain recently without explanation to cause persistent nausea -Also with hypoglycemia here due to poor p.o. intake LFTs normal, not anemic, was mildly dehydrated on admission which is now improved with hydration -Change fluids to D5 half-normal saline given hypoglycemia -Advance diet as tolerated-remain on clears today -Eventually will need EGD/colonoscopy Reglan would not be a good option for her given ongoing neurological/cognitive issues -Appreciate GI consultation -Could consider decreasing dose of her duloxetine which can cause nausea -Discussed case with [facility] on the phone who had previously reviewed her CT scan of the sinuses in preparation for an upcoming telehealth visit-they do not suspect a malignancy in the sinuses, but did suggest treatment for sinusitis as below (3) HTN, goal below 140/90: -BP now mildly elevated -Continue home meds of clonidine, metoprolol, and losartan (4) Hypercholesterolemia: -Chronic, stable -Continue simvastatin (5) Atrial fibrillation: -Paroxysmal, continue on Eliquis 5 mg daily In normal sinus rhythm here -Continue rate control with metoprolol 25 mg BID (6) GERD (gastroesophageal reflux disease): -Continue PPI but increase to twice daily (7) Osteopenia: -Continue supplementation with calcitriol (8) Chronic kidney disease (CKD), stage III (moderate): -Creatinine actually improved with hydration overnight and is now down to 1.23 which is below her baseline -Renally dose medications when appropriate -Avoid nephrotoxins -Continue losartan (9) Constipation, chronic: -Hx of such thought to be causing her persistent nausea in the past KUB here with mild to moderate fecal load as also on CT abdomen/pelvis -Continue bowel regimen with daily dulcolax/senna PO and miralax PO BID. (10) Elevated troponin: -Troponin slightly elevated compared to her previous chronically elevated troponin today to 0.280 x3 compared to baseline of 0.097. This may be secondary to demand ischemia in the setting of dehydration, patient without any complaints of chest pain, cardiac symptoms. -Last echo last was completed on 09/02/2019 showing normal left ventricular size and systolic function, EF 65 to 70% no regional wall motion abnormalities, no LVH. Mild mitral regurg. No need to repeat at this time. -EKG reviewed showing NSR [place] T wave abnormality no longer evident in the inferior leads, T wave inversion less evident in anterior lateral leads compared to previous No further work-up needed (11) Diabetes: -Patient previously diagnosed with diabetes, current A1c= 5.8 on 09/02/2019 -Glucose was 67 upon admission and again low in the 40s this morning-this is likely low due to her poor oral intake -Start D5 half-normal saline -Encourage p.o. intake (12) Hypothyroid: - recheck TSH is elevated at 4.760, last check was 3.21 on 10/06/2019. Not currently on replacement therapy -We will start low-dose levothyroxine to see if helps with appetite, nausea/cons tipation -Follow TSH in 4 to 6 weeks (13) Severe protein-calorie malnutrition: Severe protein-calorie malnutrition e/b weakness and progressive weight loss. (14) Sinusitis: Acute left frontal sinusitis on chronic pansinusitis suspected Reviewed with ENT on the phone-do not suspect malignancy but also ENT does not think this is related to her significant weight loss and nausea and vomiting -We will continue to treat with Rocephin and then convert to Augmentin for 3- week treatment course -Start IV steroids and then eventually convert to prednisone once GI issues are improving -Start Flonase daily and nasal saline 3 times daily (15) Breast cancer: -History of such, resolved Groundglass opacity in the right lung on CT of the chest but otherwise no evidence of recurrence or metastases (16) UTI (urinary tract infection): Unclear if has symptoms as has chronic urinary incontinence -UA appears infected, urine culture with mixed organisms -Started on IV ceftriaxone, no longer needs antibiotics for this-UTI ruled out -BCx x2 (17) DVT prophylaxis: -teds, continue eliquis BID CODE: DNR Dispo: From home, likely needs placement more senior care, PT/OT beau Admission and Anticipated Discharge Date Admission Date: November 17, 2019 Subjective Patient continues to feel very nauseated but no further vomiting. She did have a bowel movement yesterday. No abdominal pain. Still feels very lightheaded and extremely weak with sitting in the chair at the bedside. In discussion with her daughter on the phone, daughter reports that 3 months ago, the patient made [place] dinner for 12 people and never used any assistance with walking-she now cannot even get out of bed on her own. She has lost 50 pounds. Patient denies any blood in her vomit or stool. I discussed the case with GI and with ENT PA Karyna Yip who reviewed the patient's case prior to this admission with her attending. Telemetry with normal sinus rhythm with rates in the 60s with PVCs and PACs . Review of Systems Review of Systems: All systems reviewed & are unremarkable except as noted in HPI & below (Patient denies chest pain or shortness of breath) Physical Exam Constitutional: + ill appearing; no acute distress and not lethargic Eyes: + anicteric sclerae Neck: trachea midline, no thyromegaly Respiratory: normal respiratory effort, lungs clear to auscultation Cardiovascular: RRR, no murmur, no edema Chest (Breasts): Chest: normal inspection of chest Gastrointestinal (Abdomen): normal bowel sounds, soft, nontender, no hepatosplenomegaly Musculoskeletal: Extremities: extremities normal to inspection; no cyanosis and no clubbing Skin: no rashes, warm and dry Neurologic: moves all extremities and awake; no focal motor deficits Psychiatric: Orientation: alert, oriented to place and cooperative Affect: + blunted affect Lymphatic: no lymphedema Results & Data Results & Data ([facility]) Vital Signs (Past 12 Hours) Vital Signs Temp Pulse Pulse Resp BP Pulse Ox 11/18/19 09:49 75 128/84 11/18/19 08:00 36.4 C L 70 18 143/81 H 96 11/18/19 03:29 36.6 C 80 16 127/77 97 11/18/19 00:43 82 11/17/19 22:55 36.5 C 87 16 132/79 97 Laboratory Results 11/18/19 11/18/19 11/18/19 Range/Units 11:35 07:58 07:38 WBC (4.8-10.8) K/uL RBC (4.2-5.4) M/uL Hgb (12.0-16.0) g/dL Hct (37-47) % MCV (80-100) fL MCH (25-34) pg MCHC (32-36) g/dL RDW Std Deviation (36.4-46.3) fL RDW Coeff of [place] (11.5-14.5) % Plt Count (130-400) K/uL MPV (7.4-10.4) fL PT (9.0-12.0) Seconds INR (0.9-1.1) APTT (21.0-31.0) Seconds PTT Ratio Sodium (136-145) mmol/L Potassium (3.5-5.1) mmol/L Chloride (98-107) mmol/L Carbon Dioxide (21-32) mmol/L Anion Gap (3-11) BUN (7-18) mg/dl Creatinine (0.6-1.2) mg/dl Est Cr Clr Drug Dosing ml/min Est GFR ( Amer) Est GFR (Non-Af Amer) BUN/Creatinine Ratio (10-20) Glucose (70-99) mg/dl POC Glucose 149 H 167 H 48 L* (70-99) mg/dl Lactate (0.4-2.0) mmol/L Calcium (8.5-10.1) mg/dl Phosphorus (2.5-4.9) mg/dl Magnesium (1.8-2.4) mg/dl Total Bilirubin (0.2-1) mg/dl AST (15-37) U/L ALT (12-78) U/L Alkaline Phosphatase (45-117) U/L Troponin I (0-0.045) ng/ml Total Protein (6.4-8.2) gm/dl Albumin (3.4-5.0) gm/dl Globulin (2.5-4.0) gm/dl Albumin/Globulin Ratio (0.9-2) Lipase (73-393) U/L TSH (0.300-4.500) uIu/ml Free T4 (0.8-1.6) ng/dl Urine WBC (Auto) (0-5) /hpf Urine RBC (Auto) (0-4) /hpf U Hyaline Cast (Auto) (0-5) /lpf U Epithel Cells (Auto) (0-5) /lpf Urine Bacteria (Auto) (Negative) Calcium Oxalate Crystal (None Prsent) Urine Yeast 11/18/19 11/18/19 11/18/19 Range/Units 07:22 06:18 06:18 WBC 10.67 (4.8-10.8) K/uL RBC 4.38 (4.2-5.4) M/uL Hgb 12.4 (12.0-16.0) g/dL Hct 37.1 (37-47) % MCV 84.7 (80-100) fL MCH 28.3 (25-34) pg MCHC 33.4 (32-36) g/dL RDW Std Deviation 49.0 H (36.4-46.3) fL RDW Coeff of [place] 15.8 H (11.5-14.5) % Plt Count 192 (130-400) K/uL MPV 10.8 H (7.4-10.4) fL PT (9.0-12.0) Seconds INR (0.9-1.1) APTT (21.0-31.0) Seconds PTT Ratio Sodium 135 L (136-145) mmol/L Potassium 4.1 (3.5-5.1) mmol/L Chloride 105 (98-107) mmol/L Carbon Dioxide 23 (21-32) mmol/L Anion Gap 7.0 (3-11) BUN 26 H (7-18) mg/dl Creatinine 1.23 H (0.6-1.2) mg/dl Est Cr Clr Drug Dosing 36.0 ml/min Est GFR ( Amer) 49.0 Est GFR (Non-Af Amer) 42.3 BUN/Creatinine Ratio 21.2 H (10-20) Glucose 47 L* (70-99) mg/dl POC Glucose 44 L* (70-99) mg/dl Lactate (0.4-2.0) mmol/L Calcium 9.3 (8.5-10.1) mg/dl Phosphorus (2.5-4.9) mg/dl Magnesium (1.8-2.4) mg/dl Total Bilirubin 0.7 (0.2-1) mg/dl AST 27 (15-37) U/L ALT 18 (12-78) U/L Alkaline Phosphatase 78 (45-117) U/L Troponin I 0.263 H* (0-0.045) ng/ml Total Protein 5.5 L D (6.4-8.2) gm/dl Albumin 2.3 L (3.4-5.0) gm/dl Globulin 3.2 (2.5-4.0) gm/dl Albumin/Globulin Ratio 0.7 L (0.9-2) Lipase (73-393) U/L TSH (0.300-4.500) uIu/ml Free T4 (0.8-1.6) ng/dl Urine WBC (Auto) (0-5) /hpf Urine RBC (Auto) (0-4) /hpf U Hyaline Cast (Auto) (0-5) /lpf U Epithel Cells (Auto) (0-5) /lpf Urine Bacteria (Auto) (Negative) Calcium Oxalate Crystal (None Prsent) Urine Yeast 11/17/19 11/17/19 11/17/19 Range/Units 21:19 15:47 14:55 WBC (4.8-10.8) K/uL RBC (4.2-5.4) M/uL Hgb (12.0-16.0) g/dL Hct (37-47) % MCV (80-100) fL MCH (25-34) pg MCHC (32-36) g/dL RDW Std Deviation (36.4-46.3) fL RDW Coeff of [place] (11.5-14.5) % Plt Count (130-400) K/uL MPV (7.4-10.4) fL PT (9.0-12.0) Seconds INR (0.9-1.1) APTT (21.0-31.0) Seconds PTT Ratio Sodium 133 L (136-145) mmol/L Potassium 4.3 (3.5-5.1) mmol/L Chloride 98 (98-107) mmol/L Carbon Dioxide 24 (21-32) mmol/L Anion Gap 11.0 (3-11) BUN 26 H (7-18) mg/dl Creatinine 1.46 H (0.6-1.2) mg/dl Est Cr Clr Drug Dosing 30.4 ml/min Est GFR ( Amer) 39.8 Est GFR (Non-Af Amer) 34.4 BUN/Creatinine Ratio 17.7 (10-20) Glucose 67 L (70-99) mg/dl POC Glucose (70-99) mg/dl Lactate 1.9 (0.4-2.0) mmol/L Calcium 10.3 H (8.5-10.1) mg/dl Phosphorus 2.7 (2.5-4.9) mg/dl Magnesium 2.0 (1.8-2.4) mg/dl Total Bilirubin 1.1 H (0.2-1) mg/dl AST 38 H (15-37) U/L ALT 26 (12-78) U/L Alkaline Phosphatase 111 (45-117) U/L Troponin I 0.268 H* 0.280 H* (0-0.045) ng/ml Total Protein 7.5 (6.4-8.2) gm/dl Albumin 3.2 L (3.4-5.0) gm/dl Globulin 4.3 H (2.5-4.0) gm/dl Albumin/Globulin Ratio 0.7 L (0.9-2) Lipase 171 (73-393) U/L TSH 4.760 H (0.300-4.500) uIu/ml Free T4 1.59 (0.8-1.6) ng/dl Urine WBC (Auto) (0-5) /hpf Urine RBC (Auto) (0-4) /hpf U Hyaline Cast (Auto) (0-5) /lpf U Epithel Cells (Auto) (0-5) /lpf Urine Bacteria (Auto) (Negative) Calcium Oxalate Crystal (None Prsent) Urine Yeast 11/17/19 11/17/19 Range/Units 14:55 14:25 WBC (4.8-10.8) K/uL RBC (4.2-5.4) M/uL Hgb (12.0-16.0) g/dL Hct (37-47) % MCV (80-100) fL MCH (25-34) pg MCHC (32-36) g/dL RDW Std Deviation (36.4-46.3) fL RDW Coeff of [place] (11.5-14.5) % Plt Count (130-400) K/uL MPV (7.4-10.4) fL PT 10.7 (9.0-12.0) Seconds INR 1.0 (0.9-1.1) APTT 31.1 H (21.0-31.0) Seconds PTT Ratio 1.1 Sodium (136-145) mmol/L Potassium (3.5-5.1) mmol/L Chloride (98-107) mmol/L Carbon Dioxide (21-32) mmol/L Anion Gap (3-11) BUN (7-18) mg/dl Creatinine (0.6-1.2) mg/dl Est Cr Clr Drug Dosing ml/min Est GFR ( Amer) Est GFR (Non-Af Amer) BUN/Creatinine Ratio (10-20) Glucose (70-99) mg/dl POC Glucose (70-99) mg/dl Lactate (0.4-2.0) mmol/L Calcium (8.5-10.1) mg/dl Phosphorus (2.5-4.9) mg/dl Magnesium (1.8-2.4) mg/dl Total Bilirubin (0.2-1) mg/dl AST (15-37) U/L ALT (12-78) U/L Alkaline Phosphatase (45-117) U/L Troponin I (0-0.045) ng/ml Total Protein (6.4-8.2) gm/dl Albumin (3.4-5.0) gm/dl Globulin (2.5-4.0) gm/dl Albumin/Globulin Ratio (0.9-2) Lipase (73-393) U/L TSH (0.300-4.500) uIu/ml Free T4 (0.8-1.6) ng/dl Urine WBC (Auto) >30 H (0-5) /hpf Urine RBC (Auto) 0-4 (0-4) /hpf U Hyaline Cast (Auto) 1-5 (0-5) /lpf U Epithel Cells (Auto) 10-20 H (0-5) /lpf Urine Bacteria (Auto) 4+ H (Negative) Calcium Oxalate Crystal Present A (None Prsent) Urine Yeast Not Reportable PG Care Time/CCT Total # of Minutes Spent Total Time Spent with Patient: Total time spent is greater than 50% in coordination of care (as documented) at patient's floor/unit and/or counseling patient: Coding Level of Care Code 34054 Subseq Hosp Care Lvl 3 Diagnoses Generalized weakness R53.1 Nausea and vomiting R11.2 HTN, goal below 140/90 I10 Hypercholesterolemia E78.00 Atrial fibrillation I48.0 Atrial fibrillation type: paroxysmal GERD (gastroesophageal reflux disease) K21.9 Esophagitis presence: esophagitis presence not specified Osteopenia M85.80 Chronic kidney disease (CKD), stage III (moderate) N18.3 Constipation, chronic K59.09 Elevated troponin R79.89 Diabetes E11.9 Diabetes mellitus complication status: without complication Diabetes mellitus intermediate designer insulin use: without intermediate designer use Diabetes mellitus type: type 2 Hypothyroid E03.9 Severe protein-calorie malnutrition E43 Sinusitis J32.9 Breast cancer C50.919 UTI (urinary tract infection) N39.0 DVT prophylaxis Z29.9 (1) Diabetes Diabetes mellitus complication status: without complication Diabetes mellitus senior care insulin use: without intermediate designer use Diabetes mellitus type: type 2 Qualified Code(s): E11.9 - Type 2 diabetes mellitus without complications (2) Atrial fibrillation Atrial fibrillation type: paroxysmal Qualified Code(s): I48.0 - Paroxysmal atrial fibrillation (3) GERD (gastroesophageal reflux disease) Esophagitis presence: esophagitis presence not specified Qualified Code(s): K21.9 - Gastro-esophageal reflux disease without esophagitis
--- NOTE | 2019-11-18 10:23 | Gastrointestinal Consultation ---
Date of Consultation November 18, 2019 Assessment & Plan (1) Nausea and vomiting: (2) Abnormal weight loss: Discussed case in detail with Dr. Vegas. I would recommend CT scans of the Chest/Abd/Pelvis, secondary to extensive weight loss, and history of breast cancer. Also, reviewed medications to look for cause of nausea and could consider stopping Eliquis or reducing dose of Duloxetine. Clearly Depression is in the differential diagnosis as well, however, would consider other causes first Continue Omeprazole 20 mg by mouth daily. No plans for invasive testing at present Will follow clinical course and make further recommendations as needed. History of Present Illness Reason for Consultation: Nausea and Vomiting Attending Physician: Denise Vegas MD History of Present Illness I had the pleasure of seeing Madison Jacob at her bedside in consultation today at the request of Dr. Vegas secondary to nausea and vomiting. She does have an extensive PMHx which includes Breast cancer, CKD, Diabetes and multiple GI complaints. The patient presented to the ER with generalized weakness, and was found to have a UTI during her workup. She was subsequently admitted and placed on IV antibiotics. She was last seen in our office in September secondary to multiple GI complaints including GERD, Constipation and progressive weight loss. A GES was ordered, however, it could not be completed as the patient developed nausea and subsequent vomiting. She did not wish to undergo invasive testing at that time. Of note, she has lost nearly 65 lbs in the past 10 months, from 213 lbs on 01/18/2019 to 155 on 11/17/2019. She did experience nausea and vomiting during this hospitalization as well, and has received Zofran with little relief. Her last CT scan of the Abd/pelvis was approximately 3 months ago, and was essentially normal. At present she continues to complain of generalized weakness, and is currently experiencing nausea. She denies any fevers, chills, hematemesis, melena or hematochezia. She denies any abdominal pain, and does not have any further complaints. Allergies Allergy/AdvReac Type Severity Reaction Status Date / Time HO Inhibitors Allergy Unknown ITCHING Verified 11/17/19 16:01 acetaminophen [From Percocet] Allergy Unknown Unknown Verified 11/17/19 16:01 tolterodine Allergy Unknown Unknown Verified 11/17/19 16:01 oxycodone AdvReac Mild CAUSES BE Verified 11/17/19 16:01 JITTERINESS & CAN'T EAT. ALSO CAUSES RLS SYMPTOMS Home Medications Home Medications Medication Instructions Recorded Confirmed Type aspirin 81 mg PO QAM 01/18/19 11/17/19 History calcitriol 0.5 mcg PO QAM 01/18/19 11/17/19 History metoprolol tartrate 25 mg tablet 25 mg PO BID #180 tab 04/03/19 11/17/19 Rx buspirone 10 mg tablet 10 mg PO BID 90 Days #60 tab 08/15/19 11/17/19 Rx apixaban 5 mg tablet 5 mg PO BID #60 tab 09/22/19 11/17/19 Rx clonidine HCl [Catapres] 0.1 mg PO BID 10/06/19 11/17/19 History hydroxychloroquine [Plaquenil] 200 mg PO BID 10/06/19 11/17/19 History losartan [Cozaar] 100 mg PO QAM 10/06/19 11/17/19 History omeprazole 20 mg PO QAM 10/06/19 11/17/19 History polyethylene glycol 3350 [Miralax] 17 g PO BID 10/06/19 11/17/19 History mirabegron 50 mg tablet,extended 50 mg PO DAILY #90 tab 10/15/19 11/17/19 Rx release 24 hr duloxetine 60 mg capsule,delayed 60 mg PO DAILY #90 cap 10/16/19 11/17/19 Rx release docusate sodium 100 mg capsule 100 mg PO DAILY 10/22/19 11/17/19 History simvastatin 20 mg tablet 20 mg PO DAILY 10/22/19 11/17/19 History sodium chloride 0.65 % nasal spray 1 sprays INTNAS BID PRN 10/22/19 11/17/19 History aerosol ranitidine HCl 300 mg tablet 300 mg PO HS #90 tab 11/17/19 11/17/19 Rx Patient History Medical History Acute on chronic renal insufficiency (Resolved) Atrial fibrillation Atrial fibrillation with RVR (Resolved) Breast cancer (Resolved) Cancer of uterus Chest pain CKD (chronic kidney disease) Colonic polyp Constipation Depression Diabetes borderline, diet controlled Dyslipidemia Elevated troponin Endometrial cancer, grade I GERD (gastroesophageal reflux disease) History of chemotherapy History of TIAs last one over 10 years ago HTN, goal below 140/90 Hyperactivity of bladder Hypertension Hypothyroid Late effects of cerebrovascular disease (Chronic) Memory impairment Stroke Surgical History History of bilateral knee replacement History of bilateral salpingo-oophorectomy (Resolved) History of hysterectomy History of mastectomy History of mastectomy (Resolved) History of total abdominal hysterectomy (Resolved) History of total knee arthroplasty (Resolved) Status post biopsy of skin (Resolved) Family History Father Myocardial infarction Coronary heart disease Cardiac disorder Brother Myocardial infarction Hypertension Diabetes Lung cancer Prostate cancer Multiple sclerosis Sister Breast cancer Alzheimer disease Mother Unknown whether patient has any health problems Denies family history of Pancreatic cancer Ovarian cancer Colorectal cancer Malignant neoplasm of uterus Social History Preferred Language: Welsh Communication Ability: Effective Visual Impairment: No Limitations Hearing Ability: Normal Legal Activity Adjudicator Required: No Beliefs That Will Affect Care: None marital status: Current Living Situation: Family Current Living Situation Comment: 2 sons Other Information That Helps Us Care for You: No Feels Safe at Home: Yes Safety Concerns: Feels Safe At This Time Smoking Status: Never smoker Hx Alcohol Use: No Hx Substance Use: No Childhood Exposure to Second-Hand Smoke: No Dental Care, Regularly: No Physical Activity Frequency: Does not Exercise Seatbelt Use: always Sunscreen Use: No Review of Systems Review of Systems: All systems reviewed & are unremarkable except as noted in HPI & below Physical Exam Constitutional: + ill appearing Eyes: PERRL, conjunctivae normal, anicteric sclerae ENMT: external ear and nose normal, oropharynx normal Neck: trachea midline, no thyromegaly Respiratory: normal respiratory effort, lungs clear to auscultation Cardiovascular: RRR, no murmur, no edema Gastrointestinal (Abdomen): normal bowel sounds, soft, nontender, no hepatosplenomegaly Skin: no rashes, warm and dry Psychiatric: Orientation: oriented x 3 Results & Data ([facility]) Vital Signs (Past 12 Hours) Vital Signs Temp Pulse Pulse Resp BP Pulse Ox 11/18/19 09:49 75 128/84 11/18/19 08:00 36.4 C L 70 18 143/81 H 96 11/18/19 03:29 36.6 C 80 16 127/77 97 11/18/19 00:43 82 11/17/19 22:55 36.5 C 87 16 132/79 97 PG Care Time/CCT Total # of Minutes Spent Total Time Spent with Patient: Total time spent is greater than 50% in coordination of care (as documented) at patient's floor/unit and/or counseling patient: Coding Level of Care Code 75353 Initial Inpt Care Lvl 3 Diagnoses Nausea and vomiting R11.2 Abnormal weight loss R63.4
[2019-11-18] MEDS ORDERED: IOVERSOL 100ml IV PRN (12:28)
--- NOTE | 2019-11-18 12:54 | CT Scan Report ---
CHEST CT WITH CONTRAST HISTORY: Acute weight loss with nausea and vomiting. History of breast cancer. h/o breast CA,50 lb w eight loss,persistent N/V TECHNIQUE: Multiaxial CT images of the chest were performed following the IV administration of 94 cc of Optiray 320. A dose lowering technique was utilized adhering to the principles of ALARA. COMPARISON: CT abdomen and pelvis of same day, 09/01/2019 and 11/26/2017. FINDINGS: Heart is normal in size. No pericardial effusion. Mild coronary artery calcifications. No thoracic ao rtic aneurysm or dissection. Moderate mixed plaque of the thoracic aorta. Unopacified pulmonary arter y is unremarkable. Subcentimeter hypodense nodule the posterior right thyroid lobe. There are a few s cattered nonenlarged mediastinal lymph nodes present measuring up to 6 mm. No pathologic adenopathy. Postoperative changes of prior right-sided mastectomy with right axillary stefano dissection. Mild right hemidiaphragmatic elevation. Linear cluster of nodular foci involving the posterior basal segment right lower lobe measuring up to 4 mm, previously measuring 3 mm on comparison. Mild bilatera l bronchial wall thickening. Ill-defined 10 mm groundglass opacity of the apical segment right upper lobe on image 33 series 6. No definitive evidence of pulmonary metastasis. No overt pulmonary edema o r airspace consolidation typical for pneumonia. Central airways appear patent. Mild nonspecific mid a nd distal esophageal wall thickening. 1.6 cm enhancing lesion of the left adrenal gland appears stabl e in size. Moderate distention of the gallbladder. Fecal retention. Nonobstructing right nephrolithia sis. Cortical thinning of the kidneys. Soft tissues are unremarkable. Degenerative changes of the amna ulders and spine. No suspicious lytic or blastic osseous lesions. Anterior fusion hardware of the low er cervical spine. IMPRESSION: 1. No acute intrathoracic abnormality. 2. No adenopathy. 3. Ill-defined 10 mm groundglass opacity of the right lung apex. Follow-up recommended to exclude a g roundglass nodule. 4. Linear cluster of solid nodular foci in the posterior basal segment right lower lobe measuring up to 4 mm suggest probable areas of mucous plugging, slightly increased from comparison. Please refer to below summary of Fleischner criteria recommendations for follow-up of incidental CT n lang Pearson, Guidelines for management of small pulmonary nodules detected on CT scans: A sta tement from the Fleischner Society, Radiology 237: [phone].) SOLID NODULES Solitary nodule size: <6 mm * Low risk patients: no follow-up needed * high risk patients: optional CT at 12 months Solitary nodule size: 6-8 mm * Low risk patients: follow-up at 6-12 months, then consider further follow-up at 18-24 months * high risk patients: initial follow-up CT at 6-12 months and then at 18-24 months if no change Solitary nodule size: >8 mm * either low or high risk patients - consider follow-up CT at 3 months, and/or CT-PET, and/or biopsy Multiple nodules size: <6 mm * Low risk patients: no routine follow-up * high risk patients: optional CT at 12 months Multiple nodules size: 6-8 mm * Low risk patients: follow-up at 3-6 months, then consider further follow-up at 18-24 months * high risk patients: follow-up at 3-6 months, then at 18-24 months if no change Multiple nodules size: >8 mm * Low risk patients: follow-up at 3-6 months, then consider further follow-up at 18-24 months * high risk patients: follow-up at 3-6 months, then at 18-24 months if no change Note: newly detected indeterminate nodule in persons 35 years of age or older. * Low risk patients: minimal or absent history of smoking and/or other known risk factors * high risk patients: history of smoking or of other known risk factors (e.g. first degree relative with lung cancer, or exposure to asbestos, radon, uranium) * if a nodule up to 8 mm is partly solid or is ground glass further follow-up is required after 24 m onths to exclude possible slow growing adenocarcinoma (VALERIE) SUBSOLID NODULES Solitary pure ground-glass nodule * nodule size <6 mm - no CT follow-up required * nodule size >=6 mm - follow-up CT at 6-12 months, then every 2 years until 5 years Solitary part-solid nodule * nodule size <6 mm - no CT follow-up required * nodule size >=6 mm - follow-up CT at 3-6 months. If unchanged, and solid component remains <6 mm, then annual follow-up for 5 years Multiple subsolid nodules * nodule size <6 mm - follow-up CT at 3-6 months, consider further follow-up at 2 and 4 years if sta ble * nodule size >=6 mm - follow-up CT at 3-6 months, subsequent management based on the most suspiciou s nodule(s) The above report was generated using voice recognition software. It may contain grammatical, syntax o r spelling errors. ACT 112: Positive. There are findings on this exam that require communication between the performing entity and the patient following Patient Test Result Information Act ([place] Act 112) guidelines. Electronically signed by: David Hamlin M.D. 11/18/2019 12:53 PM
--- NOTE | 2019-11-18 12:54 | CT Scan Report ---
CT abd pelvis oral and IV con CLINICAL HISTORY: 50 lb weight loss, persistent N/v, h/o Breast CA COMPARISON STUDY: 09/01/2019 TECHNIQUE: The patient was scanned following administration of dilute oral contrast, and in a dynamic helical fashion during intravenous administration of 94 cc of Optiray 320 A dose lowering technique was utilized adhering to the principles of ALARA. CT DOSE: 1194.26 mGy.cm FINDINGS: Lower chest: There is borderline elevation of right hemidiaphragm. There are no significant pleural e ffusions. Liver: The contrast-enhanced liver is normal in size, contour, and attenuation. There is no intrahepa tic biliary ductal dilatation. The hepatic veins and portal veins are patent. Gallbladder: Mildly distended. No calculi identified. Spleen: Normal in size and attenuation. Pancreas: Unremarkable. Adrenal glands: Unremarkable. Kidneys: There is 8mm right renal cyst. No solid renal masses are visualized. There is no hydronephro sis. There is a 2 mm right renal calculus. Bowel: There are no transition zones indicate bowel obstruction. The appendix appears normal. There i s no acute diverticulitis. Peritoneum: There is no intraperitoneal free air or abdominal ascites. There is a tiny fat-containing right anterolateral abdominal wall hernia. Vasculature: The abdominal aorta is normal in course and caliber. Adenopathy: None. Pelvic viscera: The uterus is surgically absent. Skeletal structures: No destructive osseous lesions are seen. IMPRESSION: 1. No acute intra-abdominal or pelvic findings. 2. No evidence of intra-abdominal or pelvic metastatic disease 3. No evidence of pathologic adenopathy 4. Nonobstructing 2 mm right renal calculus ACT 112: Negative or not required by law. Electronically signed by: Albino Sarmiento M.D. 11/18/2019 12:53 PM
[2019-11-18] MEDS: methylPREDNISolone 40 MG in SYRINGE 0 ML IV SCH ×2 (14:00→21:08)
[2019-11-18] MEDS: SODIUM CHLORIDE 0.65% NA SOLN 45 ML (OCEAN) SCH ×2 (14:11→21:08)
[2019-11-18] MEDS: FLUTICASONE PROPIONATE NA SPR 16 GM BTL SCH (14:11)
[2019-11-18] MEDS: cefTRIAXone SODIUM 1,000 MG/50 ML BAG IV SCH (15:58)
[2019-11-18] MEDS: SUCRALFATE 1 GM/10 ML UDC PO SCH ×2 (16:02→21:09)
[2019-11-19 05:59] LABS: BUN Creatinine Ratio 17.2 (10-20); Creatinine Clr Calc Pharmacy 38.3 ml/min; Est GFR (African American) 51.5; Est GFR (Non-African American) 44.5; Potassium 4.1 mmol/L (3.5-5.1)
[2019-11-19] MEDS: methylPREDNISolone 40 MG in SYRINGE 0 ML IV SCH ×2 (06:01→20:46)
[2019-11-19] MEDS: LEVOTHYROXINE SODIUM 25 MCG TABLET PO SCH (06:01)
[2019-11-19] MEDS: METOPROLOL TARTRATE 25 MG TAB PO SCH ×2 (09:30→20:45)
--- NOTE | 2019-11-19 10:52 | Gastroenterology Progress Note ---
Date of Service November 19, 2019 Assessment & Plan (1) Abnormal weight loss: (2) Nausea and vomiting: (3) Abnormal CT scan, esophagus: Minimal thickening in esophagus, therefore increased PPI to twice daily and added Carafate 4 times daily Consider EGD if symptoms worsen, however, will hold at this time as it is not considered emergent during this Coronavirus pandemic. If appetite does not improve consider Megace therapy Continue supportive care Admission and Anticipated Discharge Date Admission Date: November 17, 2019 Subjective [place] states she feels better today. She continues to complain of poor appetite. She has not had a BM today. She denies fevers, chills, nausea, vomiting, diarrhea, hematemesis, melena or hematochezia. She has no further complaints. Review of Systems Review of Systems: All systems reviewed & are unremarkable except as noted in HPI & below Physical Exam Constitutional: + ill appearing Chronic Respiratory: normal respiratory effort, lungs clear to auscultation Cardiovascular: RRR, no murmur, no edema Gastrointestinal (Abdomen): normal bowel sounds, soft, nontender, no hepatosplenomegaly Results & Data Results & Data ([facility]) Vital Signs (Past 12 Hours) Vital Signs Temp Pulse Pulse Pulse Resp BP Pulse Ox 11/19/19 09:29 57 L 149/82 H 11/19/19 07:40 61 11/19/19 06:29 36.3 C L 59 L 17 153/84 H 98 11/19/19 04:01 36.7 C 58 L 19 144/71 H 98 11/19/19 01:13 60 PG Care Time/CCT Total # of Minutes Spent Total Time Spent with Patient: Total time spent is greater than 50% in coordination of care (as documented) at patient's floor/unit and/or counseling patient: Coding Level of Care Code 12882 Subseq Hosp Care Lvl 3 Diagnoses Abnormal weight loss R63.4 Nausea and vomiting R11.[address] scan, esophagus R93.3
[2019-11-19] MEDS: POLYETHYLENE (MIRALAX) 17 GM PACK PO SCH ×2 (11:07→20:49)
[2019-11-19] MEDS: DOCUSATE SODIUM/SENNA 50/8.6MG TAB PO SCH (11:07)
[2019-11-19] MEDS: DOCUSATE SODIUM 100 MG CAP PO SCH (11:07)
[2019-11-19] MEDS: APIXABAN 5 MG TABLET PO SCH (11:16)
[2019-11-19] MEDS: FLUTICASONE PROPIONATE NA SPR 16 GM BTL SCH (11:19)
[2019-11-19] MEDS: SODIUM CHLORIDE 0.65% NA SOLN 45 ML (OCEAN) SCH ×3 (11:19→20:46)
[2019-11-19] MEDS: ASPIRIN 81 MG ECTAB PO SCH (11:20)
[2019-11-19] MEDS: PANTOprazole 40 MG TAB PO SCH ×2 (11:21→20:46)
[2019-11-19] MEDS: MIRABEGRON ER 25 MG TAB PO SCH (11:23)
[2019-11-19] MEDS: SIMVASTATIN 20 MG TAB PO SCH (11:24)
[2019-11-19] MEDS: CALCITRIOL 0.25 MCG CAPSULE PO SCH (11:24)
[2019-11-19] MEDS: SUCRALFATE 1 GM/10 ML UDC PO SCH ×4 (11:25→20:49)
[2019-11-19] MEDS: DULOXETINE HCL 30 MG CAP PO SCH (11:26)
[2019-11-19] MEDS: LOSARTAN POTASSIUM 50 MG TAB PO SCH (11:29)
[2019-11-19] MEDS: cloNIDine HCL 0.1 MG TAB PO SCH ×2 (11:29→20:45)
--- NOTE | 2019-11-19 12:03 | Hospitalist Progress Note ---
Date of Service November 19, 2019 Assessment & Plan (1) Generalized weakness: Presented with worsening generalized weakness--> multifactorial likely--> could be from progressive rapid weight loss, poor appetite, acute on chronic sinusitis, suspected UTI. Persists today PT/OT consults -other treatment plan as below (2) Nausea and vomiting: Persistent for several months with history of lack of taste and smell, with chronic pansinusitis with possible acute left frontal sinusitis She has lost approximately 50 pounds in last 6 months and has become debilitated Discussed with GI-cannot perform endoscopies at this time unless emergent due to COVID-19 preservation of PPE Gastric emptying study recently attempted but unable to complete as she vomited Treating for sinusitis as below CT Chest/Abd/Pelvis performed which shows mild thickening of mid-distal esophagus but otherwise unrevealing for cause of nausea/poor appetite or weight loss MRI of the brain recently without explanation to cause persistent nausea LFTs normal, not anemic, was mildly dehydrated on admission which is now improved with hydration Also with hypoglycemia here due to poor p.o. intake-now improved with IV steroids -Increased PPI to twice daily, added Carafate QID as per GI rec -dc IVFs -adv diet to regular today so she can have more options for nutrition -Eventually will need EGD/colonoscopy as an outpt -Reglan would not be a good option for her given ongoing neurological/cognitive issues -will make Zofran scheduled bid with meals -Appreciate GI consultation -will decrease dose of her duloxetine to 30mg daily as this can cause nausea -Discussed case with [facility] on the phone who had previously reviewed her CT scan of the sinuses in preparation for an upcoming telehealth visit-they do not suspect a malignancy in the sinuses, but did suggest treatment for sinusitis as below (3) HTN, goal below 140/90: -BP now elevated after starting IV steroids -Continue home meds of clonidine, metoprolol, and losartan (4) Hypercholesterolemia: -Chronic, stable -Continue simvastatin (5) Atrial fibrillation: -Paroxysmal, continue on Eliquis 5 mg daily In normal sinus rhythm here -Continue rate control with metoprolol 25 mg BID (6) GERD (gastroesophageal reflux disease): -Continue PPI but increased to twice daily (7) Osteopenia: -Continue supplementation with calcitriol (8) Chronic kidney disease (CKD), stage III (moderate): -Creatinine actually improved with hydration overnight and is now down to 1.18 which is below her baseline -Renally dose medications when appropriate -Avoid nephrotoxins -Continue losartan (9) Constipation, chronic: -Hx of such thought to be causing her persistent nausea in the past KUB here with mild to moderate fecal load as also on CT abdomen/pelvis -Continue bowel regimen with daily dulcolax/senna PO and miralax PO BID. (10) Elevated troponin: -Troponin slightly elevated compared to her previous chronically elevated troponin to 0.280 x3 compared to baseline of 0.097. This may be secondary to demand ischemia in the setting of dehydration, patient without any complaints of chest pain, cardiac symptoms. -Last echo last was completed on 09/02/2019 showing normal left ventricular size and systolic function, EF 65 to 70% no regional wall motion abnormalities, no LV H. Mild mitral regurg. No need to repeat at this time. -EKG reviewed showing NSR [place] T wave abnormality no longer evident in the inferior leads, T wave inversion less evident in anterior lateral leads compared to previous No further work-up needed (11) Diabetes: -Patient previously diagnosed with diabetes, current A1c= 5.8 on 09/02/2019 -Glucose was 67 upon admission and again low in the 40s after admission--> this is likely low due to her poor oral intake Glucose now high due to IV steroids -dc D5 half-normal saline -Encourage p.o. intake and hold off on further IVFs at this time (12) Hypothyroid: - TSH is elevated at 4.760, last check was 3.21 on 10/06/2019. Not currently on replacement therapy -We will start low-dose levothyroxine to see if helps with appetite, nausea/constipation -Follow TSH in 4 to 6 weeks (13) Severe protein-calorie malnutrition: Severe protein-calorie malnutrition e/b weakness and progressive weight loss. (14) Sinusitis: Acute left frontal sinusitis on chronic pansinusitis suspected Reviewed with ENT on the phone-do not suspect malignancy but also ENT does not think this is related to her significant weight loss and nausea and vomiting No facial pain, headache, fevers, or facial numbness on exam -We will continue to treat with Rocephin and then convert to Augmentin for 3- week treatment course -Started IV steroids and then eventually convert to prednisone once GI issues are improving-decrease Solu Medrol to q12h dosing today -Started Flonase daily and nasal saline 3 times daily (15) Breast cancer: -History of such, resolved Groundglass opacity in the right lung on CT of the chest but otherwise no evidence of recurrence or metastases (16) UTI (urinary tract infection): Unclear if has symptoms as has chronic urinary incontinence -UA appears infected, urine culture with mixed organisms -Started on IV ceftriaxone, no longer needs antibiotics for this-UTI ruled out -BCx x2 no growth (17) Pulmonary nodule: RUL pulm nodule 10mm groundglass Needs f/u CT scan as outpt (18) Hyponatremia: Na+ down to 131 today, likely from hypotonic IVFs which are now stopped -follow BMP in AM (19) DVT prophylaxis: -teds, continue eliquis BID CODE: DNR Dispo: From home, likely needs placement more nursing home, PT/OT evals Admission and Anticipated Discharge Date Admission Date: November 17, 2019 Subjective Pt initially reports feeling "a little better" but then says she still has no appetite and cannot even remember what her favorite foods are as it has been so long since she desired food. No facial pain or numbness, no headache, no chest pain or SOB, no abd pain. No BM yet today. No vomiting. Tele with SB-NSR, rates 50s-60s, PACs Review of Systems Review of Systems: All systems reviewed & are unremarkable except as noted in HPI & below Physical Exam Constitutional: no acute distress and not lethargic Eyes: + anicteric sclerae ENMT: external ear and nose normal, oropharynx normal (no facial droop) Nose: no facial exam abnormality (no TTP over face or forehead) Neck: trachea midline, no thyromegaly Respiratory: normal respiratory effort, lungs clear to auscultation Cardiovascular: RRR, no murmur, no edema Chest (Breasts): Chest: normal inspection of chest Gastrointestinal (Abdomen): normal bowel sounds, soft, nontender, no hepatosplenomegaly Musculoskeletal: Extremities: extremities normal to inspection; no cyanosis and no clubbing Skin: no rashes, warm and dry Neurologic: moves all extremities and awake; no focal motor deficits Psychiatric: Orientation: alert, oriented to place and cooperative Affect: + blunted affect Lymphatic: no lymphedema Results & Data Results & [facility] ([facility]) Vital Signs (Past 12 Hours) Vital Signs Temp Pulse Pulse Pulse Resp BP Pulse Ox 11/19/19 11:38 36.3 C L 58 L 20 186/76 H 99 11/19/19 11:29 170/81 H 11/19/19 09:29 57 L 149/82 H 11/19/19 07:40 61 11/19/19 06:29 36.3 C L 59 L 17 153/84 H 98 11/19/19 04:01 36.7 C 58 L 19 144/71 H 98 11/19/19 01:13 60 Laboratory Results 11/19/19 11/19/19 11/19/19 Range/Units 11:46 07:33 05:15 Sodium 131 L (136-145) mmol/L Potassium 4.1 (3.5-5.1) mmol/L Chloride 102 (98-107) mmol/L Carbon Dioxide 24 (21-32) mmol/L Anion Gap 5.0 (3-11) BUN 20 H (7-18) mg/dl Creatinine 1.18 (0.6-1.2) mg/dl Est Cr Clr Drug Dosing 38.3 ml/min Est GFR ( Amer) 51.5 Est GFR (Non-Af Amer) 44.5 BUN/Creatinine Ratio 17.2 (10-20) Glucose 202 H (70-99) mg/dl POC Glucose 147 H 167 H (70-99) mg/dl Calcium 9.0 (8.5-10.1) mg/dl 11/18/19 11/18/19 Range/Units 20:21 16:11 Sodium (136-145) mmol/L Potassium (3.5-5.1) mmol/L Chloride (98-107) mmol/L Carbon Dioxide (21-32) mmol/L Anion Gap (3-11) BUN (7-18) mg/dl Creatinine (0.6-1.2) mg/dl Est Cr Clr Drug Dosing ml/min Est GFR ( Amer) Est GFR (Non-Af Amer) BUN/Creatinine Ratio (10-20) Glucose (70-99) mg/dl POC Glucose 143 H 100 H (70-99) mg/dl Calcium (8.5-10.1) mg/dl PG Care Time/CCT Total # of Minutes Spent Total Time Spent with Patient: Total time spent is greater than 50% in coordination of care (as documented) at patient's floor/unit and/or counseling patient: Coding Level of Care Code 82554 Subseq Hosp Care Lvl 3 Diagnoses Generalized weakness R53.1 Nausea and vomiting R11.2 HTN, goal below 140/90 I10 Hypercholesterolemia E78.00 Atrial fibrillation I48.0 Atrial fibrillation type: paroxysmal GERD (gastroesophageal reflux disease) K21.9 Esophagitis presence: esophagitis presence not specified Osteopenia M85.80 Chronic kidney disease (CKD), stage III (moderate) N18.3 Constipation, chronic K59.09 Elevated troponin R79.89 Diabetes E11.9 Diabetes mellitus type: type 2 Diabetes mellitus nursing home insulin use: without nursing home use Diabetes mellitus complication status: without complication Hypothyroid E03.9 Severe protein-calorie malnutrition E43 Sinusitis J32.9 Breast cancer C50.919 UTI (urinary tract infection) N39.0 Pulmonary nodule R91.1 Hyponatremia E87.1 DVT prophylaxis Z29.9 (1) Atrial fibrillation Atrial fibrillation type: paroxysmal Qualified Code(s): I48.0 - Paroxysmal atrial fibrillation (2) GERD (gastroesophageal reflux disease) Esophagitis presence: esophagitis presence not specified Qualified Code(s): K21.9 - Gastro-esophageal reflux disease without esophagitis (3) Diabetes Diabetes mellitus type: type 2 Diabetes mellitus [employer] insulin use: without nursing home use Diabetes mellitus complication status: without complication Qualified Code(s): E11.9 - Type 2 diabetes mellitus without complications
[2019-11-19] MEDS: ONDANSETRON INJ 2 MG/ML 2 ML VIAL IV SCH ×2 (12:24→16:40)
[2019-11-19] MEDS: cefTRIAXone SODIUM 1,000 MG/50 ML BAG IV SCH (16:00)
[2019-11-20 05:47] LABS: Basophils # (auto) 0.02 K/uL (0-0.2); Basophils % (auto) 0.1 %; Hematocrit (blood only) 37.6 % (37-47); Hemoglobin 12.7 g/dL (12.0-16.0); Immature Granulocytes # (auto) 0.12 K/uL (0.00-0.02); Immature Granulocytes % (auto) 0.8 %; Lymphocytes # (auto) 0.61 K/uL (1.2-3.4); Lymphocytes % (auto) 4.2 %; Mean Corpuscular Hemoglobin 27.8 pg (25-34); Mean Corpuscular Hgb Conc 33.8 g/dL (32-36); Mean Corpuscular Volume 82.3 fL (80-100); Mean Platelet Volume 10.7 fL (7.4-10.4); Monocytes # (auto) 0.46 K/uL (0.11-0.59); Monocytes % (auto) 3.2 %; Neutrophils # (auto) 13.19 K/uL (1.4-6.5); Neutrophils % (auto) 91.7 %; Platelet Count 166 K/uL (130-400); RDW Coefficient of Variation 15.7 % (11.5-14.5); RDW Standard Deviation 47.2 fL (36.4-46.3); Red Blood Count 4.57 M/uL (4.2-5.4)
[2019-11-20] MEDS: LEVOTHYROXINE SODIUM 25 MCG TABLET PO SCH (06:03)
[2019-11-20 06:05] LABS: BUN Creatinine Ratio 15.9 (10-20); Calcium 9.3 mg/dl (8.5-10.1); Creatinine Clr Calc Pharmacy 38.6 ml/min; Est GFR (African American) 52.1; Est GFR (Non-African American) 44.9; Potassium 4.1 mmol/L (3.5-5.1)
[2019-11-20] MEDS: MIRABEGRON ER 25 MG TAB PO SCH (08:07)
[2019-11-20] MEDS: DOCUSATE SODIUM/SENNA 50/8.6MG TAB PO SCH (08:07)
[2019-11-20] MEDS: DULOXETINE HCL 30 MG CAP PO SCH (08:07)
[2019-11-20] MEDS: ONDANSETRON INJ 2 MG/ML 2 ML VIAL IV SCH ×2 (08:07→16:19)
[2019-11-20] MEDS: CALCITRIOL 0.25 MCG CAPSULE PO SCH (08:08)
[2019-11-20] MEDS: SUCRALFATE 1 GM/10 ML UDC PO SCH ×4 (08:08→20:06)
[2019-11-20] MEDS: SIMVASTATIN 20 MG TAB PO SCH (08:08)
[2019-11-20] MEDS: LOSARTAN POTASSIUM 50 MG TAB PO SCH (08:08)
[2019-11-20] MEDS: PANTOprazole 40 MG TAB PO SCH ×2 (08:08→20:07)
[2019-11-20] MEDS: cloNIDine HCL 0.1 MG TAB PO SCH ×2 (08:10→20:11)
[2019-11-20] MEDS: METOPROLOL TARTRATE 25 MG TAB PO SCH ×2 (08:10→20:11)
[2019-11-20] MEDS: POLYETHYLENE (MIRALAX) 17 GM PACK PO SCH ×2 (08:12→20:05)
[2019-11-20] MEDS: SODIUM CHLORIDE 0.65% NA SOLN 45 ML (OCEAN) SCH ×3 (08:13→20:05)
[2019-11-20] MEDS: FLUTICASONE PROPIONATE NA SPR 16 GM BTL SCH (08:13)
[2019-11-20] MEDS: methylPREDNISolone 40 MG in SYRINGE 0 ML IV SCH ×2 (08:31→20:06)
--- NOTE | 2019-11-20 09:12 | Gastroenterology Progress Note ---
Date of Service November 20, 2019 Assessment & Plan (1) Abnormal CT scan, esophagus: Due to worsening symptoms despite escalation of care, I would recommend an emergent EGD to ensure that patient does not have a distal esophageal cancer based on CT imaging and no improvement Continue current therapy Further recommendations to follow (2) Abnormal weight loss: Admission and Anticipated Discharge Date Admission Date: November 17, 2019 Subjective Discussed case with Dr. Vegas, who informed me that patient is having difficulty eating and her symptoms have progressed. Patient has not had any significant PO intake, despite twice daily PPI use, and carafate therapy. Physical Exam Constitutional: + ill appearing Respiratory: normal respiratory effort, lungs clear to auscultation Cardiovascular: RRR, no murmur, no edema Gastrointestinal (Abdomen): normal bowel sounds, soft, nontender, no hepatosplenomegaly Results & Data Results & Data ([facility]) Vital Signs (Past 12 Hours) Vital Signs Temp Pulse Resp BP Pulse Ox 11/20/19 06:43 36.4 C L 54 L 19 161/74 H 98 11/19/19 23:06 36.3 C L 54 L 18 156/79 H 99 PG Care Time/CCT Total # of Minutes Spent Total Time Spent with Patient: Total time spent is greater than 50% in coordination of care (as documented) at patient's floor/unit and/or counseling patient: Coding Level of Care Code None Diagnoses Abnormal CT scan, esophagus R93.3 Abnormal weight loss R63.4
--- NOTE | 2019-11-20 10:19 | Anesthesiology Consultation ---
Date of Service November 20, 2019 Assessment & Plan Chart Review Chart Review: Acceptable Risk for Surgery (elevated risk but necessary procedure) and Patient NOT seen in Pre Admission Testing Consults Requested none History Surgery Operation Date: 11/20/19 10:30 Proposed Procedures p Esophagogastroduodenoscopy Dr Lovelace - Vic Chandler Case, DO Height/Weight Height: 5 ft 3 in Weight: 73.4 kg Allergies Allergy/AdvReac Type Severity Reaction Status Date / Time HO Inhibitors Allergy Unknown ITCHING Verified 11/17/19 16:01 acetaminophen [From Percocet] Allergy Unknown Unknown Verified 11/17/19 16:01 tolterodine Allergy Unknown Unknown Verified 11/17/19 16:01 oxycodone AdvReac Mild CAUSES BE Verified 11/17/19 16:01 JITTERINESS & CAN'T EAT. ALSO CAUSES RLS SYMPTOMS Medications Home Medications Medication Instructions Recorded Confirmed Last Taken aspirin 81 mg PO QAM 01/18/19 11/17/19 10/06/19 calcitriol 0.5 mcg PO QAM 01/18/19 11/17/19 10/06/19 metoprolol tartrate 25 mg tablet 25 mg PO BID #180 tab 04/03/19 11/17/19 10/06/19 buspirone 10 mg tablet 10 mg PO BID 90 Days #60 tab 08/15/19 11/17/19 10/06/19 apixaban 5 mg tablet 5 mg PO BID #60 tab 09/22/19 11/17/19 10/06/19 clonidine HCl [Catapres] 0.1 mg PO BID 10/06/19 11/17/19 10/06/19 hydroxychloroquine [Plaquenil] 200 mg PO BID 10/06/19 11/17/19 10/06/19 losartan [Cozaar] 100 mg PO QAM 10/06/19 11/17/19 10/06/19 omeprazole 20 mg PO QAM 10/06/19 11/17/19 10/06/19 polyethylene glycol 3350 [Miralax] 17 g PO BID 10/06/19 11/17/19 10/06/19 mirabegron 50 mg tablet,extended 50 mg PO DAILY #90 tab 10/15/19 11/17/19 Unknown release 24 hr duloxetine 60 mg capsule,delayed 60 mg PO DAILY #90 cap 10/16/19 11/17/19 Unknown release docusate sodium 100 mg capsule 100 mg PO DAILY 10/22/19 11/17/19 Unknown simvastatin 20 mg tablet 20 mg PO DAILY 10/22/19 11/17/19 Unknown sodium chloride 0.65 % nasal spray 1 sprays INTNAS BID PRN 10/22/19 11/17/19 Unknown aerosol ranitidine HCl 300 mg tablet 300 mg PO HS #90 tab 11/17/19 11/17/19 Unknown Active Medications Generic Name Dose Route Start Last Admin Trade Name Fredebbi PRN Reason Stop Dose Admin Apixaban 5 mg 11/17/19 21:00 11/19/19 11:16 Eliquis PO 12/17/19 20:59 5 mg BID ERMIAS Administration Aspirin 81 mg 11/18/19 09:00 11/19/19 11:20 Ecotrin Ectab PO 12/18/19 08:59 81 mg QAM ERMIAS Administration Buspirone HCl 10 mg 11/17/19 21:00 11/20/19 08:10 Buspar PO 12/17/19 20:59 10 mg BID ERMIAS Administration Calcitriol 0.5 mcg 11/18/19 09:00 11/20/19 08:08 Rocaltrol PO 12/18/19 08:59 0.5 mcg QAM ERMIAS Administration Clonidine HCl 0.1 mg 11/17/19 21:00 11/20/19 08:10 Catapres PO 12/17/19 20:59 0.1 mg BID ERMIAS Administration Duloxetine HCl 30 mg 11/19/19 09:00 11/20/19 08:07 Cymbalta PO 12/19/19 08:59 30 mg DAILY ERMIAS Administration Fluticasone Propionate 2 sprays 11/18/19 13:30 11/20/19 08:13 Flonase NA 12/18/19 13:29 2 sprays DAILY ERMIAS Administration Ceftriaxone Sodium 1,000 mg in 50 mls @ 100 mls/hr 11/18/19 16:00 11/19/19 16:49 Rocephin IV 11/28/19 15:59 Infused Q24H ERMIAS Infusion Protocol Methylprednisolone 40 mg/ 0.64 mls @ 1.5 mls/min 11/19/19 21:00 11/20/19 08:31 Syringe IV 12/19/19 20:59 1.5 mls/min Q12 ERMIAS Administration Ioversol 94 ml 11/18/19 12:28 11/18/19 12:30 Optiray 320 100ml IV 11/22/19 12:27 94 ml ONCE PRN Administration Interaction Checking Levothyroxine Sodium 25 mcg 11/19/19 06:30 11/20/19 06:03 Synthroid PO 12/19/19 06:29 25 mcg DAILYBB ERMIAS Administration Losartan Potassium 100 mg 11/18/19 09:00 11/20/19 08:08 Cozaar PO 12/18/19 08:59 100 mg QAM ERMIAS Administration Metoprolol Tartrate 25 mg 11/17/19 21:00 11/20/19 08:10 Lopressor PO 12/17/19 20:59 Not Given BID ERMIAS Mirabegron 50 mg 11/18/19 09:00 11/20/19 08:07 Myrbetriq Er PO 12/18/19 08:59 50 mg DAILY ERMIAS Administration Miscellaneous 1 ea 11/18/19 00:00 11/20/19 08:10 Order Awaiting Action N/A 12/18/19 00:00 Not Given QS ERMIAS Ondansetron HCl 4 mg 11/19/19 12:15 11/20/19 08:07 Zofran IV 12/19/19 12:14 4 mg BIDM ERMIAS Administration Pantoprazole Sodium 40 mg 11/18/19 21:00 11/20/19 08:08 Protonix PO 12/18/19 20:59 40 mg BID ERMIAS Administration Polyethylene Glycol 17 gm 11/17/19 21:00 11/20/19 08:12 Miralax Powder Packet PO 12/17/19 20:59 Not Given BID ERMIAS Senna/Docusate Sodium 1 tab 11/18/19 09:00 11/20/19 08:07 Senokot S PO 12/18/19 08:59 1 tab QAM ERMIAS Administration Simvastatin 20 mg 11/18/19 09:00 11/20/19 08:08 Zocor PO 12/18/19 08:59 20 mg DAILY ERMIAS Administration Sodium Chloride 2 sprays 11/18/19 14:00 11/20/19 08:13 [place] Nasal NA 12/18/19 13:59 Not Given TID ERMIAS Sucralfate 1 gm 11/18/19 17:00 11/20/19 08:08 Carafate PO 12/18/19 16:59 1 gm QID ERMIAS Administration Past Medical History Medical History Acute on chronic renal insufficiency (Resolved) Atrial fibrillation Atrial fibrillation with RVR (Resolved) Breast cancer (Resolved) Cancer of uterus Chest pain CKD (chronic kidney disease) Colonic polyp Constipation Depression Diabetes borderline, diet controlled Dyslipidemia Elevated troponin Endometrial cancer, grade I GERD (gastroesophageal reflux disease) History of chemotherapy History of TIAs last one over 10 years ago HTN, goal below 140/90 Hyperactivity of bladder Hypertension Hypothyroid Late effects of cerebrovascular disease (Chronic) Memory impairment Pulmonary nodule Stroke Past Family History Family History Father Myocardial infarction Coronary heart disease Cardiac disorder Brother Myocardial infarction Hypertension Diabetes Lung cancer Prostate cancer Multiple sclerosis Sister Breast cancer Alzheimer disease Mother Unknown whether patient has any health problems Denies family history of Pancreatic cancer Ovarian cancer Colorectal cancer Malignant neoplasm of uterus Past Surgical History Surgical History History of bilateral knee replacement History of bilateral salpingo-oophorectomy (Resolved) History of hysterectomy History of mastectomy History of mastectomy (Resolved) History of total abdominal hysterectomy (Resolved) History of total knee arthroplasty (Resolved) Status post biopsy of skin (Resolved) Social History Smoking Status: Never smoker Hx Alcohol Use: No Hx Substance Use: No Physical Exam Vital Signs Last Vital Signs Temp 36.4 C L 11/20/19 06:43 Pulse 54 L 11/20/19 06:43 Resp 19 11/20/19 06:43 BP 161/74 H 11/20/19 06:43 Pulse Ox 98 11/20/19 06:43 Testing Laboratory Results 11/20/19 05:17 11/20/19 05:17 PT 10.7 Seconds (9.0-12.0) 11/17/19 14:55 INR 1.0 (0.9-1.1) 11/17/19 14:55 APTT 31.1 Seconds (21.0-31.0) H 11/17/19 14:55 Urine Color Dark Yellow 11/17/19 14:25 Urine Appearance Turbid (Clear) A 11/17/19 14:25 Urine pH 7.5 (4.5-7.5) 11/17/19 14:25 Ur Specific [place] 1.021 (1.000-1.030) 11/17/19 14:25 Urine Protein 2+ (Negative) H 11/17/19 14:25 Urine Glucose (UA) Negative (Negative) 11/17/19 14:25 Urine Ketones Trace (Negative) H 11/17/19 14:25 Urine Nitrite Negative (Negative) 11/17/19 14:25 Ur Leukocyte Esterase 3+ (Negative) H 11/17/19 14:25 Urine WBC (Auto) >30 /hpf (0-5) H 11/17/19 14:25 Urine RBC (Auto) 0-4 /hpf (0-4) 11/17/19 14:25 U Hyaline Cast (Auto) 1-5 /lpf (0-5) 11/17/19 14:25 U Epithel Cells (Auto) 10-20 /lpf (0-5) H 11/17/19 14:25 Urine Bacteria (Auto) 4+ (Negative) H 11/17/19 14:25 11/17/19 15:47 Aerobic Blood Culture - Preliminary Blood No growth in Aerobic bottle after 48 hours. Anaerobic Blood Culture - Final 11/17/19 15:47 Aerobic Blood Culture - Preliminary Blood No growth in Aerobic bottle after 48 hours. Anaerobic Blood Culture - Final 11/17/19 14:25 Urine Culture - Final Urine,Indwelling Cath Three types of organisms present, all high counts. Re peat collection recommended. No further identifications or sensitivities to follow. 11/20/19 07:34 POC Glucose 147 H
[2019-11-20] MEDS ORDERED: LIDOCAINE HCL 2% 2 ML VIAL/AMP(20MG/ML) INFIL ONE (10:24)
[2019-11-20] MEDS ORDERED: PROPOFOL IV EMULSION 10 MG/ML 20 ML VIAL IV ONE (10:24)
--- NOTE | 2019-11-20 10:35 | Anesthesiology Consultation ---
Date of Service November 20, 2019 Assessment & Plan (1) Encounter for pre-operative examination: Chart Review Chart Review: Acceptable Risk for Surgery (elevated risk but necessary surgery) and Patient NOT seen in Pre Admission Testing Consults Requested none History Surgery Operation Date: 11/20/19 10:30 Proposed Procedures p Esophagogastroduodenoscopy Dr Lovelace - Vic Chandler Case, DO Height/Weight Height: 5 ft 3 in Weight: 73.4 kg Allergies Allergy/AdvReac Type Severity Reaction Status Date / Time HO Inhibitors Allergy Unknown ITCHING Verified 11/17/19 16:01 acetaminophen [From Percocet] Allergy Unknown Unknown Verified 11/17/19 16:01 tolterodine Allergy Unknown Unknown Verified 11/17/19 16:01 oxycodone AdvReac Mild CAUSES BE Verified 11/17/19 16:01 JITTERINESS & CAN'T EAT. ALSO CAUSES RLS SYMPTOMS Medications Home Medications Medication Instructions Recorded Confirmed Last Taken aspirin 81 mg PO QAM 01/18/19 11/17/19 10/06/19 calcitriol 0.5 mcg PO QAM 01/18/19 11/17/19 10/06/19 metoprolol tartrate 25 mg tablet 25 mg PO BID #180 tab 04/03/19 11/17/19 10/06/19 buspirone 10 mg tablet 10 mg PO BID 90 Days #60 tab 08/15/19 11/17/19 10/06/19 apixaban 5 mg tablet 5 mg PO BID #60 tab 09/22/19 11/17/19 10/06/19 clonidine HCl [Catapres] 0.1 mg PO BID 10/06/19 11/17/19 10/06/19 hydroxychloroquine [Plaquenil] 200 mg PO BID 10/06/19 11/17/19 10/06/19 losartan [Cozaar] 100 mg PO QAM 10/06/19 11/17/19 10/06/19 omeprazole 20 mg PO QAM 10/06/19 11/17/19 10/06/19 polyethylene glycol 3350 [Miralax] 17 g PO BID 10/06/19 11/17/19 10/06/19 mirabegron 50 mg tablet,extended 50 mg PO DAILY #90 tab 10/15/19 11/17/19 Unknown release 24 hr duloxetine 60 mg capsule,delayed 60 mg PO DAILY #90 cap 10/16/19 11/17/19 Unknown release docusate sodium 100 mg capsule 100 mg PO DAILY 10/22/19 11/17/19 Unknown simvastatin 20 mg tablet 20 mg PO DAILY 10/22/19 11/17/19 Unknown sodium chloride 0.65 % nasal spray 1 sprays INTNAS BID PRN 10/22/19 11/17/19 Unknown aerosol ranitidine HCl 300 mg tablet 300 mg PO HS #90 tab 11/17/19 11/17/19 Unknown Active Medications Generic Name Dose Route Start Last Admin Trade Name Freq PRN Reason Stop Dose Admin Apixaban 5 mg 11/17/19 21:00 11/19/19 11:16 Eliquis PO 12/17/19 20:59 5 mg BID ERMIAS Administration Aspirin 81 mg 11/18/19 09:00 11/19/19 11:20 Ecotrin Ectab PO 12/18/19 08:59 81 mg QAM ERMIAS Administration Buspirone HCl 10 mg 11/17/19 21:00 11/20/19 08:10 Buspar PO 12/17/19 20:59 10 mg BID ERMIAS Administration Calcitriol 0.5 mcg 11/18/19 09:00 11/20/19 08:08 Rocaltrol PO 12/18/19 08:59 0.5 mcg QAM ERMIAS Administration Clonidine HCl 0.1 mg 11/17/19 21:00 11/20/19 08:10 Catapres PO 12/17/19 20:59 0.1 mg BID ERMIAS Administration Duloxetine HCl 30 mg 11/19/19 09:00 11/20/19 08:07 Cymbalta PO 12/19/19 08:59 30 mg DAILY ERMIAS Administration Fluticasone Propionate 2 sprays 11/18/19 13:30 11/20/19 08:13 Flonase NA 12/18/19 13:29 2 sprays DAILY ERMIAS Administration Ceftriaxone Sodium 1,000 mg in 50 mls @ 100 mls/hr 11/18/19 16:00 11/19/19 16:49 Rocephin IV 11/28/19 15:59 Infused Q24H ERMIAS Infusion Protocol Methylprednisolone 40 mg/ 0.64 mls @ 1.5 mls/min 11/19/19 21:00 11/20/19 08:31 Syringe IV 12/19/19 20:59 1.5 mls/min Q12 ERMIAS Administration Ioversol 94 ml 11/18/19 12:28 11/18/19 12:30 Optiray 320 100ml IV 11/22/19 12:27 94 ml ONCE PRN Administration Interaction Checking Levothyroxine Sodium 25 mcg 11/19/19 06:30 11/20/19 06:03 Synthroid PO 12/19/19 06:29 25 mcg DAILYBB ERMIAS Administration Losartan Potassium 100 mg 11/18/19 09:00 11/20/19 08:08 Cozaar PO 12/18/19 08:59 100 mg QAM ERMIAS Administration Metoprolol Tartrate 25 mg 11/17/19 21:00 11/20/19 08:10 Lopressor PO 12/17/19 20:59 Not Given BID ERMIAS Mirabegron 50 mg 11/18/19 09:00 11/20/19 08:07 Myrbetriq Er PO 12/18/19 08:59 50 mg DAILY ERMIAS Administration Miscellaneous 1 ea 11/18/19 00:00 11/20/19 08:10 Order Awaiting Action N/A 12/18/19 00:00 Not Given QS ERMIAS Ondansetron HCl 4 mg 11/19/19 12:15 11/20/19 08:07 Zofran IV 12/19/19 12:14 4 mg BIDM ERMIAS Administration Pantoprazole Sodium 40 mg 11/18/19 21:00 11/20/19 08:08 Protonix PO 12/18/19 20:59 40 mg BID ERMIAS Administration Polyethylene Glycol 17 gm 11/17/19 21:00 11/20/19 08:12 Miralax Powder Packet PO 12/17/19 20:59 Not Given BID ERMIAS Senna/Docusate Sodium 1 tab 11/18/19 09:00 11/20/19 08:07 Senokot S PO 12/18/19 08:59 1 tab QAM ERMIAS Administration Simvastatin 20 mg 11/18/19 09:00 11/20/19 08:08 Zocor PO 12/18/19 08:59 20 mg DAILY ERMIAS Administration Sodium Chloride 2 sprays 11/18/19 14:00 11/20/19 08:13 [place] Nasal NA 12/18/19 13:59 Not Given TID ERMIAS Sucralfate 1 gm 11/18/19 17:00 11/20/19 08:08 Carafate PO 12/18/19 16:59 1 gm QID ERMIAS Administration Past Medical History Medical History Acute on chronic renal insufficiency (Resolved) Atrial fibrillation Atrial fibrillation with RVR (Resolved) Breast cancer (Resolved) Cancer of uterus Chest pain CKD (chronic kidney disease) Colonic polyp Constipation Depression Diabetes borderline, diet controlled Dyslipidemia Elevated troponin Endometrial cancer, grade I GERD (gastroesophageal reflux disease) History of chemotherapy History of TIAs last one over 10 years ago HTN, goal below 140/90 Hyperactivity of bladder Hypertension Hypothyroid Late effects of cerebrovascular disease (Chronic) Memory impairment Pulmonary nodule Stroke Past Family History Family History Father Myocardial infarction Coronary heart disease Cardiac disorder Brother Myocardial infarction Hypertension Diabetes Lung cancer Prostate cancer Multiple sclerosis Sister Breast cancer Alzheimer disease Mother Unknown whether patient has any health problems Denies family history of Pancreatic cancer Ovarian cancer Colorectal cancer Malignant neoplasm of uterus Past Surgical History Surgical History History of bilateral knee replacement History of bilateral salpingo-oophorectomy (Resolved) History of hysterectomy History of mastectomy History of mastectomy (Resolved) History of total abdominal hysterectomy (Resolved) History of total knee arthroplasty (Resolved) Status post biopsy of skin (Resolved) Social History Smoking Status: Never smoker Hx Alcohol Use: No Hx Substance Use: No Physical Exam Vital Signs Last Vital Signs Temp 36.5 C 11/20/19 10:21 Pulse 104 H 11/20/19 10:21 Resp 18 11/20/19 10:21 BP 195/99 H 11/20/19 10:21 Pulse Ox 94 11/20/19 10:21 Testing Laboratory Results 11/20/19 05:17 11/20/19 05:17 PT 10.7 Seconds (9.0-12.0) 11/17/19 14:55 INR 1.0 (0.9-1.1) 11/17/19 14:55 APTT 31.1 Seconds (21.0-31.0) H 11/17/19 14:55 Urine Color Dark Yellow 11/17/19 14:25 Urine Appearance Turbid (Clear) A 11/17/19 14:25 Urine pH 7.5 (4.5-7.5) 11/17/19 14:25 Ur Specific [place] 1.021 (1.000-1.030) 11/17/19 14:25 Urine Protein 2+ (Negative) H 11/17/19 14:25 Urine Glucose (UA) Negative (Negative) 11/17/19 14:25 Urine Ketones Trace (Negative) H 11/17/19 14:25 Urine Nitrite Negative (Negative) 11/17/19 14:25 Ur Leukocyte Esterase 3+ (Negative) H 11/17/19 14:25 Urine WBC (Auto) >30 /hpf (0-5) H 11/17/19 14:25 Urine RBC (Auto) 0-4 /hpf (0-4) 11/17/19 14:25 U Hyaline Cast (Auto) 1-5 /lpf (0-5) 11/17/19 14:25 U Epithel Cells (Auto) 10-20 /lpf (0-5) H 11/17/19 14:25 Urine Bacteria (Auto) 4+ (Negative) H 11/17/19 14:25 11/17/19 15:47 Aerobic Blood Culture - Preliminary Blood No growth in Aerobic bottle after 48 hours. Anaerobic Blood Culture - Final 11/17/19 15:47 Aerobic Blood Culture - Preliminary Blood No growth in Aerobic bottle after 48 hours. Anaerobic Blood Culture - Final 11/17/19 14:25 Urine Culture - Final Urine,Indwelling Cath Three types of organisms present, all high counts. Repeat collection recommended. No further identifications or sensitivities to follow. 11/20/19 07:34 POC Glucose 147 H Electrocardiogram Date: 11/17/19 Findings: + NSR @ (97) Echocardiogram Date: 09/01/19 EF: 65-70 Valvular Disease: + MR (mild) Other Testing CHEST CT WITH CONTRAST HISTORY: Acute weight loss with nausea and vomiting. History of breast cancer. h/o breast CA,50 lb weight loss,persistent N/V TECHNIQUE: Multiaxial CT images of the chest were performed following the IV administration of 94 cc of Optiray 320. A dose lowering technique was utilized adhering to the principles of ALARA. COMPARISON: CT abdomen and pelvis of same day, 09/01/2019 and 11/26/2017. FINDINGS: Heart is normal in size. No pericardial effusion. Mild coronary artery calcifications. No thoracic aortic aneurysm or dissection. Moderate mixed plaque of the thoracic aorta. Unopacified pulmonary artery is unremarkable. Subcentimeter hypodense nodule the posterior right thyroid lobe. There are a few scattered nonenlarged mediastinal lymph nodes present measuring up to 6 mm. No pathologic adenopathy. Postoperative changes of prior right-sided mastectomy with right axillary stefano dissection. Mild right hemidiaphragmatic elevation. Linear cluster of nodular foci involving the posterior basal segment right lower lobe measuring up to 4 mm, previously measuring 3 mm on comparison. Mild bilateral bronchial wall thickening. Ill- defined 10 mm groundglass opacity of the apical segment right upper lobe on image 33 series 6. No definitive evidence of pulmonary metastasis. No overt pulmonary edema or airspace consolidation typical for pneumonia. Central airways appear patent. Mild nonspecific mid and distal esophageal wall thickening. 1.6 cm enhancing lesion of the left adrenal gland appears stable in size. Moderate distention of the gallbladder. Fecal retention. Nonobstructing right nephrolithiasis. Cortical thinning of the kidneys. Soft tissues are unremarkable. Degenerative changes of the shoulders and spine. No suspicious lytic or blastic osseous lesions. Anterior fusion hardware of the lower cervical spine. IMPRESSION: 1. No acute intrathoracic abnormality. 2. No adenopathy. 3. Ill-defined 10 mm groundglass opacity of the right lung apex. Follow-up recommended to exclude a groundglass nodule. 4. Linear cluster of solid nodular foci in the posterior basal segment right lower lobe measuring up to 4 mm suggest probable areas of mucous plugging, slightly increased from comparison. Please refer to below summary of Fleischner criteria recommendations for follow- up of incidental CT nodules (Michelle Pearson, Guidelines for management of small pulmonary nodules detected on CT scans: A statement from the Fleischner Society, Radiology 237: [phone].) SOLID NODULES Solitary nodule size: <6 mm * Low risk patients: no follow-up needed * high risk patients: optional CT at 12 months Solitary nodule size: 6-8 mm * Low risk patients: follow-up at 6-12 months, then consider further follow-up at 18-24 months * high risk patients: initial follow-up CT at 6-12 months and then at 18-24 months if no change Solitary nodule size: >8 mm * either low or high risk patients - consider follow-up CT at 3 months, and/or CT-PET, and/or biopsy Multiple nodules size: <6 mm * Low risk patients: no routine follow-up * high risk patients: optional CT at 12 months Multiple nodules size: 6-8 mm * Low risk patients: follow-up at 3-6 months, then consider further follow-up at 18-24 months * high risk patients: follow-up at 3-6 months, then at 18-24 months if no change Multiple nodules size: >8 mm * Low risk patients: follow-up at 3-6 months, then consider further follow-up at 18-24 months * high risk patients: follow-up at 3-6 months, then at 18-24 months if no change Note: newly detected indeterminate nodule in persons 35 years of age or older. * Low risk patients: minimal or absent history of smoking and/or other known risk factors * high risk patients: history of smoking or of other known risk factors (e.g. first degree relative with lung cancer, or exposure to asbestos, radon, uranium) * if a nodule up to 8 mm is partly solid or is ground glass further follow-up is required after 24 months to exclude possible slow growing adenocarcinoma (VALERIE) SUBSOLID NODULES Solitary pure ground-glass nodule * nodule size <6 mm - no CT follow-up required * nodule size >=6 mm - follow-up CT at 6-12 months, then every 2 years until 5 years Solitary part-solid nodule * nodule size <6 mm - no CT follow-up required * nodule size >=6 mm - follow-up CT at 3-6 months. If unchanged, and solid c omponent remains <6 mm, then annual follow-up for 5 years Multiple subsolid nodules * nodule size <6 mm - follow-up CT at 3-6 months, consider further follow-up at 2 and 4 years if stable * nodule size >=6 mm - follow-up CT at 3-6 months, subsequent management based on the most suspicious nodule(s) The above report was generated using voice recognition software. It may contain grammatical, syntax or spelling errors. ACT 112: Positive. There are findings on this exam that require communication between the performing entity and the patient following Patient Test Result Information Act ([place] Act 112) guidelines. Electronically signed by: David Hamlin M.D. 11/18/2019 12:53 PM Dictated: 11/18/19 1240 Transcribed: 11/18/19 1240
--- NOTE | 2019-11-20 10:53 | GI REPORT ---
Patient Name: Madison Jacob Procedure Date: 11/20/2019 10:37 AM Date of : 1940 Admit Type: Inpatient Age: 79 Gender: Female Attending MD: Vic Lovelace DO Procedure: Upper GI endoscopy Providers: Vic Lovelace DO Referring MD: Denise Vegas Md Indications: Dysphagia, Weight loss Medicines: Monitored Anesthesia Care Complications: No immediate complications. Estimated Blood Loss: Estimated blood loss: none. Procedure: Pre-Anesthesia Assessment: - Prior to the procedure, a History and Physical was performed, and patient medications and allergies were reviewed. The patient's tolerance of previous anesthesia was also reviewed. The risks and benefits of the procedure and the sedation options and risks were discussed with the patient. All questions were answered, and informed consent was obtained. Prior Anticoagulants: The patient last took aspirin 3 days and Eliquis (apixaban) 1 day prior to the procedure. ASA Grade Assessment: IV - A patient with severe systemic disease that is a constant threat to life. After reviewing the risks and benefits, the patient was deemed in satisfactory condition to undergo the procedure. After obtaining informed consent, the endoscope was passed under direct vision. Throughout the procedure, the patient's blood pressure, pulse, and oxygen saturations were monitored continuously. The Endoscope was introduced through the mouth, and advanced to the third part of duodenum. The upper GI endoscopy was accomplished without difficulty. The patient tolerated the procedure well. Findings: Mildly severe esophagitis with no bleeding was found 34 to 38 cm from the incisors. A small hiatal hernia was present. Localized moderate inflammation characterized by congestion (edema) and erythema was found in the gastric antrum. Biopsies were taken with a cold forceps for histology. The examined duodenum was normal. Impression: - Mildly severe reflux esophagitis. - Small hiatal hernia. - Gastritis. Biopsied. - Normal examined duodenum. Recommendation: - [facility]. - Advance diet as tolerated. - Continue present medications. - Await pathology results. Vic Lovelace DO 11/20/2019 10:52:39 AM This report has been signed electronically. Note Initiated On: 11/20/2019 10:37 AM Number of Addenda: 0 I attest to the content of the Intraoperative Record and orders documented therein, exceptions below {[id number]}
--- NOTE | 2019-11-20 12:03 | Anesthesiology Progress Note ---
Date of Service November 20, 2019 Anesthesia Post Procedure Vital Signs Vital Signs: Temp Pulse Pulse Resp BP Pulse Ox 11/20/19 11:23 54 L 18 152/71 H 162 H 11/20/19 11:03 59 L 18 152/71 H 100 11/20/19 10:48 60 18 170/70 H 100 11/20/19 10:21 36.5 C 104 H 18 195/99 H 94 11/20/19 06:43 36.4 C L 54 L 19 161/74 H 98 11/19/19 23:06 36.3 C L 54 L 18 156/79 H 99 11/19/19 20:44 62 157/77 H 11/19/19 15:21 63 11/19/19 14:44 36.3 C L 67 20 134/78 99 Transfer of Care Handoff Completed per policy Notes Mental Status: alert / awake / arousable Patient Amnestic to Procedure: Yes Nausea / Vomiting: adequately controlled Pain: adequately controlled Airway Patency, RR, SpO2: stable & adequate BP & HR: stable & adequate Hydration State: stable & adequate Anesthetic Complications: no major complications apparent and Pt Satisfied with anesthetic care
--- NOTE | 2019-11-20 12:49 | Hospitalist Progress Note ---
Date of Service November 20, 2019 Assessment & Plan (1) Generalized weakness: Presented with worsening generalized weakness--> multifactorial likely--> could be from progressive rapid weight loss, poor appetite, acute on chronic sinusitis, suspected UTI. Persists today and continues to barely eat anything PT/OT consults appreciated-patient plans on going home with home health -other treatment plan as below (2) Nausea and vomiting: Persistent for several months with history of lack of taste and smell, with chronic pansinusitis with possible acute left frontal sinusitis causing loss of smell and taste and appetite She has lost approximately 50 pounds in last 6-9 months, with a 20 pound weight loss just in the last 2 months-and has become debilitated Discussed with GI-agreed to perform EGD on 11/19-shows mildly severe esophagitis and moderate gastritis in the antrum-biopsies taken for H. pylori Gastric emptying study recently attempted but unable to complete as she vomited Treating for sinusitis as below CT Chest/Abd/Pelvis performed which shows mild thickening of mid-distal esophagus but otherwise unrevealing for cause of nausea/poor appetite or weight loss MRI of the brain recently without explanation to cause persistent nausea LFTs normal, not anemic, was mildly dehydrated on admission which is now improved with hydration Also with hypoglycemia here due to poor p.o. intake-now improved with IV steroids -Increased PPI to twice daily, added Carafate QID as per GI rec -Did receive IV fluids which have now been stopped -adv diet to regular today so she can have more options for nutrition -Reglan would not be a good option for her given ongoing neurological/cognitive issues -Continue scheduled Zofran bid with meals -Appreciate GI consultation -Decreased dose of her duloxetine to 30mg daily as this can cause nausea -Discussed case with [facility] on the phone who had previously reviewed her CT scan of the sinuses in preparation for an upcoming telehealth visit-they do not suspect a malignancy in the sinuses, but did suggest treatment for sinusitis as below -Offered NG tube with enteral feeds and patient declined stating "I would rather starve to " -Encouraged patient to force feed herself as a lot of this at this point seems like a food aversion/psychosomatic -Trial of mirtazapine 7.5 mg p.o. nightly (3) Sinusitis: Acute left frontal sinusitis on chronic pansinusitis suspected Reviewed with ENT on the phone-do not suspect malignancy but also ENT does not think this is related to her significant weight loss and nausea and vomiting No facial pain, headache, fevers, or facial numbness on exam -Could explain her lack of taste and significant lack of appetite over the last few months -We will continue to treat but given that she failed a 3-week course of Augmentin last month, will convert to Levaquin x3-week course -Started IV steroids and now will convert to prednisone 60 mg once daily in the morning -Started Flonase daily and nasal saline 3 times daily -Should have outpatient ENT follow-up after discharge (4) HTN, goal below 140/90: -BP now elevated after starting IV steroids -Continue home meds of clonidine, metoprolol, and losartan -Expect blood pressures to improve as steroids taper down (5) Atrial fibrillation: -Paroxysmal, continue on Eliquis 5 mg daily In normal sinus rhythm here -Continue rate control with metoprolol 25 mg BID (6) GERD (gastroesophageal reflux disease): -Continue PPI but increased to twice daily With esophagitis and gastritis on EGD -Continue on Carafate 4 times daily (7) Chronic kidney disease (CKD), stage III (moderate): -Creatinine actually improved with hydration overnight and is now down to 1.17 which is below her baseline -Renally dose medications when appropriate -Avoid nephrotoxins -Continue losartan (8) Constipation, chronic: -Hx of such thought to be causing her persistent nausea in the past KUB here with mild to moderate fecal load as also on CT abdomen/pelvis -Continue bowel regimen with daily dulcolax/senna PO and miralax PO BID. (9) Elevated troponin: -Troponin slightly elevated compared to her previous chronically elevated troponin to 0.280 x3 compared to baseline of 0.097. This may be secondary to demand ischemia in the setting of dehydration, patient without any complaints of chest pain, cardiac symptoms. -Last echo last was completed on 09/02/2019 showing normal left ventricular size and systolic function, EF 65 to 70% no regional wall motion abnormalities, no LVH. Mild mitral regurg. No need to repeat at this time. -EKG reviewed showing NSR Coal T wave abnormality no longer evident in the inferior leads, T wave inversion less evident in anterior lateral leads compared to previous No further work-up needed (10) Diabetes: -Patient previously diagnosed with diabetes, current A1c= 5.8 on 09/02/2019 -Glucose was 67 upon admission and again low in the 40s after admission--> this is likely low due to her poor oral intake Glucose now high due to IV steroids -Add on NovoLog sliding scale q. before meals at bedtime (11) Hypothyroid: - TSH is elevated at 4.760, last check was 3.21 on 10/06/2019. Not currently on replacement therapy -We will start low-dose levothyroxine to see if helps with appetite, naus ea/constipation -Follow TSH in 4 to 6 weeks (12) Severe protein-calorie malnutrition: Severe protein-calorie malnutrition e/b weakness and progressive weight loss. Appreciate dietary consultation with supplements added although patient is refusing to drink them Declines enteral feeds (13) Gastritis: As above on EGD H. pylori biopsy pending Continue PPI, Carafate (14) Esophagitis determined by endoscopy: As above (15) Hypercholesterolemia: -Chronic, stable -Continue simvastatin (16) Pulmonary nodule: RUL pulm nodule 10mm groundglass Needs f/u CT scan as outpt (17) UTI (urinary tract infection): Unclear if has symptoms as has chronic urinary incontinence -UA appears infected, urine culture with mixed organisms -Started on IV ceftriaxone, no longer needs antibiotics for this-UTI ruled out -BCx x2 no growth (18) Breast cancer: -History of such, resolved Groundglass opacity in the right lung on CT of the chest but otherwise no evidence of recurrence or metastases (19) Hyponatremia: Na+ down to 131, likely from hypotonic IVFs which are now stopped Today is improved back to 135 -follow BMP in AM (20) Osteopenia: -Continue supplementation with calcitriol -It is unclear why she is on Plaquenil at home-some sort of arthritis but no diagnosis listed in the chart-her Plaquenil needs to be brought in from home as there is a restriction on ordering it right now in the hospital due to COVID-19 (21) DVT prophylaxis: -teds, continue eliquis BID CODE: DNR Dispo: From home, appreciate PT/OT evaluations-patient and daughter prefer her to come home with home health when able to. Continued stay until p.o. intake improves Patient's care discussed at length with her daughter on the phone Admission and Anticipated Discharge Date Admission Date: November 17, 2019 Anticipated date of discharge: 11/23/19 Subjective Patient had EGD today which showed mildly severe reflux esophagitis and moderate gastritis in the antrum with biopsies taken. I discussed case with GI Patient was seen right after she returned from her EGD and seemed to be in better spirits, but continued to complain of complete lack of appetite but no nausea. Her lunch tray was sitting in front of her and she made face of discussed when she looked at it. She denies any abdominal pains. Describes a lack of taste and smell. No headache or facial pain Review of Systems Review of Systems: All systems reviewed & are unremarkable except as noted in HPI & below Physical Exam Constitutional: no acute distress and not lethargic Eyes: + anicteric sclerae ENMT: external ear and nose normal, oropharynx normal (no facial droop) Neck: trachea midline, no thyromegaly Respiratory: normal respiratory effort, lungs clear to auscultation Cardiovascular: RRR, no murmur, no edema Chest (Breasts): Chest: normal inspection of chest Gastrointestinal (Abdomen): normal bowel sounds, soft, nontender, no hepatosplenomegaly Musculoskeletal: Extremities: extremities normal to inspection; no cyanosis and no clubbing Skin: no rashes, warm and dry Neurologic: moves all extremities and awake; no focal motor deficits Psychiatric: Orientation: alert, oriented to place and cooperative Affect: + blunted affect Lymphatic: no lymphedema Results & Data Results & Data ([facility]) Vital Signs (Past 12 Hours) Vital Signs Temp Pulse Resp BP Pulse Ox 11/20/19 11:23 54 L 18 152/71 H 162 H 11/20/19 11:03 59 L 18 152/71 H 100 11/20/19 10:48 60 18 170/70 H 100 11/20/19 10:21 36.5 C 104 H 18 195/99 H 94 11/20/19 06:43 36.4 C L 54 L 19 161/74 H 98 Laboratory Results 11/20/19 11/20/19 11/20/19 Range/Units 11:45 07:34 05:34 WBC (4.8-10.8) K/uL RBC (4.2-5.4) M/uL Hgb (12.0-16.0) g/dL Hct (37-47) % MCV (80-100) fL MCH (25-34) pg MCHC (32-36) g/dL RDW Std Deviation (36.4-46.3) fL RDW Coeff of [place] (11.5-14.5) % Plt Count (130-400) K/uL MPV (7.4-10.4) fL Immature Gran % (Auto) % Neut % (Auto) % Lymph % (Auto) % [place] % (Auto) % Eos % (Auto) % Baso % (Auto) % Immature Gran # (Auto) (0.00-0.02) K/uL Neut # (Auto) (1.4-6.5) K/uL Lymph # (Auto) (1.2-3.4) K/uL [place] # (Auto) (0.11-0.59) K/uL Eos # (Auto) (0-0.5) K/uL Baso # (Auto) (0-0.2) K/uL ESR 17 (0-21) mm/hr Sodium (136-145) mmol/L Potassium (3.5-5.1) mmol/L Chloride (98-107) mmol/L Carbon Dioxide (21-32) mmol/L Anion Gap (3-11) BUN (7-18) mg/dl Creatinine (0.6-1.2) mg/dl Est Cr Clr Drug Dosing ml/min Est GFR ( Amer) Est GFR (Non-Af Amer) BUN/Creatinine Ratio (10-20) Glucose (70-99) mg/dl POC Glucose 99 147 H (70-99) mg/dl Calcium (8.5-10.1) mg/dl 11/20/19 11/20/19 11/19/19 Range/Units 05:17 05:17 21:38 WBC 14.40 H (4.8-10.8) K/uL RBC 4.57 (4.2-5.4) M/uL Hgb 12.7 (12.0-16.0) g/dL Hct 37.6 (37-47) % MCV 82.3 (80-100) fL MCH 27.8 (25-34) pg MCHC 33.8 (32-36) g/dL RDW Std Deviation 47.2 H (36.4-46.3) fL RDW Coeff of [place] 15.7 H (11.5-14.5) % Plt Count 166 (130-400) K/uL MPV 10.7 H (7.4-10.4) fL Immature Gran % (Auto) 0.8 % Neut % (Auto) 91.7 % Lymph % (Auto) 4.2 % [place] % (Auto) 3.2 % Eos % (Auto) 0.0 % Baso % (Auto) 0.1 % Immature Gran # (Auto) 0.12 H (0.00-0.02) K/uL Neut # (Auto) 13.19 H (1.4-6.5) K/uL Lymph # (Auto) 0.61 L (1.2-3.4) K/uL [place] # (Auto) 0.46 (0.11-0.59) K/uL Eos # (Auto) 0.00 (0-0.5) K/uL Baso # (Auto) 0.02 (0-0.2) K/uL ESR (0-21) mm/hr Sodium 135 L (136-145) mmol/L Potassium 4.1 (3.5-5.1) mmol/L Chloride 103 (98-107) mmol/L Carbon Dioxide 25 (21-32) mmol/L Anion Gap 7.0 (3-11) BUN 19 H (7-18) mg/dl Creatinine 1.17 (0.6-1.2) mg/dl Est Cr Clr Drug Dosing 38.6 ml/min Est GFR ( Amer) 52.1 Est GFR (Non-Af Amer) 44.9 BUN/Creatinine Ratio 15.9 (10-20) Glucose 131 H (70-99) mg/dl POC Glucose 135 H (70-99) mg/dl Calcium 9.3 (8.5-10.1) mg/dl 11/19/19 Range/Units 16:41 WBC (4.8-10.8) K/uL RBC (4.2-5.4) M/uL Hgb (12.0-16.0) g/dL Hct (37-47) % MCV (80-100) fL MCH (25-34) pg MCHC (32-36) g/dL RDW Std Deviation (36.4-46.3) fL RDW Coeff of [place] (11.5-14.5) % Plt Count (130-400) K/uL MPV (7.4-10.4) fL Immature Gran % (Auto) % Neut % (Auto) % Lymph % (Auto) % [place] % (Auto) % Eos % (Auto) % Baso % (Auto) % Immature Gran # (Auto) (0.00-0.02) K/uL Neut # (Auto) (1.4-6.5) K/uL Lymph # (Auto) (1.2-3.4) K/uL [place] # (Auto) (0.11-0.59) K/uL Eos # (Auto) (0-0.5) K/uL Baso # (Auto) (0-0.2) K/uL ESR (0-21) mm/hr Sodium (136-145) mmol/L Potassium (3.5-5.1) mmol/L Chloride (98-107) mmol/L Carbon Dioxide (21-32) mmol/L Anion Gap (3-11) BUN (7-18) mg/dl Creatinine (0.6-1.2) mg/dl Est Cr Clr Drug Dosing ml/min Est GFR ( Amer) Est GFR (Non-Af Amer) BUN/Creatinine Ratio (10-20) Glucose (70-99) mg/dl POC Glucose 195 H (70-99) mg/dl Calcium (8.5-10.1) mg/dl PG Care Time/CCT Total # of Minutes Spent Total Time Spent with Patient: Total time spent is greater than 50% in coordination of care (as documented) at patient's floor/unit and/or counseling patient: Coding Level of Care Code 71903 Subseq Hosp Care Lvl 3 Diagnoses Generalized weakness R53.1 Nausea and vomiting R11.2 Sinusitis J32.9 HTN, goal below 140/90 I10 Atrial fibrillation I48.0 Atrial fibrillation type: paroxysmal GERD (gastroesophageal reflux disease) K21.9 Esophagitis presence: esophagitis presence not specified Chronic kidney disease (CKD), stage III (moderate) N18.3 Constipation, chronic K59.09 Elevated troponin R79.89 Diabetes E11.9 Diabetes mellitus complication status: without complication Diabetes mellitus assisted insulin use: without assisted use Diabetes mellitus type: type 2 Hypothyroid E03.9 Severe protein-calorie malnutrition E43 Gastritis K29.70 Esophagitis determined by endoscopy K20.9 Hypercholesterolemia E78.00 Pulmonary nodule R91.1 UTI (urinary tract infection) N39.0 Breast cancer C50.919 Hyponatremia E87.1 Osteopenia M85.80 DVT prophylaxis Z29.9 (1) Diabetes Diabetes mellitus complication status: without complication 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
[2019-11-20] MEDS: cefTRIAXone SODIUM 1,000 MG/50 ML BAG IV SCH (16:16)
[2019-11-20] MEDS ORDERED: LEVOFLOXACIN/D5W 500 MG/100 ML BAG IV ONE (16:30)
[2019-11-20] MEDS ORDERED: GLUCAGON FOR INJ 1 MG VIAL SQ PRN (16:37)
[2019-11-20] MEDS ORDERED: GLUCOSE 10 TABS/TUBE PO PRN (16:37)
[2019-11-20] MEDS ORDERED: CARBOHYDRATES FOR HYPOGLYCEMIA PO PRN (16:37)
[2019-11-20] MEDS ORDERED: GLUCOSE 40% GEL 15 GM TUBE PO PRN (16:37)
[2019-11-20] MEDS: MIRTAZAPINE TAB 15 MG TAB PO SCH (20:04)
[2019-11-20] MEDS: APIXABAN 5 MG TABLET PO SCH (20:07)
[2019-11-20] MEDS: INSULIN ASPART 100 UNITS/ML 3 ML PEN SC SCH (22:12)
[2019-11-21 06:21] LABS: Albumin Level 2.4 gm/dl (3.4-5.0); BUN Creatinine Ratio 18.4 (10-20); Calcium 9.1 mg/dl (8.5-10.1); Est GFR (African American) 54.3; Est GFR (Non-African American) 46.8; Magnesium 1.8 mg/dl (1.8-2.4); Potassium 4.4 mmol/L (3.5-5.1)
[2019-11-21 06:24] LABS: Albumin Globulin Ratio 0.8 (0.9-2); Bilirubin,Total 0.6 mg/dl (0.2-1); Phosphorus 2.1 mg/dl (2.5-4.9); Total Protein 5.4 gm/dl (6.4-8.2)
[2019-11-21] MEDS: LEVOTHYROXINE SODIUM 25 MCG TABLET PO SCH (06:34)
[2019-11-21] MEDS: ONDANSETRON INJ 2 MG/ML 2 ML VIAL IV SCH ×2 (08:03→16:43)
[2019-11-21] MEDS: LOSARTAN POTASSIUM 50 MG TAB PO SCH (08:06)
[2019-11-21] MEDS: cloNIDine HCL 0.1 MG TAB PO SCH ×2 (08:06→20:52)
[2019-11-21] MEDS: SIMVASTATIN 20 MG TAB PO SCH (08:07)
[2019-11-21] MEDS: ASPIRIN 81 MG ECTAB PO SCH (08:07)
[2019-11-21] MEDS: PANTOprazole 40 MG TAB PO SCH ×2 (08:07→20:57)
[2019-11-21] MEDS: DULOXETINE HCL 30 MG CAP PO SCH (08:07)
[2019-11-21] MEDS: MIRABEGRON ER 25 MG TAB PO SCH (08:07)
[2019-11-21] MEDS: APIXABAN 5 MG TABLET PO SCH ×2 (08:08→20:55)
[2019-11-21] MEDS: FLUTICASONE PROPIONATE NA SPR 16 GM BTL SCH (08:08)
[2019-11-21] MEDS: SUCRALFATE 1 GM/10 ML UDC PO SCH ×4 (08:08→20:51)
[2019-11-21] MEDS: CALCITRIOL 0.25 MCG CAPSULE PO SCH (08:08)
[2019-11-21] MEDS: SODIUM CHLORIDE 0.65% NA SOLN 45 ML (OCEAN) SCH ×3 (08:08→20:56)
[2019-11-21] MEDS: DOCUSATE SODIUM/SENNA 50/8.6MG TAB PO SCH (08:08)
[2019-11-21] MEDS: METOPROLOL TARTRATE 25 MG TAB PO SCH ×2 (08:09→20:56)
[2019-11-21] MEDS: POLYETHYLENE (MIRALAX) 17 GM PACK PO SCH ×2 (08:09→20:56)
[2019-11-21] MEDS ORDERED: predniSONE 20 MG TAB PO SCH (09:00)
[2019-11-21] MEDS: INSULIN ASPART 100 UNITS/ML 3 ML PEN SC SCH ×4 (09:01→20:47)
--- NOTE | 2019-11-21 11:39 | Hospitalist Progress Note ---
Date of Service November 21, 2019 Assessment & Plan (1) Generalized weakness: Presented with worsening generalized weakness--> multifactorial likely--> could be from progressive rapid weight loss over the last 6 months, poor appetite, acute on chronic sinusitis, suspected UTI. Persists today although appetite picked up slightly on evening of 11/19 Today with increased lethargy likely due to SE of starting mirtazapine for depression and appetite stimulant PT/OT consults appreciated-patient and her daughter plan on going home with home health -other treatment plan as below (2) Nausea and vomiting: Persistent for several months with history of lack of taste and smell, with chronic pansinusitis with possible acute left frontal sinusitis causing loss of smell and taste and appetite She has lost approximately 50 pounds in last 6-9 months, with a 20 pound weight loss just in the last 2 months-and has become debilitated Discussed with GI-agreed to perform EGD on 11/19-shows mildly severe esophagitis and moderate gastritis in the antrum-biopsies taken for H. pylori Gastric emptying study recently attempted on 11/11 but unable to complete as she vomited Treating for sinusitis as below CT Chest/Abd/Pelvis performed which shows mild thickening of mid-distal esophagus but otherwise unrevealing for cause of nausea/poor appetite or weight loss MRI of the brain recently without explanation to cause persistent nausea i.e. no mets LFTs normal, not anemic, was mildly dehydrated on admission which is now improved with hydration Also with hypoglycemia here due to poor p.o. intake-now improved with IV steroids -Increased PPI to twice daily, added Carafate QID as per GI rec -Did receive IV fluids which have now been stopped -continue regular diet as tolerated -Reglan would not be a good option for her given ongoing neurological/cognitive issues -Continue scheduled Zofran bid with meals -Appreciate GI consultation -Decreased dose of her duloxetine to 30mg daily as this can cause nausea -Discussed case with [facility] on the phone who had previously reviewed her CT scan of the sinuses in preparation for an upcoming telehealth visit-they do not suspect a malignancy in the sinuses, but did suggest treatment for sinusitis as below -Offered NG tube with enteral feeds and patient declined stating "I would rather starve to " -Encouraged patient to force feed herself as a lot of this at this point seems like a food aversion/psychosomatic -Trial of mirtazapine 7.5 mg p.o. nightly-causing drowsiness daytime but this should improve with time (3) Sinusitis: Acute left frontal sinusitis on chronic pansinusitis suspected Reviewed with ENT on the phone-do not suspect malignancy but also ENT does not think this is related to her significant weight loss and nausea and vomiting No facial pain, headache, fevers, or facial numbness on exam -Could explain her lack of taste and significant lack of appetite over the last few months -will continue to treat but given that she failed a 3-week course of Augmentin last month, converted to Levaquin x3-week course -Started IV steroids and then converted to prednisone 60 mg once daily in the morning-will taper down over 2 weeks -Started Flonase daily and nasal saline 3 times daily -Should have outpatient ENT follow-up after discharge (4) HTN, goal below 140/90: -BP now elevated after starting IV steroids but improved today -Continue home meds of clonidine, metoprolol w/ hold parameters, and losartan -Expect blood pressures to improve as steroids taper down (5) Atrial fibrillation: -Paroxysmal, continue on Eliquis 5 mg daily In normal sinus rhythm here -Continue rate control with metoprolol 25 mg BID (6) GERD (gastroesophageal reflux disease): -Continue PPI but increased to twice daily With esophagitis and gastritis on EGD -Continue on Carafate 4 times daily (7) Chronic kidney disease (CKD), stage III (moderate): -Creatinine actually improved with hydration overnight and is now down to 1.13 which is below her baseline -Renally dose medications when appropriate -Avoid nephrotoxins -Continue losartan (8) Constipation, chronic: -Hx of such thought to be causing her persistent nausea in the past KUB here with mild to moderate fecal load as also on CT abdomen/pelvis -Continue bowel regimen with daily dulcolax/senna PO and miralax PO BID. (9) Elevated troponin: -Troponin slightly elevated compared to her previous chronically elevated troponin to 0.280 x3 compared to baseline of 0.097. This may be secondary to demand ischemia in the setting of dehydration, patient without any complaints of chest pain, cardiac symptoms. -Last echo last was completed on 09/02/2019 showing normal left ventricular size and systolic function, EF 65 to 70% no regional wall motion abnormalities, no LVH. Mild mitral regurg. No need to repeat at this time. -EKG reviewed showing NSR [place] T wave abnormality no longer evident in the inferior leads, T wave inversion less evident in anterior lateral leads compared to previous No further work-up needed (10) Diabetes: -Patient previously diagnosed with diabetes, current A1c= 5.8 on 09/02/2019 -Glucose was 67 upon admission and again low in the 40s after admission--> this is likely low due to her poor oral intake Glucose then went high due to IV steroids Now back low again in the 70s as steroids tapering down -continue NovoLog sliding scale q. before meals at bedtime -continue accuchecks qachs (11) Hypothyroid: - TSH is elevated at 4.760, last check was 3.21 on 10/06/2019. Not currently on replacement therapy -We will start low-dose levothyroxine to see if helps with appetite, nausea/constipation -Follow TSH in 4 to 6 weeks (12) Severe protein-calorie malnutrition: Severe protein-calorie malnutrition e/b weakness and progressive weight loss. Appreciate dietary consultation with supplements added although patient is refusing to drink them Declines enteral feeds (13) Gastritis: As above on EGD H. pylori biopsy pending Continue PPI, Carafate (14) Esophagitis determined by endoscopy: As above (15) Hypercholesterolemia: -Chronic, stable -Continue simvastatin (16) Pulmonary nodule: RUL pulm nodule 10mm groundglass Needs f/u CT scan as outpt (17) UTI (urinary tract infection): Unclear if has symptoms as has chronic urinary incontinence -UA appears infected, urine culture with mixed organisms -Started on IV ceftriaxone, no longer needs antibiotics for this-UTI ruled out -BCx x2 no growth (18) Breast cancer: -History of such, resolved Groundglass opacity in the right lung on CT of the chest but otherwise no evidence of recurrence or metastases (19) Hyponatremia: Na+ down to 131, likely from hypotonic IVFs which are now stopped Today is improved back to 135 -follow BMP in AM (20) Osteopenia: -Continue supplementation with calcitriol -It is unclear why she is on Plaquenil at home-some sort of arthritis but no diagnosis listed in the chart-her Plaquenil needs to be brought in from home as there is a restriction on ordering it right now in the hospital due to COVID-19 (21) Hypophosphatemia: mildly low today poor po intake -start neutraphos 1 tab po qid follow phos level in AM (22) DVT prophylaxis: -teds, continue eliquis BID CODE: DNR Dispo: From home, appreciate PT/OT evaluations-patient and daughter prefer her to come home with home health when able to. Continued stay until p.o. intake improves Admission and Anticipated Discharge Date Admission Date: November 17, 2019 Anticipated date of discharge: 11/23/19 Subjective Pt very drowsy today. Does answer some questions but mostly complains that she just wants to sleep. Refused to work with OT today but did work a little with PT. Started onn Remeron last night. Can't tell me if she ate anything today and her RN was not around to ask. RN did report from last evening she ate more than usual, about 25% ofher dinner. When asked if she has her sense of taste back, she states "I will once you let me sleep." Review of Systems Review of Systems: All systems reviewed & are unremarkable except as noted in HPI & below Physical Exam Constitutional: average body habitus; no acute distress Eyes: + anicteric sclerae ENMT: external ear and nose normal, oropharynx normal (no facial droop) Neck: trachea midline, no thyromegaly Respiratory: normal respiratory effort, lungs clear to auscultation Cardiovascular: RRR, no murmur, no edema Chest (Breasts): Chest: normal inspection of chest Gastrointestinal (Abdomen): normal bowel sounds, soft, nontender, no hepatosplenomegaly Musculoskeletal: Extremities: extremities normal to inspection; no cyanosis and no clubbing Skin: no rashes, warm and dry Neurologic: moves all extremities and awake; no focal motor deficits Psychiatric: Orientation: alert (but drowsy, kept eyes closed throughout interview) Affect: + blunted affect Lymphatic: no lymphedema Results & Data Results & Data ([facility]) Vital Signs (Past 12 Hours) Vital Signs Temp Pulse Resp BP Pulse Ox Pulse Ox 11/21/19 07:19 36.4 C L 56 L 18 165/79 H 94 11/21/19 00:00 96 Laboratory Results 11/21/19 11/21/19 11/21/19 Range/Units 07:35 07:34 07:33 Sodium (136-145) mmol/L Potassium (3.5-5.1) mmol/L Chloride (98-107) mmol/L Carbon Dioxide (21-32) mmol/L Anion Gap (3-11) BUN (7-18) mg/dl Creatinine (0.6-1.2) mg/dl Est Cr Clr Drug Dosing ml/min Est GFR ( Amer) Est GFR (Non-Af Amer) BUN/Creatinine Ratio (10-20) Glucose (70-99) mg/dl POC Glucose 73 81 67 L* (70-99) mg/dl Calcium (8.5-10.1) mg/dl Phosphorus (2.5-4.9) mg/dl Magnesium (1.8-2.4) mg/dl Total Bilirubin (0.2-1) mg/dl AST (15-37) U/L ALT (12-78) U/L Alkaline Phosphatase (45-117) U/L Total Protein (6.4-8.2) gm/dl Albumin (3.4-5.0) gm/dl Globulin (2.5-4.0) gm/dl Albumin/Globulin Ratio (0.9-2) 11/21/19 11/20/19 11/20/19 Range/Units 05:24 20:08 16:43 Sodium 135 L (136-145) mmol/L Potassium 4.4 (3.5-5.1) mmol/L Chloride 106 (98-107) mmol/L Carbon Dioxide 26 (21-32) mmol/L Anion Gap 3.0 (3-11) BUN 21 H (7-18) mg/dl Creatinine 1.13 (0.6-1.2) mg/dl Est Cr Clr Drug Dosing 40.0 ml/min Est GFR ( Amer) 54.3 Est GFR (Non-Af Amer) 46.8 BUN/Creatinine Ratio 18.4 (10-20) Glucose 100 H (70-99) mg/dl POC Glucose 139 H 101 H (70-99) mg/dl Calcium 9.1 (8.5-10.1) mg/dl Phosphorus 2.1 L (2.5-4.9) mg/dl Magnesium 1.8 (1.8-2.4) mg/dl Total Bilirubin 0.6 (0.2-1) mg/dl AST 25 (15-37) U/L ALT 25 (12-78) U/L Alkaline Phosphatase 73 (45-117) U/L Total Protein 5.4 L (6.4-8.2) gm/dl Albumin 2.4 L (3.4-5.0) gm/dl Globulin 3.0 (2.5-4.0) gm/dl Albumin/Globulin Ratio 0.8 L (0.9-2) 11/20/19 Range/Units 11:45 Sodium (136-145) mmol/L Potassium (3.5-5.1) mmol/L Chloride (98-107) mmol/L Carbon Dioxide (21-32) mmol/L Anion Gap (3-11) BUN (7-18) mg/dl Creatinine (0.6-1.2) mg/dl Est Cr Clr Drug Dosing ml/min Est GFR ( Amer) Est GFR (Non-Af Amer) BUN/Creatinine Ratio (10-20) Glucose (70-99) mg/dl POC Glucose 99 (70-99) mg/dl Calcium (8.5-10.1) mg/dl Phosphorus (2.5-4.9) mg/dl Magnesium (1.8-2.4) mg/dl Total Bilirubin (0.2-1) mg/dl AST (15-37) U/L ALT (12-78) U/L Alkaline Phosphatase (45-117) U/L Total Protein (6.4-8.2) gm/dl Albumin (3.4-5.0) gm/dl Globulin (2.5-4.0) gm/dl Albumin/Globulin Ratio (0.9-2) PG Care Time/CCT Total # of Minutes Spent Total Time Spent with Patient: Total time spent is greater than 50% in coordination of care (as documented) at patient's floor/unit and/or counseling patient: Coding Level of Care Code 33977 Subseq Hosp Care Lvl 2 Diagnoses Generalized weakness R53.1 Nausea and vomiting R11.2 Sinusitis J32.9 HTN, goal below 140/90 I10 Atrial fibrillation I48.0 Atrial fibrillation type: paroxysmal GERD (gastroesophageal reflux disease) K21.9 Esophagitis presence: esophagitis presence not specified Chronic kidney disease (CKD), stage III (moderate) N18.3 Constipation, chronic K59.09 Elevated troponin R79.89 Diabetes E11.9 Diabetes mellitus complication status: without complication Diabetes mellitus group home insulin use: without group home use Diabetes mellitus type: type 2 Hypothyroid E03.9 Severe protein-calorie malnutrition E43 Gastritis K29.70 Esophagitis determined by endoscopy K20.9 Hypercholesterolemia E78.00 Pulmonary nodule R91.1 UTI (urinary tract infection) N39.0 Breast cancer C50.919 Hyponatremia E87.1 Osteopenia M85.80 Hypophosphatemia E83.39 DVT prophylaxis Z29.9 (1) Diabetes Diabetes mellitus complication status: without complication 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
[2019-11-21] MEDS: POT PHOSPHATE MONOBASIC W/ SOD TAB PO SCH ×4 (12:51→20:56)
[2019-11-21] MEDS: LEVOFLOXACIN/D5W 250 MG/50 ML BAG IV SCH (16:41)
[2019-11-21] MEDS: MIRTAZAPINE TAB 15 MG TAB PO SCH (20:58)
[2019-11-22] MEDS: LEVOTHYROXINE SODIUM 25 MCG TABLET PO SCH (06:00)
[2019-11-22 06:47] LABS: Basophils # (auto) 0.01 K/uL (0-0.2); Basophils % (auto) 0.1 %; Hematocrit (blood only) 35.5 % (37-47); Hemoglobin 11.9 g/dL (12.0-16.0); Immature Granulocytes # (auto) 0.06 K/uL (0.00-0.02); Immature Granulocytes % (auto) 0.5 %; Lymphocytes # (auto) 1.12 K/uL (1.2-3.4); Lymphocytes % (auto) 9.3 %; Mean Corpuscular Hgb Conc 33.5 g/dL (32-36); Mean Corpuscular Volume 83.5 fL (80-100); Mean Platelet Volume 10.7 fL (7.4-10.4); Monocytes # (auto) 1.01 K/uL (0.11-0.59); Monocytes % (auto) 8.4 %; Neutrophils # (auto) 9.83 K/uL (1.4-6.5); Neutrophils % (auto) 81.7 %; Nucleated RBC # (auto) 0.03 K/uL (0-0); Nucleated RBC % (auto) 0.2 %; Platelet Count 143 K/uL (130-400); RDW Coefficient of Variation 15.9 % (11.5-14.5); Red Blood Count 4.25 M/uL (4.2-5.4); White Blood Count 12.03 K/uL (4.8-10.8)
[2019-11-22 07:27] LABS: BUN Creatinine Ratio 20.2 (10-20); Calcium 9.2 mg/dl (8.5-10.1); Est GFR (African American) 52.6; Est GFR (Non-African American) 45.4; Magnesium 1.9 mg/dl (1.8-2.4); Phosphorus 2.1 mg/dl (2.5-4.9); Potassium 3.2 mmol/L (3.5-5.1); Prealbumin 20.5 mg/dl (20-40)
[2019-11-22] MEDS: DEXTROSE 50% 50 ML SYRINGE IV PRN ×2 (08:28→11:53)
[2019-11-22] MEDS: ONDANSETRON INJ 2 MG/ML 2 ML VIAL IV SCH ×2 (08:32→17:12)
[2019-11-22] MEDS ORDERED: POTASSIUM PHOS 3 MMOL/1 ML INFUSION IV STA (08:58)
[2019-11-22] MEDS ORDERED: POTASSIUM PHOSPHATE 21 MMOL in SODIUM CHLORIDE 0.9% 500 ML IV ONE (09:00)
[2019-11-22] MEDS ORDERED: MAGNESIUM SULFATE / D5W 1 GM/100 ML BAG IV ONE (09:00)
[2019-11-22] MEDS ORDERED: HydrALAZINE HCL 20 MG/ML VIAL IV PRN (09:01)
[2019-11-22] MEDS ORDERED: methylPREDNISolone 40 MG in SYRINGE 0 ML IV SCH (09:30)
[2019-11-22] MEDS: INSULIN ASPART 100 UNITS/ML 3 ML PEN SC SCH ×3 (09:32→17:08)
[2019-11-22] MEDS: cloNIDine HCL 0.1 MG TAB PO SCH (09:36)
[2019-11-22] MEDS: SUCRALFATE 1 GM/10 ML UDC PO SCH ×3 (09:36→17:11)
[2019-11-22] MEDS: LOSARTAN POTASSIUM 50 MG TAB PO SCH (09:36)
[2019-11-22] MEDS: ASPIRIN 81 MG ECTAB PO SCH (09:37)
[2019-11-22] MEDS: MIRABEGRON ER 25 MG TAB PO SCH (09:37)
[2019-11-22] MEDS: FLUTICASONE PROPIONATE NA SPR 16 GM BTL SCH (09:37)
[2019-11-22] MEDS: METOPROLOL TARTRATE 25 MG TAB PO SCH (09:37)
[2019-11-22] MEDS: APIXABAN 5 MG TABLET PO SCH (09:37)
[2019-11-22] MEDS: POLYETHYLENE (MIRALAX) 17 GM PACK PO SCH (09:37)
[2019-11-22] MEDS: DULOXETINE HCL 30 MG CAP PO SCH (09:37)
[2019-11-22] MEDS: CALCITRIOL 0.25 MCG CAPSULE PO SCH (09:38)
[2019-11-22] MEDS: SIMVASTATIN 20 MG TAB PO SCH (09:38)
[2019-11-22] MEDS: POT PHOSPHATE MONOBASIC W/ SOD TAB PO SCH ×3 (09:38→17:12)
[2019-11-22] MEDS: SODIUM CHLORIDE 0.65% NA SOLN 45 ML (OCEAN) SCH ×2 (09:38→11:58)
[2019-11-22] MEDS: PANTOprazole 40 MG TAB PO SCH (09:38)
[2019-11-22] MEDS: DOCUSATE SODIUM/SENNA 50/8.6MG TAB PO SCH (09:38)
--- NOTE | 2019-11-22 13:43 | Hospitalist Progress Note ---
Date of Service November 22, 2019 Assessment & Plan (1) Generalized weakness: Presented with worsening generalized weakness--> multifactorial likely--> could be from progressive rapid weight loss over the last 6 months, poor appetite, acute on chronic sinusitis, suspected UTI. Persists today although appetite picked up slightly on evening of 11/19 Today with increased lethargy likely due to SE of starting mirtazapine for depression and appetite stimulant PT/OT consults appreciated-patient and her daughter plan on going home with home health -other treatment plan as below (2) Nausea and vomiting: Persistent for several months with history of lack of taste and smell, with chronic pansinusitis with possible acute left frontal sinusitis causing loss of smell and taste and appetite She has lost approximately 50 pounds in last 6-9 months, with a 20 pound weight loss just in the last 2 months-and has become debilitated Discussed with GI-agreed to perform EGD on 11/19-shows mildly severe esophagitis and moderate gastritis in the antrum-biopsies taken for H. pylori Gastric emptying study recently attempted on 11/11 but unable to complete as she vomited Treating for sinusitis as below CT Chest/Abd/Pelvis performed which shows mild thickening of mid-distal esophagus but otherwise unrevealing for cause of nausea/poor appetite or weight loss MRI of the brain recently without explanation to cause persistent nausea i.e. no mets LFTs normal, not anemic, was mildly dehydrated on admission which is now improved with hydration Also with hypoglycemia here due to poor p.o. intake-now improved with IV steroids -Increased PPI to twice daily, added Carafate QID as per GI rec -Did receive IV fluids which have now been stopped -continue regular diet as tolerated -Reglan would not be a good option for her given ongoing neurological/cognitive issues -Continue scheduled Zofran bid with meals -Appreciate GI consultation -Decreased dose of her duloxetine to 30mg daily as this can cause nausea -Discussed case with [facility]atch ENT on the phone who had previously reviewed her CT scan of the sinuses in preparation for an upcoming telehealth visit-they do not suspect a malignancy in the sinuses, but did suggest treatment for sinusitis as below -Offered NG tube with enteral feeds and patient declined stating "I would rather starve to " -Encouraged patient to force feed herself as a lot of this at this point seems like a food aversion/psychosomatic -Trial of mirtazapine 7.5 mg p.o. nightly-causing drowsiness daytime but this should improve with time (3) Sinusitis: Acute left frontal sinusitis on chronic pansinusitis suspected Reviewed with ENT on the phone-do not suspect malignancy but also ENT does not think this is related to her significant weight loss and nausea and vomiting No facial pain, headache, fevers, or facial numbness on exam -Could explain her lack of taste and significant lack of appetite over the last few months -will continue to treat but given that she failed a 3-week course of Augmentin last month, converted to Levaquin x3-week course -Started IV steroids and then converted to prednisone 60 mg once daily in the morning-will taper down over 2 weeks -Started Flonase daily and nasal saline 3 times daily -Should have outpatient ENT follow-up after discharge (4) HTN, goal below 140/90: -BP now elevated after starting IV steroids but improved today -Continue home meds of clonidine, metoprolol w/ hold parameters, and losartan -Expect blood pressures to improve as steroids taper down (5) Atrial fibrillation: -Paroxysmal, continue on Eliquis 5 mg daily In normal sinus rhythm here -Continue rate control with metoprolol 25 mg BID (6) GERD (gastroesophageal reflux disease): -Continue PPI but increased to twice daily With esophagitis and gastritis on EGD -Continue on Carafate 4 times daily (7) Chronic kidney disease (CKD), stage III (moderate): -Creatinine actually improved with hydration overnight and is now down to 1.13 which is below her baseline -Renally dose medications when appropriate -Avoid nephrotoxins -Continue losartan (8) Constipation, chronic: -Hx of such thought to be causing her persistent nausea in the past KUB here with mild to moderate fecal load as also on CT abdomen/pelvis -Continue bowel regimen with daily dulcolax/senna PO and miralax PO BID. (9) Elevated troponin: -Troponin slightly elevated compared to her previous chronically elevated troponin to 0.280 x3 compared to baseline of 0.097. This may be secondary to demand ischemia in the setting of dehydration, patient without any complaints of chest pain, cardiac symptoms. -Last echo last was completed on 09/02/2019 showing normal left ventricular size and systolic function, EF 65 to 70% no regional wall motion abnormalities, no LVH. Mild mitral regurg. No need to repeat at this time. -EKG reviewed showing NSR [place] T wave abnormality no longer evident in the inferior leads, T wave inversion less evident in anterior lateral leads compared to previous No further work-up needed (10) Diabetes: -Patient previously diagnosed with diabetes, current A1c= 5.8 on 09/02/2019 -Glucose was 67 upon admission and again low in the 40s after admission--> this is likely low due to her poor oral intake Glucose then went high due to IV steroids Now back low again in the 70s as steroids tapering down -continue NovoLog sliding scale q. before meals at bedtime -continue accuchecks qachs (11) Hypothyroid: - TSH is elevated at 4.760, last check was 3.21 on 10/06/2019. Not currently on replacement therapy -We will start low-dose levothyroxine to see if helps with appetite, nausea/constipation -Follow TSH in 4 to 6 weeks (12) Severe protein-calorie malnutrition: Severe protein-calorie malnutrition e/b weakness and progressive weight loss. Appreciate dietary consultation with supplements added although patient is refusing to drink them Declines enteral feeds (13) Gastritis: As above on EGD H. pylori biopsy pending Continue PPI, Carafate (14) Esophagitis determined by endoscopy: As above (15) Hypercholesterolemia: -Chronic, stable -Continue simvastatin (16) Pulmonary nodule: RUL pulm nodule 10mm groundglass Needs f/u CT scan as outpt (17) UTI (urinary tract infection): Unclear if has symptoms as has chronic urinary incontinence -UA appears infected, urine culture with mixed organisms -Started on IV ceftriaxone, no longer needs antibiotics for this-UTI ruled out -BCx x2 no growth (18) Breast cancer: -History of such, resolved Groundglass opacity in the right lung on CT of the chest but otherwise no evidence of recurrence or metastases (19) Hyponatremia: Na+ down to 131, likely from hypotonic IVFs which are now stopped Today is improved back to 135 -follow BMP in AM (20) Osteopenia: -Continue supplementation with calcitriol -It is unclear why she is on Plaquenil at home-some sort of arthritis but no diagnosis listed in the chart-her Plaquenil needs to be brought in from home as there is a restriction on ordering it right now in the hospital due to COVID-19 (21) Hypophosphatemia: mildly low today poor po intake -start neutraphos 1 tab po qid follow phos level in AM (22) DVT prophylaxis: -teds, continue eliquis BID CODE: DNR Dispo: From home, appreciate PT/OT evaluations-patient and daughter prefer her to come home with home health when able to. Continued stay until p.o. intake improves Admission and Anticipated Discharge Date Admission Date: November 17, 2019 Anticipated date of discharge: 11/23/19 Physical Exam Constitutional: average body habitus; no acute distress Eyes: + anicteric sclerae ENMT: external ear and nose normal, oropharynx normal (no facial droop) Nose: no facial exam abnormality (no TTP over face or forehead) Neck: trachea midline, no thyromegaly Respiratory: normal respiratory effort, lungs clear to auscultation Cardiovascular: RRR, no murmur, no edema Chest (Breasts): Chest: normal inspection of chest Gastrointestinal (Abdomen): normal bowel sounds, soft, nontender, no hepatosplenomegaly Musculoskeletal: Extremities: extremities normal to inspection; no cyanosis and no clubbing Skin: no rashes, warm and dry Neurologic: moves all extremities and awake; no focal motor deficits Psychiatric: Orientation: alert (but drowsy, kept eyes closed throughout interview) Affect: + blunted affect Lymphatic: no lymphedema Results & Data Results & Data ([facility]) Vital Signs (Past 12 Hours) Vital Signs Temp Pulse Resp BP Pulse Ox 11/22/19 07:59 60 153/73 H 11/22/19 07:12 36.6 C 58 L 20 146/74 H 100 PG Care Time/CCT Total # of Minutes Spent Total Time Spent with Patient: Total time spent is greater than 50% in coordination of care (as documented) at patient's floor/unit and/or counseling patient: Coding Diagnoses Generalized weakness R53.1 Nausea and vomiting R11.2 Sinusitis J32.9 HTN, goal below 140/90 I10 Atrial fibrillation I48.0 Atrial fibrillation type: paroxysmal GERD (gastroesophageal reflux disease) K21.9 Esophagitis presence: esophagitis presence not specified Chronic kidney disease (CKD), stage III (moderate) N18.3 Constipation, chronic K59.09 Elevated troponin R79.89 Diabetes E11.9 Diabetes mellitus type: type 2 Diabetes mellitus mcfp insulin use: without mcfp use Diabetes mellitus complication status: without complication Hypothyroid E03.9 Severe protein-calorie malnutrition E43 Gastritis K29.70 Esophagitis determined by endoscopy K20.9 Hypercholesterolemia E78.00 Pulmonary nodule R91.1 UTI (urinary tract infection) N39.0 Breast cancer C50.919 Hyponatremia E87.1 Osteopenia M85.80 Hypophosphatemia E83.39 DVT prophylaxis Z29.9 (1) Atrial fibrillation Atrial fibrillation type: paroxysmal Qualified Code(s): I48.0 - Paroxysmal atrial fibrillation (2) GERD (gastroesophageal reflux disease) Esophagitis presence: esophagitis presence not specified Qualified Code(s): K21.9 - Gastro-esophageal reflux disease without esophagitis (3) Diabetes Diabetes mellitus type: type 2 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
--- NOTE | 2019-11-22 15:58 | Discharge Summary ---
Date of Service November 22, 2019 Admission HPI Per Admitting Provider this is a 79-year-old female with PMHx of HTN, HLD, paroxysmal atrial fibrillation on Eliquis, DM, CKD stage III, chronic mild elevation in troponin, severe protein calorie malnutrition, breast cancer, history of TIA, p olyarthritis, GERD, constipation, depression, hypothyroidism who presents due to increased lethargy and weakness at home. Patient has home health aides coming into her home twice weekly for PT/OT since being discharged from [facility] on 10/18/2019, they noted that she the patient looked dehydrated and was not quite herself so EMS was called. She also had intermittent nausea and vomiting this morning, it currently feels better at this time. She did not take any of her morning medications due to nausea. Overall her appetite has been very poor in general, and thinks her last BM was about 3 days ago. She denies any dysuria, hematuria, no fevers chills or sweats. Once in the ER she was found to have a dirty urine, likely infected. Patient reports being incontinent and changes depends only twice daily, she also frequently does not drink as much water as she should due to being incontinent. Denies any other acute complaints currently. At home she has 2 sons which live with her and help her around the house sometimes. Prior to her previous hospitalization which was in August she was up walking by herself, [facility] had to use a walker primarily for a wheelchair. Patient found to have an elevated troponin of 0.280 compared to her baseline of 0.097 which has been chronic in the past. Her glucose was also noted to be 67 on arrival here to the ER. Principal Diagnosis Failure to thrive, progressive weight loss, acute on chronic sinusitis Discharge Exam Constitutional + ill appearing and average body habitus; no acute distress and not lethargic Eyes + anicteric sclerae ENMT external ear and nose normal, oropharynx normal (no facial droop) Neck trachea midline, no thyromegaly normal visual inspection Respiratory normal respiratory effort, lungs clear to auscultation Cardiovascular RRR, no murmur, no edema Chest (Breasts) Chest: normal inspection of chest Gastrointestinal (Abdomen) normal bowel sounds, soft, nontender, no hepatosplenomegaly Musculoskeletal Extremities: extremities normal to inspection; no cyanosis and no clubbing Skin no rashes, warm and dry Neurologic moves all extremities and awake; no focal motor deficits Psychiatric Orientation: oriented x 3, oriented to place and cooperative Eye Contact: + fair eye contact Speech: normal rate/rhythm/volume of speech Affect: + depressed affect and + blunted affect Mood: + depressed mood Lymphatic no lymphedema Discharge Data Allergies Allergy/AdvReac Type Severity Reaction Status Date / Time HO Inhibitors Allergy Unknown ITCHING Verified 11/17/19 16:01 acetaminophen [From Percocet] Allergy Unknown Unknown Verified 11/17/19 16:01 tolterodine Allergy Unknown Unknown Verified 11/17/19 16:01 oxycodone AdvReac Mild CAUSES BE Verified 11/17/19 16:01 JITTERINESS & CAN'T EAT. ALSO CAUSES RLS SYMPTOMS Consultations 11/17/19 16:21 ED Decision to Admit Stat 11/17/19 18:55 Consult Case Management - Discharge Planning Routine 11/18/19 08:25 Consult Gastroenterology Routine Procedures Performed Operation Date: 11/20/19 10:30 Actual Procedures p EGD Biopsy Cytology - Vic Chandler Case, DO Ordered Studies 11/18/19 09:46 CT abd pelvis oral and IV con Routine 11/18/19 12:30 CT chest w con Routine CXR KUB Hospital Course (1) Generalized weakness: Presented with worsening generalized weakness--> multifactorial likely--> could be from progressive rapid weight loss over the last 6 months, poor appetite, acute on chronic sinusitis, suspected UTI. Persists although appetite picked up slightly on evening of 11/19. Is eating a few bites of each meal Prealbumin 20 which isn't terribly low -starting mirtazapine for depression and appetite stimulant PT/OT consults appreciated-patient and her daughter plan on going home with home health -other treatment plan as below (2) Nausea and vomiting: Persistent for several months with history of lack of taste and smell, with chronic pansinusitis with possible acute left frontal sinusitis causing loss of smell and taste and appetite She has lost approximately 50 pounds in last 6-9 months, with a 20 pound weight loss just in the last 2 months-and has become debilitated Discussed with GI-agreed to perform EGD on 11/19-shows mildly severe esophagitis and moderate gastritis in the antrum-biopsies taken for H. pylori Gastric emptying study recently attempted on 11/11 but unable to complete as she vomited Treating for sinusitis as below CT Chest/Abd/Pelvis performed which shows mild thickening of mid-distal esophagus but otherwise unrevealing for cause of nausea/poor appetite or weight loss MRI of the brain recently without explanation to cause persistent nausea i.e. no mets LFTs normal, not anemic, was mildly dehydrated on admission which is now improved with hydration Also with hypoglycemia here due to poor p.o. intake-now improved with IV steroids -Increased PPI to twice daily, added Carafate QID as per GI rec -Did receive IV fluids which have now been stopped -continue regular diet as tolerated -Reglan would not be a good option for her given ongoing neurological/cognitive issues -gave scheduled Zofran bid with meals which did not make much difference -Appreciate GI consultation -Decreased dose of her duloxetine to 30mg daily as this can cause nausea -Discussed case with [facility] on the phone who had previously reviewed her CT scan of the sinuses in preparation for an upcoming telehealth visit-they do not suspect a malignancy in the sinuses, but did suggest treatment for sinusitis as below -Offered NG tube with enteral feeds and patient declined stating "I would rather starve to " -Encouraged patient to force feed herself as a lot of this at this point seems like a food aversion/psychosomatic -Trial of mirtazapine 7.5 mg p.o. nightly-causing drowsiness daytime but this should improve with time (3) Sinusitis: Acute left frontal sinusitis on chronic pansinusitis suspected Reviewed with ENT on the phone-do not suspect malignancy but also ENT does not think this is related to her significant weight loss and nausea and vomiting No facial pain, headache, fevers, or facial numbness on exam -Could explain her lack of taste and significant lack of appetite over the last few months -will continue to treat but given that she failed a 3-week course of Augmentin last month, converted to Levaquin x3-week course -Started IV steroids and then converted to prednisone 60 mg once daily in the morning-will taper down over 2 weeks -Started Flonase daily and nasal saline 3 times daily -Should have outpatient ENT follow-up after discharge (4) HTN, goal below 140/90: -BP now elevated after starting IV steroids but improved -Continue home meds of clonidine, metoprolol w/ hold parameters, and losartan -Expect blood pressures to improve as steroids taper down (5) Atrial fibrillation: -Paroxysmal, continue on Eliquis 5 mg daily In normal sinus rhythm here -Continue rate control with metoprolol 25 mg BID (6) GERD (gastroesophageal reflux disease): -Continue PPI but increased to twice daily With esophagitis and gastritis on EGD -Continue on Carafate 4 times daily (7) Chronic kidney disease (CKD), stage III (moderate): -Creatinine actually improved with hydration overnight and is now down to 1.13 which is below her baseline -Renally dose medications when appropriate -Avoid nephrotoxins -Continue losartan (8) Constipation, chronic: -Hx of such thought to be causing her persistent nausea in the past KUB here with mild to moderate fecal load as also on CT abdomen/pelvis -Continue bowel regimen (9) Elevated troponin: -Troponin slightly elevated compared to her previous chronically elevated troponin to 0.280 x3 compared to baseline of 0.097. This may be secondary to demand ischemia in the setting of dehydration, patient without any complaints of chest pain, cardiac symptoms. -Last echo last was completed on 09/02/2019 showing normal left ventricular size and systolic function, EF 65 to 70% no regional wall motion abnormalities, no LVH. Mild mitral regurg. No need to repeat at this time. -EKG reviewed showing NSR [place] T wave abnormality no longer evident in the inferior leads, T wave inversion less evident in anterior lateral leads compared to previous No further work-up needed (10) Diabetes: -Patient previously diagnosed with diabetes, current A1c= 5.8 on 09/02/2019 -Glucose was 67 upon admission and again low in the 40s after admission--> this is likely low due to her poor oral intake Glucose then went high due to IV steroids Now back low again in the 70s as steroids tapering down -follow as outpt -encouraged po intake -will be on prednisone over the next 2 weeks for sinusitis (11) Hypothyroid: - TSH is elevated at 4.760, last check was 3.21 on 10/06/2019. Not currently on replacement therapy -We will start low-dose levothyroxine to see if helps with appetite, nausea/constipation -Follow TSH in 4 to 6 weeks (12) Severe protein-calorie malnutrition: Severe protein-calorie malnutrition e/b weakness and progressive weight loss. Appreciate dietary consultation with supplements added although patient is refusing to drink them Declines enteral feeds (13) Gastritis: As above on EGD H. pylori biopsy pending Continue PPI, Carafate (14) Esophagitis determined by endoscopy: As above (15) Hypercholesterolemia: -Chronic, stable -Continue simvastatin (16) Pulmonary nodule: RUL pulm nodule 10mm groundglass Needs f/u CT scan as outpt (17) UTI (urinary tract infection): Unclear if has symptoms as has chronic urinary incontinence -UA appears infected, urine culture with mixed organisms -Started on IV ceftriaxone, no longer needs antibiotics for this-UTI ruled out -BCx x2 no growth (18) Breast cancer: -History of such, resolved Groundglass opacity in the right lung on CT of the chest but otherwise no amalia dence of recurrence or metastases (19) Hyponatremia: Na+ down to 131, likely from hypotonic IVFs which are now stopped - improved (20) Osteopenia: -Continue supplementation with calcitriol -It is unclear why she is on Plaquenil at home-some sort of arthritis but no diagnosis listed in the chart-her Plaquenil needs to be brought in from home as there is a restriction on ordering it right now in the hospital due to COVID-19 (21) Hypophosphatemia: replaced, due to poor po intake (22) DVT prophylaxis: -teds, continue eliquis BID CODE: DNR Dispo: From home, appreciate PT/OT evaluations-patient and daughter prefer her to come home with home health when able to. Pt reports she just wants to go home. She seems very depressed due to her ongoing lack of taste and smell/poor appetite. Hopeful for mirtazapine to help stimulate appetite as well as prednisone and the treatment of her sinusitis Discussed her care at length with her daughter Melinda on the phone who will pick pt up today and bring her home, provide care at home Total Time Total Time Spent Total Time Spent (In Minutes): 45 min Total Time Includes: Examination of the Patient, Discharge Planning and Medication Reconciliation Discharge Plan Discharge Items Patient Disposition: Home - Home Health Services Reason For Visit: AM,ELEVATED TROPONIN Discharge Diagnosis: Failure to thrive, acute on chronic sinusitis Gastritis Condition on Discharge: Fair Activity: As commented below Lifting: Gradually increase as tolerated Bathing: No limitations Exercise/Sports: Gradually increase as tolerated Non-emergency contact: Primary Care Provider Call non-emergency contact if: you have any medication questions and your symptoms worsen Follow-up/Referrals: Marlys Gil MD [Primary Care Provider] - (Please follow up within 2-3 weeks after discharge-call for an appointment) Diet: Regular Addtl Attending Provider Instructions: Please finish out the course of Levaquin and prednisone for your sinus infection over the next 2 1/2 weeks. Please also use the Flonase nasal spray and the nasal saline spray. You were also started on a medication to stimulate your appetite called mirtazapine. This is to be taken at bedtime only. Even if you have no appetite, it is important to try to eat or drink small meals throughout the day. You can use protein supplement shakes as well (like Boost, Ensure, etc.). You were also started on a low dose of thyroid replacement hormone as your thyroid was borderline low functioning. On your EGD, you were found to have inflammation of the esophagus and stomach which is to be treated with increased doses of antacids and Carafate x 2 weeks. Follow up with your PCP within 2-3 weeks. Pending Studies at Discharge: No Stand-Alone Forms: [facility] Medications and DC Order Prescriptions: New duloxetine 30 mg Capsule,Delayed Release(Dr/Ec) 30 mg PO DAILY Qty: 30 RF: 0 mirtazapine 15 mg Tablet 7.5 mg PO HS Qty: 15 RF: 0 fluticasone propionate 50 mcg/actuation [place],Suspension 2 spray NA DAILY Qty: 18.2 RF: 0 prednisone 20 mg Tablet 40 mg PO QAM Qty: 15 RF: 0 levothyroxine [Synthroid] 25 mcg Tablet 25 mcg PO DAILYBB Qty: 30 RF: 0 sucralfate [Carafate] 1 gram tablet 1 gm PO ACHS Qty: 56 RF: 0 levofloxacin 250 mg tablet 250 mg PO DAILY Qty: 16 RF: 0 Continued metoprolol tartrate 25 mg tablet 25 mg PO BID Qty: 180 RF: 3 buspirone 10 mg tablet 10 mg PO BID 90 Days Qty: 60 RF: 5 Eliquis 5 mg tablet 5 mg PO BID Qty: 60 RF: 1 Myrbetriq 50 mg tablet extended release 24 hr 50 mg PO DAILY Qty: 90 RF: 1 ranitidine HCl 300 mg tablet 300 mg PO HS Qty: 90 RF: 1 simvastatin 20 mg tablet 20 mg PO DAILY RF: 0 docusate sodium 100 mg capsule 100 mg PO DAILY RF: 0 calcitriol 0.5 mcg capsule 0.5 mcg PO QAM RF: 0 aspirin 81 mg Tablet,Delayed Release (Dr/Ec) 81 mg PO QAM RF: 0 clonidine HCl [Catapres] 0.1 mg tablet 0.1 mg PO BID RF: 0 polyethylene glycol 3350 [Miralax] 17 gram powder in packet 17 g PO BID RF: 0 hydroxychloroquine [Plaquenil] 200 mg tablet 200 mg PO BID RF: 0 losartan [Cozaar] 100 mg tablet 100 mg PO QAM RF: 0 Changed omeprazole 20 mg capsule,delayed release(DR/EC) 20 mg PO BID Qty: 60 RF: 0 sodium chloride 0.65 % aerosol,spray 1 sprays INTNAS BID Qty: 0 RF: 0 Discontinued duloxetine [Cymbalta] 60 mg capsule,delayed release(DR/EC) 60 mg PO DAILY Qty: 90 RF: 1 Discharge Orders: Discharge Order (Routine); Ordered 11/22/19 Ordered By: Denise Vegas Admission Data Admit Date/Time: 11/17/19 17:19 Attending Provider: Denise Vegas Admit Provider: Denise Vegas Primary Care Provider: Marlys Gil Other Providers: [facility], [facility] ; Denise Vegas ; Vic Lovelace Other Interventions: Discharge Summary Assessment (RN) Last Done: 11/22/19 15:55 DC Date/Time DO NOT enter until pt leaves facility: 11/22/19 18:04 Coding Level of Care Code D/C Day Management >30 mins Diagnoses Generalized weakness R53.1 Nausea and vomiting R11.2 Sinusitis J32.9 HTN, goal below 140/90 I10 Atrial fibrillation I48.0 Atrial fibrillation type: paroxysmal GERD (gastroesophageal reflux disease) K21.9 Esophagitis presence: esophagitis presence not specified Chronic kidney disease (CKD), stage III (moderate) N18.3 Constipation, chronic K59.09 Elevated troponin R79.89 Diabetes E11.9 Diabetes mellitus complication status: without complication Diabetes mellitus halfway insulin use: without adjunct faculty for medical terminology use Diabetes mellitus type: type 2 Hypothyroid E03.9 Severe protein-calorie malnutrition E43 Gastritis K29.70 Esophagitis determined by endoscopy K20.9 Hypercholesterolemia E78.00 Pulmonary nodule R91.1 UTI (urinary tract infection) N39.0 Breast cancer C50.919 Hyponatremia E87.1 Osteopenia M85.80 Hypophosphatemia E83.39 DVT prophylaxis Z29.9
[2019-11-22] MEDS: LEVOFLOXACIN/D5W 250 MG/50 ML BAG IV SCH (16:26)
== END 2019-11-22 18:04 | disposition home health service (06) | DRG 640 ==
LOC: ED 14:12 → 2W 17:19